=== PATIENT | female | born 1940 | race Caucasian/White ===

== ENCOUNTER 2020-08-20 17:54 | Inpatient (IN) | payer MEDICARE, MEDICAID, SELFPAY ==
--- NOTE | ~2020-08-20 | XR_ITS ---
EXAMINATION: XR foot LT min 3V DATE: 08/20/2020 20:37 INDICATION: Ischemic left forefoot TECHNIQUE: Dorsoplantar, lateral, and 2 oblique views of the left foot were obtained. COMPARISON: None. FINDINGS: The bones are osteopenic which limits the sensitivity for fracture however none is seen. Th ere is moderate osteoarthritis of the midfoot and in multiple interphalangeal joints. Soft tissue swe lling is seen over the distal foot. There is flexion at the second metatarsophalangeal joint. IMPRESSION: 1. Polyarticular osteoarthritis and distal soft tissue swelling of the foot without acute osseous fin dings identified. Reviewed, dictated and finalized at location A. RMEDIATE MANAGER IMPRESSION: 1. Polyarticular osteoarthritis and distal soft tissue swelling of the foot wit hout acute osseous findings identified.
[2020-08-20 17:53] VITALS: BP 136/88; PULSE 111; RESP 20; TEMP 37; O2SAT 96
--- NOTE | 2020-08-20 18:29 | ED.LOWEXIN ---
HPI - Extremity Injury (Lower) General Chief Complaint: Extremity Injury, Lower Stated Complaint: necrotic foot Time Seen by Provider: 08/20/20 18:01 Source: patient, EMS, old records reviewed and other Mode of arrival: EMS Limitations: clinical condition and dementia History of Present Illness HPI Narrative: 79-year-old female Poor historian, and arrives with incomplete paperwork from nursing facility which does not shed a lot of light on the history of her presentation The best I can piece together is that she is been complaining about pain in her feet for at least 2 or 3 weeks This on the heels of having tested positive for Covid in the last week of June Note that Eliquis 2.5 twice daily was part of the drug cocktail which Covid patients at that particular longterm received She was apparently evaluated with noninvasive vascular studies about 3 weeks ago This showed ischemic range ABIs of 0.43 on the right and 0.47 on the left according to the nurse and I spoke to At some point in that span she developed an ulcer on the left foot presumably ischemic that had been being treated by a wound nurse there It is unclear if referral for a vascular surgery opinion was ever entertained Apparently at some point in the last day or so the forefoot and toes on the left foot became dark purple and ischemic looking and she was sent for eval Related Data Allergies Allergy/AdvReac Type Severity Reaction Status Date / Time No Known Allergies Allergy Verified 08/20/20 19:42 Review of Systems Constitutional: Constitutional: Denies chills, Reports fatigue, Denies fever(s) and Reports weakness ENT: Denies sore throat Cardiovascular: Cardiovascular: Denies chest pain Respiratory: Respiratory: Denies cough and Denies dyspnea Gastrointestinal: Gastrointestinal: Denies diarrhea and Denies vomiting Musculoskeletal: Musculoskeletal: Reports myalgias, Reports arthralgias, Reports joint swelling and Reports muscle cramps Integumentary/Breasts: Skin/Breast: Reports rash Neurologic: Denies focal weakness and Reports numbness Endocrine: Endocrine: Denies excessive sweating and Denies polyuria Hematologic/Lymphatic: Hematologic/Lymphatic: Denies easy bleeding Exam Const: General: no acute distress and alert Nutritional Appearance: obese HENMT: Mouth: Yes moist mucous membranes Eyes: Conjunctivae: conjunctivae normal EOM: EOMs intact bilaterally Resp: Effort & Inspection: normal respiratory effort and not tachypneic Cardio: Rate: regular rate Rhythm: regular rhythm GI: GI Palp: Yes Soft to palpation and No Tenderness to palpation present (GI) Skin: Other: l foot, toes are necrotic and there is a large shallow ulcer Neuro: General: moves all extremities Speech: normal speech Extrem: Other: l foot necrotic toes, distal media foot, ischemic ulcer Course Course Emergency Course: d/w NH and Dr Tinsley, who in turn d/w pt's POA she had not been referred for vascular eval and they do not desire this, only an amputaion if clinically indicate d/w hospitalists for admit, d/w dr marquez who will see, may still suggest vascular eval Vital Signs Vital signs: Vital Signs Temperature 37.0 C 08/20/20 17:53 Pulse Rate 111 H 08/20/20 17:53 Respiratory Rate 08/20/20 17:53 Blood Pressure 136/88 08/20/20 17:53 Pulse Oximetry 96 08/20/20 17:53 Temperature 37.0 C 08/20/20 17:53 Pulse Rate 111 H 08/20/20 17:53 Respiratory Rate 08/20/20 17:53 Blood Pressure 136/88 08/20/20 17:53 Pulse Oximetry 96 08/20/20 17:53 Discharge Plan Discharge Clinical Impression: Ischemic necrosis of foot, Peripheral vascular disease Patient Disposition: Still a Patient Condition: Serious Follow-up/Referrals: Alvina Young MD [Primary Care Provider] -
--- NOTE | 2020-08-20 18:30 | PC.NURSE ---
called [facility] request med list, allergy list, and medical history. states will fax information
--- NOTE | 2020-08-20 18:35 | PC.NURSE ---
this RN to bedside. attempt x 1 to start IV access unsuccessful. spoke with Brock RUBALCAVA for possible ultrasound IV.
[2020-08-20 19:26] VITALS: PULSE 110; RESP 24; O2SAT 94
[2020-08-20 19:58] LABS: Partial Thromboplastin Time 41.7 SECONDS (22.3-36.8)
[2020-08-20] MEDS: HEPARIN SOD/D5W 100 UNITS/ML 25,000 UNITS/250 ML BAG 14 UNITS IV CONT (21:00)
[2020-08-20 21:02] VITALS: BP 168/86; PULSE 107; RESP 24; TEMP 36.6; O2SAT 95
--- NOTE | 2020-08-20 21:13 | PM.IMHP ---
H&P: HPI History of Present Illness Date/Time: 08/20/20 21:13 Chief complaint: necrotic foot, peripheral vascular disease Narrative: Marva Terry is a 79 year old female from [facility] with past medical history of COVID-19 06/2020, heart failure, GERD, dry eyes, allergies, vitamin-D deficiency, COPD who presents to the ED with complaints of left ischemic foot. Patient is a resident of [facility]. Patient is poor historian may have underlying dementia. Upon chart review appears patient had COVID-19 in June of 2020. Subsequently she started developing ischemia or left lower extremity in the foot which has been worked up at the end of July with arterial studies and x-ray which were not very significant. She does not remember when her foot started becoming ischemic. Patient has significant smoking history with COPD, but now lives in half-way. It appears patient has not had any other arterial emboli issues. She is on Xarelto and that may have been in response to these new ischemic toes or just prophylactic after having COVID-19. In the ED: Patient found to have ischemic foot. ER provider discussed case with POA who does not want vascular surgery evaluation, only amputation if needed. ER provider discussed case with general surgery who will be in consultation for amputation. Review of Systems Review of Systems: Narrative: Unable to evaluate to dementia. Patient had no complaints PMFSH Past Medical History Medical History Chronic pain COPD (chronic obstructive pulmonary disease) COVID-19 GERD (gastroesophageal reflux disease) Heart failure Seasonal allergies Vitamin D deficiency Family History Family History Other Unknown family medical history Social History Social History (Updated 08/21/20 @ 05:07 by Lobo Sheppard DO) Smoking status: Former smoker Alcohol intake: never Substance use: never Substance use type: does not use Living arrangements: half-way Additional living arrangements comments: [facility] Gender identity (if verbalized by the patient): Female Spiritual care concerns: No Meds Home Medications and Allergies Home Medications Medication Instructions Recorded Confirmed Type collagenase clostridium histo. 250 unit TOPICAL DAILY 08/20/20 08/21/20 History [Santyl] furosemide 40 mg PO DAILY 08/20/20 08/21/20 History potassium chloride 20 meq PO DAILY 08/20/20 08/21/20 History rivaroxaban [Xarelto] 2.5 mg PO DAILY 08/20/20 08/21/20 History tramadol 50 mg PO Q8H PRN 08/20/20 08/21/20 History albuterol sulfate 2.5 mg INHALATION Q4H PRN 08/21/20 08/21/20 History ascorbic acid (vitamin C) 1,000 mg PO DAILY 08/21/20 08/21/20 History budesonide-formoterol [Symbicort] 2 puff INHALATION Q12H 08/21/20 08/21/20 History cholecalciferol (vitamin D3) 50 mcg PO DAILY 08/21/20 08/21/20 History [Vitamin D3] docusate sodium 100 mg PO DAILY 08/21/20 08/21/20 History gentamicin 1 applic TOPICAL DAILY 08/21/20 08/21/20 History loratadine [Allergy Relief 10 mg PO DAILY 08/21/20 08/21/20 History (loratadine)] multivitamin with minerals [All 1 tablet PO DAILY 08/21/20 08/21/20 History Purpose Multivitamin-Min] polyethylene glycol 3350 [Miralax] 17 g PO DAILY 08/21/20 08/21/20 History Allergies Allergy/AdvReac Type Severity Reaction Status Date / Time No Known Allergies Allergy Verified 08/21/20 01:00 Vital Signs Vital Signs - 24 hr 08/20/20 17:53 08/20/20 19:26 08/20/20 21:02 Temperature 37.0 C 36.6 C Pulse Rate 111 H 110 H 107 H Respiratory Rate 20 24 H 24 H Blood Pressure 136/88 168/86 H Pulse Oximetry 96 94 95 Exam Narrative: Exam Narrative: - GENERAL: Pleasant elderly woman in no acute distress - EYES: EOMI. Anicteric. Bilateral artificial lens. - HENT: Moist mucous membranes. - LUNGS: Clear t
[2020-08-20 23:40] VITALS: BP 148/79; PULSE 105; RESP 20; TEMP 36.8; O2SAT 100
[2020-08-20] MEDS: GABAPENTIN 300 MG CAPSULE PO (23:43)
--- NOTE | 2020-08-20 23:53 | PC.NURSE ---
pt pulled out her IVs, attempting to start another at this time to continue heparin drip
--- NOTE | 2020-08-21 00:11 | ADMGEN ---
This patient, Marva Terry, was admitted to 2 Medical Room 243-01@ 0010 Patient/family oriented to hospital policies and general routines including ID bracelet, bed and alarms, visiting hours, pain management, procedures, bathroom and other care routines, personal items, smoking policy, room service/diet, and visiting hours. Information on how to activate the Rapid Response Team has been discussed. Patient/Family are encouraged to report perceived risks to care and to ask questions if they do not understand what they are told or what they should do.
[2020-08-21 00:45] VITALS: BP 133/73; PULSE 104; RESP 20; TEMP 37.3; O2SAT 100; BMI 36.3
[2020-08-21 01:52] LABS: Estimated CRCL calculation 69 ml/min; Estimated Glomerular Filt Rate > 60
[2020-08-21] MEDS: LACTATED RINGERS 1,000 ML 125 ML IV CONT (03:04)
[2020-08-21 03:34] LABS: Partial Thromboplastin Time 60.8 SECONDS (22.3-36.8)
[2020-08-21] MEDS: HEPARIN SODIUM 5,000 UNITS/ML VIAL 3000 UNITS IV PUSH (03:42)
[2020-08-21 06:00] VITALS: BP 125/65; PULSE 93; RESP 20; TEMP 37.1; O2SAT 98
[2020-08-21 06:31] LABS: Basophils Absolute Auto 0.1 K/mm3 (0.0-0.1); Basophils Percent Auto 0.6 % (0.2-1.2); Eosinophils Absolute Auto 0.1 K/mm3 (0-0.3); Eosinophils Percent Auto 0.5 % (0-4.4); Hematocrit 32.5 % (37.0-47.0); Immature Granulocyte Absolute 0.21 K/mm3 (0.00-0.031); Lymphocytes Absolute Auto 1.54 K/mm3 (0.9-3.2); Lymphocytes Percent Auto 14.9 % (18.3-44.2); Mean Corpuscular HGB Conc 33.8 g/dl (32-36); Mean Corpuscular Hemoglobin 31.3 pg (26-34); Mean Corpuscular Volume 92.6 fl (80-100); Mean Platelet Volume 10.3 fl (7.4-10.4); Monocytes Absolute Auto 0.9 K/mm3 (0.1-0.6); Monocytes Percent Auto 8.4 % (2.6-8.5); Neutrophils Absolute Auto 7.6 K/mm3 (1.3-6.7); Neutrophils Percent Auto 73.6 % (45.5-73.1); Nucleated Red Blood Cells Perc 0.2 % (0.0-0.2); Platelet Count Result 371 k/mm3 (150-375); Red Blood Count 3.51 M/mm3 (4.2-5.4); Red Cell Distribution Width 13.8 % (11.5-14.5); White Blood Count 10.3 K/mm3 (4.5-10.0)
[2020-08-21 06:52] LABS: Anion Gap 7 mmol/L (8-16); Blood Urea Nitrogen 14 mg/dL (7-17); Calcium 8.2 mg/dL (8.4-10.2); Carbon Dioxide 30 mmol/L (22-30); Chloride 91 mmol/L (98-107); Estimated CRCL calculation 69 ml/min; Estimated Glomerular Filt Rate > 60; Glucose 110 mg/dL (65-105); Potassium 4.1 mmol/L (3.4-5.0); Sodium 128 mmol/L (137-145)
--- NOTE | 2020-08-21 08:07 | PM.CNOR ---
Assessment and Plan Assessment and plan (1) Peripheral vascular disease: Code(s): I73.9 - Peripheral vascular disease, unspecified Status: Acute (2) Ischemic necrosis of foot: Code(s): I96 - Gangrene, not elsewhere classified Status: Acute Assessment and Plan: Patient admitted to floor last night with history of severe arterial disease bilateral lower extremities and dry gangrene necrotic changes to the left forefoot and toes. Patient awake but does not respond to questions or follow commands. Unsure of activity and ambulatory status prior to admission. Due to arterial flow being the underlying etiology as well as necessary for healing after any type of surgery, strongly recommend vascular surgery assessment to guide predictable level of amputation and see if any zoroastrian of blood flow is possible to aid in healing and possibly preserve limb and soft tissue. In the absence of vascular surgery evaluation, other option is to allow foot and toes to declare themselves to help guide amputation. Grim prognosis given the severity of vascular compromise as well as medical comorbidities. Anticipate future problems on the right side as well without vascular surgery evaluation. History of Present Illness HPI Consult date: 08/21/20 Requesting physician: Jameel Briones MD Chief complaint: necrotic foot, peripheral vascular disease Narrative: 79-year-old woman with known lower extremity peripheral arterial disease presented to the emergency room yesterday with ischemic changes to the left foot. Patient retirement resident. Apparently they had done blood flow studies which showed severely compromised arterial flow to both lower extremities. Ischemic changes to the toes and forefoot over the past several weeks. By report they have not been evaluated by vascular surgery. Patient with minimal complaints of pain secondary to presumed neuropathy. Unaware of ambulatory status as patient is poor historian. Review of Systems Constitutional: Constitutional: Denies chills, Reports fatigue, Denies fever(s) and Reports weakness ENT: Denies sore throat Cardiovascular: Cardiovascular: Denies chest pain Respiratory: Respiratory: Denies cough and Denies dyspnea Gastrointestinal: Gastrointestinal: Denies diarrhea and Denies vomiting Musculoskeletal: Musculoskeletal: Reports myalgias, Reports arthralgias, Reports joint swelling and Reports muscle cramps Integumentary/Breasts: Skin/Breast: Reports rash Neurologic: Denies focal weakness and Reports numbness Endocrine: Endocrine: Denies excessive sweating and Denies polyuria Hematologic/Lymphatic: Hematologic/Lymphatic: Denies easy bleeding PMFSH Past Medical History Medical History Chronic pain COPD (chronic obstructive pulmonary disease) COVID-19 GERD (gastroesophageal reflux disease) Heart failure Seasonal allergies Vitamin D deficiency Family History Family History Other Unknown family medical history Social History Social History Smoking status: Former smoker Alcohol intake: never Substance use: never Substance use type: does not use Living arrangements: retirement Additional living arrangements comments: [facility] Gender identity (if verbalized by the patient): Female Spiritual care concerns: No Meds Home Medications and Allergies Home Medications Medication Instructions Recorded Confirmed Type collagenase clostridium histo. 250 unit TOPICAL DAILY 08/20/20 08/21/20 History [Santyl] furosemide 40 mg PO DAILY 08/20/20 08/21/20 History potassium chloride 20 meq PO DAILY 08/20/20 08/21/20 History rivaroxaban [Xarelto] 2.5 mg PO DAILY 08/20/20 08/21/20 History tramadol 50 mg PO Q8H PRN 08/20/20 08/21/20 History albuterol sulfate 2.5 mg INHALATION Q
[2020-08-21] MEDS: DOCUSATE SODIUM 100 MG CAPSULE PO (09:54)
[2020-08-21] MEDS: ASCORBIC ACID 500 MG TABLET 1000 MG PO (09:54)
[2020-08-21] MEDS: THERAPEUTIC MULTIVITAMINS/MINERALS TAB (*BKC) 1 TABLET PO (09:54)
[2020-08-21] MEDS: CHOLECALCIFEROL 1,000 UNITS TABLET 1000 UNITS PO (09:54)
[2020-08-21] MEDS: COLLAGENASE OINT 30 GM TUBE 1 APPLIC TOPICAL (09:55)
[2020-08-21] MEDS: GENTAMICIN SULFATE 0.1% CR 15 GM TUBE 1 APPLIC TOPICAL (09:55)
[2020-08-21] MEDS: LORATADINE 10 MG TABLET PO (09:55)
[2020-08-21] MEDS: polyethylene glycoL 3350 17 GM POWD.PACK PO (10:30)
[2020-08-21] MEDS: traMADol HCL (*CRX) 50 MG TABLET PO (10:31)
[2020-08-21] MEDS: GABAPENTIN 300 MG CAPSULE PO ×2 (10:31→15:23)
--- NOTE | 2020-08-21 12:38 | PM.TDS ---
Transfer Discharge Sum: Prov Provider Date of admission: 08/20/20 19:32 Primary care physician: Alvina Young MD Admitting clinician: Gretchen Alberto MD Consults: 08/20/20 19:35 Consult to Physician Routine Comment: Consulting Provider: Damian Coto Reason for consultation: possible amputation Has provider been notified: Yes DS: Admitting Diagnosis Admitting Diagnosis Admitting Diagnosis: necrotic foot, peripheral vascular disease DS: Discharge Diagnosis Discharge Diagnosis (1) Ischemic necrosis of foot: Code(s): I96 - Gangrene, not elsewhere classified Status: Acute Assessment and Plan: - left lower extremity ischemic foot, no palpable pulses - consulting Dr. Lafleur possible surgery amputation, ER provider discussed with family for no vascular surgery at this time - heparin drip for ischemia -pain control with tramadol - Zofran for nausea - bowel regimen: docusate and MiraLax - IV antibiotics: Zosyn, until surgical evaluation - IV fluids Ringer's lactate 125 cc/hour - patient had COVID-19 in 06/2020, this may be a late term sequelae of COVID -08/03/2020 patient had arterial duplex lower extremities which showed no evidence of hemodynamically significant stenosis -08/03/2020 two-view left foot x-ray no acute abnormality - it appears this ischemic foot has been going on since the end of July and is subacute (2) Peripheral vascular disease: Code(s): I73.9 - Peripheral vascular disease, unspecified Status: Acute Assessment and Plan: - patient was started on heparin drip in the ED, takes Xarelto at home which may have been for COVID-19. Also patient is developing ischemia in the right hand pinky, at this time being hypercoagulable with multiple ischemic limbs and digits it will be better to continue heparin drip and re-evaluate. Transfer Discharge Sum: Med Medications Active and Home Medications: Home Medications collagenase clostridium histo. [Santyl] 250 unit TOPICAL DAILY 08/20/20 [History Confirmed 08/21/20] furosemide 40 mg PO DAILY 08/20/20 [History Confirmed 08/21/20] potassium chloride 20 meq PO DAILY 08/20/20 [History Confirmed 08/21/20] rivaroxaban [Xarelto] 2.5 mg PO DAILY 08/20/20 [History Confirmed 08/21/20] tramadol 50 mg PO Q8H PRN 08/20/20 [History Confirmed 08/21/20] albuterol sulfate 2.5 mg INHALATION Q4H PRN 08/21/20 [History Confirmed 08/21/20] ascorbic acid (vitamin C) 1,000 mg PO DAILY 08/21/20 [History Confirmed 08/21/20] budesonide-formoterol [Symbicort] 2 puff INHALATION Q12H 08/21/20 [History Confirmed 08/21/20] cholecalciferol (vitamin D3) [Vitamin D3] 50 mcg PO DAILY 08/21/20 [History Confirmed 08/21/20] docusate sodium 100 mg PO DAILY 08/21/20 [History Confirmed 08/21/20] gentamicin 1 applic TOPICAL DAILY 08/21/20 [History Confirmed 08/21/20] loratadine [Allergy Relief (loratadine)] 10 mg PO DAILY 08/21/20 [History Confirmed 08/21/20] multivitamin with minerals [All Purpose Multivitamin-Min] 1 tablet PO DAILY 08/21/20 [History Confirmed 08/21/20] polyethylene glycol 3350 [Miralax] 17 g PO DAILY 08/21/20 [History Confirmed 08/21/20] Active Medications Acetaminophen (Acetaminophen 325 Mg Tablet) 650 mg PO Q4H PRN PRN Reason: Mild Pain (1-3) or Fever Albuterol (Albuterol Sulfate Neb 2.5 Mg/3 Ml Inh) 2.5 mg INHALATION Q4H PRN PRN Reason: Shortness Of Breath Ascorbic Acid (Ascorbic Acid 500 Mg Tablet) 1,000 mg PO DAILY [facility] Last Admin: 08/21/20 09:54 Dose: 1,000 mg Documented by: Budesonide/Formoterol Fumarate (Budesonide/Form 160-4.5 Mcg (*Sp)) 2 puff INHALATION Q12HRT [facility] Last Admin: 08/21/20 11:57 Dose: 2 puff Documented by: Collagenase (Collagenase Oint 30 Gm Tube) 1 applic TOPICAL DAILY [facility] Last Admin: 08/21/20 09:55 Dose: 1 applic Documented by: Docusate Sodium (Docusate Sodium 100 Mg Capsule) 100 mg PO DAILY [facility] Last Admin: 08/21/20 09:54 Dose: 100 mg Documented by: Gabapentin (Gabapentin 300 Mg Capsule)
[2020-08-21 14:00] VITALS: BP 139/88; PULSE 96; RESP 20; TEMP 36.9; O2SAT 99
[2020-08-21] MEDS: HEPARIN SOD/D5W 100 UNITS/ML 25,000 UNITS/250 ML BAG 14 UNITS IV CONT (15:22)
[2020-08-21] MEDS: HYDROcodone/acetaminophen (*CRX) 5-325 MG TABLET 1 TAB PO (16:31)
--- NOTE | 2020-08-21 17:52 | PC.NURSE ---
Patient accepted at [place], [place]. Report given to Ansley RUBALCAVA. Bed assignment received. [facility] here to transport patient.
--- NOTE | 2020-08-21 17:55 | PC.NURSE ---
Patient transferred via [facility] ambulance ([facility]) and Heparin gtt continued for transfer. 1740 PTT drawn prior to transfer - scheduled per Heparin protocol. Called Ansley at [facility] and notified her that PTT was obtained and we will notify her of results when they are received. [facility] took patient with our IV pump and will return pump.
[2020-08-21 17:59] LABS: Partial Thromboplastin Time 107.1 SECONDS (22.3-36.8)
--- NOTE | 2020-08-21 19:47 | PC.NURSE ---
1745 PTT 107. Called to Ansley at [facility]
== END 2020-08-21 17:55 | disposition short-term general hospital (02) | DRG 301 ==
LOC: ANHED 19:48 → ANH2MED 21:53
PROVIDERS: Student in an Organized Health Care Education/Training Program; Admitting Provider Family Medicine; Emergency Provider Emergency Medicine; PCP Family Medicine; Visit Provider Family Medicine
DX: I70.262 Atherosclerosis of native arteries of extremities with gangrene, left leg (principal); J44.9 Chronic obstructive pulmonary disease, unspecified; B94.8 Sequelae of other specified infectious and parasitic diseases; K21.9 Gastro-esophageal reflux disease without esophagitis; I50.9 Heart failure, unspecified; E55.9 Vitamin D deficiency, unspecified
CPT/HCPCS: 36415; 73630; 80048; 82565; 83735; 85025; 85730; 94640; 99285; A9270; J1644; J2543; J7120

== ENCOUNTER 2021-02-24 08:29 | Inpatient (IN) | payer MEDICARE, MEDICAID, SELFPAY ==
[2021-02-24] VITALS (26 sets, daily range): BP systolic 123–144; BP diastolic 50–99; PULSE 77–101; RESP 12–20; TEMP 35.9–36.4; O2SAT 84–100
--- NOTE | ~2021-02-24 | XR_ITS ---
EXAMINATION: XR abdomen/kub 1V DATE: 03/02/2021 18:23 INDICATION: Ileitis. Abdominal pain. TECHNIQUE: A supine view of the abdomen on 2 radiographs was obtained. COMPARISON: CT abdomen and pelvis 02/24/2021, small bowel series 02/25/2021 FINDINGS: There are multiple dilated loops of small bowel. There is a capsule in the right abdomen. T here are calcified uterine fibroids. IMPRESSION: 1. Capsule in small bowel in the right abdomen. 2. Dilated small bowel, consistent with small bowel obstruction. 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 Colonoscopy is recommended. Reviewed, dictated and finalized at location A. IMPRESSION: 1. Capsule in small bowel in the right abdomen. 2. Dilated small bowel, consistent with small bowel obstruction. 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 Colonoscopy is recommended.
--- NOTE | ~2021-02-24 | XR_ITS ---
EXAMINATION: XR abdomen obstructive series DATE: 03/01/2021 08:42 INDICATION: Abdominal pain . Ileitis. TECHNIQUE: Frontal supine and upright views of the abdomen were obtained. COMPARISON: 02/25/2021 FINDINGS: Interval decrease in the amount of gas within several now nondilated loops of small bowel. There is a lso a small amount of gas along with some fluid scattered throughout the colon. No pneumatosis or marielle e intraperitoneal gas. Large partially calcified mass and smaller calcified nodule in the pelvis like ly representing degenerated uterine fibroids. Severe lumbar spondylosis. Old right seventh and eighth rib fracture deformities. Visualized bilateral mid to lower lungs are clear. Heart size is normal. IMPRESSION: 1. Nonspecific nonobstructive bowel gas pattern. 2. Calcified uterine fibroids. Reviewed, dictated and finalized at location A.
--- NOTE | ~2021-02-24 | US_ITS ---
EXAMINATION: US pelvic complete DATE: 02/28/2021 14:08 INDICATION: Follow-up right adnexal cyst seen on prior study Comparison:CT dated 02/24/2021 TECHNIQUE: Multiple transabdominal and endovaginal sonographic images of the pelvis performed. FINDINGS: The uterus measures 7.4 x 2.5 x 5.4 cm. There are coarse calcifications in the uterus, like ly related to underlying fibroid changes. There is a hypoechoic mass containing coarse calcifications posterior aspect of the uterus measuring 4.1 x 3.8 x 2.9 cm. The endometrium is not adequately visua lized. There is a right adnexal cyst measuring 11.3 x 6.5 x 5.3 cm without significant soft tissue component . Left ovary is not well visualized. No adnexal masses are seen. No free fluid in the pelvis. There is no free fluid in the pelvis. There are no abnormal masses seen on either side. IMPRESSION: 1. 11.3 cm cystic mass in the right adnexa, likely benign cystadenoma, although cystadenocarcinoma is not excluded. 2: Multiple uterine fibroids, largest exophytic posteriorly, largely calcified measuring 4.1 x 3.8 x 2.9 cm. Reviewed, dictated and finalized at location B.
--- NOTE | ~2021-02-24 | XR_ITS ---
XR sm bowel follow through WS DATE: 02/25/2021 17:00 INDICATION: Ileus versus small bowel obstruction TECHNIQUE: Serial images of the abdomen after oral administration of 450 cc Omnipaque 350 water solub le contrast material COMPARISON: None FINDINGS: There are abnormally dilated gas distended small bowel segments throughout the jejunum and ileum, sparing the distal ileum, suggesting distal small bowel partial obstruction versus adynamic il eus. Correlation is advised. At 3 hours the contrast material has progressed into the mid small bowel . Contrast material reaches the distal colon and rectum by 7 1/2 hours. IMPRESSION: Dilatation of small bowel, sparing the very distal small bowel, with delayed contrast mat erial transit. Findings suggest very distal small bowel partial obstruction versus adynamic ileus. Reviewed, dictated and finalized at Location A. Reviewed, dictated and finalized at location A. IMPRESSION: Dilatation of small bowel, sparing the very distal small bowel, wit h delayed contrast material transit. Findings suggest very distal small bowel p artial obstruction versus adynamic ileus.
--- NOTE | ~2021-02-24 | CT_ITS ---
EXAMINATION: CT abdomen pelvis w con EXAM DATE: 02/24/2021 12:06 INDICATION: Central abdominal pain, nausea and vomiting. TECHNIQUE: Spiral CT of the abdomen and pelvis was performed following intravenous injection of 100 m L Omnipaque 350. Axial, coronal and sagittal images of the abdomen and pelvis were reviewed. The do se-length product (DLP) for this examination was 1310.05 mGy-cm. The exposure was tailored according to patient size (auto mA exposure control), and iterative reconstruction (ASIR) was used as addition al dose reduction technique. There is no prior study for comparison. FINDINGS: Ileum has diffuse enhancing mildly thickened mucosa, appearance consistent with ileitis. En tire small bowel is moderately distended with air-fluid levels, probably from ileitis, ileus. Appendi x is also dilated and fluid-filled but without adjacent inflammation or obstructing stone, probably t he same process rather than acute appendicitis. The terminal ileum has thickened wall. Nodular liver contour consistent with cirrhosis. Spleen, adrenal glands, pancreas are unremarkable. T here are gallstones within an otherwise unremarkable gallbladder. No evidence of obstructive biliary disease. Portal and splenic veins are patent. Kidneys enhance symmetrically. There is no hydronep hrosis. Calcified fibroids, largest measuring 4 cm. There is mass arising from the right adnexal reg ion measuring 14 x 6 cm which is homogeneous, suspected to be cystic containing proteinaceous fluid. Could be cystic ovarian neoplasm, benign or malignant. The bladder is unremarkable. There is no retr operitoneal or pelvic lymphadenopathy. There is mild sigmoid colonic diverticulosis. There is no adjacent inflammatory change to suggest di verticulitis. There is small sliding gastroesophageal hiatal hernia. Small amount of colonic stool. No free intraperitoneal gas. Mild cardiomegaly. The lung bases are unremarkable. There are no o steoblastic or osteolytic lesions identified. IMPRESSION: 1. Moderately thickened enhancing ileal mucosa, ileitis with additional thickening at the terminal i leum. Moderately dilated small bowel, probably ileus or less likely partial obstruction. Could be inf ectious or inflammatory bowel disease etiology. 2. Dilated fluid-filled appendix probably also same process. 3. Cystic right ovarian mass, benign or malignant neoplasm most likely. 4. Mild sigmoid diverticulosis. 5. Small hiatal hernia. 6. Cirrhosis. 7. Cholelithiasis. 8. Fibroids Reviewed, dictated and finalized at location B. IMPRESSION: 1. Moderately thickened enhancing ileal mucosa, ileitis with additional thicke charles at the terminal ileum. Moderately dilated small bowel, probably ileus or l ess likely partial obstruction. Could be infectious or inflammatory bowel disea se etiology. 2. Dilated fluid-filled appendix probably also same process. 3. Cystic right ovarian mass, benign or malignant neoplasm most likely. 4. Mild sigmoid diverticulosis. 5. Small hiatal hernia. 6. Cirrhosis. 7. Cholelithiasis. 8. Fibroids
--- NOTE | ~2021-02-24 | XR_ITS ---
EXAMINATION: XR abdomen/kub 1V DATE: 03/03/2021 07:13 INDICATION: Small bowel obstruction TECHNIQUE: A supine view of the abdomen on 2 radiographs was obtained. COMPARISON: CT dated 02/24/2021 and KUB dated 03/02/2021 FINDINGS: Several mildly dilated loops of small bowel consistent with persistent small bowel obstruction. A rad iopaque capsule has likely advanced, now projecting over the right lower quadrant, unclear whether in the cecum or a more proximal small bowel loop. Large calcified mass in the pelvis with adjacent smal ler calcified nodule consistent with degenerated uterine fibroids. Moderate to severe lumbar spondylo sis. IMPRESSION: 1. Persistent small bowel obstruction. 2. Radiopaque capsule in the right lower quadrant, unclear whether proximal or distal to the level of the ileocecal valve. Reviewed, dictated and finalized at location A.
--- NOTE | ~2021-02-24 | XR_ITS ---
EXAMINATION: XR sm bowel follow through DATE: 03/03/2021 11:39 INDICATION: Small bowel obstruction TECHNIQUE: Oral contrast was administered, and sequential radiographs of the abdomen were obtained un til oral contrast was noted to be in the proximal colon. Spot fluoroscopic images of the small bowel were obtained. Fluoroscopy exposure time was 0.6 minutes. The DAP for this procedure was 164.66 Gycm2 . COMPARISON: None. FINDINGS: There are calcified uterine fibroids. The radiopaque capsule projects over the right lower quadrant and is no longer visible after contrast passes into the colon. Transit time from the stomach to proximal colon was approximately 90 minutes. There are persistently dilated loops of small bowel. The terminal ileum is difficult to visualize with fluoroscopy. No tethering or abnormal mass effect observed upon the small bowel with real-time fluoroscopy. IMPRESSION: 1. Findings consistent with ileus versus partial small bowel obstruction. Reviewed, dictated and finalized at location A.
[2021-02-24 09:00] LABS: Add Urine Microscopic? YES; Appearance Urine Clear (Clear); Bilirubin Urine Negative (Negative); Blood Urine Negative (Negative); Color Urine Yellow (Yellow); Glucose Urine UA Negative (Negative); Ketones Urine Trace mg/dL (Negative); Leukocyte Esterase Ur Negative LEU/UL (Negative); Nitrate Urine Negative (Negative); Protein Urine Negative (Negative); RBC Urine 0-2 /hpf (0-2); Specific Grav Ur 1.016 (1.001-1.035); Squamous Epithelial Cell Urine Rare /hpf (Few); Urobilinogen Urine Negative mg/dL (<2.0); WBC Urine 0-3 /hpf
[2021-02-24 09:01] LABS: Basophils Percent Auto 0.2 % (0.2-1.2); Eosinophils Percent Auto 0.2 % (0-4.4); Hematocrit 37.4 % (37.0-47.0); Immature Granulocyte Absolute 0.03 K/mm3 (0.00-0.031); Immature Granulocyte Percent A 0.3 % (0-0.5); Lymphocytes Absolute Auto 1.93 K/mm3 (0.9-3.2); Lymphocytes Percent Auto 22.3 % (18.3-44.2); Mean Corpuscular HGB Conc 32.1 g/dl (32-36); Mean Corpuscular Hemoglobin 30.2 pg (26-34); Mean Platelet Volume 9.6 fl (7.4-10.4); Neutrophils Absolute Auto 5.7 K/mm3 (1.3-6.7); Platelet Count Result 423 k/mm3 (150-375); Red Blood Count 3.98 M/mm3 (4.2-5.4); Red Cell Distribution Width 15.8 % (11.5-14.5); White Blood Count 8.7 K/mm3 (4.5-10.0)
[2021-02-24] MEDS: SODIUM CHLORIDE 0.9% IV 1,000 ML 150 ML IV CONT (09:12)
[2021-02-24 09:18] LABS: Albumin Level 3.5 g/dL (3.5-5.1); Alkaline Phosphatase 95 U/L (38-126); Aspartate Amino Transferase 20 U/L (14-36); Bilirubin,Total 0.5 mg/dL (0.2-1.3); Blood Urea Nitrogen 13 mg/dL (7-17); Carbon Dioxide 36 mmol/L (22-30); Estimated CRCL calculation 56 ml/min; Estimated Glomerular Filt Rate > 60; Glucose 115 mg/dL (65-105)
[2021-02-24 09:26] LABS: Alanine Aminotransferase 7 U/L (4-35); Anion Gap 7 mmol/L (8-16); Calcium 8.9 mg/dL (8.4-10.2); Chloride 93 mmol/L (98-107); Lipase 18 U/L (23-300); Potassium 3.8 mmol/L (3.4-5.0); Sodium 136 mmol/L (137-145)
--- NOTE | 2021-02-24 14:00 | ED.ABDPAIN ---
HPI - Abdominal Pain General Chief Complaint: Abdominal Pain Stated Complaint: ABD pain & vomiting Time Seen by Provider: 02/24/21 08:54 Source: patient Mode of arrival: EMS Limitations: no limitations History of Present Illness HPI narrative: 80-year-old skilled nursing resident with a history of COPD, CHF, chronic pain, GERD vitamin D deficiency was brought in from the skilled nursing with complaints of diffuse abdominal pain since this morning. Patient denies any nausea or vomiting. She states he is constipated had taken a laxative last night with no results. She denies any urinary symptoms. No history of chest pain or shortness of breath. MD elicited complaint: abdominal pain Pertinent past history: constipation Onset (ago): day(s) (1) Pain Consistency: constant Location: diffuse Severity: moderate Quality: cramping Radiation: none Migration to: no migration Exacerbating factors: nothing Relieving factors: nothing Associated symptoms: denies other symptoms Related Data Home Medications Medication Instructions Recorded Confirmed furosemide 40 mg PO DAILY 08/20/20 08/21/20 potassium chloride 20 meq PO DAILY 08/20/20 08/21/20 rivaroxaban [Xarelto] 2.5 mg PO BID 08/20/20 08/21/20 budesonide-formoterol [Symbicort] 2 puff INHALATION Q12H 08/21/20 08/21/20 cholecalciferol (vitamin D3) 50 mcg PO DAILY 08/21/20 08/21/20 [Vitamin D3] multivitamin with minerals [All 1 tablet PO DAILY 08/21/20 08/21/20 Purpose Multivitamin-Min] polyethylene glycol 3350 [Miralax] 17 g PO DAILY PRN 08/21/20 08/21/20 acetaminophen 650 mg PO Q6-8H PRN 02/24/21 carboxymethylcellulose sodium 1 drp EACH EYE BID 02/24/21 [TheraTears] gabapentin 100 mg PO TID 02/24/21 hydrocodone-acetaminophen 1 tablet PO Q8H PRN 02/24/21 loperamide 2 mg PO Q4H PRN 02/24/21 loratadine 10 mg PO DAILY 02/24/21 naproxen 500 mg PO BID 02/24/21 pantoprazole [Protonix] 40 mg PO BID 02/24/21 paroxetine HCl [Paxil] 10 mg PO QAM 02/24/21 sennosides-docusate sodium 1 tab-cap PO HS 02/24/21 [Senokot-S] Allergies Allergy/AdvReac Type Severity Reaction Status Date / Time No Known Allergies Allergy Verified 02/24/21 08:52 Review of Systems Review of Systems: All systems reviewed & are unremarkable except as noted in HPI and below Constitutional: Constitutional: Reports no additional constitutional complaints Eyes: Eyes: Reports no additional eye complaints ENT: Reports system reviewed and no additional complaints, except as documented Cardiovascular: Cardiovascular: Reports no additional cardiovascular complaints Respiratory: Respiratory: Reports no additional respiratory complaints Gastrointestinal: Gastrointestinal: Reports as per HPI Genitourinary: Genitourinary: Reports no additional female genitourinary complaints Musculoskeletal: Musculoskeletal: Reports no additional musculoskeletal complaints [facility] Past Medical History Medical History Chronic pain COPD (chronic obstructive pulmonary disease) COVID-19 GERD (gastroesophageal reflux disease) Heart failure Seasonal allergies Vitamin D deficiency Family History Family History Other Unknown family medical history Social History Social History Smoking status: Former smoker Alcohol intake: never Substance use: never Substance use type: does not use Additional living arrangements comments: [facility] Gender identity (if verbalized by the patient): Female Spiritual care concerns: No Exam Narrative: Exam Narrative: GENERAL: Well-appearing, well-nourished, and in no acute distress. HEAD: Normocephalic, atraumatic. EYES: PERRLA and EOMI. ENT: Nares clear, no rhinorrhea or epistaxis. Mucous membranes moist. NECK: Supple. CHEST: Clear to auscultation. No respiratory distress. HEART: Regular rate and
--- NOTE | 2021-02-24 17:09 | ADMGEN ---
This patient, Marva Terry, was admitted to Medical Room 250-01. Patient/family oriented to hospital policies and general routines including ID bracelet, bed and alarms, visiting hours, pain management, procedures, bathroom and other care routines, personal items, smoking policy, room service/diet, and visiting hours. Information on how to activate the Rapid Response Team has been discussed. Patient/Family are encouraged to report perceived risks to care and to ask questions if they do not understand what they are told or what they should do.
[2021-02-24] MEDS: ACETAMINOPHEN 325 MG TABLET 650 MG PO (17:40)
[2021-02-24] MEDS: SODIUM CHLORIDE 0.9% IV 1,000 ML 125 ML IV CONT ×2 (17:40→23:52)
[2021-02-24] MEDS: ALBUTEROL SULFATE NEB 2.5 MG/0.5 ML INH 5 MG INHALATION (21:58)
[2021-02-24] MEDS: IPRATROPIUM BR 0.02% INH SOLN 0.5 MG/2.5 ML VIAL INHALATION (21:58)
[2021-02-24] MEDS: ONDANSETRON INJ 4 MG/2 ML VIAL IV PUSH (23:51)
[2021-02-24] MEDS: MORPHINE SULFATE (*CRX) 4 MG/ML INJ IV PUSH (23:52)
[2021-02-25] VITALS (9 sets, daily range): BP systolic 114–146; BP diastolic 53–64; PULSE 69–80; RESP 15–20; TEMP 36.1–36.4; O2SAT 100
--- NOTE | 2021-02-25 00:22 | PM.IMHP ---
H&P: HPI History of Present Illness Date/Time: 02/24/21 [id number] this is a 80-year-old female patient who resides at [facility]. She has a very poor historian. Was broadened to the ER from the long-term with complaints of diffuse abdominal pain since this morning she denied any nausea vomiting she took a laxative last night for constipation and had no relief. No history of any chest pain. She had abdominal/pelvis CT which was read as the following 1. Moderately thickened enhancing ileal mucosa, ileitis with additional thickening at the terminal ileum. Moderately dilated small bowel, probably ileus or less likely partial obstruction. Could be infectious or inflammatory bowel disease etiology. 2. Dilated fluid-filled appendix probably also same process. 3. Cystic right ovarian mass, benign or malignant neoplasm most likely. 4. Mild sigmoid diverticulosis. 5. Small hiatal hernia. 6. Cirrhosis. 7. Cholelithiasis. 8. Fibroids ER physician has consulted surgery on IV fluids in the emergency room and she has gotten morphine since her admission. The patient stated that she is feeling much better. The patient is being admitted for inpatient on the date of service 02/24/2021 Chief Complaint: Abdominal pain Review of Systems Review of Systems: ROS unobtainable: Yes unobtainable due to mental status Constitutional: Constitutional: Reports as per HPI and Reports no additional constitutional complaints Eyes: Eyes: Reports as per HPI and Reports no additional eye complaints ENT: Reports system reviewed and no additional complaints, except as documented and Reports Normal hearing present Cardiovascular: Cardiovascular: Reports no additional cardiovascular complaints Respiratory: Respiratory: Reports no additional respiratory complaints and Reports no additional respiratory complaints Gastrointestinal: Gastrointestinal: Reports as per HPI and Reports no additional gastrointestinal complaints Musculoskeletal: Musculoskeletal: Reports no additional musculoskeletal complaints Integumentary/Breasts: Skin/Breast: Reports system reviewed and no additional complaints, except as docu and Reports as per HPI Neurologic: Reports system reviewed and no additional complaints, except as documented, Reports as per HPI and Reports Normal hearing present Psychiatric: Psychiatric: Reports no additional psychiatric complaints and Reports as per HPI Endocrine: Endocrine: Reports no additional endocrine complaints Hematologic/Lymphatic: Hematologic/Lymphatic: Reports no additional hematologic/lymphatic complaints Allergic/Immunologic: Allergic/Immunologic: Reports no additional allergic/immunologic complaints [facility] Past Medical History Medical History (Updated 02/25/21 @ 00:47 by Johnna Miller NP) Chronic anticoagulation Chronic GERD Chronic pain COPD (chronic obstructive pulmonary disease) COVID-19 Depression with anxiety GERD (gastroesophageal reflux disease) Heart failure 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 She tells me that she has 1 child. 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 The patient is not a reliable source. The patient is listed as a full code and her previous occupation is unknown on her face sheet. Smoking status: Former smoker Alcohol intake: never Substance use: never Substance use type: does not use Additional living arrangements comments: [facility] Gender iden
[2021-02-25] MEDS: IPRATROPIUM BR 0.02% INH SOLN 0.5 MG/2.5 ML VIAL INHALATION ×3 (02:47→13:14)
[2021-02-25] MEDS: ALBUTEROL SULFATE NEB 2.5 MG/0.5 ML INH 5 MG INHALATION ×3 (02:48→13:14)
[2021-02-25 06:13] LABS: Anion Gap 4 mmol/L (8-16); Basophils Percent Auto 0.3 % (0.2-1.2); Blood Urea Nitrogen 12 mg/dL (7-17); Calcium 7.9 mg/dL (8.4-10.2); Carbon Dioxide 31 mmol/L (22-30); Chloride 99 mmol/L (98-107); Eosinophils Absolute Auto 0.1 K/mm3 (0-0.3); Eosinophils Percent Auto 1.8 % (0-4.4); Estimated CRCL calculation 56 ml/min; Estimated Glomerular Filt Rate > 60; Glucose 93 mg/dL (65-105); Hematocrit 31.3 % (37.0-47.0); Hemoglobin 9.8 g/dL (12.0-15.0); Immature Granulocyte Absolute 0.01 K/mm3 (0.00-0.031); Immature Granulocyte Percent A 0.2 % (0-0.5); Lymphocytes Absolute Auto 2.79 K/mm3 (0.9-3.2); Lymphocytes Percent Auto 46.7 % (18.3-44.2); Mean Corpuscular HGB Conc 31.3 g/dl (32-36); Mean Corpuscular Hemoglobin 30.2 pg (26-34); Mean Corpuscular Volume 96.3 fl (80-100); Mean Platelet Volume 9.8 fl (7.4-10.4); Monocytes Absolute Auto 0.5 K/mm3 (0.1-0.6); Monocytes Percent Auto 8.2 % (2.6-8.5); Neutrophils Absolute Auto 2.6 K/mm3 (1.3-6.7); Neutrophils Percent Auto 42.8 % (45.5-73.1); Platelet Count Result 330 k/mm3 (150-375); Potassium 3.5 mmol/L (3.4-5.0); Red Blood Count 3.25 M/mm3 (4.2-5.4); Red Cell Distribution Width 15.9 % (11.5-14.5); Sodium 134 mmol/L (137-145)
--- NOTE | 2021-02-25 10:04 | PM.CNGS ---
Assessment and Plan Assessment and plan (1) Ileitis: Code(s): K52.9 - Noninfective gastroenteritis and colitis, unspecified Status: Acute Assessment and Plan: exam benign, await SBS before further recommendations, will likely need GI consult and scope History of Present Illness Consult details Consult date: 02/25/21 Reason for consult: abdominal pain Requesting physician: Minerva Oscar PA-C Narrative: Pt is a 80 y/o F that was brought in from [place] c/o progressively worsening abd pain. Pt is a poor historian and most history is taken from the chart. Pt apparently took a laxative and that did not help c pain. Pt denies any N/V, f/c. Pt c h/o constipation. 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 She tells me that she has 1 child. 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 The patient is not a reliable source. The patient is listed as a full code and her previous occupation is unknown on her face sheet. Smoking status: Former smoker Alcohol intake: never Substance use: never Substance use type: does not use Additional living arrangements comments: [facility] Gender identity (if verbalized by the patient): Female Spiritual care concerns: No Meds Home Medications and Allergies Home Medications Medication Instructions Recorded Confirmed Type furosemide 40 mg PO DAILY 08/20/20 02/24/21 History potassium chloride 20 meq PO DAILY 08/20/20 02/24/21 History rivaroxaban [Xarelto] 2.5 mg PO BID 08/20/20 02/24/21 History budesonide-formoterol [Symbicort] 2 puff INHALATION Q12H 08/21/20 02/24/21 History cholecalciferol (vitamin D3) 50 mcg PO DAILY 08/21/20 02/24/21 History [Vitamin D3] multivitamin with minerals [All 1 tablet PO DAILY 08/21/20 02/24/21 History Purpose Multivitamin-Min] polyethylene glycol 3350 [Miralax] 17 g PO DAILY PRN 08/21/20 02/24/21 History acetaminophen 650 mg PO Q6-8H PRN 02/24/21 02/24/21 History albuterol sulfate 2.5 mg INHALATION Q6-8H PRN 02/24/21 02/24/21 History carboxymethylcellulose sodium 1 drp EACH EYE BID 02/24/21 02/24/21 History [TheraTears] gabapentin 100 mg PO TID 02/24/21 02/24/21 History guaifenesin 10 mg PO Q4-5H PRN 02/24/21 02/24/21 History hydrocodone-acetaminophen 1 tablet PO TID PRN 02/24/21 02/24/21 History loperamide 2 mg PO Q4H PRN 02/24/21 02/24/21 History loratadine 10 mg PO DAILY 02/24/21 02/24/21 History naproxen 500 mg PO BID 02/24/21 02/24/21 History pantoprazole [Protonix] 40 mg PO BID 02/24/21 02/24/21 History paroxetine HCl [Paxil] 10 mg PO QAM 02/24/21 02/24/21 History sennosides-docusate sodium 1 tab-cap PO HS PRN 02/24/21 02/24/21 History [Senokot-S] zinc 50 mg PO DAILY 02/24/21 02/24/21 History Allergies Allergy/AdvReac Type Severity Reaction Status Date / Time No Known Allergies Allergy Verified 02/24/21 08:52 Vital Signs Vital Signs - 24 hr 02/24/21 10:15 02/24/21 10:30 02/24/21 10:45 Temperature Pulse Rate 90 80 91 Respiratory Rate 18 15 Blood Pressure Pulse Oximetry 97 02/24/21 10:
--- NOTE | 2021-02-25 10:14 | PC.NURSE ---
patient transported via strecher to x-ray for small bowel series.
[2021-02-25] MEDS: SODIUM CHLORIDE 0.9% IV 1,000 ML 125 ML IV CONT (12:22)
[2021-02-25] MEDS: PANTOPRAZOLE SODIUM IV 40 MG VIAL IV PUSH ×2 (12:24→21:34)
--- NOTE | 2021-02-25 15:09 | PM.IMPN ---
Progress Note: A&P Assessment and Plan (1) Ileitis: Code(s): K52.9 - Noninfective gastroenteritis and colitis, unspecified Status: Acute Assessment and Plan: Patient presents from the detention due to abdominal pain. CT abdomen/pelvis shows moderately thickened enhancing ileal mucosa, ileitis with moderately dilated small bowel, ileus vs. partial bowel obstruction. Small-bowel follow-through study is pending. Appreciate General surgery and GI recommendations. Start IV Zosyn. Check lactic acid. Continue supportive care with IV hydration (reduce rate), antiemetics, pain control. (2) Adynamic ileus: Code(s): K56.0 - Paralytic ileus Status: Acute Assessment and Plan: Small-bowel follow-through pending. Appreciate general surgery recommendations. Continue clear liquids as tolerated. (3) COPD (chronic obstructive pulmonary disease): Qualifiers: COPD type: unspecified COPD Qualified Code(s): J44.9 - Chronic obstructive pulmonary disease, unspecified Code(s): J44.9 - Chronic obstructive pulmonary disease, unspecified Status: Acute Assessment and Plan: No respiratory distress. Continue her Symbicort, nebulized bronchodilator therapy as needed. (4) Chronic GERD: Code(s): K21.9 - Gastro-esophageal reflux disease without esophagitis Status: Chronic Assessment and Plan: IV PPI. (5) Chronic anticoagulation: Code(s): Z79.01 - superintendent terminal (current) use of anticoagulants Status: Acute Assessment and Plan: Patient is unsure why she is on Xarelto. This dosing is sometimes used for coronary artery disease and peripheral arterial disease, may be the latter given her history of left ischemic limb now s/p L AKA. Will hold Xarelto for now given her drop in Hgb. (6) Heart failure: Qualifiers: Heart failure type: unspecified Heart failure chronicity: unspecified Qualified Code(s): I50.9 - Heart failure, unspecified Code(s): I50.9 - Heart failure, unspecified Status: Chronic Assessment and Plan: Unknown type. Her Lasix and potassium are currently on hold. (7) Depression with anxiety: Code(s): F41.8 - Other specified anxiety disorders Status: Chronic Assessment and Plan: Continue with Paxil. (8) Ovarian mass: Code(s): N83.8 - Other noninflammatory disorders of ovary, fallopian tube and broad ligament Status: Acute Assessment and Plan: Right cystic ovarian mass noted on imaging. Outpatient follow-up with [facility] recommended. (9) Anemia: Code(s): D64.9 - Anemia, unspecified Status: Acute Assessment and Plan: Acute on chronic; drop in Hgb may be dilutional after IV fluids she received but concerning given her GI findings although no evidence of acute bleeding today. Stool occult blood pending. Will hold Xarelto for now pending further evaluation and H&H trend. Will order iron panel, B12, folate levels in AM. Monitor CBC and consider transfusion if Hgb < 7. Subjective Date/time seen: 02/25/21 1445 Interval history: Ms. Terry is a 80yo F admitted for ileitis with ileus or partial obstruction. She is a poor historian but is able to tell me she is having abdominal pain without nausea or vomiting. Review of Systems Review of Systems: Narrative: Limited as she is a poor historian. Exam Narrative: Exam Narrative: General: Female resting supine in bed in no acute distress. HEENT: Normocephalic, EOMI, oral mucosa tacky. Cardiovascular: Rate and rhythm are
[2021-02-25 15:20] LABS: Hematocrit 33.7 % (37.0-47.0); Hemoglobin 10.5 g/dL (12.0-15.0); Mean Corpuscular HGB Conc 31.2 g/dl (32-36); Mean Corpuscular Hemoglobin 30.4 pg (26-34); Mean Corpuscular Volume 97.7 fl (80-100); Mean Platelet Volume 9.8 fl (7.4-10.4); Platelet Count Result 359 k/mm3 (150-375); Red Blood Count 3.45 M/mm3 (4.2-5.4); Red Cell Distribution Width 16.1 % (11.5-14.5); White Blood Count 5.6 K/mm3 (4.5-10.0)
[2021-02-25] MEDS: SODIUM CHLORIDE 0.9% IV 1,000 ML 75 ML IV CONT (18:17)
[2021-02-25] MEDS: GABAPENTIN 100 MG CAPSULE PO (18:19)
[2021-02-25] MEDS: ONDANSETRON INJ 4 MG/2 ML VIAL IV PUSH (23:46)
[2021-02-25] MEDS: MORPHINE SULFATE (*CRX) 4 MG/ML INJ 2 MG IV PUSH (23:46)
[2021-02-26 05:28] LABS: Basophils Percent Auto 0.3 % (0.2-1.2); Eosinophils Absolute Auto 0.1 K/mm3 (0-0.3); Eosinophils Percent Auto 1.6 % (0-4.4); Hematocrit 31.5 % (37.0-47.0); Hemoglobin 9.8 g/dL (12.0-15.0); Immature Granulocyte Absolute 0.04 K/mm3 (0.00-0.031); Immature Granulocyte Percent A 0.6 % (0-0.5); Lymphocytes Absolute Auto 1.89 K/mm3 (0.9-3.2); Mean Corpuscular HGB Conc 31.1 g/dl (32-36); Mean Corpuscular Hemoglobin 29.9 pg (26-34); Mean Platelet Volume 9.9 fl (7.4-10.4); Monocytes Absolute Auto 0.5 K/mm3 (0.1-0.6); Neutrophils Absolute Auto 4.2 K/mm3 (1.3-6.7); Neutrophils Percent Auto 61.5 % (45.5-73.1); Platelet Count Result 319 k/mm3 (150-375); Red Blood Count 3.28 M/mm3 (4.2-5.4); Red Cell Distribution Width 15.9 % (11.5-14.5); White Blood Count 6.8 K/mm3 (4.5-10.0)
[2021-02-26] MEDS: SODIUM CHLORIDE 0.9% IV 1,000 ML 75 ML IV CONT ×2 (05:40→14:42)
[2021-02-26 05:43] LABS: Lactic Acid Reflex 3.1 mmol/L (0.7-2.1)
[2021-02-26 05:53] LABS: Alanine Aminotransferase 7 U/L (4-35); Albumin Level 2.7 g/dL (3.5-5.1); Alkaline Phosphatase 67 U/L (38-126); Anion Gap 7 mmol/L (8-16); Aspartate Amino Transferase 17 U/L (14-36); Bilirubin,Total 0.2 mg/dL (0.2-1.3); Blood Urea Nitrogen 7 mg/dL (7-17); Calcium 8.1 mg/dL (8.4-10.2); Carbon Dioxide 27 mmol/L (22-30); Chloride 102 mmol/L (98-107); Estimated CRCL calculation 56 ml/min; Estimated Glomerular Filt Rate > 60; Glucose 101 mg/dL (65-105); Iron 21 ug/dL (37-170); Magnesium 2.2 mg/dL (1.6-2.3); Potassium 3.5 mmol/L (3.4-5.0); Sodium 136 mmol/L (137-145)
[2021-02-26 06:00] VITALS: BP 112/72; PULSE 64; RESP 16; TEMP 36.4; O2SAT 94
[2021-02-26 06:04] LABS: Percent Iron Saturation 10 % (20-50)
[2021-02-26 06:48] LABS: Folic Acid 8.6 ng/mL (2.76->20)
[2021-02-26] MEDS: GABAPENTIN 100 MG CAPSULE PO ×3 (08:20→17:54)
[2021-02-26] MEDS: PARoxetine 10 MG TABLET PO (08:20)
[2021-02-26] MEDS: PANTOPRAZOLE SODIUM IV 40 MG VIAL IV PUSH ×2 (08:20→21:17)
[2021-02-26 08:21] LABS: Reflex Lactic Acid Yes or No Add Lactic
--- NOTE | 2021-02-26 08:24 | PM.PNGS ---
Progress Note: A&P Assessment and Plan (1) Ileitis: Code(s): K52.9 - Noninfective gastroenteritis and colitis, unspecified Status: Acute Assessment and Plan: improving, slowly ADAT, encourage OOB, cont abx for now, GI consult for possible scope, likely as outpt Subjective Subjective Date/Time Seen: 02/26/21 08:24 still some abd discomfort although improved, multiple liquid BMs, anna marie clears Review of Systems Review of Systems: ROS unobtainable: Yes unobtainable due to medical condition and unobtainable due to mental status Exam Const: General: cooperative, comfortable, no acute distress and ill appearing Nutritional Appearance: obese Resp: Effort & Inspection: normal respiratory effort Auscultation: clear to auscultation bilaterally Cardio: Rate: regular rate Rhythm: regular rhythm GI: Inspection: normal to inspection and distended GI Palp: Yes Soft to palpation, Yes Tenderness to palpation present (GI), No Guarding due to palpation present (GI) and No Rigid due to palpation Other: soft, decreased dist, mild TTP diffusely Objective Data Vital Signs Vital Signs: Vital Signs - 24 hr 02/25/21 13:15 02/25/21 13:25 02/25/21 14:00 Temperature 36.3 C L Pulse Rate 78 75 77 Respiratory Rate 16 16 18 Blood Pressure 114/64 Pulse Oximetry 100 02/25/21 21:19 02/26/21 06:00 Temperature 36.4 C 36.4 C Pulse Rate 80 64 Respiratory Rate 16 16 Blood Pressure 146/63 H 112/72 Pulse Oximetry 100 94 Intake/Output Intake/Output: Intake & Output 02/23/21 02/24/21 02/25/21 02/26/21 23:59 23:59 23:59 23:59 Intake Total 1999 2920 1500 Balance 1999 2920 1500 Meds/Results Medications: Active Medications Generic Name Dose Route Start Last Admin Trade Name Freq PRN Reason Stop Dose Admin Acetaminophen 650 mg 02/24/21 14:24 02/24/21 17:40 Acetaminophen 325 Mg Tablet PO 650 mg Q4H PRN Administration Mild Pain (1-3) or Fever Hydrocodone Bitart/Acetaminophen 1 tab 02/25/21 15:31 Hydrocodone/Acetaminophen (*Crx) 5-325 Mg Tablet PO TID PRN Pain Rated 4-6 Albuterol 5 mg 02/25/21 15:33 Albuterol Sulfate Neb 2.5 Mg/0.5 Ml Inh INHALATION Q6HRT PRN Shortness Of Breath Or Wheezing Artificial Tears 1 drop 02/25/21 09:00 02/25/21 18:18 Artificial Tears Op Soln 15 Ml Bottle EACH EYE 03/27/21 09:01 1 drop BID PANDA Administration Budesonide/Formoterol Fumarate 2 puff 02/25/21 09:00 02/25/21 21:33 Budesonide/Form 160-4.5 Mcg (*Sp) INHALATION 2 puff Q12HR PANDA Administration Gabapentin 100 mg 02/25/21 09:00 02/25/21 18:19 Gabapentin 100 Mg Capsule PO 100 mg TID PANDA Administration Sodium Chloride 1,000 mls @ 100 mls/hr 02/24/21 14:25 02/26/21 05:40 Normal Saline Iv IV CONT 75 mls/hr .Q10H PANDA Administration Piperacillin/Tazobactam/Dextrose 3.375 gm in 50 mls @ 100 mls/hr 02/25/21 17:00 02/26/21 06:09 Zosyn 3.375 Gm/D5w 50ml Pm IVPB Infused Q6HR PANDA Infusion Ipratropium [place] 0.5 mg 02/25/21 15:33 Ipratropium Br 0.02% Inh Soln 0.5 Mg/2.5 Ml Vial INHALATION Q6HRT PRN Shortness Of Breath Or Wheezing Morphine Sulfate 2 mg 02/25/21 15:31 02/25/21 23:46 Morphine Sulfate (*Crx) 4 Mg/Ml Inj IV PUSH 2 mg Q4H PRN Administration Pain Rated 7-10 Ondansetron HCl 4 mg 02/24/21 14:24 02/25/21 23:46 Ondansetron Inj 4 Mg/2 Ml Vial IV PUSH 4 mg Q4H PRN Administration Nausea Pantoprazole Sodium 40 mg 02/25/21 09:00 02/25/21 21:34 Pantoprazole Sodium Iv 40 Mg Vial IV PUSH 40 mg Q12HR PANDA Administration Paroxetine HCl 10 mg 02/25/21 09:00 02/25/21 12:24 Paroxetine 10 Mg Tablet PO Not Given QAM PANDA Rivaroxaban 2.5 mg 02/25/21 09:00 Rivaroxaban 2.5 Mg Tablet PO Q12HR [facility] Radiology Results: ITS Impressions Abdomen/Pelvis CT 02/24/21 12:07 IMPRESSION: 1. Moderately thickened enhancing ileal mucosa, ileitis with additional thickeni
[2021-02-26 09:04] LABS: Lactic Acid 1.4 mmol/L (0.7-2.1)
[2021-02-26 14:00] VITALS: BP 126/66; PULSE 70; RESP 18; TEMP 36.2; O2SAT 100
--- NOTE | 2021-02-26 14:15 | PM.IMPN ---
Progress Note: A&P Assessment and Plan (1) Ileitis: Code(s): K52.9 - Noninfective gastroenteritis and colitis, unspecified Status: Acute Assessment and Plan: [facility] [place] [facility] due to abdominal pain. CT abdomen/pelvis shows moderately thickened enhancing ileal mucosa, ileitis with moderately dilated small bowel, ileus vs. partial bowel obstruction. Small-bowel follow-through study shows findings suggesting very distal partial SBO vs. Adynamic ileus. Appreciate General surgery and GI recommendations. Continue empiric therapy with IV Zosyn. Lactic acid improved to normal. Continue supportive care with IV hydration (reduce rate), antiemetics, pain control. (2) Adynamic ileus: Code(s): K56.0 - Paralytic ileus Status: Acute Assessment and Plan: See above. Passing flatus and had multiple BMs. Tolerating clear liquid diet, will advance to full liquids. Increase activity. (3) COPD (chronic obstructive pulmonary disease): Qualifiers: COPD type: unspecified COPD Qualified Code(s): J44.9 - Chronic obstructive pulmonary disease, unspecified Code(s): J44.9 - Chronic obstructive pulmonary disease, unspecified Status: Acute Assessment and Plan: No respiratory distress. Continue her Symbicort, nebulized bronchodilator therapy as needed. (4) Chronic GERD: Code(s): K21.9 - Gastro-esophageal reflux disease without esophagitis Status: Chronic Assessment and Plan: No acute issues, continue PPI. (5) Chronic anticoagulation: Code(s): Z79.01 - retirement (current) use of anticoagulants Status: Acute Assessment and Plan: Patient is unsure why she is on Xarelto. 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 Awaiting stool occult blood. No evidence of acute bleeding, resume Xarelto. (6) Heart failure: Qualifiers: Heart failure type: unspecified Heart failure chronicity: unspecified Qualified Code(s): I50.9 - Heart failure, unspecified Code(s): I50.9 - Heart failure, unspecified Status: Chronic Assessment and Plan: Unknown type. Her Lasix and potassium are currently on hold as she is being rehydrated. Monitor fluid status closely; daily weights, I&O. (7) Depression with anxiety: Code(s): F41.8 - Other specified anxiety disorders Status: Chronic Assessment and Plan: Continue with Paxil. (8) Ovarian mass: Code(s): N83.8 - Other noninflammatory disorders of ovary, fallopian tube and broad ligament Status: Acute Assessment and Plan: Right cystic ovarian mass noted on imaging. Outpatient follow-up with MAKEUP ARTISTRY INSTRUCTOR recommended. (9) Anemia: Code(s): D64.9 - Anemia, unspecified Status: Acute Assessment and Plan: Acute on chronic; drop in Hgb may be dilutional after IV fluids she received but concerning given her GI findings although no evidence of acute bleeding today. Stool occult blood pending. Iron studies suggest iron deficiency anemia be contributing. Plan to start iron after GI evaluation. Monitor CBC and consider transfusion if Hgb < 7. Subjective Date/time seen: 02/26/21 1345 Interval history: Ms. Terry is a 80yo F admitted for ileitis with ileus or partial obstruction. She is a poor historian but is able to tell me she is having abdominal pain without nausea or vomiting. She thinks her abdominal pain is about the same
[2021-02-26] MEDS: polyethylene glycoL 3350 17 GM POWD.PACK PO (14:40)
[2021-02-26] MEDS: RIVAROXABAN 2.5 MG TABLET PO (21:17)
[2021-02-26 22:00] VITALS: BP 143/76; PULSE 69; RESP 21; TEMP 36.3; O2SAT 100
[2021-02-27] MEDS: SODIUM CHLORIDE 0.9% IV 1,000 ML 75 ML IV CONT (04:59)
[2021-02-27 05:31] LABS: Hematocrit 33.9 % (37.0-47.0); Hemoglobin 11.1 g/dL (12.0-15.0)
[2021-02-27 05:54] LABS: Anion Gap 5 mmol/L (8-16); Carbon Dioxide 25 mmol/L (22-30); Chloride 106 mmol/L (98-107); Estimated CRCL calculation 74 ml/min; Estimated Glomerular Filt Rate > 60; Glucose 93 mg/dL (65-105); Magnesium 1.8 mg/dL (1.6-2.3); Potassium 3.3 mmol/L (3.4-5.0); Sodium 136 mmol/L (137-145)
[2021-02-27 06:00] VITALS: BP 151/52; PULSE 76; RESP 21; TEMP 36.3; O2SAT 100
[2021-02-27 06:01] LABS: Blood Urea Nitrogen < 2 mg/dL (7-17)
--- NOTE | 2021-02-27 07:34 | WPDGICN ---
Assessment and Plan Assessment and plan (1) Ileitis: Code(s): K52.9 - Noninfective gastroenteritis and colitis, unspecified Status: Acute Assessment and Plan: With the CT scan suggesting ileitis, I will obtain inflammatory bowel disease serology to check for possible Crohn's disease. We may need to consider colonoscopy, assuming that she can tolerate the prep (2) Ovarian mass: Code(s): N83.8 - Other noninflammatory disorders of ovary, fallopian tube and broad ligament Status: Acute Assessment and Plan: I believe BUILDING SERVICES ENGINEER has been consulted. She could have carcinomatosis or omental involvement, and perhaps a malignancy outside the GI tract is responsible for most of her symptoms (3) Abdominal pain: Qualifiers: Abdominal location: generalized Qualified Code(s): R10.84 - Generalized abdominal pain Code(s): R10.9 - Unspecified abdominal pain Status: Acute Assessment and Plan: etiology unknown. I cannot get a history of this being chronic. Therefore perhaps this is simply gastroenteritis GI Consult Note Consult date/time: 02/27/21 07:34 HPI: Marva Terry is a 80 year old female [facility]. It is unclear whether she had been vomiting or not. She had taking laxative, feeling constipated. She stated that she did have loose stools. She does not know that she has ever had any gastrointestinal disease such as colitis, Crohn's disease, peptic ulcer disease, liver disease. She has been seen by surgery. It is our feeling that most likely this is not a surgical situation. CT scan shows some thickening of the mucosa in the terminal ileum but no high-grade obstruction. She also carries a diagnosis of cirrhosis, with a CT scan showing a nodular liver surface. 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 She tells me that she has 1 child. 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 The patient is not a reliable source. The patient is listed as a full code and her previous occupation is unknown on her face sheet. Smoking status: Former smoker Alcohol intake: never Substance use: never Substance use type: does not use Additional living arrangements comments: [facility] Gender identity (if verbalized by the patient): Female Spiritual care concerns: No Meds Home Medications and Allergies Home Medications Medication Instructions Recorded Confirmed Type furosemide 40 mg PO DAILY 08/20/20 02/24/21 History potassium chloride 20 meq PO DAILY 08/20/20 02/24/21 History rivaroxaban [Xarelto] 2.5 mg PO BID 08/20/20 02/24/21 History budesonide-formoterol [Symbicort] 2 puff INHALATION Q12H 08/21/20 02/24/21 History cholecalciferol (vitamin D3) 50 mcg PO DAILY 08/21/20 02/24/21 History [Vitamin D3] multivitamin with minerals [All 1 tablet PO DAILY 08/21/20 02/24/21 History Purpose Multivitamin-Min] polyethylene glycol 3350 [Miralax] 17 g PO DAILY PRN 08/21/20 02/24/21 History aceta
[2021-02-27] MEDS: polyethylene glycoL 3350 17 GM POWD.PACK PO (08:33)
[2021-02-27] MEDS: PARoxetine 10 MG TABLET PO (08:34)
[2021-02-27] MEDS: RIVAROXABAN 2.5 MG TABLET PO ×2 (08:34→20:58)
[2021-02-27] MEDS: GABAPENTIN 100 MG CAPSULE PO ×3 (08:34→17:50)
[2021-02-27] MEDS: PANTOPRAZOLE SODIUM IV 40 MG VIAL IV PUSH ×2 (08:35→20:58)
[2021-02-27] MEDS: MAGNESIUM OXIDE 400 MG TABLET PO (08:35)
[2021-02-27] MEDS: POTASSIUM CHLORIDE 20 MEQ TABLET 40 MEQ PO (08:35)
--- NOTE | 2021-02-27 09:35 | PM.PNGS ---
Progress Note: A&P Assessment and Plan (1) Ileitis: Code(s): K52.9 - Noninfective gastroenteritis and colitis, unspecified <LLUVIA Myers - Last Filed: 02/27/21 09:45> Status: Acute <LLUVIA Myers - Last Filed: 02/27/21 09:45> Assessment and Plan: Improving. No evidence of high-grade obstruction. Continue to advance diet to low fiber if okay with GI. Continue antibiotics. GI consulted and recommendations noted. Agree with plan for eventual colonoscopy if able to tolerate prep. <LLUVIA Myers - Last Filed: 02/27/21 09:45> Additional Plan I discussed the plan of care with Dr. Hayden. <LLUVIA Myers - Last Filed: 02/27/21 09:45> Pt seen and examined. Agree c note per Meggan MARKET RESEARCH INTERN. Abd - S, sl dist, NT. Exam benign, cont to have bowel fxn and anna marie diet. Will sign off as there are no acute surgical issues. Cont workup per GI. <Barbara Hayden MD - Last Filed: 02/27/21 12:50> Subjective Subjective Date/Time Seen: 02/27/21 09:35 <LLUVIA Myers - Last Filed: 02/27/21 09:45> Patient reports: no new complaints, still having pain (Still complaining of some generalized abdominal pain, slightly improved), tolerating liquids well (Full liquids), flatus, bowel movement (Multiple today already), diarrhea and afebrile <LLUVIA Myers - Last Filed: 02/27/21 09:45> Interval history: Patient seen this morning. Reports her pain is about the same as yesterday. Denies nausea or vomiting. Tolerating full liquids well. No other complaints at this time. <LLUVIA Myers - Last Filed: 02/27/21 09:45> Exam Const: General: comfortable and no acute distress <LLUVIA Myers - Last Filed: 02/27/21 09:45> GI: Inspection: other (Mildly distended) <LLUVIA Myers - Last Filed: 02/27/21 09:45> GI Palp: Yes Soft to palpation, Yes Tenderness to palpation present (GI) (Diffusely tender), No Guarding due to palpation present (GI), No Rigid due to palpation, Yes Hernia present (Small umbilical hernia, soft) and No Rebound tenderness present <Lanie Rodriguez HangLLUVIA summers - Last Filed: 02/27/21 09:45> Auscultation: normal bowel sounds <CHRISTELLE MyersP - Last Filed: 02/27/21 09:45> Neuro: General: oriented to person, oriented to place, moves all extremities and no focal motor deficits <CHRISTELLE MyersP - Last Filed: 02/27/21 09:45> Extrem: General: no clubbing, cyanosis or edema <CHRISTELLE MyersP - Last Filed: 02/27/21 09:45> Psych: Insight: Fair insight present (Psych) and Limited insight present (Psych) <Lanie Rodriguez HangCHRISTELLE summersP - Last Filed: 02/27/21 09:45> Objective Data Vital Signs Vital Signs: Vital Signs - 24 hr 02/26/21 14:00 02/26/21 22:00 02/27/21 06:00 Temperature 97.2 F L 97.4 F L 97.4 F L Pulse Rate 70 69 76 Respiratory Rate 18 21 H 21 H Blood Pressure 126/66 143/76 H 151/52 H Pulse Oximetry 100 100 100 <LLUVIA Myers - Last Filed: 02/27/21 09:45> Intake/Output Intake/Output: Intake & Output 02/24/21 02/25/21 02/26/21 02/27/21 23:59 23:59 23:59 23:59 Intake Total 1999 2920 3380 1550 Balance 1999 2920 3380 1550 <LLUVIA Myers - Last Filed: 02/27/21 09:45> Meds/Results Medications: Active Medications Generic Name Dose Route Start Last Admin Trade Name Freq PRN Reason Stop Dose Admin Acetaminophen 650 mg 02/24/21 14:24 02/24/21 17:40 Acetaminophen 325 Mg Tablet PO 650 mg Q4H PRN Administration Mild Pain (1-3) or Fever Hydrocodone Bitart/Acetaminophen 1 tab 02/25/21 15:31 Hydrocodone/Acetaminophen (*Crx) 5-325 Mg Tablet PO TID PRN Pain Rated 4-6 Albuterol 5 mg 02/25/21 15:33 Albuterol Sulfate Neb 2.5 Mg/0.5 Ml Inh INHALATION Q6HRT PRN Shortness Of Breath Or Wheezing Artificial Tears 1 drop 02/25/21 09:00 02/27/21 08:34 Artificial Tears Op Soln 15 Ml Bottle EACH EYE 03/27/21 09:01 1 drop
[2021-02-27 11:05] LABS: Carcinoembryonic Antigen 3.9 ng/mL (0.0-3.0)
[2021-02-27 11:09] LABS: INR 1.8; Prothrombin Time 21.2 Seconds (11.1-14.7)
[2021-02-27 14:00] VITALS: BP 140/68; PULSE 77; RESP 18; TEMP 36.4; O2SAT 100
--- NOTE | 2021-02-27 16:15 | P.PNIM_ITS ---
Progress Note: A&P Assessment and Plan (1) Ileitis: Code(s): K52.9 - Noninfective gastroenteritis and colitis, unspecified Status: Acute Assessment and Plan: * [facility]. CT abdomen/pelvis shows moderately thickened enhancing ileal mucosa, ileitis with moderately dilated small bowel, ileus vs. partial bowel obstruction. * Small-bowel follow-through study shows findings suggesting very distal partial SBO vs. adynamic ileus. * Appreciate further recommendations from GI, colonoscopy inpatient v outpatient follow up. Dr Aguayo ordered CEA which is elevated at 3.9. * General surgery has signed off, no need for surgical intervention at this time. * Continue empiric therapy with IV Zosyn. Lactic acid normalized. (2) Ovarian mass: Code(s): N83.8 - Other noninflammatory disorders of ovary, fallopian tube and broad ligament Status: Acute Assessment and Plan: * Large right cystic ovarian mass 14 x 6cm noted on imaging. Appreciate PROFESSOR OF MEDICINE input. CA 125 pending. (3) Adynamic ileus: Code(s): K56.0 - Paralytic ileus Status: Acute Assessment and Plan: * See above. Passing flatus and had multiple BMs. Tolerating full liquids, advanced to low fiber diet. (4) COPD (chronic obstructive pulmonary disease): Qualifiers: COPD type: unspecified COPD Qualified Code(s): J44.9 - Chronic obstructive pulmonary disease, unspecified Code(s): J44.9 - Chronic obstructive pulmonary disease, unspecified Status: Acute Assessment and Plan: * No respiratory distress. Continue her Symbicort, nebulized bronchodilator therapy as needed. (5) Chronic GERD: Code(s): K21.9 - Gastro-esophageal reflux disease without esophagitis Status: Chronic Assessment and Plan: * No acute issues, continue PPI. (6) Chronic anticoagulation: Code(s): Z79.01 - halfway (current) use of anticoagulants Status: Acute Assessment and Plan: * Patient is unsure why she is on Xarelto. 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 * Awaiting stool occult blood. No evidence of acute bleeding, resume Xarelto. (7) Heart failure: Qualifiers: Heart failure chronicity: unspecified Heart failure type: unspecified Qualified Code(s): I50.9 - Heart failure, unspecified Code(s): I50.9 - Heart failure, unspecified Status: Chronic Assessment and Plan: * Unknown type. Resume her home lasix and monitor potassium. Monitor fluid status closely; daily weights, I&O. (8) Depression with anxiety: Code(s): F41.8 - Other specified anxiety disorders Status: Chronic Assessment and Plan: * Continue with Paxil. (9) Anemia: Qualifiers: Anemia type: unspecified type Qualified Code(s): D64.9 - Anemia, unspecified Code(s): D64.9 - Anemia, unspecified Status: Acute Assessment and Plan: * Acute on chronic; drop in Hgb may be dilutional after IV fluids she received but concerning given her GI findings although no evidence of acute bleeding
--- NOTE | 2021-02-27 16:15 | PM.IMPN ---
Progress Note: A&P Assessment and Plan (1) Ileitis: Code(s): K52.9 - Noninfective gastroenteritis and colitis, unspecified Status: Acute Assessment and Plan: Patient [facility] from the [facility] care due to abdominal pain. CT abdomen/pelvis shows moderately thickened enhancing ileal mucosa, ileitis with moderately dilated small bowel, ileus vs. partial bowel obstruction. Small-bowel follow-through study shows findings suggesting very distal partial SBO vs. adynamic ileus. Appreciate further recommendations from GI, colonoscopy inpatient v outpatient follow up. Dr Aguayo ordered CEA which is elevated at 3.9. General surgery has signed off, no need for surgical intervention at this time. Continue empiric therapy with IV Zosyn. Lactic acid normalized. (2) Ovarian mass: Code(s): N83.8 - Other noninflammatory disorders of ovary, fallopian tube and broad ligament Status: Acute Assessment and Plan: Large right cystic ovarian mass 14 x 6cm noted on imaging. Appreciate NET WEB APPLICATION DEVELOPER input. CA 125 pending. (3) Adynamic ileus: Code(s): K56.0 - Paralytic ileus Status: Acute Assessment and Plan: See above. Passing flatus and had multiple BMs. Tolerating full liquids, advanced to low fiber diet. (4) COPD (chronic obstructive pulmonary disease): Qualifiers: COPD type: unspecified COPD Qualified Code(s): J44.9 - Chronic obstructive pulmonary disease, unspecified Code(s): J44.9 - Chronic obstructive pulmonary disease, unspecified Status: Acute Assessment and Plan: No respiratory distress. Continue her Symbicort, nebulized bronchodilator therapy as needed. (5) Chronic GERD: Code(s): K21.9 - Gastro-esophageal reflux disease without esophagitis Status: Chronic Assessment and Plan: No acute issues, continue PPI. (6) Chronic anticoagulation: Code(s): Z79.01 - purchase price analyst (current) use of anticoagulants Status: Acute Assessment and Plan: Patient is unsure why she is on Xarelto. 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 Awaiting stool occult blood. No evidence of acute bleeding, resume Xarelto. (7) Heart failure: Qualifiers: Heart failure chronicity: unspecified Heart failure type: unspecified Qualified Code(s): I50.9 - Heart failure, unspecified Code(s): I50.9 - Heart failure, unspecified Status: Chronic Assessment and Plan: Unknown type. Resume her home lasix and monitor potassium. Monitor fluid status closely; daily weights, I&O. (8) Depression with anxiety: Code(s): F41.8 - Other specified anxiety disorders Status: Chronic Assessment and Plan: Continue with Paxil. (9) Anemia: Qualifiers: Anemia type: unspecified type Qualified Code(s): D64.9 - Anemia, unspecified Code(s): D64.9 - Anemia, unspecified Status: Acute Assessment and Plan: Acute on chronic; drop in Hgb may be dilutional after IV fluids she received but concerning given her GI findings although no evidence of acute bleeding today. Stool occult blood pending. Iron studies suggest iron deficiency anemia be contributing. Consider starting iron after GI evaluation. Monitor CBC and consider transfusion if Hgb < 7. Subjective Date/time seen: 02/27/21 16:15 Interval history: Ms. Terry is a 80yo F admitted for ileitis with ileus or partial obstruction. She is a poo
--- NOTE | 2021-02-27 17:16 | WPDCN ---
Assessment and Plan Assessment and plan (1) Ovarian mass: Code(s): N83.8 - Other noninflammatory disorders of ovary, fallopian tube and broad ligament Status: Acute Assessment and Plan: - No concern for acute abdomen or need for emergent surgical intervention - CHILDCARE ADMINISTRATOR US ordered as it is the best modality of imaging female pelvic organs - CHILDCARE ADMINISTRATOR Tumor markers; CEA mildly elevated, CA125 pending - Postmenopausal ovarian mass >10cm concerning for malignancy-- would recommend outpatient Director Pediatric Onc HPI Data of Consult Date/Time: 02/27/21 16:05 Requesting Physician: PANCHO Mendosa Primary Care Provider: Alvina Young MD Consult Narrative Narrative: Marva Terry is a 80 year old postmenopausal [id number] who was admitted from her senior living with abdominal pain, vomiting. She is a poor historian and reports chronic constipation; had been taking laxatives. She had a CT scan concerning for possible ileitis and partial small bowel obstruction-- s/p GI and gen surg consults. Director Pediatric consult was requested for right adnexal mass measuring 14x6cm. She denies h/o PMB. She has not seen CHILDCARE ADMINISTRATOR in many years. She reports 10/10 pain, diffusely, but has been sleeping all day per her nurse, no vomiting, now tolerating regular diet. She is having diarrhea. No significant family h/o breast or ovarian cancer. 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 She tells me that she has 1 child. 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 The patient is not a reliable source. The patient is listed as a full code and her previous occupation is unknown on her face sheet. Smoking status: Former smoker Alcohol intake: never Substance use: never Substance use type: does not use Additional living arrangements comments: [facility] Gender identity (if verbalized by the patient): Female Spiritual care concerns: No Meds Home Medications and Allergies Home Medications Medication Instructions Recorded Confirmed Type furosemide 40 mg PO DAILY 08/20/20 02/24/21 History potassium chloride 20 meq PO DAILY 08/20/20 02/24/21 History rivaroxaban [Xarelto] 2.5 mg PO BID 08/20/20 02/24/21 History budesonide-formoterol [Symbicort] 2 puff INHALATION Q12H 08/21/20 02/24/21 History cholecalciferol (vitamin D3) 50 mcg PO DAILY 08/21/20 02/24/21 History [Vitamin D3] multivitamin with minerals [All 1 tablet PO DAILY 08/21/20 02/24/21 History Purpose Multivitamin-Min] polyethylene glycol 3350 [Miralax] 17 g PO DAILY PRN 08/21/20 02/24/21 History acetaminophen 650 mg PO Q6-8H PRN 02/24/21 02/24/21 History albuterol sulfate 2.5 mg INHALATION Q6-8H PRN 02/24/21 02/24/21 History carboxymethylcellulose sodium 1 drp EACH EYE BID 02/24/21 02/24/21 History [TheraTears] gabapentin 100 mg PO
[2021-02-27 19:24] LABS: IFOB Positive Control Positive; Immunochemical Fecal Occult Bl Negative (N)
[2021-02-27 20:00] VITALS: PULSE 77; RESP 18; O2SAT 100
[2021-02-27] MEDS: HYDROcodone/acetaminophen (*CRX) 5-325 MG TABLET 1 TAB PO (21:03)
[2021-02-27 22:00] VITALS: BP 139/60; PULSE 81; RESP 21; TEMP 36.3; O2SAT 100
[2021-02-28 05:39] LABS: Hemoglobin 10.1 g/dL (12.0-15.0)
[2021-02-28 05:58] LABS: Anion Gap 7 mmol/L (8-16); Blood Urea Nitrogen 3 mg/dL (7-17); Calcium 8.1 mg/dL (8.4-10.2); Carbon Dioxide 23 mmol/L (22-30); Chloride 104 mmol/L (98-107); Estimated CRCL calculation 64 ml/min; Estimated Glomerular Filt Rate > 60; Glucose 94 mg/dL (65-105); Magnesium 1.8 mg/dL (1.6-2.3); Potassium 3.9 mmol/L (3.4-5.0); Sodium 134 mmol/L (137-145)
[2021-02-28 06:00] VITALS: BP 148/68; PULSE 71; RESP 20; TEMP 36.2; O2SAT 99
[2021-02-28] MEDS: MAGNESIUM OXIDE 400 MG TABLET PO (08:42)
[2021-02-28] MEDS: RIVAROXABAN 2.5 MG TABLET PO ×2 (08:42→21:49)
[2021-02-28] MEDS: GABAPENTIN 100 MG CAPSULE PO ×3 (08:42→17:30)
[2021-02-28] MEDS: PARoxetine 10 MG TABLET PO (08:43)
[2021-02-28] MEDS: FUROSEMIDE 40 MG TABLET PO (08:43)
--- NOTE | 2021-02-28 10:31 | PM.PNGS ---
Subjective Subjective Date/Time Seen: 02/28/21 09:31 Patient reports: no new complaints Objective Data Vital Signs Vital Signs: Vital Signs - 24 hr 02/27/21 14:00 02/27/21 20:00 02/27/21 22:00 Temperature 97.5 F L 97.3 F L Pulse Rate 77 77 81 Respiratory Rate 18 18 21 H Blood Pressure 140/68 139/60 Pulse Oximetry 100 100 100 02/28/21 06:00 Temperature 97.2 F L Pulse Rate 71 Respiratory Rate 20 Blood Pressure 148/68 H Pulse Oximetry 99 Intake/Output Intake/Output: Intake & Output 02/25/21 02/26/21 02/27/21 02/28/21 23:59 23:59 23:59 23:59 Intake Total 2920 3380 2860 1000 Balance 2920 3380 2860 1000 Meds/Results Medications: Active Medications Generic Name Dose Route Start Last Admin Trade Name Freq PRN Reason Stop Dose Admin Acetaminophen 650 mg 02/24/21 14:24 02/24/21 17:40 Acetaminophen 325 Mg Tablet PO 650 mg Q4H PRN Administration Mild Pain (1-3) or Fever Hydrocodone Bitart/Acetaminophen 1 tab 02/25/21 15:31 02/27/21 21:03 Hydrocodone/Acetaminophen (*Crx) 5-325 Mg Tablet PO 1 tab TID PRN Administration Pain Rated 4-6 Albuterol 5 mg 02/25/21 15:33 Albuterol Sulfate Neb 2.5 Mg/0.5 Ml Inh INHALATION Q6HRT PRN Shortness Of Breath Or Wheezing Artificial Tears 1 drop 02/25/21 09:00 02/28/21 08:43 Artificial Tears Op Soln 15 Ml Bottle EACH EYE 03/27/21 09:01 1 drop BID PANDA Administration Budesonide/Formoterol Fumarate 2 puff 02/25/21 09:00 02/28/21 08:39 Budesonide/Form 160-4.5 Mcg (*Sp) INHALATION 2 puff Q12HR PANDA Administration Furosemide 40 mg 02/28/21 09:00 02/28/21 08:43 Furosemide 40 Mg Tablet PO 40 mg DAILY PANDA Administration Gabapentin 100 mg 02/25/21 09:00 02/28/21 08:42 Gabapentin 100 Mg Capsule PO 100 mg TID PANDA Administration Piperacillin/Tazobactam/Dextrose 3.375 gm in 50 mls @ 100 mls/hr 02/25/21 17:00 02/28/21 06:40 Zosyn 3.375 Gm/D5w 50ml Pm IVPB Infused Q6HR PANDA Infusion Ipratropium [place] 0.5 mg 02/25/21 15:33 Ipratropium Br 0.02% Inh Soln 0.5 Mg/2.5 Ml Vial INHALATION Q6HRT PRN Shortness Of Breath Or Wheezing Magnesium Oxide 400 mg 02/27/21 09:00 02/28/21 08:42 Magnesium Oxide 400 Mg Tablet PO 400 mg DAILY PANDA Administration Morphine Sulfate 2 mg 02/25/21 15:31 02/25/21 23:46 Morphine Sulfate (*Crx) 4 Mg/Ml Inj IV PUSH 2 mg Q4H PRN Administration Pain Rated 7-10 Ondansetron HCl 4 mg 02/24/21 14:24 02/25/21 23:46 Ondansetron Inj 4 Mg/2 Ml Vial IV PUSH 4 mg Q4H PRN Administration Nausea Paroxetine HCl 10 mg 02/25/21 09:00 02/28/21 08:43 Paroxetine 10 Mg Tablet PO 10 mg QAM PANDA Administration Polyethylene Glycol 17 gm 02/28/21 09:01 Polyethylene Glycol 3350 17 Gm Powd.Pack PO QAM PRN Constipation Rivaroxaban 2.5 mg 02/25/21 09:00 02/28/21 08:42 Rivaroxaban 2.5 Mg Tablet PO 2.5 mg Q12HR PANDA Administration Radiology Results: ITS Impressions Abdomen/Pelvis CT 02/24/21 12:07 IMPRESSION: 1. Moderately thickened enhancing ileal mucosa, ileitis with additional thickening at the terminal ileum. Moderately dilated small bowel, probably ileus or less likely partial obstruction. Could be infectious or inflammatory bowel disease etiology. 2. Dilated fluid-filled appendix probably also same process. 3. Cystic right ovarian mass, benign or malignant neoplasm most likely. 4. Mild sigmoid diverticulosis. 5. Small hiatal hernia. 6. Cirrhosis. 7. Cholelithiasis. 8. Fibroids Small Bowel X-Ray 02/25/21 17:31 IMPRESSION: Dilatation of small bowel, sparing the very distal small bowel, with delayed contrast material transit. Findings suggest very distal small bowel partial obstruction versus adynamic ileus. Labs Labs: Laboratory Results - last 24 hr 02/27/21 02/27/21 02/27/21 10:20 10:20 17:23 Hgb Hct PT 21.2 H INR 1.8 Sodium Pota
[2021-02-28 14:00] VITALS: BP 158/75; PULSE 80; RESP 18; TEMP 36.6; O2SAT 100
[2021-02-28] MEDS: HYDROcodone/acetaminophen (*CRX) 5-325 MG TABLET 1 TAB PO (15:05)
--- NOTE | 2021-02-28 15:58 | PM.IMPN ---
Progress Note: A&P Assessment and Plan (1) Ileitis: Code(s): K52.9 - Noninfective gastroenteritis and colitis, unspecified Status: Acute Assessment and Plan: Patient is improving but continues to have diarrhea and pain -will repeat x-ray tomorrow morning -continue Zosyn -will need outpatient colonoscopy -Dr. Aguayo has been consulted and inflammatory bowel disease workup has been initiated. -CEA slightly elevated. If she cannot tolerate a prep may consider Cologuard although if positive she will need a colonoscopy. Consider capsule? -probable discharge in 1-2 days if the patient continues to improve -add stool cx (2) Ovarian mass: Code(s): N83.8 - Other noninflammatory disorders of ovary, fallopian tube and broad ligament Status: Acute Assessment and Plan: U/S showing 11.3 cystic mass in the right adnexa which is likely benign cystadenoma although adenocarcinoma cannot be excluded -f/u with SALES DATA ANALYST ONC (3) Adynamic ileus: Code(s): K56.0 - Paralytic ileus Status: Acute Assessment and Plan: Resolved (4) COPD (chronic obstructive pulmonary disease): Qualifiers: COPD type: unspecified COPD Qualified Code(s): J44.9 - Chronic obstructive pulmonary disease, unspecified Code(s): J44.9 - Chronic obstructive pulmonary disease, unspecified Status: Acute Assessment and Plan: No respiratory distress. - Continue her Symbicort, nebulized bronchodilator therapy as needed. 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 -Stool occult blood negative (7) Heart failure: Qualifiers: Heart failure type: unspecified Heart failure chronicity: unspecified Qualified Code(s): I50.9 - Heart failure, unspecified Code(s): I50.9 - Heart failure, unspecified Status: Chronic Assessment and Plan: Unknown type -continue home lasix and monitor potassium. -Monitor fluid status closely; daily weights, I&O. (8) Depression with anxiety: Code(s): F41.8 - Other specified anxiety disorders Status: Chronic Assessment and Plan: Continue with Paxil (9) Anemia: Code(s): D64.9 - Anemia, unspecified Status: Acute Assessment and Plan: Hgb 10.1 Acute on chronic -Iron studies suggest iron deficiency anemia be contributing -Consider starting iron after GI evaluation. -Monitor CBC and consider transfusion if Hgb < 7. Time Spent With Patient Time with patient: 25 - 35 minutes Subjective Date/time seen: 02/28/21 15:58 Interval history: Pt is a 80 y/o female here for ileitis. Pt was seen today and states she continues to have abdominal pain and diarrhea. She has had no nausea or vomiting and is tolerating a diet. Nursing staff states that she is having liquid but chunky diarrhea appears to be a little more thick than yesterday. She denies chest pain, shortness of breath or headache. Review of Systems Review of Systems: All systems reviewed & are unremarkable except as noted in HPI and below Exam Narrative: Exam Narrative: General: Patient resting comfortably in bed in no acute distress HEENT: normocephalic Neck: supple Neuro: Alert and oriented to herself, location and month but not the year or president. Follows commands. No obvious neurological deficits CV:RRR Resp:CTA, slight crackles at the bases Abd: Soft, non distended. Pain to palpation to the right upper and right lower
[2021-02-28 20:43] VITALS: BP 128/54; PULSE 64; RESP 18; TEMP 36.5; O2SAT 99
[2021-02-28] MEDS: MICONAZOLE NITRATE 2% CREAM 30 GM TUBE 1 APPLIC TOPICAL (21:49)
--- NOTE | 2021-02-28 21:55 | PC.NURSE ---
Respiratory to administer 2100 symbicort
[2021-02-28 22:02] VITALS: PULSE 81; RESP 18; O2SAT 95
[2021-03-01 06:00] VITALS: BP 145/62; PULSE 73; RESP 16; TEMP 36.5; O2SAT 96
[2021-03-01] MEDS: GABAPENTIN 100 MG CAPSULE PO ×3 (09:21→16:57)
[2021-03-01] MEDS: PARoxetine 10 MG TABLET PO (09:22)
[2021-03-01] MEDS: MAGNESIUM OXIDE 400 MG TABLET PO (09:22)
[2021-03-01] MEDS: PANTOPRAZOLE SOD SESQUIHYDRATE 20 MG TAB PO (09:22)
[2021-03-01] MEDS: RIVAROXABAN 2.5 MG TABLET PO ×2 (09:22→21:49)
[2021-03-01] MEDS: FUROSEMIDE 40 MG TABLET PO (09:22)
[2021-03-01] MEDS: MICONAZOLE NITRATE 2% CREAM 30 GM TUBE 1 APPLIC TOPICAL ×2 (09:23→21:50)
--- NOTE | 2021-03-01 12:22 | WPDGIPROGNO ---
Progress Note: A&P Assessment and Plan (1) Ileitis: Code(s): K52.9 - Noninfective gastroenteritis and colitis, unspecified Status: Acute Assessment and Plan: I am thinking this is probably an acute infectious ileitis. We will consider video capsule endoscopy if the patency capsule passes. Otherwise I would consider repeat small bowel series or CT scan in a couple weeks. Lastly, if findings persist, a colonoscopy could be attempted (2) Ovarian mass: Code(s): N83.8 - Other noninflammatory disorders of ovary, fallopian tube and broad ligament Status: Acute Time Spent With Patient Time with patient: less than 15 minutes Subjective Date/time seen: 03/01/21 12:22 I discussed her case with Sherry Mortensen. I agree that a video capsule evaluation of the small intestines would be helpful. We will 1st place a so-called patency capsule to ensure that the video capsule would not get hung up by a stricture in the distal ileum. A flat plate will be done 24 hours after ingestion of the patency capsule. The patient is eating and therefore low likelihood of a high-grade obstruction. Review of Systems Gastrointestinal: Gastrointestinal: Reports as per HPI and Reports no additional gastrointestinal complaints Exam Const: General: comfortable; No acute distress Nutritional Appearance: overweight GI: GI Palp: No abdominal tenderness and Yes Soft to palpation Auscultation: normal bowel sounds Objective Data Vital Signs Vital Signs: Vital Signs - 24 hr 02/28/21 14:00 02/28/21 20:43 02/28/21 22:02 Temperature 36.6 C 36.5 C Pulse Rate 80 64 81 Respiratory Rate 18 18 18 Blood Pressure 158/75 H 128/54 L Pulse Oximetry 100 99 95 03/01/21 06:00 Temperature 36.5 C Pulse Rate 73 Respiratory Rate 16 Blood Pressure 145/62 H Pulse Oximetry 96 Intake/Output Intake/Output: Intake & Output 02/26/21 02/27/21 02/28/21 03/01/21 23:59 23:59 23:59 23:59 Intake Total 3380 2860 1610 540 Balance 3380 2860 1610 540 Meds/Results Medications: Active Medications Generic Name Dose Route Start Last Admin Trade Name Freq PRN Reason Stop Dose Admin Acetaminophen 650 mg 02/24/21 14:24 02/24/21 17:40 Acetaminophen 325 Mg Tablet PO 650 mg Q4H PRN Administration Mild Pain (1-3) or Fever Hydrocodone Bitart/Acetaminophen 1 tab 02/25/21 15:31 02/28/21 15:05 Hydrocodone/Acetaminophen (*Crx) 5-325 Mg Tablet PO 1 tab TID PRN Administration Pain Rated 4-6 Albuterol 5 mg 02/25/21 15:33 Albuterol Sulfate Neb 2.5 Mg/0.5 Ml Inh INHALATION Q6HRT PRN Shortness Of Breath Or Wheezing Artificial Tears 1 drop 02/25/21 09:00 03/01/21 09:22 Artificial Tears Op Soln 15 Ml Bottle EACH EYE 03/27/21 09:01 1 drop BID PANDA Administration Budesonide/Formoterol Fumarate 2 puff 02/25/21 09:00 02/28/21 21:59 Budesonide/Form 160-4.5 Mcg (*Sp) INHALATION 2 puff Q12HR PANDA Administration Furosemide 40 mg 02/28/21 09:00 03/01/21 09:22 Furosemide 40 Mg Tablet PO 40 mg DAILY PANDA Administration Gabapentin 100 mg 02/25/21 09:00 03/01/21 09:21 Gabapentin 100 Mg Capsule PO 100 mg TID PANDA Administration Piperacillin/Tazobactam/Dextrose 3.375 gm in 50 mls @ 100 mls/hr 02/25/21 17:00 03/01/21 07:00 Zosyn 3.375 Gm/D5w 50ml Pm IVPB Infused Q6HR PANDA Infusion Ipratropium [place] 0.5 mg 02/25/21 15:33 Ipratropium Br 0.02% Inh Soln 0.5 Mg/2.5 Ml Vial INHALATION Q6HRT PRN Shortness Of Breath Or Wheezing Magnesium Oxide 400 mg 02/27/21 09:00 03/01/21 09:22 Magnesium Oxide 400 Mg Tablet PO 400 mg DAILY PANDA Administration Miconazole Nitrate 1 applic 02/28/21 21:00 03/01/21 09:23 Miconazole Nitrate 2% Cream 30 Gm Tube TOPICAL 1 applic Q12HR PANDA Administration Morphine Sulfate 2 mg 02/25/21 15:31 02/25/21 23:46 Morphine Sulfate (*Crx) 4 Mg/Ml Inj IV PUSH 2 mg Q4H PRN Administration Pain Rated 7-1
[2021-03-01 14:00] VITALS: BP 145/64; PULSE 71; RESP 18; TEMP 36.6; O2SAT 96
--- NOTE | 2021-03-01 17:11 | PM.IMPN ---
Progress Note: A&P Assessment and Plan (1) Ileitis: Code(s): K52.9 - Noninfective gastroenteritis and colitis, unspecified Status: Acute Assessment and Plan: Patient is improving but continues to have diarrhea and pain -xray with improvement today -continue Zosyn -Dr. Aguayo has been consulted and inflammatory bowel disease workup has been initiated. -Plan for patency capsule study tomorrow in hopes she can get a capsule study done in the future as I am unsure if she will be able to tolerate a bowel prep. -CEA slightly elevated. If she cannot tolerate a prep may consider Cologuard although if positive she will need a colonoscopy. -stool culture pending (2) Ovarian mass: Code(s): N83.8 - Other noninflammatory disorders of ovary, fallopian tube and broad ligament Status: Acute Assessment and Plan: U/S showing 11.3 cystic mass in the right adnexa which is likely benign cystadenoma although adenocarcinoma cannot be excluded -f/u with LAUNCH MANAGER ONC (3) Adynamic ileus: Code(s): K56.0 - Paralytic ileus Status: Acute Assessment and Plan: Resolved (4) COPD (chronic obstructive pulmonary disease): Qualifiers: COPD type: unspecified COPD Qualified Code(s): J44.9 - Chronic obstructive pulmonary disease, unspecified Code(s): J44.9 - Chronic obstructive pulmonary disease, unspecified Status: Acute Assessment and Plan: No respiratory distress. - Continue her Symbicort, nebulized bronchodilator therapy as needed. 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 -Stool occult blood negative (7) Heart failure: Qualifiers: Heart failure type: unspecified Heart failure chronicity: unspecified Qualified Code(s): I50.9 - Heart failure, unspecified Code(s): I50.9 - Heart failure, unspecified Status: Chronic Assessment and Plan: Unknown type -continue home lasix and monitor potassium. -Monitor fluid status closely; daily weights, I&O. (8) Depression with anxiety: Code(s): F41.8 - Other specified anxiety disorders Status: Chronic Assessment and Plan: Continue with Paxil (9) Anemia: Code(s): D64.9 - Anemia, unspecified Status: Acute Assessment and Plan: Hgb 10.1 02/28/21 Acute on chronic -Iron studies suggest iron deficiency anemia be contributing -Consider starting iron after GI evaluation. -Monitor CBC and consider transfusion if Hgb < 7. Subjective Date/time seen: 03/01/21 17:11 Interval history: Pt is a 80 y/o female here for ileitis. Pt was seen today and states she continues to have abdominal pain but was sleeping at the time of my exam and didn't appear to be in acute distress. She has had no nausea or vomiting and is tolerating a diet. She denies chest pain, shortness of breath or headache. Exam Narrative: Exam Narrative: General: Patient resting comfortably in bed in no acute distress HEENT: normocephalic Neck: supple Neuro: Alert and oriented to herself and location. Follows commands. No obvious neurological deficits CV:RRR Resp: slight crackles at the bases, good air movement Abd: Soft, non distended. Pain to palpation to the right upper and right lower quadrants. Extremities: Left leg below the knee amputation within normal appearing stump. No swelling, erythema, or pain to palpation. Objective Data Vital Signs Vital Signs: Vital Signs -
--- NOTE | 2021-03-01 20:48 | WPDGIPROGNO ---
Progress Note: A&P Assessment and Plan (1) Ileitis: Code(s): K52.9 - Noninfective gastroenteritis and colitis, unspecified Status: Acute Assessment and Plan: I am thinking this is probably an acute infectious ileitis. We will consider video capsule endoscopy if the patency capsule passes. Otherwise I would consider repeat small bowel series or CT scan in a couple weeks, but given the improvement in lasst abdominaal xray, now normal gas pattern, this may be resolving spontaneously. Lastly, if findings persist, a colonoscopy could be attempted (2) Ovarian mass: Code(s): N83.8 - Other noninflammatory disorders of ovary, fallopian tube and broad ligament Status: Acute Assessment and Plan: stll awiting CA-125, but pelvic US looks ok (3) Abdominal pain: Qualifiers: Abdominal location: generalized Qualified Code(s): R10.84 - Generalized abdominal pain Code(s): R10.9 - Unspecified abdominal pain Status: Acute Assessment and Plan: She did not require any Hydrocodone yesterday Subjective Date/time seen: 03/01/21 20:48Stools remain loose, but no blood, grossly or in hemoccult. Planniing video capsule if patency capsule passes within 24hr. we will do a KUB at this time tomorrow Review of Systems Review of Systems: All systems reviewed & are unremarkable except as noted in HPI and below Exam Const: General: no acute distress Nutritional Appearance: obese Cardio: Rate: regular rate GI: Inspection: normal to inspection GI Palp: Yes Soft to palpation and No Hepatosplenomegaly present Percussion: Yes normal to percussion Auscultation: normal bowel sounds Objective Data Vital Signs Vital Signs: Vital Signs - 24 hr 02/28/21 22:02 03/01/21 06:00 03/01/21 14:00 Temperature 36.5 C 36.6 C Pulse Rate 81 73 71 Respiratory Rate 18 16 18 Blood Pressure 145/62 H 145/64 H Pulse Oximetry 95 96 96 Intake/Output Intake/Output: Intake & Output 02/26/21 02/27/21 02/28/21 03/01/21 23:59 23:59 23:59 23:59 Intake Total 3380 2860 1610 1250 Balance 3380 2860 1610 1250 Meds/Results Medications: Active Medications Generic Name Dose Route Start Last Admin Trade Name Freq PRN Reason Stop Dose Admin Acetaminophen 650 mg 02/24/21 14:24 02/24/21 17:40 Acetaminophen 325 Mg Tablet PO 650 mg Q4H PRN Administration Mild Pain (1-3) or Fever Hydrocodone Bitart/Acetaminophen 1 tab 02/25/21 15:31 02/28/21 15:05 Hydrocodone/Acetaminophen (*Crx) 5-325 Mg Tablet PO 1 tab TID PRN Administration Pain Rated 4-6 Albuterol 5 mg 02/25/21 15:33 Albuterol Sulfate Neb 2.5 Mg/0.5 Ml Inh INHALATION Q6HRT PRN Shortness Of Breath Or Wheezing Artificial Tears 1 drop 02/25/21 09:00 03/01/21 16:57 Artificial Tears Op Soln 15 Ml Bottle EACH EYE 03/27/21 09:01 1 drop BID PANDA Administration Budesonide/Formoterol Fumarate 2 puff 02/25/21 09:00 03/01/21 12:35 Budesonide/Form 160-4.5 Mcg (*Sp) INHALATION 2 puff Q12HR PANDA Administration Furosemide 40 mg 02/28/21 09:00 03/01/21 09:22 Furosemide 40 Mg Tablet PO 40 mg DAILY PANDA Administration Gabapentin 100 mg 02/25/21 09:00 03/01/21 16:57 Gabapentin 100 Mg Capsule PO 100 mg TID PANDA Administration Piperacillin/Tazobactam/Dextrose 3.375 gm in 50 mls @ 100 mls/hr 02/25/21 17:00 03/01/21 17:40 Zosyn 3.375 Gm/D5w 50ml Pm IVPB Infused Q6HR PANDA Infusion Ipratropium [place] 0.5 mg 02/25/21 15:33 Ipratropium Br 0.02% Inh Soln 0.5 Mg/2.5 Ml Vial INHALATION Q6HRT PRN Shortness Of Breath Or Wheezing Magnesium Oxide 400 mg 02/27/21 09:00 03/01/21 09:22 Magnesium Oxide 400 Mg Tablet PO 400 mg DAILY PANDA Administration Miconazole Nitrate 1 applic 02/28/21 21:00 03/01/21 09:23 Miconazole Nitrate 2% Cream 30 Gm Tube TOPICAL 1 applic Q12HR PANDA Administration Morphine Sulfate 2 mg 02/25/21 15:31 02/25/21 23:46
[2021-03-01 20:52] LABS: CA-125 32 U/mL (<35)
[2021-03-01 22:00] VITALS: BP 129/61; PULSE 72; RESP 18; TEMP 36.6; O2SAT 96
[2021-03-02 05:42] LABS: Basophils Percent Auto 0.5 % (0.2-1.2); Eosinophils Absolute Auto 0.2 K/mm3 (0-0.3); Eosinophils Percent Auto 3.9 % (0-4.4); Hematocrit 32.1 % (37.0-47.0); Hemoglobin 10.8 g/dL (12.0-15.0); Immature Granulocyte Absolute 0.02 K/mm3 (0.00-0.031); Immature Granulocyte Percent A 0.3 % (0-0.5); Lymphocytes Absolute Auto 2.51 K/mm3 (0.9-3.2); Mean Corpuscular HGB Conc 33.6 g/dl (32-36); Mean Corpuscular Hemoglobin 30.9 pg (26-34); Monocytes Absolute Auto 0.6 K/mm3 (0.1-0.6); Monocytes Percent Auto 9.2 % (2.6-8.5); Neutrophils Absolute Auto 2.8 K/mm3 (1.3-6.7); Neutrophils Percent Auto 45.1 % (45.5-73.1); Platelet Count Result 287 k/mm3 (150-375); Red Blood Count 3.49 M/mm3 (4.2-5.4); Red Cell Distribution Width 15.5 % (11.5-14.5); White Blood Count 6.1 K/mm3 (4.5-10.0)
[2021-03-02 05:50] LABS: Alanine Aminotransferase 6 U/L (4-35); Albumin Level 2.6 g/dL (3.5-5.1); Alkaline Phosphatase 66 U/L (38-126); Anion Gap 5 mmol/L (8-16); Aspartate Amino Transferase 15 U/L (14-36); Bilirubin,Total 0.3 mg/dL (0.2-1.3); Blood Urea Nitrogen 5 mg/dL (7-17); CRP 0.7 mg/dL (<1.0); Calcium 8.1 mg/dL (8.4-10.2); Carbon Dioxide 29 mmol/L (22-30); Chloride 101 mmol/L (98-107); Estimated CRCL calculation 65 ml/min; Estimated Glomerular Filt Rate > 60; Glucose 90 mg/dL (65-105); Magnesium 1.7 mg/dL (1.6-2.3); Potassium 3.5 mmol/L (3.4-5.0); Sodium 135 mmol/L (137-145)
[2021-03-02 06:00] VITALS: BP 145/61; PULSE 70; RESP 20; TEMP 36.7; O2SAT 99
--- NOTE | 2021-03-02 07:46 | PC.NURSE ---
Explained patency capsule procedure to patient with good comprehension from patient. Had patient sign informed consent document. Patient swallowed capsule with water without difficulty at 07:30. CAPSULE LOT# [id number] EXP: 04-17-2021. Also explained procedure and when the patient can eat and drink to bedside RN. Patient had no further questions. Left patient with call light in reach, bed alarm on.
[2021-03-02] MEDS: MAGNESIUM OXIDE 400 MG TABLET PO (11:20)
[2021-03-02] MEDS: PARoxetine 10 MG TABLET PO (11:21)
[2021-03-02] MEDS: RIVAROXABAN 2.5 MG TABLET PO ×2 (11:21→23:14)
[2021-03-02] MEDS: FUROSEMIDE 40 MG TABLET PO (11:21)
[2021-03-02] MEDS: MICONAZOLE NITRATE 2% CREAM 30 GM TUBE 1 APPLIC TOPICAL ×2 (11:21→23:16)
[2021-03-02] MEDS: PANTOPRAZOLE SOD SESQUIHYDRATE 20 MG TAB PO (11:21)
[2021-03-02] MEDS: GABAPENTIN 100 MG CAPSULE PO ×2 (11:22→18:07)
--- NOTE | 2021-03-02 13:51 | PM.IMPN ---
Progress Note: A&P Assessment and Plan (1) Ileitis: Code(s): K52.9 - Noninfective gastroenteritis and colitis, unspecified Status: Acute Assessment and Plan: Patient is improving but continues to have pain -diarrhea has improved -xray with improvement -continue Zosyn (day 5) -Dr. Aguayo has been consulted and inflammatory bowel disease workup has been initiated. -patency capsule study underway in hopes she can get a capsule study done in the future as I am unsure if she will be able to tolerate a bowel prep. -CEA slightly elevated. If she cannot tolerate a prep may consider Cologuard although if positive she will need a colonoscopy. -stool culture pending (2) Ovarian mass: Code(s): N83.8 - Other noninflammatory disorders of ovary, fallopian tube and broad ligament Status: Acute Assessment and Plan: U/S showing 11.3 cystic mass in the right adnexa which is likely benign cystadenoma although adenocarcinoma cannot be excluded -f/u with PROC TECH ONC (3) Adynamic ileus: Code(s): K56.0 - Paralytic ileus Status: Acute Assessment and Plan: Resolved (4) COPD (chronic obstructive pulmonary disease): Qualifiers: COPD type: unspecified COPD Qualified Code(s): J44.9 - Chronic obstructive pulmonary disease, unspecified Code(s): J44.9 - Chronic obstructive pulmonary disease, unspecified Status: Acute Assessment and Plan: No respiratory distress. - Continue her Symbicort, nebulized bronchodilator therapy as needed. 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 -Stool occult blood negative (7) Heart failure: Qualifiers: Heart failure type: unspecified Heart failure chronicity: unspecified Qualified Code(s): I50.9 - Heart failure, unspecified Code(s): I50.9 - Heart failure, unspecified Status: Chronic Assessment and Plan: Unknown type -continue home lasix and monitor potassium. -Monitor fluid status closely; daily weights, I&O. (8) Depression with anxiety: Code(s): F41.8 - Other specified anxiety disorders Status: Chronic Assessment and Plan: Continue with Paxil (9) Anemia: Code(s): D64.9 - Anemia, unspecified Status: Acute Assessment and Plan: Hgb 10.8 Acute on chronic -Iron studies suggest iron deficiency anemia be contributing -Consider starting iron after GI evaluation. -Monitor CBC and consider transfusion if Hgb < 7. Subjective Date/time seen: 03/02/21 13:51 Interval history: Pt is a 80 y/o female here for ileitis. Pt was seen today and states she continues to have abdominal pain but was sleeping at the time of my exam and didn't appear to be in acute distress. She has had no nausea or vomiting. RN states she has only had one diarrhea episode. She denies chest pain, shortness of breath or headache. Nurse states she is a Laura lift and I have asked her to get her to the chair. Exam Narrative: Exam Narrative: General: Patient resting comfortably in bed in no acute distress HEENT: normocephalic Neck: supple Neuro: Alert and oriented to herself and location. Follows commands. No obvious neurological deficits CV:RRR Resp: CTA today Abd: Soft, non distended. Pain to palpation to the right upper and right lower quadrants. Extremities: Left leg below the knee amputation within normal appearing stump. No swelling, erythema, or pain to palpation.
[2021-03-02 14:00] VITALS: BP 136/67; PULSE 71; RESP 18; TEMP 36.7; O2SAT 94
[2021-03-02] MEDS: HYDROcodone/acetaminophen (*CRX) 5-325 MG TABLET 1 TAB PO (18:08)
[2021-03-02 22:00] VITALS: BP 128/52; PULSE 73; RESP 22; TEMP 36.4; O2SAT 96
[2021-03-03] VITALS (11 sets, daily range): BP systolic 130–182; BP diastolic 52–103; PULSE 67–103; RESP 16–20; TEMP 36.1–36.5; O2SAT 96–100; BMI 34.6
[2021-03-03 00:20] LABS: ANCA Screen Negative (Negative); Myeloperoxidase Ab <1.0 AI (<1.0); Proteinase-3 Ab <1.0 AI (<1.0); S cerevisiae Ab (IgG) 5.6 U (<=20.0)
[2021-03-03 06:30] LABS: Hemoglobin 9.9 g/dL (12.0-15.0)
[2021-03-03 06:49] LABS: Anion Gap 6 mmol/L (8-16); Blood Urea Nitrogen 4 mg/dL (7-17); Calcium 7.9 mg/dL (8.4-10.2); Carbon Dioxide 27 mmol/L (22-30); Chloride 100 mmol/L (98-107); Estimated CRCL calculation 57 ml/min; Estimated Glomerular Filt Rate > 60; Glucose 97 mg/dL (65-105); Potassium 3.1 mmol/L (3.4-5.0); Sodium 133 mmol/L (137-145)
--- NOTE | 2021-03-03 07:42 | WPDGIPROGNO ---
Progress Note: A&P Assessment and Plan (1) Ileitis: Code(s): K52.9 - Noninfective gastroenteritis and colitis, unspecified Status: Acute Assessment and Plan: I am thinking this is probably an acute infectious ileitis. We will consider video capsule endoscopy if the patency capsule passes. Otherwise I would consider repeat small bowel series or CT scan in a couple weeks, but given the improvement in lasst abdominaal xray, now normal gas pattern, this may be resolving spontaneously. Lastly, if findings persist, a colonoscopy could be attempted I am going to advance her diet. I am thinking that from my perspective she could be discharged and I could continue workup as an outpatient, unless the repeat x-ray truly looks like small bowel obstruction (2) Ovarian mass: Code(s): N83.8 - Other noninflammatory disorders of ovary, fallopian tube and broad ligament Status: Acute Assessment and Plan: stll awiting CA-125, but pelvic US looks ok (3) Abdominal pain: Qualifiers: Abdominal location: generalized Qualified Code(s): R10.84 - Generalized abdominal pain Code(s): R10.9 - Unspecified abdominal pain Status: Acute Assessment and Plan: She did not require any Hydrocodone yesterday Subjective Date/time seen: 03/03/21 07:42 she has no complaints today. No vomiting or other signs of small-bowel obstruction, however the KUB yesterday to look for passage of her patency capsule was interpreted by the radiologist as small-bowel obstruction. . She will have a repeat KUB this morning Review of Systems Review of Systems: All systems reviewed & are unremarkable except as noted in HPI and below Exam Const: General: comfortable and no acute distress; No acute distress Nutritional Appearance: obese and overweight Cardio: Rate: regular rate GI: Inspection: normal to inspection Auscultation: normal bowel sounds Objective Data Vital Signs Vital Signs: Vital Signs - 24 hr 03/02/21 14:00 03/02/21 22:00 03/03/21 06:00 Temperature 36.7 C 36.4 C 36.4 C Pulse Rate 71 73 67 Respiratory Rate 18 22 H 20 Blood Pressure 136/67 128/52 L 130/52 L Pulse Oximetry 94 96 96 Intake/Output Intake/Output: Intake & Output 02/28/21 03/01/21 03/02/21 03/03/21 23:59 23:59 23:59 23:59 Intake Total 1610 1250 250 630 Balance 1610 1250 250 630 Meds/Results Medications: Active Medications Generic Name Dose Route Start Last Admin Trade Name Freq PRN Reason Stop Dose Admin Acetaminophen 650 mg 02/24/21 14:24 02/24/21 17:40 Acetaminophen 325 Mg Tablet PO 650 mg Q4H PRN Administration Mild Pain (1-3) or Fever Hydrocodone Bitart/Acetaminophen 1 tab 02/25/21 15:31 03/02/21 18:08 Hydrocodone/Acetaminophen (*Crx) 5-325 Mg Tablet PO 1 tab TID PRN Administration Pain Rated 4-6 Albuterol 5 mg 02/25/21 15:33 Albuterol Sulfate Neb 2.5 Mg/0.5 Ml Inh INHALATION Q6HRT PRN Shortness Of Breath Or Wheezing Artificial Tears 1 drop 02/25/21 09:00 03/02/21 18:07 Artificial Tears Op Soln 15 Ml Bottle EACH EYE 03/27/21 09:01 1 drop BID PANDA Administration Budesonide/Formoterol Fumarate 2 puff 02/25/21 09:00 03/02/21 23:15 Budesonide/Form 160-4.5 Mcg (*Sp) INHALATION 2 puff Q12HR PANDA Administration Furosemide 40 mg 02/28/21 09:00 03/02/21 11:21 Furosemide 40 Mg Tablet PO 40 mg DAILY PANDA Administration Gabapentin 100 mg 02/25/21 09:00 03/02/21 18:07 Gabapentin 100 Mg Capsule PO 100 mg TID PANDA Administration Piperacillin/Tazobactam/Dextrose 3.375 gm in 50 mls @ 100 mls/hr 02/25/21 17:00 03/03/21 07:22 Zosyn 3.375 Gm/D5w 50ml Pm IVPB Infused Q6HR PANDA Infusion Ipratropium [place] 0.5 mg 02/25/21 15:33 Ipratropium Br 0.02% Inh Soln 0.5 Mg/2.5 Ml Vial INHALATION Q6HRT PRN Shortness Of Breath Or Wheezing Magnesium Oxide 400 mg 02/27/21 09:00 03/02/21 11:20 Magnesium Oxide
[2021-03-03] MEDS: PARoxetine 10 MG TABLET PO (08:02)
[2021-03-03] MEDS: FUROSEMIDE 40 MG TABLET PO (08:02)
[2021-03-03] MEDS: PANTOPRAZOLE SOD SESQUIHYDRATE 20 MG TAB PO (08:02)
[2021-03-03] MEDS: RIVAROXABAN 2.5 MG TABLET PO (08:02)
[2021-03-03] MEDS: MAGNESIUM OXIDE 400 MG TABLET PO (08:03)
[2021-03-03] MEDS: GABAPENTIN 100 MG CAPSULE PO ×2 (08:03→12:24)
[2021-03-03] MEDS: MICONAZOLE NITRATE 2% CREAM 30 GM TUBE 1 APPLIC TOPICAL ×2 (08:04→20:51)
--- NOTE | 2021-03-03 09:25 | PC.NURSE ---
pt to radiology for small bowel series
--- NOTE | 2021-03-03 12:01 | PCNSR ---
On 03/03/21, the student,Lauryn Mtz, provided care and completed [facility] documentation on this patient. I have reviewed the student's documentation and agree with the findings.
--- NOTE | 2021-03-03 14:03 | PM.IMPN ---
Progress Note: A&P Assessment and Plan (1) Ileitis: Code(s): K52.9 - Noninfective gastroenteritis and colitis, unspecified Status: Acute Assessment and Plan: Pt found to have SBO on xray yesterday and then had a small bowel followthrough which showed partial obstruction or ileus with normal transit time -I spoke with Dr. Smith who plans to do surgery since pt has failed to get better -continue Zosyn (day 6) -Dr. Aguayo has been consulted and inflammatory bowel disease workup has been initiated. -patency capsule study done. 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 - Continue her Symbicort, nebulized bronchodilator therapy as needed. 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 -Stool occult blood negative (7) Heart failure: Qualifiers: Heart failure chronicity: unspecified Heart failure type: unspecified Qualified Code(s): I50.9 - Heart failure, unspecified Code(s): I50.9 - Heart failure, unspecified Status: Chronic Assessment and Plan: Unknown type, pt euvolemic -continue home lasix and monitor potassium. -Monitor fluid status closely; daily weights, I&O. (8) Depression with anxiety: Code(s): F41.8 - Other specified anxiety disorders Status: Chronic Assessment and Plan: Continue with Paxil (9) Anemia: Code(s): D64.9 - Anemia, unspecified Status: Acute Assessment and Plan: Hgb 9.9 Acute on chronic -Iron studies suggest iron deficiency anemia be contributing -Consider starting iron after GI evaluation. -Monitor CBC and consider transfusion if Hgb < 7. Subjective Date/time seen: 03/03/21 14:03 Interval history: Pt is a 80 y/o female here for ileitis. Pt was seen today and she is having significant abdominal pain in the LLQ today after her scan. She also has been having diarrhea after her small bowel follow through. She has had liquids but thats it today. No nausea, vomiting, feves, CP or SOB. Exam Narrative: Exam Narrative: General: Patient resting comfortably in bed in no acute distress but in pain HEENT: normocephalic Neck: supple Neuro: Alert and oriented to herself and location. Follows commands. No obvious neurological deficits CV:RRR Resp: CTA today Abd: Soft, non distended. Pain to palpation to the right upper and right lower quadrants. Extremities: Left leg below the knee amputation within normal appearing stump. No swelling, erythema, or pain to palpation. Objective Data Vital Signs Vital Signs: Vital Signs - 24 hr 03/02/21 22:00 03/03/21 06:00 Temperature 97.6 F 97.6 F Pulse Rate 73 67 Respiratory Rate 22 H 20 Blood Pressure
--- NOTE | 2021-03-03 14:25 | PC.NURSE ---
pt to surgery via bed, did speak with Dr Smith and review case, reviewed that pt has not been NPO and med list
--- NOTE | 2021-03-03 14:45 | PM.CNGS ---
Assessment and Plan Assessment and plan (1) Partial small bowel obstruction: Code(s): K56.600 - Partial intestinal obstruction, unspecified as to cause Status: Chronic Assessment and Plan: chronicity an imaging worrisome for ileal or cecal malignancy as the cause of her stricture and intermittent obstruction. Will proceed with exploratory laparotomy for small-bowel obstruction. If this is a congenital adhesion, this will be managed. If resection is necessary we will proceed with this as well. (2) Chronic anticoagulation: Code(s): Z79.01 - [facility] (current) use of anticoagulants Status: Acute Assessment and Plan: Increases risk of postoperative bleeding complications but necessary for cardiac and peripheral vascular disease prophylaxis. (3) Heart failure: Qualifiers: Heart failure type: unspecified Heart failure chronicity: unspecified Qualified Code(s): I50.9 - Heart failure, unspecified Code(s): I50.9 - Heart failure, unspecified Status: Chronic (4) COPD (chronic obstructive pulmonary disease): Qualifiers: COPD type: unspecified COPD Qualified Code(s): J44.9 - Chronic obstructive pulmonary disease, unspecified Code(s): J44.9 - Chronic obstructive pulmonary disease, unspecified Status: Chronic (5) Anemia: Code(s): D64.9 - Anemia, unspecified Status: Chronic Assessment and Plan: Stable anemia. History of Present Illness Consult details Consult date: 03/03/21 Reason for consult: abdominal pain Narrative: Patient is a 80-year-old woman who was admitted on February 24 with abdominal pain and potential for bowel obstruction. She was seen by my partner Dr. Hayden and her evaluation at that time showed no complete obstruction and most likely this was due to some type of ileitis. Medical therapy and GI workup or underway and were anticipated to alleviate the problem. The patient has improved but would then worsened again. I spoke with the payroll services analyst, Dr. Aguayo, as well as the hospitalist, Sherry Mortensen about the patient. Although she continues to have bowel movements, there is evidence on a capsule patency study as well as CT imaging and small bowel series that a severe stricture in the very distal ileum or possibly at the cecum exists. This is causing intermittent bowel obstruction. Dr. Whitman, Radiologist, feels that there is suggestion on imaging of a malignancy at the ileocecal valve that could be the source of this problem. The patient is seen again in consultation today and plans are to proceed with surgical exploration for intermittent small-bowel obstruction. The patient is had no previous abdominal surgery. She does reside in a [place] and seems to have some degree of cognitive impairment. She has continued to have right lower quadrant abdominal pain neck can be severe and crampy very suggestive of obstructive process. Review of Systems Review of Systems: All systems reviewed & are unremarkable except as noted in HPI and below Constitutional: Constitutional: Denies chills and Denies fever(s) Cardiovascular: Cardiovascular: Denies chest pain, Denies diaphoresis, Denies dyspnea and Denies paroxysmal nocturnal dyspnea Respiratory: Respiratory: Denies chest congestion, Denies cough and Denies dyspnea Integumentary/Breasts: Skin/Breast: Denies lesions and Denies rash PMFSH Past Medical History Medical History Chronic anticoagulation Chronic GERD Chronic pain COPD (chronic obstructive pulmonary disease) COVID-19 Depression with anxiety GERD (gastroesophageal reflux disease) Heart failure 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
--- NOTE | 2021-03-03 14:51 | ECG_ITS ---
Measurements Intervals [place] Rate: 80 P: 82 WA: 159 QRS: 46 QRSD: 90 T: 64 QT: 418 QTc: 483 Interpretive Statements SINUS RHYTHM ATRIAL AND VENTRICULAR PREMATURE COMPLEXES EARLY PRECORDIAL R/S TRANSITION BORDERLINE ECG Electronically Signed On 03-03-2021 15:18:19 CDT by Augustine Garcia D.O.
--- NOTE | 2021-03-03 14:51 | WPDANESEPPF ---
Anes - Initial Pre Proc Eval Procedure: Operation Date: 03/03/21 14:45 Proposed Procedures p Exploratory Laparotomy For Bowel Obstruction - Avelino Smith MD Date/Time: 03/03/21 14:51 Surgeon: Sherry Mortensen PA-C Pre Op Diagnosis: Abdominal Pain, Ileus Patient Data Age: 80 Gender: F Height: 1.65 m Weight: 94.3 kg Last Vital Signs Temp 36.5 C 03/03/21 14:44 Pulse 84 03/03/21 14:44 Resp 20 03/03/21 14:44 BP 145/70 H 03/03/21 14:44 Pulse Ox 100 03/03/21 14:44 Allergies Allergy/AdvReac Type Severity Reaction Status Date / Time No Known Allergies Allergy Verified 02/24/21 08:52 Home Medications Medication Instructions Recorded Confirmed Type furosemide 40 mg PO DAILY 08/20/20 02/24/21 History potassium chloride 20 meq PO DAILY 08/20/20 02/24/21 History rivaroxaban [Xarelto] 2.5 mg PO BID 08/20/20 02/24/21 History budesonide-formoterol [Symbicort] 2 puff INHALATION Q12H 08/21/20 02/24/21 History cholecalciferol (vitamin D3) 50 mcg PO DAILY 08/21/20 02/24/21 History [Vitamin D3] multivitamin with minerals [All 1 tablet PO DAILY 08/21/20 02/24/21 History Purpose Multivitamin-Min] polyethylene glycol 3350 [Miralax] 17 g PO DAILY PRN 08/21/20 02/24/21 History acetaminophen 650 mg PO Q6-8H PRN 02/24/21 02/24/21 History albuterol sulfate 2.5 mg INHALATION Q6-8H PRN 02/24/21 02/24/21 History carboxymethylcellulose sodium 1 drp EACH EYE BID 02/24/21 02/24/21 History [TheraTears] gabapentin 100 mg PO TID 02/24/21 02/24/21 History guaifenesin 10 mg PO Q4-5H PRN 02/24/21 02/24/21 History hydrocodone-acetaminophen 1 tablet PO TID PRN 02/24/21 02/24/21 History loperamide 2 mg PO Q4H PRN 02/24/21 02/24/21 History loratadine 10 mg PO DAILY 02/24/21 02/24/21 History naproxen 500 mg PO BID 02/24/21 02/24/21 History pantoprazole [Protonix] 40 mg PO BID 02/24/21 02/24/21 History paroxetine HCl [Paxil] 10 mg PO QAM 02/24/21 02/24/21 History sennosides-docusate sodium 1 tab-cap PO HS PRN 02/24/21 02/24/21 History [Senokot-S] zinc 50 mg PO DAILY 02/24/21 02/24/21 History Laboratory Tests 02/26/21 03/03/21 03/03/21 17:36 05:26 05:26 Hgb 9.9 g/dL L g/dL (12.0-15.0) Hct 31.0 % L % (37.0-47.0) Sodium 133 mmol/L L mmol/L (137-145) Potassium 3.1 mmol/L L mmol/L (3.4-5.0) Chloride 100 mmol/L mmol/L (98-107) Carbon Dioxide 27 mmol/L mmol/L (22-30) Anion Gap 6 mmol/L L mmol/L (8-16) BUN 4 mg/dL L mg/dL (7-17) Creatinine 0.80 mg/dL mg/dL (0.7-1.0) Estim Creat Clear Calc 57 ml/min ml/min Estimated GFR > 60 (59 - ) Glucose 97 mg/dL mg/dL (65-105) Calcium 7.9 mg/dL L mg/dL (8.4-10.2) ANCA Screen Negative (Negative) Proteinase 3 (PR3) Ab <1.0 AI AI (<1.0) Myeloperoxidase Ab <1.0 AI AI (<1.0) S.cerevisiae IgG Ab 5.6 U U (<=20.0) S.cerevisiae IgA Ab 5.0 U U (<=20.0) Patient hx anesthesia problems: none Family hx anesthesia problems: none PMFSH Past Medical History Medical History Chronic anticoagulation Chronic GERD Chronic pain COPD (chronic obstructive pulmonary disease) COVID-19 Depression with anxiety GERD (gastroesophageal reflux disease) Heart failure 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 She tells me that she has 1 child. S
--- NOTE | 2021-03-03 15:01 | SUR.PREOP ---
PT ALERT AND ORIENTED. CONTINUES TO BE INCONTINENT OF URINE AND LIQUID STOOL.
--- NOTE | 2021-03-03 15:04 | WPDHPUPDATE1 ---
History and Physical Update Update Date/Time: 03/03/21 15:04 History and Physical has been reviewed, including an updated exam of the patient. There are NO changes in the patient's condition. Risks, benefits, and alternatives have been discussed and questions answered. Patient agrees to proceed with procedure.
--- NOTE | 2021-03-03 15:11 | SUR.PREOP ---
1451; STAT EKG ORDERED PER DR CASTELLANOS INSTRUCTIONS. CALLED CARDIOLOGY
[2021-03-03] MEDS: ceFAZolin 2 GM/D5W 50 ML 2 GM/50 ML BAG IVPB (15:49)
[2021-03-03] MEDS: LACTATED RINGERS 1,000 ML 30 ML IV CONT ×2 (17:28)
[2021-03-03] MEDS: fentaNYL CITRATE INJ (*CRX) 100 MCG/2 ML VIAL 25 MCG IV PUSH ×3 (17:46→18:07)
--- NOTE | 2021-03-03 17:50 | W.PM.PROC2 ---
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 Anesthesia general Indications Patient is a 80-year-old woman with persistent right lower quadrant abdominal pain of a crampy nature. She did not have a complete obstruction but would consistently have evidence of recurring distal small-bowel obstruction. Some of her imaging was suggestive of a stricture possibly a tumor in the distal ileum. She is taken to surgery now for exploratory laparotomy for distal small-bowel obstruction possibly due to malignancy. Findings There appeared to be a tumor that had obstructed the distal small bowel and appendix in the cecum. This could of been a cecal cancer, appendiceal cancer or ileal carcinoma. The point of obstruction was at the distal ileum cecal junction. No obvious metastatic disease was evident. Patient did have more oozing than expected due to her anticoagulation but it was able to be controlled an not an obstacle during the surgery. Description of Procedure Patient was taken to surgery and induced into general anesthesia. The abdomen is prepped and draped. A midline incision was made above and below the umbilicus. Dissection was carried through the midline fascia. The peritoneal cavity was entered. No ascites was noted. The small bowel was obviously dilated. I eviscerated the dilated small bowel and followed it to cecum. At the area of the cecum, there was an obvious mass that appeared to be malignancy of either the cecum appendix or distal ileum. This was obviously the point of obstruction as well. The remainder the abdomen was explored and no other evidence of tumor was noted. She has a very large right ovarian cyst but this was not adherent or part of the intestinal problem. With the patient anticoagulated and of frail health anyway, no plans to consult KITCHEN AIDE or removed this were felt to be prudent. A large Sergey wound guard was then placed. We proceeded expeditiously with the right colectomy. The lateral peritoneal attachments to the right colon were taken down with the cautery. Meticulous hemostasis was maintained throughout the surgery since the patient was fully anticoagulated. The ascending colon was mobilized completely including dividing hepatocolic attachments. The mesentery to the base of the distal ileum was scored as well. The LigaSure was then used to divide the mesentery to the distal ileum taking at least 10 cm with the specimen. With the mesentery divided up to the ileum I went back to the base of the ileal mesentery and then started dividing towards the ileocolic artery. This was also done with the LigaSure. I dissected around the ileocolic artery and eventually divided it near its origin. We then continued with the LigaSure dividing the right colon mesentery near its origin. Once we were beyond the hepatic flexure, the right branch of the middle colic artery was likewise divided using LigaSure. This provided sufficient mobilization of the proximal right colon as well as the entire ascending colon and distal ileum to proceed with resection and anastomosis. I did divide the omentum down to the point of distal resection so that omentum would be taken with the specimen. Noncrushing bowel clamps were placed distally on the transverse colon and proximally on the ileum to avoid contamination. Double staple technique was used with the TLC 75 stapler to perform [id number] but functional end-to-end anastomosis. I then used the TLC 75 stapler to divide the small bowel and the transverse colon to complete the resection. This took 2 firings of the TLC 75 stapler to get across the small and large bowel as they were dilated. The specimen was passed off to pathology in formalin. I then over sewed
--- NOTE | 2021-03-03 18:38 | PC.NURSE ---
pt returned from surgery, resting comfortably VSS
[2021-03-03] MEDS: IBUPROFEN IV 800 MG/200 ML 800 MG/200 ML BAG 400 MG IVPB (18:58)
[2021-03-03] MEDS: LACTATED RINGERS 1,000 ML 100 ML IV CONT (20:50)
[2021-03-03] MEDS: FAMOTIDINE 20 MG/2 ML VIAL IV PUSH (20:51)
[2021-03-04] MEDS: IBUPROFEN IV 800 MG/200 ML 800 MG/200 ML BAG 400 MG IVPB (01:52)
[2021-03-04 02:00] VITALS: BP 141/71; PULSE 92; RESP 16; TEMP 36; O2SAT 95
[2021-03-04 05:43] VITALS: BP 119/50; PULSE 89; RESP 16; TEMP 36.2; O2SAT 97
[2021-03-04 05:45] LABS: Hematocrit 35.1 % (37.0-47.0); Hemoglobin 11.1 g/dL (12.0-15.0); Mean Corpuscular HGB Conc 31.6 g/dl (32-36); Mean Corpuscular Hemoglobin 30.7 pg (26-34); Mean Platelet Volume 9.8 fl (7.4-10.4); Platelet Count Result 282 k/mm3 (150-375); Red Blood Count 3.62 M/mm3 (4.2-5.4); Red Cell Distribution Width 15.9 % (11.5-14.5); White Blood Count 18.1 K/mm3 (4.5-10.0)
[2021-03-04 05:54] LABS: Anion Gap 9 mmol/L (8-16); Blood Urea Nitrogen 4 mg/dL (7-17); Calcium 8.4 mg/dL (8.4-10.2); Carbon Dioxide 22 mmol/L (22-30); Chloride 104 mmol/L (98-107); Estimated CRCL calculation 73 ml/min; Estimated Glomerular Filt Rate > 60; Glucose 138 mg/dL (65-105); Potassium 3.5 mmol/L (3.4-5.0); Sodium 135 mmol/L (137-145)
[2021-03-04] MEDS: LACTATED RINGERS 1,000 ML 100 ML IV CONT (07:15)
[2021-03-04] MEDS: PARoxetine 10 MG TABLET PO (08:50)
[2021-03-04] MEDS: FAMOTIDINE 20 MG/2 ML VIAL IV PUSH ×2 (08:53→22:09)
[2021-03-04] MEDS: MICONAZOLE NITRATE 2% CREAM 30 GM TUBE 1 APPLIC TOPICAL ×2 (08:54→22:11)
[2021-03-04] MEDS: IBUPROFEN IV 800 MG/200 ML 800 MG/200 ML BAG 200 MG IVPB (08:57)
[2021-03-04 09:12] VITALS: O2SAT 94
--- NOTE | 2021-03-04 09:30 | PM.PNGS ---
Progress Note: A&P Assessment and Plan (1) Partial small bowel obstruction: Code(s): K56.600 - Partial intestinal obstruction, unspecified as to cause Status: Chronic Assessment and Plan: partial obstruction due to cecal, appendiceal, or distal ileal malignancy. Patient status post right colectomy with anastomosis 03/03/2021. Doing well today. No bowel sounds so will continue NPO except sips of water and some medications. Continue to hold her Xarelto for now. Will start Lovenox Prophylactic dose. Leave Vargas today but probably removed tomorrow. Up in chair. Looks good postop day 1. (2) Chronic anticoagulation: Code(s): Z79.01 - [facility] (current) use of anticoagulants Status: Acute Assessment and Plan: Continue to hold Xarelto for now. No evidence of postoperative bleeding despite being anticoagulated. (3) Anemia: Code(s): D64.9 - Anemia, unspecified Status: Chronic Assessment and Plan: Hematocrit actually higher today at 35.1. No evidence of postoperative bleeding. Stable anemia. Subjective Subjective Date/Time Seen: 03/04/21 09:30 Post Op day: 1 Patient reports: no new complaints, feels better, bowel movement and afebrile Interval history: Patient pulled out her NG tube and was refusing to have it replaced. She is having minimal abdominal pain and no nausea at all. Review of Systems Review of Systems: All systems reviewed & are unremarkable except as noted in HPI and below Constitutional: Constitutional: Denies body ache(s), Denies chills, Denies fever(s) and Denies headache(s) Cardiovascular: Cardiovascular: Denies chest pain and Denies dyspnea Respiratory: Respiratory: Denies cough and Denies dyspnea Gastrointestinal: Gastrointestinal: Reports as per HPI, Reports abdominal pain, Denies heartburn, Reports diarrhea, Denies nausea and Denies vomiting Exam Const: General: comfortable, no acute distress, alert and awake Nutritional Appearance: overweight GI: Inspection: non-distended and incision ( Dressing dry and intact) GI Palp: Yes Soft to palpation, Yes Tenderness to palpation present (GI) ( mild appropriate tenderness), No Guarding due to palpation present (GI) and No Rebound tenderness present Auscultation: absent bowel sounds Urinary Catheter: Urinary Catheter: patent and draining and urine clear Extrem: General: no calf tenderness and no edema Objective Data Vital Signs Vital Signs: Vital Signs - 24 hr 03/03/21 14:44 03/03/21 17:28 03/03/21 17:40 Temperature 36.5 C 36.4 C Pulse Rate 84 103 H 99 Respiratory Rate 20 18 18 Blood Pressure 145/70 H 152/103 H 181/80 H Pulse Oximetry 100 99 100 03/03/21 17:55 03/03/21 18:10 03/03/21 18:20 Temperature 36.5 C Pulse Rate 82 82 84 Respiratory Rate 18 16 16 Blood Pressure 179/88 H 182/71 H 180/79 H Pulse Oximetry 100 98 96 03/03/21 18:35 03/03/21 18:50 03/03/21 20:20 Temperature 36.1 C L 36.1 C L 36.1 C L Pulse Rate 82 92 88 Respiratory Rate 16 16 16 Blood Pressure 148/63 H 148/67 H 151/76 H Pulse Oximetry 99 98 96 03/03/21 21:27 03/04/21 02:00 03/04/21 05:43 Temperature 36.0 C L 36.2 C L Pulse Rate 92 89 Respiratory Rate 16 16 Blood Pressure 141/71 H 119/50 L Pulse Oximetry 96 95 97 03/04/21 09:12 Temperature Pulse Rate Respiratory Rate Blood Pressure Pulse Oximetry 94 Intake/Output Intake/Output: Intake & Output 03/01/21 03/02/21 03/03/21 03/04/21 23:59 23:59 23:59 23:59 Intake Total 6651 131 5884 1200 Output Total 375 200 Balance 6529 394 0830 1000 Meds/Results Medications: Active Medications Generic Name Dose Route Start Last Admin Trade Name Freq PRN Reason Stop Dose Admin Albuterol 5 mg 02/25/21 15:33 Albuterol Sulfate Neb 2.5 Mg/0.5 Ml Inh INHALATION Q6HRT PRN Shortness Of Breath Or Wheezing Artificial Tears 1 drop 02/25/21 09:00 03/04/21 08:50 Artificial Tears Op Soln 15 Ml Bottle EACH EYE
[2021-03-04 10:00] VITALS: BP 117/81; PULSE 81; RESP 18; TEMP 36.2; O2SAT 98
--- NOTE | 2021-03-04 10:07 | WPDANESPN ---
Anes - Prog Note Post-Op Date/Time: 03/04/21 10:07 Cardiovascular status: normal Respiratory status: normal Airway patency: baseline Mental status: baseline Vital Signs: Last Vital Signs Temp 36.2 C L 03/04/21 05:43 Pulse 89 03/04/21 05:43 Resp 16 03/04/21 05:43 BP 119/50 L 03/04/21 05:43 Pulse Ox 94 03/04/21 09:12 Pain Score (VAS): 0/10 I/O: Intake & Output 03/03/21 03/04/21 03/04/21 23:59 07:59 15:59 Intake Total 700 1200 Output Total 375 200 Balance 325 1000 Laboratory Tests 03/04/21 05:30 03/04/21 05:30 03/04/21 03/04/21 05:30 05:30 WBC 18.1 H RBC 3.62 L Hgb 11.1 L Hct 35.1 L MCV 97.0 D MCH 30.7 MCHC 31.6 L RDW 15.9 H Plt Count 282 MPV 9.8 Sodium 135 L Potassium 3.5 Chloride 104 Carbon Dioxide 22 Anion Gap 9 BUN 4 L Creatinine 0.60 L Estim Creat Clear Calc 73 Estimated GFR > 60 Glucose 138 H Calcium 8.4 Patient Feedback: Patient satisfied with anesthetic care.
[2021-03-04] MEDS: ENOXAPARIN 40 MG/0.4 ML SYRINGE SUB-Q (11:25)
--- NOTE | 2021-03-04 12:05 | PM.IMPN ---
Progress Note: A&P Assessment and Plan (1) Partial small bowel obstruction: Code(s): K56.600 - Partial intestinal obstruction, unspecified as to cause Status: Chronic Assessment and Plan: S/P Right colectomy with anastomosis postop day 1 - hemoglobin has remained stable. leukocytosis likely reactionary surgery and suspect will improve - suspect cancer as there was a tumor noted and excised during surgery. await pathology - continue NPO with ice chips. No nausea or vomiting today but minimal bowel sounds - patient is the most active I have seen her in the last few days today. (2) Ileitis: Code(s): K52.9 - Noninfective gastroenteritis and colitis, unspecified Status: Deleted Assessment and Plan: As above (3) Ovarian mass: Code(s): N83.8 - Other noninflammatory disorders of ovary, fallopian tube and broad ligament Status: Acute Assessment and Plan: U/S showing 11.3 cystic mass in the right adnexa which is likely benign cystadenoma although adenocarcinoma cannot be excluded -f/u with [facility] (4) Adynamic ileus: Code(s): K56.0 - Paralytic ileus Status: Deleted Assessment and Plan: as above (5) COPD (chronic obstructive pulmonary disease): Qualifiers: COPD type: unspecified COPD Qualified Code(s): J44.9 - Chronic obstructive pulmonary disease, unspecified Code(s): J44.9 - Chronic obstructive pulmonary disease, unspecified Status: Chronic Assessment and Plan: No respiratory distress. - Continue her Symbicort, nebulized bronchodilator therapy as needed. 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 -Stool occult blood negative - Xarelto has been on hold and the plan is to start prophylaxis doseLovenox tomorrow morning - monitor H&H (8) Heart failure: Qualifiers: Heart failure type: unspecified Heart failure chronicity: unspecified Qualified Code(s): I50.9 - Heart failure, unspecified Code(s): I50.9 - Heart failure, unspecified Status: Chronic Assessment and Plan: Unknown type, pt euvolemic -Monitor fluid status closely; daily weights, I&O. (9) Depression with anxiety: Code(s): F41.8 - Other specified anxiety disorders Status: Chronic Assessment and Plan: Continue with Paxil (10) Anemia: Code(s): D64.9 - Anemia, unspecified Status: Chronic Assessment and Plan: Hgb 11.1 Acute on chronic -Iron studies suggest iron deficiency anemia be contributing -Consider starting iron at d/c -Monitor CBC and consider transfusion if Hgb < 7. Subjective Date/time seen: 03/04/21 12:05 Interval history: Pt is a 80 y/o female here for ileitis Found to have a tumor during surgery yesterday. Patient was seen today and is better than she has been since I have known her. She says that she has did okay. She has some soreness to her abdomen but overall she feels all right. She is eating ice chips and does not have any nausea or vomiting. She denies chest pain, shortness of breath, fevers or chills. Exam Narrative: Exam Narrative: General: Patient resting comfortably in the chair in no acute distress HEENT: normocephalic Neck: supple Neuro: Alert and oriented to herself and location. Follows commands. No obvious neurological deficits CV:RRR Resp: CTA today Abd: incision site with dressing over top. Clean and dry without excessive
[2021-03-04 14:00] VITALS: BP 152/74; PULSE 79; RESP 18; TEMP 36.8; O2SAT 98
[2021-03-04] MEDS: KCL 20 MEQ/LR 1,000 ML 80 ML IV CONT (14:02)
[2021-03-04] MEDS: diphenhydrAMINE HCl INJ 50 MG/ML VIAL 25 MG IV PUSH (17:54)
[2021-03-04 22:00] VITALS: BP 147/64; PULSE 73; RESP 20; TEMP 36.5; O2SAT 96
[2021-03-05 05:48] VITALS: BP 150/71; PULSE 84; RESP 18; TEMP 36.9; O2SAT 98
[2021-03-05 05:51] LABS: Basophils Percent Auto 0.5 % (0.2-1.2); Eosinophils Absolute Auto 0.2 K/mm3 (0-0.3); Eosinophils Percent Auto 1.8 % (0-4.4); Hematocrit 31.8 % (37.0-47.0); Hemoglobin 10.5 g/dL (12.0-15.0); Immature Granulocyte Absolute 0.04 K/mm3 (0.00-0.031); Immature Granulocyte Percent A 0.5 % (0-0.5); Lymphocytes Absolute Auto 1.88 K/mm3 (0.9-3.2); Lymphocytes Percent Auto 22.1 % (18.3-44.2); Mean Corpuscular Hemoglobin 30.4 pg (26-34); Mean Corpuscular Volume 92.2 fl (80-100); Mean Platelet Volume 9.8 fl (7.4-10.4); Monocytes Absolute Auto 0.7 K/mm3 (0.1-0.6); Monocytes Percent Auto 8.7 % (2.6-8.5); Neutrophils Absolute Auto 5.7 K/mm3 (1.3-6.7); Neutrophils Percent Auto 66.4 % (45.5-73.1); Platelet Count Result 287 k/mm3 (150-375); Red Blood Count 3.45 M/mm3 (4.2-5.4); Red Cell Distribution Width 15.7 % (11.5-14.5); White Blood Count 8.5 K/mm3 (4.5-10.0)
[2021-03-05 06:04] LABS: Anion Gap 4 mmol/L (8-16); Blood Urea Nitrogen 6 mg/dL (7-17); Carbon Dioxide 28 mmol/L (22-30); Chloride 102 mmol/L (98-107); Estimated CRCL calculation 64 ml/min; Estimated Glomerular Filt Rate > 60; Glucose 86 mg/dL (65-105); Magnesium 1.8 mg/dL (1.6-2.3); Potassium 3.6 mmol/L (3.4-5.0); Sodium 134 mmol/L (137-145)
[2021-03-05] MEDS: ENOXAPARIN 40 MG/0.4 ML SYRINGE SUB-Q (09:56)
[2021-03-05] MEDS: PARoxetine 10 MG TABLET PO (09:56)
[2021-03-05] MEDS: MICONAZOLE NITRATE 2% CREAM 30 GM TUBE 1 APPLIC TOPICAL ×2 (09:57→21:37)
[2021-03-05] MEDS: FAMOTIDINE 20 MG/2 ML VIAL IV PUSH ×2 (10:14→21:33)
[2021-03-05] MEDS: IBUPROFEN IV 800 MG/200 ML 800 MG/200 ML BAG 200 MG IVPB (10:26)
--- NOTE | 2021-03-05 11:51 | PM.IMPN ---
Progress Note: A&P Assessment and Plan (1) Partial small bowel obstruction: Code(s): K56.600 - Partial intestinal obstruction, unspecified as to cause Status: Chronic Assessment and Plan: S/P Right colectomy with anastomosis postop day 2 - hemoglobin has remained stable. leukocytosis resolved. - suspect cancer as there was a tumor noted and excised during surgery. await pathology -Transition to clear liquids today. No nausea or vomiting and has been passing gas -pt continues to do well. (2) Ileitis: Code(s): K52.9 - Noninfective gastroenteritis and colitis, unspecified Status: Deleted Assessment and Plan: As above (3) Ovarian mass: Code(s): N83.8 - Other noninflammatory disorders of ovary, fallopian tube and broad ligament Status: Acute Assessment and Plan: U/S showing 11.3 cystic mass in the right adnexa which is likely benign cystadenoma although adenocarcinoma cannot be excluded -f/u with SEARCH COORDINATOR ONC (4) Adynamic ileus: Code(s): K56.0 - Paralytic ileus Status: Deleted Assessment and Plan: as above (5) COPD (chronic obstructive pulmonary disease): Qualifiers: COPD type: unspecified COPD Qualified Code(s): J44.9 - Chronic obstructive pulmonary disease, unspecified Code(s): J44.9 - Chronic obstructive pulmonary disease, unspecified Status: Chronic Assessment and Plan: No respiratory distress. - Continue her Symbicort, nebulized bronchodilator therapy as needed. 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 -Stool occult blood negative - Xarelto has been on hold and the plan is to continue prophylaxis dose Lovenox - monitor H&H (8) Heart failure: Qualifiers: Heart failure type: unspecified Heart failure chronicity: unspecified Qualified Code(s): I50.9 - Heart failure, unspecified Code(s): I50.9 - Heart failure, unspecified Status: Chronic Assessment and Plan: Unknown type, pt euvolemic -Monitor fluid status closely; daily weights, I&O. (9) Depression with anxiety: Code(s): F41.8 - Other specified anxiety disorders Status: Chronic Assessment and Plan: Continue with Paxil (10) Anemia: Code(s): D64.9 - Anemia, unspecified Status: Chronic Assessment and Plan: Hgb 10.5 Acute on chronic -Iron studies suggest iron deficiency anemia be contributing -Consider starting iron at d/c -Monitor CBC and consider transfusion if Hgb < 7. (11) Elevated blood pressure reading without diagnosis of hypertension: Code(s): R03.0 - Elevated blood-pressure reading, without diagnosis of hypertension Status: Acute Assessment and Plan: Last bp 150/71 likely due to pain -Will monitor and if she trends high medication may need to be started -She is on lasix at home which likely helps her BP. If she tolerates a diet today we can d/c fluids and start lasix when appropriate. Subjective Date/time seen: 03/05/21 11:51 Interval history: Pt is a 80 y/o female here for ileitis found to have a tumor during surgery. Patient was seen today with no complaints other than being hungry and her stomach muscles being sore. She has passed gas but does not think she has had a BM. She has some soreness to her abdomen but overall she feels all right. She is eating ice chips and does not have any nausea or vomiting. She denies chest pain, sh
[2021-03-05 14:00] VITALS: BP 143/62; PULSE 76; RESP 12; TEMP 36.1; O2SAT 98
--- NOTE | 2021-03-05 14:09 | PM.PNGS ---
Progress Note: A&P Assessment and Plan (1) Partial small bowel obstruction: Code(s): K56.600 - Partial intestinal obstruction, unspecified as to cause Status: Chronic Assessment and Plan: probably obstructed due to distal ileal tumor. Pathology pending. Doing well status post right colectomy. Will start clear liquids. Up in chair today. Ambulate if possible. Daily dry dressing changes. Continue to monitor closely. 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 Receiving prophylactic dose of Lovenox. Subjective Subjective Date/Time Seen: 03/05/21 14:09 Post Op day: 2 Patient reports: no new complaints, pain is less, flatus, no bowel movement and afebrile Exam Const: General: cooperative, comfortable, no acute distress, alert and awake Nutritional Appearance: overweight GI: Inspection: non-distended, incision ( dry, intact and healing well) and obesity GI Palp: Yes Soft to palpation, Yes Tenderness to palpation present (GI) ( mild incisional tenderness), No Guarding due to palpation present (GI), No Hernia present and No Palpable mass present Auscultation: Hypoactive bowel sounds present Objective Data Vital Signs Vital Signs: Vital Signs - 24 hr 03/04/21 22:00 03/05/21 05:48 Temperature 36.5 C 36.9 C Pulse Rate 73 84 Respiratory Rate 20 18 Blood Pressure 147/64 H 150/71 H Pulse Oximetry 96 98 Intake/Output Intake/Output: Intake & Output 03/02/21 03/03/21 03/04/21 03/05/21 23:59 23:59 23:59 23:59 Intake Total 250 2400 2000 525 Output Total 375 375 450 Balance 250 2025 1625 75 Meds/Results Medications: Active Medications Generic Name Dose Route Start Last Admin Trade Name Freq PRN Reason Stop Dose Admin Albuterol 5 mg 02/25/21 15:33 Albuterol Sulfate Neb 2.5 Mg/0.5 Ml Inh INHALATION Q6HRT PRN Shortness Of Breath Or Wheezing Artificial Tears 1 drop 02/25/21 09:00 03/05/21 09:56 Artificial Tears Op Soln 15 Ml Bottle EACH EYE 03/27/21 09:01 1 drop BID PANDA Administration Budesonide/Formoterol Fumarate 2 puff 02/25/21 09:00 03/05/21 09:56 Budesonide/Form 160-4.5 Mcg (*Sp) INHALATION 2 puff Q12HR PANDA Administration Diphenhydramine HCl 25 mg 03/04/21 17:02 03/04/21 17:54 Diphenhydramine Hcl Inj 50 Mg/Ml Vial IV PUSH 25 mg Q6H PRN Administration Itching Enoxaparin Sodium 40 mg 03/05/21 09:00 03/05/21 09:56 Enoxaparin 40 Mg/0.4 Ml Syringe SUB-Q 40 mg DAILY PANDA Administration Famotidine 20 mg 03/03/21 21:00 03/05/21 10:14 Famotidine 20 Mg/2 Ml Vial IV PUSH 20 mg Q12HR PANDA Administration Ibuprofen 800 mg in 200 mls @ 400 mls/hr 03/03/21 18:23 03/05/21 11:26 Caldolor 800 Mg/200 Ml IVPB Infused Q6H PRN Infusion Pain Rated 1-3 Potassium Cl/Dextrose/Lact Ringer's 1,000 mls @ 80 mls/hr 03/04/21 12:15 03/05/21 11:30 Kcl 20 Meq/Lr IV CONT 80 mls/hr .[id number] PANDA Infusion Ipratropium [place] 0.5 mg 02/25/21 15:33 Ipratropium Br 0.02% Inh Soln 0.5 Mg/2.5 Ml Vial INHALATION Q6HRT PRN Shortness Of Breath Or Wheezing Miconazole Nitrate 1 applic 02/28/21 21:00 03/05/21 09:57 Miconazole Nitrate 2% Cream 30 Gm Tube TOPICAL 1 applic Q12HR PANDA Administration Ondansetron HCl 4 mg 02/24/21 14:24 02/25/21 23:46 Ondansetron Inj 4 Mg/2 Ml Vial IV PUSH 4 mg Q4H PRN Administration Nausea Paroxetine HCl 10 mg 02/25/21 09:00 03/05/21 09:56 Paroxetine 10 Mg Tablet PO 10 mg QAM PANDA Administration Radiology Results: ITS Impressions Abdomen/Pelvis CT 02/24/21 12:07 IMPRESSION: 1. Moderately thickened enhancing ileal mucosa, ileitis with additional thickening at the terminal ileum. Moderately dilated small bowel, probably ileus or less likely partial obstruction. Could be infectious or inflammatory bowel disease etiology. 2. Dil
[2021-03-05] MEDS: KCL 20 MEQ/LR 1,000 ML 80 ML IV CONT (17:12)
[2021-03-05 21:11] VITALS: BP 119/63; PULSE 71; RESP 16; TEMP 36.2; O2SAT 99
[2021-03-05] MEDS: IBUPROFEN IV 800 MG/200 ML 800 MG/200 ML BAG 400 MG IVPB (21:35)
[2021-03-06 05:27] VITALS: BP 139/67; PULSE 73; RESP 16; TEMP 36.3; O2SAT 98
[2021-03-06 05:31] LABS: Hematocrit 31.2 % (37.0-47.0); Hemoglobin 9.2 g/dL (12.0-15.0); Mean Corpuscular HGB Conc 29.5 g/dl (32-36); Mean Corpuscular Hemoglobin 30.8 pg (26-34); Mean Corpuscular Volume 104.3 fl (80-100); Mean Platelet Volume 9.7 fl (7.4-10.4); Platelet Count Result 227 k/mm3 (150-375); Red Blood Count 2.99 M/mm3 (4.2-5.4); Red Cell Distribution Width 15.9 % (11.5-14.5); White Blood Count 5.4 K/mm3 (4.5-10.0)
[2021-03-06 05:42] LABS: Anion Gap 4 mmol/L (8-16); Blood Urea Nitrogen 6 mg/dL (7-17); Carbon Dioxide 24 mmol/L (22-30); Chloride 104 mmol/L (98-107); Estimated CRCL calculation 73 ml/min; Estimated Glomerular Filt Rate > 60; Glucose 81 mg/dL (65-105); Magnesium 1.9 mg/dL (1.6-2.3); Potassium 3.8 mmol/L (3.4-5.0); Sodium 132 mmol/L (137-145)
[2021-03-06] MEDS: KCL 20 MEQ/LR 1,000 ML 80 ML IV CONT (06:01)
--- NOTE | 2021-03-06 08:00 | PM.PNGS ---
Progress Note: A&P Assessment and Plan (1) Partial small bowel obstruction: Code(s): K56.600 - Partial intestinal obstruction, unspecified as to cause Status: Chronic Assessment and Plan: pathology pending. Still not a lot of bowel sounds but tolerated small amounts of clear liquids. Will advance to full liquids. Monitor closely for signs of a dynamic ileus. Labs noted. (2) Chronic anticoagulation: Code(s): Z79.01 - [facility] (current) use of anticoagulants Status: Acute Assessment and Plan: Okay to resume Xarelto and stop Lovenox from my perspective. (3) Anemia: Code(s): D64.9 - Anemia, unspecified Status: Chronic Assessment and Plan: Chronic with some dilutional effects. Continue to monitor. Subjective Subjective Date/Time Seen: 03/06/21 08:00 Post Op day: 3 Patient reports: no new complaints, pain is less, tolerating liquids well and afebrile Exam GI: Inspection: non-distended, incision ( dry and intact, healing well) and obesity GI Palp: Yes Soft to palpation and Yes Tenderness to palpation present (GI) Auscultation: Hypoactive bowel sounds present Objective Data Vital Signs Vital Signs: Vital Signs - 24 hr 03/05/21 14:00 03/05/21 21:11 03/06/21 05:27 Temperature 36.1 C L 36.2 C L 36.3 C L Pulse Rate 76 71 73 Respiratory Rate 12 16 16 Blood Pressure 143/62 H 119/63 139/67 Pulse Oximetry 98 99 98 Intake/Output Intake/Output: Intake & Output 03/03/21 03/04/21 03/05/21 03/06/21 23:59 23:59 23:59 23:59 Intake Total 2400 2000 1825 1000 Output Total 375 375 550 Balance 2024 1625 1275 1000 Meds/Results Medications: Active Medications Generic Name Dose Route Start Last Admin Trade Name Freq PRN Reason Stop Dose Admin Albuterol 5 mg 02/25/21 15:33 Albuterol Sulfate Neb 2.5 Mg/0.5 Ml Inh INHALATION Q6HRT PRN Shortness Of Breath Or Wheezing Artificial Tears 1 drop 02/25/21 09:00 03/05/21 17:12 Artificial Tears Op Soln 15 Ml Bottle EACH EYE 03/27/21 09:01 1 drop BID PANDA Administration Budesonide/Formoterol Fumarate 2 puff 02/25/21 09:00 03/05/21 21:33 Budesonide/Form 160-4.5 Mcg (*Sp) INHALATION 2 puff Q12HR PANDA Administration Diphenhydramine HCl 25 mg 03/04/21 17:02 03/04/21 17:54 Diphenhydramine Hcl Inj 50 Mg/Ml Vial IV PUSH 25 mg Q6H PRN Administration Itching Enoxaparin Sodium 40 mg 03/05/21 09:00 03/05/21 09:56 Enoxaparin 40 Mg/0.4 Ml Syringe SUB-Q 40 mg DAILY PANDA Administration Famotidine 20 mg 03/03/21 21:00 03/05/21 21:33 Famotidine 20 Mg/2 Ml Vial IV PUSH 20 mg Q12HR PANDA Administration Ibuprofen 800 mg in 200 mls @ 400 mls/hr 03/03/21 18:23 03/05/21 22:05 Caldolor 800 Mg/200 Ml IVPB Infused Q6H PRN Infusion Pain Rated 1-3 Potassium Cl/Dextrose/Lact Ringer's 1,000 mls @ 80 mls/hr 03/04/21 12:15 03/06/21 06:01 Kcl 20 Meq/Lr IV CONT 80 mls/hr .[id number] PANDA Administration Ipratropium [place] 0.5 mg 02/25/21 15:33 Ipratropium Br 0.02% Inh Soln 0.5 Mg/2.5 Ml Vial INHALATION Q6HRT PRN Shortness Of Breath Or Wheezing Miconazole Nitrate 1 applic 02/28/21 21:00 03/05/21 21:37 Miconazole Nitrate 2% Cream 30 Gm Tube TOPICAL 1 applic Q12HR PANDA Administration Ondansetron HCl 4 mg 02/24/21 14:24 02/25/21 23:46 Ondansetron Inj 4 Mg/2 Ml Vial IV PUSH 4 mg Q4H PRN Administration Nausea Paroxetine HCl 10 mg 02/25/21 09:00 03/05/21 09:56 Paroxetine 10 Mg Tablet PO 10 mg QAM PANDA Administration Radiology Results: ITS Impressions Abdomen/Pelvis CT 02/24/21 12:07 IMPRESSION: 1. Moderately thickened enhancing ileal mucosa, ileitis with additional thickening at the terminal ileum. Moderately dilated small bowel, probably ileus or less likely partial obstruction. Could be infectious or inflammatory bowel disease etiology. 2. Dilated fluid-filled appendix probably also same process.
[2021-03-06] MEDS: PARoxetine 10 MG TABLET PO (09:49)
[2021-03-06] MEDS: FAMOTIDINE 20 MG TABLET PO ×2 (09:49→20:25)
[2021-03-06] MEDS: ENOXAPARIN 40 MG/0.4 ML SYRINGE SUB-Q (09:50)
[2021-03-06] MEDS: MICONAZOLE NITRATE 2% CREAM 30 GM TUBE 1 APPLIC TOPICAL ×2 (09:52→20:28)
--- NOTE | 2021-03-06 10:11 | PM.IMPN ---
Progress Note: A&P Assessment and Plan (1) Partial small bowel obstruction: Code(s): K56.600 - Partial intestinal obstruction, unspecified as to cause Status: Chronic Assessment and Plan: S/P Right colectomy with anastomosis postop day 3 - hemoglobin dropped a bit overnight, likely due to fluids but will check H and H at 12. leukocytosis resolved. - suspect cancer as there was a tumor noted and excised during surgery. await pathology -Advance to full iquids today. No nausea or vomiting and has been passing gas. Questionable BM overnight but no one can confirm. I have asked them to record all BMs. (2) Ileitis: Code(s): K52.9 - Noninfective gastroenteritis and colitis, unspecified Status: Deleted Assessment and Plan: As above (3) Ovarian mass: Code(s): N83.8 - Other noninflammatory disorders of ovary, fallopian tube and broad ligament Status: Acute Assessment and Plan: U/S showing 11.3 cystic mass in the right adnexa which is likely benign cystadenoma although adenocarcinoma cannot be excluded -f/u with DECORATIVE ENGRAVER APPRENTICE ONC (4) Adynamic ileus: Code(s): K56.0 - Paralytic ileus Status: Deleted Assessment and Plan: as above (5) COPD (chronic obstructive pulmonary disease): Qualifiers: COPD type: unspecified COPD Qualified Code(s): J44.9 - Chronic obstructive pulmonary disease, unspecified Code(s): J44.9 - Chronic obstructive pulmonary disease, unspecified Status: Chronic Assessment and Plan: No respiratory distress. - Continue her Symbicort, nebulized bronchodilator therapy as needed. 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 -Stool occult blood negative - Xarelto has been on hold and the plan is to continue prophylaxis dose Lovenox - monitor H&H (8) Heart failure: Qualifiers: Heart failure type: unspecified Heart failure chronicity: unspecified Qualified Code(s): I50.9 - Heart failure, unspecified Code(s): I50.9 - Heart failure, unspecified Status: Chronic Assessment and Plan: Unknown type, pt euvolemic -Monitor fluid status closely (9) Depression with anxiety: Code(s): F41.8 - Other specified anxiety disorders Status: Chronic Assessment and Plan: Continue with Paxil (10) Anemia: Code(s): D64.9 - Anemia, unspecified Status: Chronic Assessment and Plan: Hgb 9.2 today Acute on chronic -Iron studies suggest iron deficiency anemia be contributing -Consider starting iron at d/c -Monitor CBC and consider transfusion if Hgb < 7. (11) Elevated blood pressure reading without diagnosis of hypertension: Code(s): R03.0 - Elevated blood-pressure reading, without diagnosis of hypertension Status: Acute Assessment and Plan: Last bp 139/67 likely due to pain -Will monitor and if she trends high medication may need to be started -She is on lasix at home which likely helps her BP. If she tolerates a diet today we can d/c fluids and start lasix when appropriate. Subjective Date/time seen: 03/06/21 10:11 Interval history: Pt is a 80 y/o female here for ileitis found to have a tumor during surgery. Patient was seen today with no complaints. She has passed gas but does not think she has had a BM.I asked the RN if she has had a BM and she thinks evening or night nurse supervisor said she did but nothing has been documented. She has some sorene
--- NOTE | 2021-03-06 10:45 | PCNFU ---
Nutrition Follow-Up Complete: Nutrition Diagnosis: Altered GI function related to abdominal pain and constipation as evidenced by a diagnosis of an Ileus. Nutrition Goal: Have patient meet estimated nutritional needs. Goal is in progress, patient is consuming 50-75% of her meals. Nutrition recommendation: Continue with Full Liquid diet. Last recorded weight is 94.3 kg. Recommend obtaining new weight. Bowel Motility: Last documented on 03/04 Labs Reviewed: Hgb(9.2), Hct(31.2), Na(132), BUN(6), Cr(0.6) Meds Noted: Lovenox, Pepcid, Potassium Chloride, Albuterol, Atrovent, Zofran, Paxil Additional Notes: Medial abdominal wound from surgery and rash on buttocks. Agree with diet orders. Patient reports appetite is good. No questions/ concerns at this time. Will follow up in 5 days.
[2021-03-06 11:58] LABS: Hematocrit 28.9 % (37.0-47.0); Hemoglobin 9.3 g/dL (12.0-15.0)
--- NOTE | 2021-03-06 13:01 | PCNSR ---
On 03/06/21, the student,Lauryn Mtz, provided care and completed [facility] documentation on this patient. I have reviewed the student's documentation and agree with the findings.
[2021-03-06 14:00] VITALS: BP 140/60; PULSE 76; RESP 16; TEMP 36.4; O2SAT 99
[2021-03-06] MEDS: FUROSEMIDE 20 MG TABLET PO (18:23)
[2021-03-06] MEDS: IBUPROFEN IV 800 MG/200 ML 800 MG/200 ML BAG 400 MG IVPB (19:42)
[2021-03-06 20:00] VITALS: PULSE 76; RESP 16; O2SAT 99
[2021-03-06 22:00] VITALS: BP 130/55; PULSE 67; RESP 16; TEMP 36.4; O2SAT 99
[2021-03-07 05:51] LABS: Hematocrit 29.9 % (37.0-47.0); Hemoglobin 9.8 g/dL (12.0-15.0); Mean Corpuscular HGB Conc 32.8 g/dl (32-36); Mean Corpuscular Hemoglobin 30.2 pg (26-34); Mean Corpuscular Volume 92.3 fl (80-100); Mean Platelet Volume 9.9 fl (7.4-10.4); Platelet Count Result 257 k/mm3 (150-375); Red Blood Count 3.24 M/mm3 (4.2-5.4); Red Cell Distribution Width 15.2 % (11.5-14.5); White Blood Count 4.5 K/mm3 (4.5-10.0)
[2021-03-07 05:53] LABS: Anion Gap 2 mmol/L (8-16); Blood Urea Nitrogen 3 mg/dL (7-17); Carbon Dioxide 28 mmol/L (22-30); Chloride 106 mmol/L (98-107); Estimated CRCL calculation 73 ml/min; Estimated Glomerular Filt Rate > 60; Glucose 91 mg/dL (65-105); Potassium 3.6 mmol/L (3.4-5.0); Sodium 136 mmol/L (137-145)
[2021-03-07 06:00] VITALS: BP 151/64; PULSE 65; RESP 16; TEMP 36.4; O2SAT 100
[2021-03-07] MEDS: FUROSEMIDE 20 MG TABLET PO (08:50)
[2021-03-07] MEDS: ENOXAPARIN 40 MG/0.4 ML SYRINGE SUB-Q (08:50)
[2021-03-07] MEDS: FAMOTIDINE 20 MG TABLET PO ×2 (08:50→20:29)
[2021-03-07] MEDS: MICONAZOLE NITRATE 2% CREAM 30 GM TUBE 1 APPLIC TOPICAL ×2 (08:50→20:30)
[2021-03-07] MEDS: PARoxetine 10 MG TABLET PO (08:50)
--- NOTE | 2021-03-07 12:53 | P.PNIM_ITS ---
Progress Note: A&P Assessment and Plan (1) Partial small bowel obstruction: Code(s): K56.600 - Partial intestinal obstruction, unspecified as to cause Status: Chronic Assessment and Plan: * Presented with nausea/vomiting, abdominal pain. Imaging demonstrated moderately thickened ileal mucosa, ileitis and moderately dilated small bowel. * POD #4 s/p right colectomy with anastomosis by Dr Smith 03/04/21 * Suspect malignancy as there was a tumor identified and excised during surgery. Pathology pending. * Seems to be tolerating full liquids today. Appreciate general surgery recommendations. (2) Ileitis: Code(s): K52.9 - Noninfective gastroenteritis and colitis, unspecified Status: Acute Assessment and Plan: As above. Completed 7 days of empiric IV antibiotics with Zosyn. (3) Ovarian mass: Code(s): N83.8 - Other noninflammatory disorders of ovary, fallopian tube and broad ligament Status: Acute Assessment and Plan: * U/S showing 11.3 cystic mass in the right adnexa which is likely benign cy stadenoma although adenocarcinoma cannot be excluded. 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 Continue her Symbicort, nebulized bronchodilator therapy as needed. (5) Chronic GERD: Code(s): K21.9 - Gastro-esophageal reflux disease without esophagitis Status: Chronic Assessment and Plan: * Continue Pepcid (6) Chronic anticoagulation: Code(s): Z79.01 - [facility] (current) use of anticoagulants Status: Acute Assessment and Plan: * Patient is unsure why she is on Xarelto. 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 Stool occult blood negative. * Xarelto has been on hold and the plan is to continue prophylaxis dose Lovenox. Monitor H&H and for any s/s of bleeding. (7) Heart failure: Qualifiers: Heart failure type: unspecified Heart failure chronicity: unspecified Qualified Code(s): I50.9 - Heart failure, unspecified Code(s): I50.9 - Heart failure, unspecified Status: Chronic Assessment and Plan: * Unknown type. Patient appears euvolemic. Monitor fluid status closely. (8) Depression with anxiety: Code(s): F41.8 - Other specified anxiety disorders Status: Chronic Assessment and Plan: * Continue with Paxil (9) Anemia: Code(s): D64.9 - Anemia, unspecified Status: Chronic Assessment and Plan: * Hgb low but stable in 9s today. Acute on chronic, blood loss due to surgery could contribute to decline. Iron studies suggest iron deficiency anemia be contributing. Consider starting iron at discharge. * Monitor CBC and consider transfusion if Hgb < 7. (10) Elevated blood pressure reading without diagnosis of hypertension:
--- NOTE | 2021-03-07 12:53 | PM.IMPN ---
Progress Note: A&P Assessment and Plan (1) Partial small bowel obstruction: Code(s): K56.600 - Partial intestinal obstruction, unspecified as to cause Status: Chronic Assessment and Plan: Presented with nausea/vomiting, abdominal pain. Imaging demonstrated moderately thickened ileal mucosa, ileitis and moderately dilated small bowel. POD #4 s/p right colectomy with anastomosis by Dr Smith 03/04/21 Suspect malignancy as there was a tumor identified and excised during surgery. Pathology pending. Seems to be tolerating full liquids today. Appreciate general surgery recommendations. (2) Ileitis: Code(s): K52.9 - Noninfective gastroenteritis and colitis, unspecified Status: Acute Assessment and Plan: As above. Completed 7 days of empiric IV antibiotics with Zosyn. (3) Ovarian mass: Code(s): N83.8 - Other noninflammatory disorders of ovary, fallopian tube and broad ligament Status: Acute Assessment and Plan: U/S showing 11.3 cystic mass in the right adnexa which is likely benign cystadenoma although adenocarcinoma cannot be excluded. 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 Continue her Symbicort, nebulized bronchodilator therapy as needed. 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 Stool occult blood negative. Xarelto has been on hold and the plan is to continue prophylaxis dose Lovenox. Monitor H&H and for any s/s of bleeding. (7) Heart failure: Qualifiers: Heart failure type: unspecified Heart failure chronicity: unspecified Qualified Code(s): I50.9 - Heart failure, unspecified Code(s): I50.9 - Heart failure, unspecified Status: Chronic Assessment and Plan: Unknown type. Patient appears euvolemic. Monitor fluid status closely. (8) Depression with anxiety: Code(s): F41.8 - Other specified anxiety disorders Status: Chronic Assessment and Plan: Continue with Paxil (9) Anemia: Code(s): D64.9 - Anemia, unspecified Status: Chronic Assessment and Plan: Hgb low but stable in 9s today. Acute on chronic, blood loss due to surgery could contribute to decline. Iron studies suggest iron deficiency anemia be contributing. Consider starting iron at discharge. Monitor CBC and consider transfusion if Hgb < 7. (10) Elevated blood pressure reading without diagnosis of hypertension: Code(s): R03.0 - Elevated blood-pressure reading, without diagnosis of hypertension Status: Acute Assessment and Plan: BPs reviewed, variable but overall stable with some intermittent elevated readings. Resume her home lasix which may help. Monitor BP and adjust treatment as needed. Subjective Date/time seen: 03/07/21 12
[2021-03-07 14:00] VITALS: BP 153/66; PULSE 74; RESP 18; TEMP 36.3; O2SAT 100
--- NOTE | 2021-03-07 14:56 | PM.PNGS ---
Progress Note: A&P Assessment and Plan (1) Partial small bowel obstruction: Code(s): K56.600 - Partial intestinal obstruction, unspecified as to cause Status: Chronic Assessment and Plan: POD4 right colectomy and slowly improving. Pathology pending. She has good bowel sounds and is moving her bowels. Tolerating full liquids. Will advance to a soft diet. Encouraged increasing activity. 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 (3) Anemia: Code(s): D64.9 - Anemia, unspecified Status: Chronic Assessment and Plan: Chronic with some dilutional effects. Remains stable. Continue to monitor. Additional Plan I have discussed the plan of care with Dr. Hayden. Subjective Subjective Date/Time Seen: 03/07/21 13:56 Post Op day: 4 (right colectomy with ileotransverse anastomosis) Patient reports: no new complaints, tolerating liquids well (fulls), flatus, bowel movement (x2 overnight) and afebrile Interval history: Patient doing well today. Sleeping when coming into the room but easily arousable by name. She denies any specific complains. Denies abdominal pain, nausea, vomiting, or bloating. She has her lunch tray in front of her and ate about 80%, and reports she tolerated this well. Review of Systems Gastrointestinal: Gastrointestinal: Reports as per HPI and Reports no additional gastrointestinal complaints Exam Const: General: comfortable, no acute distress and alert Nutritional Appearance: overweight Orientation/consciousness: oriented to person and confusion Resp: Effort & Inspection: normal respiratory effort Auscultation: clear to auscultation bilaterally Cardio: Rate: regular rate Rhythm: regular rhythm GI: Inspection: non-distended and incision (Midline incision clean and dry) GI Palp: Yes Soft to palpation, No Tenderness to palpation present (GI), No Guarding due to palpation present (GI) and No Rebound tenderness present Auscultation: normal bowel sounds Rectal Exam: deferred Skin: General skin exam: normal color Neuro: General: no focal motor deficits Extrem: General: no clubbing, cyanosis or edema, no calf tenderness and amputation noted (left BKA) Psych: Judgement: Limited judgement present (Psych) Objective Data Vital Signs Vital Signs: Vital Signs - 24 hr 03/06/21 20:00 03/06/21 22:00 03/07/21 06:00 Temperature 97.5 F L 97.6 F Pulse Rate 76 67 65 Respiratory Rate 16 16 16 Blood Pressure 130/55 L 151/64 H Pulse Oximetry 99 99 100 Intake/Output Intake/Output: Intake & Output 03/04/21 03/05/21 03/06/21 03/07/21 23:59 23:59 23:59 23:59 Intake Total 1999 1824 2004 590 Output Total 375 550 Balance 1625 1275 2004 590 Meds/Results Medications: Active Medications Generic Name Dose Route Start Last Admin Trade Name Freq PRN Reason Stop Dose Admin Acetaminophen 650 mg 03/06/21 20:21 Acetaminophen 325 Mg Tablet PO Q6H PRN Mild Pain (1-3) or Fever Albuterol 5 mg 02/25/21 15:33 Albuterol Sulfate Neb 2.5 Mg/0.5 Ml Inh INHALATION Q6HRT PRN Shortness Of Breath Or Wheezing Artificial Tears 1 drop 02/25/21 09:00 03/07/21 08:50 Artificial Tears Op Soln 15 Ml Bottle EACH EYE 03/27/21 09:01 1 drop BID PANDA Administration Budesonide/Formoterol Fumarate 2 puff 02/25/21 09:00 03/07/21 08:50 Budesonide/Form 160-4.5 Mcg (*Sp) INHALATION 2 puff Q12HR PANDA Administration Diphenhydramine HCl 25 mg 03/04/21 17:02 03/04/21 17:54 Diphenhydramine Hcl Inj 50 Mg/Ml Vial IV PUSH 25 mg Q6H PRN Administration Itching Enoxaparin Sodium 40 mg 03/05/21 09:00 03/07/21 08:50 Enoxaparin 40 Mg/0.4 Ml Syringe SUB-Q 40 mg DAILY PANDA Administration Famotidine 20 mg 03/06/21 09:00 03/07/21 08:50 Famotidine 20 Mg Tablet PO 20 m
[2021-03-07] MEDS: ACETAMINOPHEN 325 MG TABLET 650 MG PO (17:05)
[2021-03-07] MEDS: diphenhydrAMINE HCl INJ 50 MG/ML VIAL 25 MG IV PUSH (17:05)
[2021-03-07 20:00] VITALS: PULSE 72; RESP 20; O2SAT 97
[2021-03-07 21:27] VITALS: BP 166/71; PULSE 72; RESP 20; TEMP 36.1; O2SAT 97
[2021-03-08 05:26] VITALS: BP 180/66; PULSE 77; RESP 20; TEMP 35.9; O2SAT 98
[2021-03-08 05:47] LABS: Hematocrit 30.7 % (37.0-47.0); Mean Corpuscular HGB Conc 32.6 g/dl (32-36); Mean Corpuscular Hemoglobin 29.9 pg (26-34); Mean Corpuscular Volume 91.9 fl (80-100); Platelet Count Result 279 k/mm3 (150-375); Red Blood Count 3.34 M/mm3 (4.2-5.4); Red Cell Distribution Width 14.8 % (11.5-14.5); White Blood Count 5.7 K/mm3 (4.5-10.0)
[2021-03-08 06:02] LABS: Anion Gap 4 mmol/L (8-16); Blood Urea Nitrogen 2 mg/dL (7-17); Carbon Dioxide 30 mmol/L (22-30); Chloride 102 mmol/L (98-107); Estimated CRCL calculation 64 ml/min; Estimated Glomerular Filt Rate > 60; Glucose 80 mg/dL (65-105); Potassium 3.5 mmol/L (3.4-5.0); Sodium 136 mmol/L (137-145)
[2021-03-08] MEDS: ENOXAPARIN 40 MG/0.4 ML SYRINGE SUB-Q (09:49)
[2021-03-08] MEDS: FUROSEMIDE 20 MG TABLET PO (09:50)
[2021-03-08] MEDS: FAMOTIDINE 20 MG TABLET PO (09:50)
[2021-03-08] MEDS: PARoxetine 10 MG TABLET PO (09:50)
[2021-03-08] MEDS: MICONAZOLE NITRATE 2% CREAM 30 GM TUBE 1 APPLIC TOPICAL (09:51)
--- NOTE | 2021-03-08 12:55 | PM.PNGS ---
Progress Note: A&P Assessment and Plan (1) Partial small bowel obstruction: Code(s): K56.600 - Partial intestinal obstruction, unspecified as to cause Status: Chronic Assessment and Plan: POD5 right colectomy and continues to improve. Pathology showed colonic adenocarcinoma. Tolerating a regular diet and bowels are moving. Incision looks good. Okay to discharge the patient from a surgical standpoint back to [place] when okay with other services. 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 (3) Anemia: Code(s): D64.9 - Anemia, unspecified Status: Chronic (4) Adenocarcinoma of colon: Code(s): C18.9 - Malignant neoplasm of colon, unspecified Status: Acute Assessment and Plan: Pathology reviewed and discussed with the patient in detail. 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 Hayden. Subjective Subjective Date/Time Seen: 03/08/21 12:55 Post Op day: 5 (right colectomy) Patient reports: no new complaints, tolerating a regular diet, flatus, bowel movement and afebrile Interval history: Patient seen today. Denies any abdominal pain, nausea, vomiting, or bloating. Reports feeling well. She is tolerating a regular diet and bowels are moving. Review of Systems Constitutional: Constitutional: Reports no additional constitutional complaints, Denies chills and Denies fever(s) Cardiovascular: Cardiovascular: Reports no additional cardiovascular complaints, Denies chest pain and Denies leg edema Respiratory: Respiratory: Reports no additional respiratory complaints, Denies cough and Denies dyspnea Gastrointestinal: Gastrointestinal: Reports as per HPI and Reports no additional gastrointestinal complaints Exam Const: General: comfortable, no acute distress, alert and awake Orientation/consciousness: patient oriented x3 Resp: Effort & Inspection: normal respiratory effort Auscultation: clear to auscultation bilaterally Cardio: Rate: regular rate Rhythm: regular rhythm GI: Inspection: non-distended and incision (Midline incision clean and dry, britton intact) GI Palp: Yes Soft to palpation, Yes Tenderness to palpation present (GI) (incisional) and No Guarding due to palpation present (GI) Auscultation: normal bowel sounds Skin: General skin exam: normal color Neuro: General: moves all extremities and no focal motor deficits Extrem: General: no clubbing, cyanosis or edema and no calf tenderness Psych: Mental Status: mental status grossly normal Insight: Good insight present (Psych) Judgement: Good judgement present (Psych) Objective Data Vital Signs Vital Signs: Vital Signs - 24 hr 03/07/21 14:00 03/07/21 20:00 03/07/21 21:27 Temperature 97.3 F L 96.9 F L Pulse Rate 74 72 72 Respiratory Rate 18 20 20 Blood Pressure 153/66 H 166/71 H Pulse Oximetry 100 97 97 03/08/21 05:26 Temperature 96.7 F L Pulse Rate 77 Respiratory Rate 20 Blood Pressure 180/66 H Pulse Oximetry 98 Intake/Output Intake/Output: Intake & Output 03/05/21 03/06/21 03/07/21 03/08/21 23:59 23:59 23:59 23:59 Intake Total 1825 2004 1760 290 Output Total 550 Balance 1275 2004 1760 290 Meds/Results Medications: Active Medications Generic Name Dose Route Start Last Admin Trade Name Freq PRN Reason Stop Dose Admin Acetaminophen 650 mg 03/06/21 20:21 03/07/21 17:05 Acetaminophen 325 Mg Tablet PO 650 mg Q6H PRN Administration Mild Pain (1-3) or Fever Albuterol 5 mg 02/25/21 15:33 Albuterol Sulfate Neb 2.5 Mg/0.5 Ml Inh INHALATION Q6HRT PRN Shortness Of Breath Or Wheezing Artificial Tears 1 drop 02/25/21 09:00 03/08/21 09:51 Artificial Tears Op Soln 1
--- NOTE | 2021-03-08 14:39 | PM.DS ---
DS: Admitting Diagnosis Admitting Diagnosis Admitting Diagnosis: Abdominal pain DS: Discharge Diagnosis Discharge Diagnosis (1) Partial small bowel obstruction: Code(s): K56.600 - Partial intestinal obstruction, unspecified as to cause Status: Chronic Assessment and Plan: Date of Admission 02/24/21 Date of Discharge 03/08/21 Ms. Terry is a 80yo F with dementia, COPD, CHF who presented to the ED from [facility] where she resides as a alf resident, for evaluation of abdominal pain, nausea and vomiting. She is a poor historian but is able to provide answers to some questions. Imaging demonstrated. Imaging demonstrated moderately thickened ileal mucosa, ileitis and moderately dilated small bowel. She was evaluated by general surgery and GI. Initially she had passed some bowel movements and seemed to be improving as her diet was gradually advanced. She then redeveloped her same symptoms and ultimately was taken to surgery. She underwent right colectomy with anastomosis by Dr Smith 03/04/21. A cecal tumor was identified intraoperatively and excised. Pathology returned showing evidence of adenocarcinoma, cecal primary with 1 of 27 lymph nodes showing malignancy. She is also noted to have an 11cm right ovarian mass for which she was evaluated by [facility] - recommends [facility] oncology referral. Given the colon cancer diagnosis, I have faxed referrals for an appointment with Dr Wadsworth's office and his staff tells me they will contact her and the assisted to arrange an upcoming appointment. Her diagnosis was explained to the patient although I feel she has limited capacity of understanding. 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 Her diet was again gradually advanced postoperatively which she has tolerated well (low-fiber). She is passing bowel movements and flatus. Her functional status is poor but appears may be at her baseline. She is hemodynamically stable for discharge on 03/08/21 with instructions to follow up with general surgery and oncology. Discharged POD #5 s/p right colectomy with anastomosis by Dr Smith 03/04/21. Cecal adenocarcinoma was identified. Dr Wadsworth's office will contact her for appointment. Follow up with Dr Smith's office as instructed below. Continue low fiber diet. (2) Ileitis: Code(s): K52.9 - Noninfective gastroenteritis and colitis, unspecified Status: Acute Assessment and Plan: As above. Completed 7 days of empiric IV antibiotics with Zosyn. (3) Ovarian mass: Code(s): N83.8 - Other noninflammatory disorders of ovary, fallopian tube and broad ligament Status: Acute Assessment and Plan: U/S showing 11.3 cystic mass in the right adnexa which is likely benign cystadenoma although adenocarcinoma cannot be excluded. MAT[employer] [facility]ER consultation recommended referral to [facility] oncology. We will start with referral to Dr Wadsworth for the colon cancer and await his recommendations, he may have a [facility] oncologist he can refer to if needed. (4) COPD (chronic obstructive pulmonary disease): Qualifiers: COPD type: unspecified COPD Qualified Code(s): J44.9 - Chronic obstructive pulmonary disease, unspecified Code(s): J44.9 - Chronic obstructive pulmonary disease, unspecified Status: Chronic Assessment and Plan: No respiratory distress. Continue her Symbicort, nebulized bronchodilator therapy as needed. 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
== END 2021-03-08 15:50 | DRG 330 ==
LOC: ANHED 14:01 → ANH2MED 18:19
PROVIDERS: Internal Medicine Gastroenterology; Physician Assistant; Surgery; Admitting Provider Internal Medicine; Emergency Provider Family Medicine; PCP Family Medicine; Visit Provider Nurse Practitioner
PROC: 0DBF0ZZ Excision of Right Large Intestine, Open Approach (ICD-10-PCS; CPT 49000; principal; 2021-03-03 14:45)
DX: C18.0 Malignant neoplasm of cecum (principal); K56.0 Paralytic ileus; K56.690 Other partial intestinal obstruction; D62 Acute posthemorrhagic anemia; D50.9 Iron deficiency anemia, unspecified; N83.8 Other noninflammatory disorders of ovary, fallopian tube and broad ligament; J44.9 Chronic obstructive pulmonary disease, unspecified; D25.9 Leiomyoma of uterus, unspecified; F03.90 Unspecified dementia, unspecified severity, without behavioral disturbance, psychotic disturbance, mood disturbance, and anxiety; K21.9 Gastro-esophageal reflux disease without esophagitis; I50.9 Heart failure, unspecified; F41.8 Other specified anxiety disorders; R03.0 Elevated blood-pressure reading, without diagnosis of hypertension; E55.9 Vitamin D deficiency, unspecified; K74.60 Unspecified cirrhosis of liver; K57.30 Diverticulosis of large intestine without perforation or abscess without bleeding; K80.20 Calculus of gallbladder without cholecystitis without obstruction; Z79.01 Long term (current) use of anticoagulants; Z87.891 Personal history of nicotine dependence; Z89.512 Acquired absence of left leg below knee; E66.9 Obesity, unspecified; Z68.34 Body mass index [BMI] 34.0-34.9, adult
CPT/HCPCS: 36415; 51701; 74018; 74019; 74177; 74250; 76856; 80048; 80053; 81001; 82274; 82378; 82607; 82728; 82746; 83540; 83550; 83605; 83690; 83735; 85014; 85018; 85025; 85027; 85610; 86021; 86140; 86304; 86671; 87040; 88307; 88309; 93005; 94640; 96360; 96361; 97161; 97165; 99285; A9270; C9113; J0171; J0330; J0690; J1100; J1200; J1650; J1741; J2250; J2270; J2405; J2543; J2704; J2710; J3010; J3480; J7030; J7120; Q9967

== ENCOUNTER 2021-03-26 09:41 | Emergency (ER) | payer MEDICARE, MEDICAID, SELFPAY ==
--- NOTE | ~2021-03-26 | CT_ITS ---
EXAMINATION: CT cervical spine wo con DATE: 03/26/2021 10:50 INDICATION: Head injury TECHNIQUE: Computed tomography (CT) of the cervical spine was performed without intravenous contrast. The dose-length product (DLP) was 431.85 mGy-cm. Automated exposure control and iterative reconstruc tion technique were employed. COMPARISON: None FINDINGS: There are 2 mm of anterolisthesis of C4 on C5. No fracture is identified. The odontoid is i ntact. There is severe loss of intervertebral disc space height from C4-5 through C6-7. The vertebral body heights are maintained. The prevertebral soft tissues are normal. There is severe facet and unc overtebral joint osteoarthritis. IMPRESSION: 1. Severe cervical spondylosis without acute findings. Reviewed, dictated and finalized at location A.
--- NOTE | ~2021-03-26 | CT_ITS ---
EXAMINATION: CT brain wo con INDICATION: Head injury COMPARISON: None TECHNIQUE: Standard unenhanced head CT. The dose-length product (DLP) was 681.00 mGy-cm. The mA was a djusted according to patient size. Iterative reconstruction technique was employed. FINDINGS: There is no acute intraparenchymal hemorrhage. No evidence of mass lesion. No evidence of a cute infarction. There is encephalomalacia in the right temporal and occipital lobes, consistent with prior infarct. There is moderate periventricular and subcortical hypodensity probably related to sma ll vessel ischemic disease. There is moderate prominence of the sulci and ventricles related to cereb ral atrophy. Intracranial calcified cerebral atherosclerosis is noted. There are no extra-axial colle ctions. There is no mass effect or midline shift. There is left periorbital soft tissue swelling. Kathleen nges in the globes are likely from ocular lens surgery. The visualized sinuses and mastoid air cells are well aerated. IMPRESSION: 1. 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 2. Age related findings. Reviewed, dictated and finalized at location A. IMPRESSION: 1. Prior right temporal and occipital lobe infarct without acute intracranial a bnormality. 2. Age related findings.
[2021-03-26 09:40] VITALS: BP 140/75; PULSE 79; RESP 20; TEMP 36.4; O2SAT 100
[2021-03-26] MEDS: LIDOCAINE, EPINEPHRINE, TETRACAINE VISCOUS SOLN 3 ML TOPICAL (11:21)
--- NOTE | 2021-03-26 11:50 | ED.FALL ---
HPI - Fall General Chief Complaint: Fall Stated Complaint: fell getting out of bed; forgot was an amputee Time Seen by Provider: 03/26/21 10:06 Source: patient, EMS and RN notes reviewed Mode of arrival: EMS Limitations: no limitations History of Present Illness HPI Narrative: Patient is a 80-year-old female who presents with head injury noting that she forgot that she had a leg amputation went to stand fell forward striking the head patient on arrival to emergency department per EMS from group home was not distressed notes mild headache denies loss of consciousness syncope. Presents with laceration to the left brow. Denies other complaints Related Data Home Medications Medication Instructions Recorded Confirmed Xarelto 2.5 mg PO BID 08/20/20 02/24/21 furosemide 40 mg PO DAILY 08/20/20 02/24/21 potassium chloride 20 meq PO DAILY 08/20/20 02/24/21 budesonide-formoterol [Symbicort] 2 puff INHALATION Q12H 08/21/20 02/24/21 cholecalciferol (vitamin D3) 50 mcg PO DAILY 08/21/20 02/24/21 [Vitamin D3] multivitamin with minerals 1 tablet PO DAILY 08/21/20 02/24/21 polyethylene glycol 3350 [Miralax] 17 g PO DAILY PRN 08/21/20 02/24/21 TheraTears 1 drp EACH EYE BID 02/24/21 02/24/21 acetaminophen 650 mg PO Q6-8H PRN 02/24/21 02/24/21 albuterol sulfate 2.5 mg INHALATION Q6-8H PRN 02/24/21 02/24/21 gabapentin 100 mg PO TID 02/24/21 02/24/21 guaifenesin 10 mg PO Q4-5H PRN 02/24/21 02/24/21 loperamide 2 mg PO Q4H PRN 02/24/21 02/24/21 loratadine 10 mg PO DAILY 02/24/21 02/24/21 paroxetine HCl [Paxil] 10 mg PO QAM 02/24/21 02/24/21 sennosides-docusate sodium 1 tab-cap PO HS PRN 02/24/21 02/24/21 [Senokot-S] zinc 50 mg PO DAILY 06/18/21 06/18/21 hydrocodone-acetaminophen 1 tablet PO Q8H PRN 03/26/21 Allergies Allergy/AdvReac Type Severity Reaction Status Date / Time No Known Allergies Allergy Verified 03/21/21 14:18 Review of Systems Review of Systems: All systems reviewed & are unremarkable except as noted in HPI and below PMFSH Past Medical History Medical History Chronic anticoagulation Chronic GERD Chronic pain COPD (chronic obstructive pulmonary disease) COVID-19 Depression with anxiety GERD (gastroesophageal reflux disease) Heart failure 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 She tells me that she has 1 child. 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 The patient is not a reliable source. The patient is listed as a full code and her previous occupation is unknown on her face sheet. Smoking status: Former smoker Alcohol intake: never Substance use: never Substance use type: does not use Additional living arrangements comments: [facility] Gender identity (if verbalized by the patient): Female Spiritual care concerns: No Exam Narrative: Exam Narrative: GENERAL: Well-appearing, well-nourished, and in no acute distress. HEAD: Normocephalic, 2 cm laceration left brow EYES: PERRLA and EOMI. ENT: Nares clear, no rhinorrhea or epistaxis. Mucous membranes moist. NECK: Supple. No adenopathy or masses. CHEST: Clear to auscultation. No respiratory distress. No wheezes rales or rhonchi HEART: Regular rate and rhythm. No murmur heard. EXTREMITIES: Normal range of motion. No edema. No midline cervical thoracic or lumbar tenderness SKIN: Warm, dry, no rash. NEURO: No focal deficits. Alert and oriented x3.
[2021-03-26 12:14] VITALS: BP 130/66; PULSE 75; RESP 16; O2SAT 100
[2021-03-26 15:17] VITALS: BP 141/62; PULSE 80; RESP 16; O2SAT 100
== END 2021-03-26 15:38 ==
PROVIDERS: Emergency Provider Emergency Medicine
DX: S01.112A Laceration without foreign body of left eyelid and periocular area, initial encounter (principal); K21.9 Gastro-esophageal reflux disease without esophagitis; J44.9 Chronic obstructive pulmonary disease, unspecified; Z86.16 Personal history of COVID-19; F41.8 Other specified anxiety disorders; Z89.512 Acquired absence of left leg below knee; E55.9 Vitamin D deficiency, unspecified; Z79.01 Long term (current) use of anticoagulants; Z87.891 Personal history of nicotine dependence; M47.812 Spondylosis without myelopathy or radiculopathy, cervical region; W06.XXXA Fall from bed, initial encounter
CPT/HCPCS: 12011; 70450; 72125; 99284

== ENCOUNTER 2021-03-28 07:59 | Outpatient (CLI) | payer MEDICARE, MEDICAID, SELFPAY ==
--- NOTE | ~2021-03-28 | PE_ITS ---
EXAMINATION: PET skull to mid thigh DATE: 03/28/2021 11:04 INDICATION: Malignant neoplasm of the colon TECHNIQUE: Blood glucose level was 82 mg/dL. 8.122 mCi of 18-fluorodeoxyglucose (18-FDG) was administ ered i.v. Low dose computed tomography (CT) images were acquired from the base of the brain to the pr oximal thighs for attenuation correction and anatomic localization. Positron emission tomography (PET ) images were acquired in the same distribution beginning 63 minutes after injection. The dose-length product (DLP) was 936.87 mGy-cm. COMPARISON: CT, 02/24/2021 FINDINGS: Head/neck: There is absent FDG uptake in the right temporal and occipital regions related to prior in farct. No abnormal FDG uptake is identified. Chest: No abnormal FDG uptake is identified. The lungs are free of acute opacities. There is no pleur al effusion or pneumothorax. No pathologically enlarged thoracic lymph nodes are identified. The hear t size is normal. Calcified coronary artery atherosclerosis is noted. Abdomen/pelvis/proximal thighs: Physiologic FDG activity is present in the bowel and urinary tract. T here are changes of interval right hemicolectomy and terminal ileal resection. There is mild wall thi ckening of colon just lateral to the surgical anastomosis with associated FDG uptake. No discrete mas s is identified. There is a 9.2 x 7.1 cm right adnexal mass without abnormal FDG uptake. The liver, s pleen, pancreas, gallbladder, and adrenal glands are normal. There is a 1.4 cm cyst of the right kidn ey. The left kidney is unremarkable. There is calcified atherosclerosis of the aorta and many of the other arteries. No pathologically enlarged abdominal or pelvic lymph nodes are identified. There is n o free intraperitoneal gas or evidence of bowel obstruction. Calcified uterine fibroids are noted. Th ere is mild FDG uptake associated with the midline surgical incision, likely reactive. Musculoskeletal: There is moderate FDG uptake in the right shoulder likely due to advanced osteoarthr itis of the glenohumeral joint with fragmentation of the right humeral head. IMPRESSION: 1. Changes of interval right hemicolectomy and terminal ileal resection. Wall thickening and small am ount of FDG uptake near the surgical anastomosis are likely postsurgical in nature. 2. 9.2 cm right adnexal mass. Although no significant FDG uptake is identified, surgical evaluation i s recommended. Reviewed, dictated and finalized at location B. IMPRESSION: 1. Changes of interval right hemicolectomy and terminal ileal resection. Wall t hickening and small amount of FDG uptake near the surgical anastomosis are like ly postsurgical in nature. 2. 9.2 cm right adnexal mass. Although no significant FDG uptake is identified, surgical evaluation is recommended.
[2021-03-28 08:28] LABS: Glucose Point of Care 82 mg/dl (65-105)
== END 2021-03-28 08:00 | disposition home or self-care (01) ==
PROVIDERS: Visit Provider Internal Medicine Hematology & Oncology
DX: C18.0 Malignant neoplasm of cecum (principal)
CPT/HCPCS: 78815; A9552

== ENCOUNTER 2021-04-06 01:43 | Day surgery (SDC) | payer MEDICARE, MEDICAID, SELFPAY ==
[2021-03-28 15:15] VITALS: BMI 32.8
--- NOTE | ~2021-04-06 | XR_ITS ---
EXAMINATION: XR fl guide central line place EXAM DATE: 04/06/2021 16:28 INDICATION: Portacatheter insertion. TECHNIQUE: Fluoroscopy used during XR fl guide central line place performed by Dr. Barbara Hayden MD. Radiologist was not present for the imaging or procedure. Total fluoroscopic time of 44 seconds . The DAP for this procedure was 0.17 mGym2. A total of 4 images sent to PACS from the exam. FINDINGS: Images demonstrate left IJ approach, tip projecting over cavoatrial junction or right atri um, correlate with subsequent chest x-ray. IMPRESSION: Fluoroscopy used during left-sided portacatheter placement. Reviewed, dictated and finalized at location B.
--- NOTE | ~2021-04-06 | XR_ITS ---
EXAMINATION: XR chest port-a-cath/central INDICATION: Port-A-Cath insertion TECHNIQUE: Portable AP chest at 1638 hours COMPARISON: None available FINDINGS: A left internal jugular Port-A-Cath ends with its tip in the proximal right atrium. The misa gs are free of acute opacities. There is no pneumothorax. The cardiomediastinal silhouette is normal. Healed right-sided rib fractures are noted. 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 IMPRESSION: 1. Left internal jugular Port-A-Cath ending in the proximal right atrium. Reviewed, dictated and finalized at location A.
[2021-04-06 12:53] VITALS: BP 136/67; PULSE 74; RESP 20; TEMP 36.7; O2SAT 100
[2021-04-06] MEDS: LACTATED RINGERS 1,000 ML 30 ML IV CONT (13:35)
--- NOTE | 2021-04-06 13:37 | WPDANESEPPF ---
Anes - Initial Pre Proc Eval Procedure: Operation Date: 04/06/21 14:30 Proposed Procedures p Insertion Tracy Cath Placement - Barbara Hayden MD Date/Time: 04/06/21 13:37 Surgeon: Barbara Hayden MD Pre Op Diagnosis: colon CA Patient Data Age: 80 Gender: F Height: 1.65 m Weight: 89.4 kg Allergies Allergy/AdvReac Type Severity Reaction Status Date / Time No Known Allergies Allergy Verified 03/28/21 14:58 Home Medications Medication Instructions Recorded Confirmed Type furosemide 40 mg PO DAILY 08/20/20 03/28/21 History potassium chloride 20 meq PO DAILY 08/20/20 03/28/21 History budesonide-formoterol [Symbicort] 2 puff INHALATION Q12H 08/21/20 03/28/21 History cholecalciferol (vitamin D3) 50 mcg PO DAILY 08/21/20 03/28/21 History [Vitamin D3] multivitamin with minerals 1 tablet PO DAILY 08/21/20 03/28/21 History polyethylene glycol 3350 [Miralax] 17 g PO DAILY PRN 08/21/20 03/28/21 History TheraTears 1 drp EACH EYE BID 02/24/21 03/28/21 History acetaminophen 650 mg PO Q6-8H PRN 02/24/21 03/28/21 History albuterol sulfate 2.5 mg INHALATION Q6-8H PRN 02/24/21 03/28/21 History gabapentin 100 mg PO TID 02/24/21 03/28/21 History guaifenesin 10 mg PO Q4-5H PRN 02/24/21 03/28/21 History loperamide 2 mg PO Q4H PRN 02/24/21 03/28/21 History loratadine 10 mg PO DAILY 02/24/21 03/28/21 History paroxetine HCl [Paxil] 10 mg PO QAM 02/24/21 03/28/21 History sennosides-docusate sodium 1 tab-cap PO HS PRN 02/24/21 03/28/21 History [Senokot-S] zinc 50 mg PO DAILY 02/24/21 03/28/21 History famotidine 20 mg PO Q12HR 30 Days #60 tablet 03/08/21 03/28/21 Rx ferrous sulfate 325 mg PO DAILY 30 Days #30 tablet 03/08/21 03/28/21 Rx hydrocodone-acetaminophen 1 tablet PO Q8H PRN 03/26/21 03/28/21 History Patient hx anesthesia problems: none Family hx anesthesia problems: none PMFSH Past Medical History Medical History Chronic anticoagulation Chronic GERD Chronic pain COPD (chronic obstructive pulmonary disease) COVID-19 Depression with anxiety GERD (gastroesophageal reflux disease) Heart failure 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 She tells me that she has 1 child. 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 The patient is not a reliable source. The patient is listed as a full code and her previous occupation is unknown on her face sheet. Smoking status: Former smoker Alcohol intake: never Substance use: never Substance use type: does not use Living arrangements: prison Additional living arrangements comments: [facility] Gender identity (if verbalized by the patient): Female Spiritual care concerns: No Anes - Eval Final PreProcedure Day of Procedure 04/06/21 13:37 Patient weight: obese Heart: regular rate and rhythm Lungs: clear to auscultation and normal air movement Airway: Mallampati scale class II Neurological: alert and oriented Last oral intake: >/= 8 hours ASA classification: IV Emergent: no Anesthetic plan: proceed Anesthesia type and monitoring: general GIVS and standard monitoring Informed Consent: The patient's anesthetic plan and its attendant risks and benefits were discussed with the patient/family/POA. Questions were solicited and answers provided to the satisfaction of the patient/family/POA.
[2021-04-06] MEDS: KETOROLAC 15 MG/ML VIAL (*BKC) IV PUSH (14:21)
[2021-04-06 14:49] LABS: Basophils Percent Auto 0.6 % (0.2-1.2); Eosinophils Absolute Auto 0.1 K/mm3 (0-0.3); Eosinophils Percent Auto 2.2 % (0-4.4); Hematocrit 37.2 % (37.0-47.0); Hemoglobin 11.7 g/dL (12.0-15.0); Immature Granulocyte Absolute 0.01 K/mm3 (0.00-0.031); Immature Granulocyte Percent A 0.2 % (0-0.5); Lymphocytes Absolute Auto 2.05 K/mm3 (0.9-3.2); Lymphocytes Percent Auto 40.7 % (18.3-44.2); Mean Corpuscular HGB Conc 31.5 g/dl (32-36); Mean Corpuscular Volume 95.4 fl (80-100); Mean Platelet Volume 9.7 fl (7.4-10.4); Monocytes Absolute Auto 0.4 K/mm3 (0.1-0.6); Monocytes Percent Auto 8.7 % (2.6-8.5); Neutrophils Absolute Auto 2.4 K/mm3 (1.3-6.7); Neutrophils Percent Auto 47.6 % (45.5-73.1); Platelet Count Result 257 k/mm3 (150-375)
--- NOTE | 2021-04-06 15:02 | WPDHPUPDATE1 ---
History and Physical Update Update Date/Time: 04/06/21 15:02 History and Physical has been reviewed, including an updated exam of the patient. There are NO changes in the patient's condition. Risks, benefits, and alternatives have been discussed and questions answered. Patient agrees to proceed with procedure.
[2021-04-06] MEDS: ceFAZolin 2 GM/D5W 50 ML 2 GM/50 ML BAG IVPB (15:30)
[2021-04-06 15:54] LABS: INR 0.9; Partial Thromboplastin Time 28.3 SECONDS (22.3-36.8); Prothrombin Time 12.5 Seconds (11.1-14.7)
[2021-04-06] MEDS: BUPIVACAINE/EPINEPHRINE 0.5% 30 ML VIAL 10 ML INFILTRATE (16:01)
[2021-04-06] MEDS: HEPARIN SODIUM 5,000 UNITS/ML VIAL 5000 UNITS IRRIGATION (16:03)
[2021-04-06] MEDS: HEPARIN SODIUM, PORCINE 10,000 UNITS/10 ML VIAL 4000 UNITS IV PUSH (16:10)
[2021-04-06 16:25] VITALS: BP 86/73; PULSE 55; RESP 18; O2SAT 96
--- NOTE | 2021-04-06 16:33 | P.OP_ITS ---
Procedure Note - Detailed Date of Procedure 04/06/21 Pre-op Diagnosis colon CA Post-op Diagnosis same Procedure Performed placement of left internal jugular venous access device under both ultrasound and fluroscopic guidance Surgeon Barbara Hayden MD Anesthesia MAC and local Indications 80 y/o F c metastatic colon cancer requiring adjuvant chemotherapy. Pt presents for access placement. Findings unable to pass guidewire through left subclavian vein, subsequent access to left internal jugular vein Description of Procedure Patient was brought into the operating room and placed in the supine position. After adequate induction of mac anesthesia, the patient was prepped and draped in normal sterile fashion. Time-out was then done to verify the patient's identity, as well as the procedure being performed. I began by making a small incision in the left chest, I then gained access into the left subclavian vein with an 18 gauge needle. I then attempted to place the guidewire into the vein, however, I could not get the wire to pass over 15 cm. I did attempt to cannulize the subclavian vein a few other times without success. I then used the ultrasound to gain access into the left internal jugular vein. Once access was gained, I placed the guidewire in the vein and confirmed proper positioning. I then locally anesthetized the area in the left chest. I then enlarged the incision including making a subcutaneous pocket inferiorly to allow placement of the port itself. I proceeded to tunnel the catheter from the chest to the left neck insertion site. I then placed a dilating sheath over the guidewire into the left internal jugular vein via sterile Seldinger technique. This was once again done and confirmed via fluoroscopic guidance. I then removed the dilator and the guidewire, now just leaving the sheath in the vein. I then fed the previously flushed catheter into the left internal jugular vein under fluoroscopic guidance. At approximately 28 cm, the catheter was noted to be ne ar the atrial caval junction. I then peeled away the sheath, now just leaving the catheter in the vein. I then was able to easily draw and flush from the catheter. The catheter was cut to fit and attached to the port itself. The port was placed into the previously made subcutaneous pocket and sutured in with 0 Ethibond suture. Final fluoroscopic view showed the termination of the catheter at the atrial caval junction with a nice smooth curvature back to the port itself. I was able to gain access to the port with a Kim needle and was able to easily draw and flush from the port. I then flushed 4 cc of a final heparin flush into the port. The incision was closed with 3 0 Vicryl suture in the subcutaneous tissue and the skin was closed with 4 O Monocryl subcuticular suture. Dermabond was then placed on wound. The patient tolerated the procedure well and will be sent to the recovery room in stable condition. Implants LIJ VAD Estimated Blood Loss 10 Pathology none sent Complications No immediate complications Condition stable Disposition PACU
[2021-04-06 16:45] VITALS: BP 97/46; PULSE 52; RESP 18; O2SAT 100
[2021-04-06 17:15] VITALS: BP 127/89; PULSE 56; RESP 18; O2SAT 100
== END 2021-04-06 17:26 | disposition home or self-care (01) ==
PROVIDERS: PCP Internal Medicine; Referring Provider Internal Medicine Hematology & Oncology; Visit Provider Surgery
PROC: (CPT 36561; principal; 2021-04-06 14:30)
DX: C18.9 Malignant neoplasm of colon, unspecified (principal); C77.2 Secondary and unspecified malignant neoplasm of intra-abdominal lymph nodes; Z98.0 Intestinal bypass and anastomosis status; K21.9 Gastro-esophageal reflux disease without esophagitis; J44.9 Chronic obstructive pulmonary disease, unspecified; F41.8 Other specified anxiety disorders; Z86.16 Personal history of COVID-19; I50.9 Heart failure, unspecified; E55.9 Vitamin D deficiency, unspecified; Z87.891 Personal history of nicotine dependence; Z90.49 Acquired absence of other specified parts of digestive tract; Z79.01 Long term (current) use of anticoagulants
CPT/HCPCS: 36561; 36415; 77001; 85025; 85610; 85730; C1788; J0690; J1644; J1885; J2250; J2704; J3010; J7030; J7040; J7120

== ENCOUNTER 2021-05-03 14:45 | Observation (INO) | payer MEDICARE, MEDICAID, SELFPAY ==
--- NOTE | ~2021-05-03 | CT_ITS ---
EXAMINATION: CT brain wo con DATE: 05/03/2021 16:03 INDICATION: Syncope TECHNIQUE: Computed tomography (CT) of the head was performed without intravenous contrast. The mA wa s adjusted according to patient size. Iterative reconstruction technique was employed. Exam dose: 60 5.33 mGy-cm total exam DLP. COMPARISON: 03/26/2021 CT brain FINDINGS: Stable chronic right temporal occipital infarct since 03/26/2021. Small chronic lacunar infarct in the right periventricular area. There is nonspecific diminished attenuation of the cerebral white matter, likely due to chronic small vessel ischemic changes. There is bilateral carotid siphon internal carotid artery calcification. There is moderate cerebral and cerebellar volume loss. No intracranial mass lesion or hemorrhage, midline shift or mass effect effect or subdural or epidura l hematoma is detected. The mastoid air cells are normally developed and aerated. Normal development and aeration of the para nasal sinuses. No fracture or bone destruction of the cranial vault. 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 Reviewed, dictated and finalized at location A.
--- NOTE | ~2021-05-03 | US_ITS ---
EXAMINATION: US carotid duplex BI DATE: 05/04/2021 10:49 INDICATION: Syncope TECHNIQUE: Grayscale, color Doppler, and pulsed Doppler images of the cervical carotid arteries were obtained. The degree of vessel stenosis is placed in one of the following categories: normal, <50%, 5 0-69%, >=70% but less than near-occlusion, near-occlusion, or total occlusion. Note that percent sten osis relative to normal distal artery lumen diameter is indirectly measured from velocity measurement s as described by Mathieu, et al. Radiology 2003; 229:340-346. COMPARISON: None. FINDINGS: Cardiac arrhythmias present. RIGHT: The right common carotid artery (CCA) peak systolic velocity (PSV) is 91 cm/s. The right internal car otid artery (ICA) PSV is 79 cm/s. The right ICA end-diastolic velocity (EDV) is 23 cm/s. The right IC A/CCA PSV ratio is 0.9. Grayscale and color Doppler images yield an estimate of <50% diameter reducti on from plaque in the ICA. The external carotid artery (ECA) PSV is 84 cm/s. There is antegrade flow in the right vertebral artery. LEFT: The left CCA PSV is 84 cm/s. The left ICA PSV is 110 cm/s. The left ICA EDV is 21 cm/s. The left ICA/ CCA PSV ratio is 1.3. Grayscale and color Doppler images yield an estimate of <50% diameter reduction from plaque in the ICA. The ECA PSV is 123 cm/s. There is antegrade flow in the left vertebral arter y. IMPRESSION: 1. <50% stenosis in the right internal carotid artery. 2. <50% stenosis in the left internal carotid artery. 3. Cardiac arrhythmias present. Correlate with EKG. Reviewed, dictated and finalized at location B.
--- NOTE | ~2021-05-03 | XR_ITS ---
EXAMINATION: XR chest 2V DATE: 05/03/2021 15:57 INDICATION: Syncope. TECHNIQUE: Frontal and lateral views of the chest were obtained. COMPARISON: Chest single view 04/06/2021, PET CT 03/28/2021 FINDINGS: The chest demonstrates clear lungs without pneumonia, pleural effusion, or pneumothorax. Th e heart size is normal. There is an old healed right rib fracture. There is a left internal jugular p ort with tip in proximal right atrium. IMPRESSION: 1. No acute cardiopulmonary disease. Reviewed, dictated and finalized at location A.
--- NOTE | ~2021-05-03 | CT_ITS ---
EXAMINATION: CT cervical spine wo con DATE: 05/03/2021 16:04 INDICATION: Neck pain. Syncope. TECHNIQUE: Computed tomography (CT) of the cervical spine was performed without intravenous contrast. Automated exposure control and iterative reconstruction technique were employed. The dose-length pro duct was 411.21 mGy-cm. COMPARISON: CT cervical spine 03/26/2021 FINDINGS: Partially visualized is a left internal jugular central venous catheter. There is 3 degrees dextrocurvature of cervicothoracic spine. There is 2 mm anterolisthesis of C4 on C5 and C7 on T1. Ve rtebral body heights are normal. There is mildly decreased disc height at C3-C4, moderately decreased disc height at C4-C5, severely decreased disc height at C5-C6 and C6-C7, and mildly decreased disc h eight at C7-T1. The following disc levels are specifically discussed: C2-C3: There is mild bilateral uncovertebral joint osteoarthritis. There is severe bilateral facet kiran int osteoarthritis. There is no neural foraminal stenosis. There is no central canal stenosis. C3-C4: There is severe right and moderate left uncovertebral joint osteoarthritis. There is severe bi lateral facet joint osteoarthritis. There is mild bilateral neural foraminal stenosis. There is mild central canal stenosis. C4-C5: There is ankylosis of the uncovertebral joints with moderate hypertrophy. There is severe left facet joint osteoarthritis. There is ankylosis of right facet joint with moderate hypertrophy. There is moderate right and mild left neural foraminal stenosis. There is mild central canal stenosis. C5-C6: There is severe bilateral uncovertebral joint osteoarthritis. There is severe bilateral facet joint osteoarthritis. There is mild bilateral neural foraminal stenosis. There is mild central canal stenosis. C6-C7: There is severe bilateral uncovertebral joint osteoarthritis. There is severe bilateral facet joint osteoarthritis. There is moderate right and mild left neural foraminal stenosis. There is mild central canal stenosis. C7-T1: There is no uncovertebral joint osteoarthritis. There is moderate right facet joint osteoarthr itis. There is ankylosis of left facet joint with moderate hypertrophy. There is mild bilateral neura l foraminal stenosis. There is no central canal stenosis. IMPRESSION: 1. No fracture. 2. Severe cervical spondylosis. Reviewed, dictated and finalized at location A.
--- NOTE | ~2021-05-03 | CT_ITS ---
EXAMINATION: CTA chest PE protocol DATE: 05/03/2021 16:11 INDICATION: Syncopal episode. Elevated d-dimer. Neck pain. History of colon cancer. TECHNIQUE: Computed tomography angiography (CTA) of the chest was performed with 100 mL Omnipaque-350 intravenous contrast timed to evaluate the pulmonary arteries. Coronal maximum intensity projection 3D-reconstructions were created by the technologist. Automated exposure control and iterative reconst ruction technique were employed. Exam dose: 697.36 mGy-cm total exam DLP. COMPARISON: 05/04/2021 AP and lateral chest FINDINGS: Examination is limited by streak artifact from the contrast bolus in the superior vena cava and motion artifact. No central pulmonary embolus is identified. There is a small left medial apical upper lobe calcified granuloma. No pulmonary infiltrate or consol idation or pulmonary mass lesion is detected. No thoracic aortic aneurysm. Heart size is normal. No pericardial or pleural effusion. No hilar or me diastinal mass lesion or lymphadenopathy. Small sliding hiatal hernia. The adrenal glands are normal. There is surface nodularity of the liver consistent with cirrhosis. There is moderate anterior wedge compression fracture deformity of T7. Degenerative spurring of the c ervical, thoracic and lumbar spine. Diffuse osteopenia. IMPRESSION: Examination limited by streak artifact from contrast was and motion; no central pulmonar y embolus is identified Cirrhosis Reviewed, dictated and finalized at [facility]. Reviewed, dictated and finalized at [facility]. IMPRESSION: Examination limited by streak artifact from contrast was and motio n; no central pulmonary embolus is identified Cirrhosis
[2021-05-03 14:45] VITALS: BP 113/74; PULSE 74; RESP 16; TEMP 36.6; O2SAT 100
--- NOTE | 2021-05-03 14:53 | ECG_ITS ---
Measurements Intervals [place] Rate: 71 P: 74 HI: 82 QRS: 47 QRSD: 88 T: 61 QT: 426 QTc: 463 Interpretive Statements SINUS RHYTHM WITH SHORT HI INTERVAL SUPRAVENTRICULAR BIGEMINY BASELINE WANDER- II, III, AVF, V3 ABNORMAL ECG Electronically Signed On 05-03-2021 15:04:17 CDT by Augustine Garcia D.O.
[2021-05-03 15:24] LABS: Basophils Percent Auto 0.9 % (0.2-1.2); Eosinophils Percent Auto 0.9 % (0-4.4); Hematocrit 39.7 % (37.0-47.0); Hemoglobin 12.7 g/dL (12.0-15.0); Immature Granulocyte Absolute 0.03 K/mm3 (0.00-0.031); Immature Granulocyte Percent A 0.7 % (0-0.5); Lymphocytes Absolute Auto 2.13 K/mm3 (0.9-3.2); Lymphocytes Percent Auto 49.1 % (18.3-44.2); Mean Corpuscular Volume 93.9 fl (80-100); Mean Platelet Volume 10.2 fl (7.4-10.4); Monocytes Absolute Auto 0.4 K/mm3 (0.1-0.6); Monocytes Percent Auto 9.9 % (2.6-8.5); Neutrophils Absolute Auto 1.7 K/mm3 (1.3-6.7); Neutrophils Percent Auto 38.5 % (45.5-73.1); Platelet Count Result 290 k/mm3 (150-375); Red Blood Count 4.23 M/mm3 (4.2-5.4); Red Cell Distribution Width 15.4 % (11.5-14.5); White Blood Count 4.3 K/mm3 (4.5-10.0)
--- NOTE | 2021-05-03 15:26 | PC.NURSE ---
lab called regarding added on labs
--- NOTE | 2021-05-03 15:39 | ED.SYNCOPE ---
HPI - Syncope General Chief Complaint: Syncope <Grazyna Graff PA-C - Last Filed: 05/03/21 18:14> Stated Complaint: SYNCOPE <Grazyna Graff PA-C - Last Filed: 05/03/21 18:14> Time Seen by Provider: 05/03/21 14:55 <Grazyna Graff PA-C - Last Filed: 05/03/21 18:14> Source: patient and EMS <Grazyna Graff PA-C - Last Filed: 05/03/21 18:14> Mode of arrival: EMS <SCOTT David Last Filed: 05/03/21 18:14> Limitations: other (Poor historian) <Grazyna Graff PA-C - Last Filed: 05/03/21 18:14> History of Present Illness HPI narrative: This is a 80 year old female that presents to the ER for a syncopal episode today. Patient denies any complaints currently. She does not remember the episode. Per EMS patient had a witnessed syncopal event at the cancer center. Apparently was seated when it happened. No injuries occurred. Denies fever, chest pain, shortness of breath, abdominal pain, vomiting, or dysuria. <SCOTT David Last Filed: 05/03/21 18:14> Related Data Home Medications: Home Medications Medication Instructions Recorded Confirmed furosemide 40 mg PO DAILY 08/20/20 05/03/21 potassium chloride 20 meq PO DAILY 08/20/20 05/03/21 budesonide-formoterol [Symbicort] 2 puff INHALATION Q12H 08/21/20 05/03/21 cholecalciferol (vitamin D3) 50 mcg PO DAILY 08/21/20 05/03/21 [Vitamin D3] multivitamin with minerals 1 tablet PO DAILY 08/21/20 05/03/21 polyethylene glycol 3350 [Miralax] 17 g PO DAILY PRN 08/21/20 05/03/21 TheraTears 1 drp EACH EYE BID 02/24/21 05/03/21 acetaminophen 650 mg PO Q6-8H PRN 02/24/21 05/03/21 gabapentin 100 mg PO TID 02/24/21 05/03/21 loperamide 2 mg PO Q4H PRN 02/24/21 05/03/21 loratadine 10 mg PO DAILY 02/24/21 05/03/21 paroxetine HCl [Paxil] 10 mg PO QPM 02/24/21 05/03/21 sennosides-docusate sodium 1 tab-cap PO HS PRN 02/24/21 05/03/21 [Senokot-S] zinc 50 mg PO DAILY 02/24/21 05/03/21 hydrocodone-acetaminophen 1 tablet PO Q8H PRN 03/26/21 05/03/21 rivaroxaban [Xarelto] 2.5 mg PO DAILY 04/11/21 05/03/21 <Grazyna Graff PA-C - Last Filed: 05/03/21 18:14> Allergies/Adverse Reactions: Allergies Allergy/AdvReac Type Severity Reaction Status Date / Time No Known Allergies Allergy Verified 05/03/21 13:51 <Grazyna Graff PA-C - Last Filed: 05/03/21 18:14> Review of Systems Review of Systems: CONSTITUTIONAL: Denies fever CARDIOVASCULAR: Denies chest pain, or edema. RESPIRATORY: Denies cough or dyspnea. GASTROINTESTINAL: Denies abdominal pain, nausea, vomiting GENITOURINARY: Denies dysuria <Grazyna Graff PA-C - Last Filed: 05/03/21 18:14> All systems reviewed & are unremarkable except as noted in HPI and below <Grazyna Graff PA-C - Last Filed: 05/03/21 18:14> [facility] Past Medical History Medical History: Medical History (Updated 05/03/21 @ 18:39 by Su Baires PA-C) Adnexal mass 9.2 cm right adnexal mass noted on PET-CT dated 03/29/2021. No significant FDG uptake identified. 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 One of 27 pericolonic lymph nodes were positive for metastatic disease. Patient of Dr. Wadsworth. Congestive heart failure COVID-19 (06/2020) Depression with anxiety Gastroesophageal reflux disease Peripheral vascular disease History of gangrenous left foot status post left [id number] amputation. Seasonal allergies Vitamin D deficie
[2021-05-03 15:43] LABS: Anion Gap 9 mmol/L (8-16); Blood Urea Nitrogen 10 mg/dL (7-17); Calcium 8.7 mg/dL (8.4-10.2); Carbon Dioxide 27 mmol/L (22-30); Chloride 96 mmol/L (98-107); Estimated CRCL calculation 65 ml/min; Estimated Glomerular Filt Rate > 60; Glucose 122 mg/dL (65-110); Potassium 3.9 mmol/L (3.4-5.0); Sodium 132 mmol/L (137-145)
[2021-05-03 15:53] LABS: INR 1.2; Prothrombin Time 14.7 Seconds (11.1-14.7)
[2021-05-03 15:54] LABS: Partial Thromboplastin Time 27.6 SECONDS (22.3-36.8)
[2021-05-03 15:56] LABS: D Dimer 1.62 ug/mL (<0.48)
--- NOTE | 2021-05-03 16:01 | PC.NURSE ---
[facility] called for patient information to be faxed over.
[2021-05-03 16:29] VITALS: BP 140/53; PULSE 67; RESP 16; O2SAT 95
[2021-05-03 16:34] LABS: Troponin I < 0.012 ng/mL (0.000-0.034)
--- NOTE | 2021-05-03 18:30 | PM.IMHP ---
H&P: HPI History of Present Illness Date/Time: 05/03/21 18:30 Chief Complaint: Syncope. Narrative: This is a 80-year-old with peripheral vascular disease, congestive heart failure, COPD, GERD, and colon cancer who presented to the emergency department earlier today via EMS from her oncologist's office for evaluation after a syncopal episode. The patient is a fair historian but she does not recall what happened earlier today and thus some of the following is obtained via a review of her records. According to triage note, she was at the Cancer Center having her Port-A-Cath flushed when she had a syncopal episode while in a seated position. It is my understanding that she briefly lost consciousness for 30 seconds or less and she was alert and oriented when she came to. She denies antecedent symptoms prior to the episode and she has felt just fine since coming to the hospital. She has no concerns at the time my evaluation and specifically denies headache, neck ache, fever, chills, sweats, cold and flu symptoms, chest pain, pleuritic pain, palpitations, shortness of breath, nausea, vomiting, diarrhea, and dysuria. Review of Systems Review of Systems: Twelve systems were reviewed with pertinent positives and negatives as per HPI. Except as documented, all other systems were reviewed and are negative. [facility] Past Medical History Medical History (Updated 05/03/21 @ 23:16 by Su Baires PA-C) Adnexal mass 9.2 cm right adnexal mass noted on PET-CT dated 03/29/2021. No significant FDG uptake identified. Patient says she was referred to a gynecologic oncologist but she does not remember exactly what was discussed though she knows that they were not going to pursue open biopsy at this time. 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 One of 27 pericolonic lymph nodes were positive for metastatic disease. Patient of Dr. Wadsworth. Congestive heart failure COVID-19 (06/2020) Depression with anxiety Gastroesophageal reflux disease Peripheral vascular disease History of gangrenous left foot status post left iizjo-org-[id number] amputation. Seasonal allergies Vitamin D deficiency Surgical History Surgical History (Updated 05/03/21 @ 18:34 by Su Baires PA-C) Amputated left leg (08/2020) [id number] amputation History of colectomy (03/03/21) Right colectomy with ileotransverse anastomosis. Family History Family History Unknown Family history unknown Other Unknown family medical history Social History Social History (Updated 05/03/21 @ 23:17 by Su Baires PA-C) Social History: The patient is . She is a jail resident at [facility]. Former smoker. No alcohol or illicit substance use. Surrogate decision maker: Radha Angulo. Code status: Full code. Meds Home Medications and Allergies Home Medications Medication Instructions Recorded Confirmed Type furosemide 40 mg PO DAILY 08/20/20 05/03/21 History potassium chloride 20 meq PO DAILY 08/20/20 05/03/21 History budesonide-formoterol [Symbicort] 2 puff INHALATION Q12H 08/21/20 05/03/21 History cholecalciferol (vitamin D3) 50 mcg PO DAILY 08/21/20 05/03/21 History [Vitamin D3] multivitamin with minerals 1 tablet PO DAILY 08/21/20 05/03/21 History polyethylene glycol 3350 [Miralax] 17 g PO DAILY PRN 08/21/20 05/03/21 History TheraTear
[2021-05-03 18:50] VITALS: BP 140/84; PULSE 61; RESP 16; O2SAT 98
--- NOTE | 2021-05-03 19:17 | PC.NURSE ---
report to [facility]
--- NOTE | 2021-05-03 19:50 | ADMGEN ---
This patient, Marva Terry, was admitted to Medical Room 341-01. Patient/family oriented to hospital policies and general routines including ID bracelet, bed and alarms, visiting hours, pain management, procedures, bathroom and other care routines, personal items, smoking policy, room service/diet, and visiting hours. Information on how to activate the Rapid Response Team has been discussed. Patient/Family are encouraged to report perceived risks to care and to ask questions if they do not understand what they are told or what they should do.
[2021-05-03 20:12] VITALS: BP 145/67; PULSE 55; RESP 16; TEMP 36.8; O2SAT 100
[2021-05-03 20:19] VITALS: BMI 32.2
[2021-05-03] MEDS: SODIUM CHLORIDE 0.9% IV 1,000 ML 100 ML IV CONT (23:53)
[2021-05-03] MEDS: RIVAROXABAN 2.5 MG TABLET PO (23:58)
[2021-05-04] VITALS (9 sets, daily range): BP systolic 155–178; BP diastolic 55–72; PULSE 57–72; RESP 16–20; TEMP 36.2–36.7; O2SAT 94–100
--- NOTE | 2021-05-04 07:53 | PM.IMPN ---
Progress Note: A&P Assessment and Plan (1) Syncope: Code(s): R55 - Syncope and collapse Status: Acute Assessment and Plan: Etiology not clear, concerning as she was seated denies antecedent symptoms. telemetry: shows frequent PAC and irregular rhythm Possible event monitor on discharge. Echocardiogram ordered Check orthostatic vital signs. fall precautions. Chest xray no acute cardiopulmonary disease, CTA no PE (2) Chronic hyponatremia: Code(s): E87.1 - Hypo-osmolality and hyponatremia Status: Acute Assessment and Plan: sodium 132 at addmission 1L NS given overnight repeat labs ordered trend labs (3) Colon cancer: Onset Date: 03/03/21 Code(s): C18.9 - Malignant neoplasm of colon, unspecified Status: Acute Assessment and Plan: Status post right colectomy. Currently receiving chemotherapy per Dr. Wadsworth. (4) Congestive heart failure: Code(s): I50.9 - Heart failure, unspecified Status: Acute Assessment and Plan: No known history Echo pending Furosemide 40mg PO daily Strict I&O (5) Chronic obstructive pulmonary disease: Code(s): J44.9 - Chronic obstructive pulmonary disease, unspecified Status: Acute Assessment and Plan: No acute issues. 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 Time Spent With Patient Time with patient: Greater than 35 minutes Subjective Date/time seen: 05/04/21 07:30 Interval history: Patient is a 80 year old female here for evaluation of syncopal episode after chemo in a seated position. Patient stated that she feels fine just tired. She denies chest pain, shortness of breath, fevers, sweats, chills, nausea, vomiting, headache, visual changes, or weakness. She does not know what happened to her at the doctors office. She stated that this has not happened to her in the past. Review of Systems Review of Systems: All systems reviewed & are unremarkable except as noted in HPI and below Exam Const: General: cooperative, healthy appearing, comfortable, no acute distress, well developed, alert, lethargic and tired appearing Nutritional Appearance: well nourished, obese and overweight Orientation/consciousness: oriented to person, oriented to place, oriented to time and patient oriented x3 Limitations: no limitations HENMT: Head: normal to inspection Ears: hearing grossly normal bilaterally General nose exam: Normal external nose present Mouth: Yes Normal oral and palatal mucosa present, Yes lip normal and Yes tongue normal Teeth and gingiva: abnormal tooth and associated gingiva and poor dentition Eyes: General: appearance normal, both eyes and all related structures Neck: Neck: normal visual inspection, full ROM, trachea midline and supple Chest: Chest palpation & inspection: normal inspection of the chest Resp: Effort & Inspection: normal respiratory effort and able to speak in complete sentences Auscultation: clear to auscultation bilaterally Cardio: Jugular venous distension: no JVD Rate: regular rate Rhythm: regular rhythm Heart sounds: S1 normal heart sound present and S2 normal heart sound present Peripheral pulses: Peripheral pulses 2+ throughout GI: Inspection: normal to inspection GI Palp: Yes Soft to palpation and No Tenderness to palpation present (GI) Auscultation: normal bowel sounds Skin: General skin exam: normal color and no rashes or lesions noted Lesions: no lesions Rashes: no rashes Trauma: no lacerations or abrasions Wounds: no wounds Hair: normal Nails: normal Neuro: General: oriented to person, oriented to place, oriented to time, patient oriented x3, moves all extremities and Normal light touch and pain sensation Cranial nerves: Yes CN's
[2021-05-04 08:07] LABS: Basophils Percent Auto 0.7 % (0.2-1.2); Eosinophils Percent Auto 1.3 % (0-4.4); Hematocrit 33.3 % (37.0-47.0); Hemoglobin 10.7 g/dL (12.0-15.0); Immature Granulocyte Absolute 0.01 K/mm3 (0.00-0.031); Immature Granulocyte Percent A 0.3 % (0-0.5); Lymphocytes Absolute Auto 1.57 K/mm3 (0.9-3.2); Lymphocytes Percent Auto 51.5 % (18.3-44.2); Mean Corpuscular HGB Conc 32.1 g/dl (32-36); Mean Corpuscular Hemoglobin 30.6 pg (26-34); Mean Corpuscular Volume 95.1 fl (80-100); Mean Platelet Volume 9.7 fl (7.4-10.4); Monocytes Absolute Auto 0.3 K/mm3 (0.1-0.6); Monocytes Percent Auto 9.5 % (2.6-8.5); Neutrophils Absolute Auto 1.1 K/mm3 (1.3-6.7); Neutrophils Percent Auto 36.7 % (45.5-73.1); Platelet Count Result 199 k/mm3 (150-375); Red Cell Distribution Width 15.5 % (11.5-14.5); White Blood Count 3.1 K/mm3 (4.5-10.0)
[2021-05-04] MEDS: FERROUS SULFATE 324 MG TABLET PO (08:13)
[2021-05-04] MEDS: ARTIFICIAL TEARS OPHTH SOLN 15 ML BOTTLE 1 DROP EACH EYE ×2 (08:13→17:14)
[2021-05-04] MEDS: FAMOTIDINE 20 MG TABLET PO ×2 (08:13→20:00)
[2021-05-04] MEDS: POTASSIUM CHLORIDE 20 MEQ TABLET.ER PO (08:13)
[2021-05-04] MEDS: FUROSEMIDE 40 MG TABLET PO (08:13)
[2021-05-04] MEDS: GABAPENTIN 100 MG CAPSULE PO ×3 (08:13→17:14)
[2021-05-04] MEDS: CHOLECALCIFEROL 1,000 UNITS TABLET 2000 UNITS PO (08:13)
[2021-05-04] MEDS: THERAPEUTIC MULTIVITAMINS/MINERALS TAB (*BKC) 1 TABLET PO (08:14)
[2021-05-04] MEDS: RIVAROXABAN 2.5 MG TABLET PO ×2 (08:14→20:00)
[2021-05-04] MEDS: LORATADINE 10 MG TABLET PO (08:14)
[2021-05-04] MEDS: ZINC SULFATE 220 MG CAPSULE PO (08:14)
[2021-05-04 08:27] LABS: Alanine Aminotransferase 16 U/L (4-35); Albumin Level 2.8 g/dL (3.5-5.1); Alkaline Phosphatase 76 U/L (38-126); Anion Gap 4 mmol/L (8-16); Aspartate Amino Transferase 28 U/L (14-36); Bilirubin,Total < 0.1 mg/dL (0.2-1.3); Blood Urea Nitrogen 9 mg/dL (7-17); Calcium 8.4 mg/dL (8.4-10.2); Carbon Dioxide 29 mmol/L (22-30); Chloride 100 mmol/L (98-107); Estimated CRCL calculation 63 ml/min; Estimated Glomerular Filt Rate > 60; Glucose 98 mg/dL (65-110); Potassium 3.9 mmol/L (3.4-5.0); Sodium 133 mmol/L (137-145)
[2021-05-04] MEDS: PARoxetine 10 MG TABLET PO (17:14)
[2021-05-04] MEDS: TOLNAFTATE 1% POWDER 45 GM BTL 1 APPLIC TOPICAL (20:00)
--- NOTE | 2021-05-04 23:22 | ECHO_ITS ---
Patient Info Name: Marva Terry Age: 80 years : 1940 Gender: Female Ht: 66 in Wt: 199 lbs BSA: 2.08 m2 HR: 74 bpm BP: 155 / 55 mmHg Heart Rhythm: Sinus Rhythm Technical Quality: Fair Exam Date: 05/04/2021 11:51 AM Exam Location: [facility] Patient Status: Outpatient Admit Date: 05/03/2021 Staff Ordering Physician: Su Baires PA-C Emergency Care Attendant: Michela Ambrocio RDCS Attending Provider: Marko Ovalles MD Referring Physician: Viry PEARSON; Exam Type: CA echo doppler color flow Study Info Indications R55 - Syncope and collapse Complete two-dimensional, color flow and Doppler transthoracic echocardiogram is performed. Summary 1. Complete two-dimensional, color flow and Doppler transthoracic echocardiogram is performed. 2. Left ventricular chamber dimension is normal. 3. Left ventricular systolic function is normal, estimated at 65-70%. 4. There is no increased left ventricular wall thickness. 5. The left ventricular diastolic function is grade I diastolic dysfunction. 6. Left atrial chamber dimension is mildly enlarged. 7. There is mild mitral valve regurgitation. 8. There is mild tricuspid valve regurgitation. 9. Mild pulmonary hypertension, estimated pulmonary arterial systolic pressure is 38 mmHg. 10. The pericardium appears increased echogenicity of the pericardium-- uncertain if this is simply fat pad or organized fluid.. Left Ventricle Left ventricular chamber dimension is normal. Left ventricular systolic function is normal, estimated at 65-70%. There is no increased left ventricular wall thickness. The left ventricular diastolic function is grade I diastolic dysfunction. Right Ventricle Right ventricular chamber dimension is normal. Right ventricular systolic function is normal. Left Atria Left atrial chamber dimension is mildly enlarged. Right Atria Right atrial chamber dimension is normal. Atrial Septum Intact interatrial septum visualized by color flow imaging. Aortic Valve The aortic valve is probable trileaflet. There is mild aortic valve sclerosis. There is no aortic valve stenosis. There is trace aortic valve regurgitation. Pulmonic Valve The pulmonic valve is not well visualized. There is no pulmonic valve stenosis. There is trace pulmonic regurgitation. Mitral Valve The mitral valve has normal leaflets. There is no mitral valve stenosis. There is mild mitral valve regurgitation. Tricuspid Valve The tricuspid valve leaflets are normal. There is no significant tricuspid valve stenosis. There is mild tricuspid valve regurgitation. Mild pulmonary hypertension, estimated pulmonary arterial systolic pressure is 38 mmHg. Pericardium/Pleural The pericardium appears increased echogenicity of the pericardium-- uncertain if this is simply fat pad or organized fluid.. There is no pericardial effusion. Inferior Vena Cava Normal inferior vena cava with >50% collapse upon inspiration consistent with elevated right atrial pressure, 10 mmHg. Aorta The aortic root size at the sinus of Valsalva is normal. Left Ventricular Outflow Tract Name Value Normal LVOT 2D LVOT Diameter 2.0 cm LVOT Doppler --
[2021-05-05] VITALS (7 sets, daily range): BP systolic 155–172; BP diastolic 68–74; PULSE 58–76; RESP 18–20; TEMP 36.4–36.9; O2SAT 94–98
[2021-05-05] MEDS: POTASSIUM CHLORIDE 20 MEQ TABLET.ER PO (08:06)
[2021-05-05] MEDS: ARTIFICIAL TEARS OPHTH SOLN 15 ML BOTTLE 1 DROP EACH EYE ×2 (08:06→17:02)
[2021-05-05] MEDS: FERROUS SULFATE 324 MG TABLET PO (08:06)
[2021-05-05] MEDS: CHOLECALCIFEROL 1,000 UNITS TABLET 2000 UNITS PO (08:07)
[2021-05-05] MEDS: FAMOTIDINE 20 MG TABLET PO (08:07)
[2021-05-05] MEDS: FUROSEMIDE 40 MG TABLET PO (08:07)
[2021-05-05] MEDS: GABAPENTIN 100 MG CAPSULE PO ×3 (08:07→17:02)
[2021-05-05] MEDS: ZINC SULFATE 220 MG CAPSULE PO (08:08)
[2021-05-05] MEDS: RIVAROXABAN 2.5 MG TABLET PO (08:08)
[2021-05-05] MEDS: THERAPEUTIC MULTIVITAMINS/MINERALS TAB (*BKC) 1 TABLET PO (08:08)
[2021-05-05] MEDS: TOLNAFTATE 1% POWDER 45 GM BTL 1 APPLIC TOPICAL (08:08)
[2021-05-05] MEDS: LORATADINE 10 MG TABLET PO (08:08)
[2021-05-05 08:40] LABS: Hematocrit 36.7 % (37.0-47.0); Hemoglobin 11.7 g/dL (12.0-15.0); Mean Corpuscular HGB Conc 31.9 g/dl (32-36); Mean Corpuscular Hemoglobin 30.6 pg (26-34); Mean Corpuscular Volume 96.1 fl (80-100); Mean Platelet Volume 9.9 fl (7.4-10.4); Platelet Count Result 197 k/mm3 (150-375); Red Blood Count 3.82 M/mm3 (4.2-5.4); White Blood Count 2.9 K/mm3 (4.5-10.0)
[2021-05-05 08:53] LABS: Alanine Aminotransferase 18 U/L (4-35); Albumin Level 3.3 g/dL (3.5-5.1); Alkaline Phosphatase 88 U/L (38-126); Anion Gap 6 mmol/L (8-16); Aspartate Amino Transferase 57 U/L (14-36); Bilirubin,Total 0.3 mg/dL (0.2-1.3); Blood Urea Nitrogen 5 mg/dL (7-17); Calcium 8.4 mg/dL (8.4-10.2); Carbon Dioxide 27 mmol/L (22-30); Chloride 97 mmol/L (98-107); Estimated CRCL calculation 72 ml/min; Estimated Glomerular Filt Rate > 60; Glucose 99 mg/dL (65-110); Potassium 3.6 mmol/L (3.4-5.0); Sodium 130 mmol/L (137-145)
--- NOTE | 2021-05-05 12:10 | P.DS_ITS ---
DS: Admitting Diagnosis Admitting Diagnosis Syncope DS: Discharge Diagnosis Discharge Diagnosis (1) Syncope: Code(s): R55 - Syncope and collapse Status: Acute Assessment and Plan: * Etiology not clear, concerning as she was seated * denies antecedent symptoms. * telemetry: shows frequent PAC and irregular rhythm * Possible event monitor on discharge. * Echocardiogram EF 65-70% with grade 1 diastolic dysfunction * Check orthostatic vital signs. * fall precautions. * Chest xray no acute cardiopulmonary disease, CTA no PE * Neurology consulted thank you for recommendations * Carotid studies negative for stenosis * Cervical spine no fracture severe cervical spondylosis (2) Chronic hyponatremia: Code(s): E87.1 - Hypo-osmolality and hyponatremia Status: Acute Assessment and Plan: * sodium 130 at admission * 1L NS given overnight * repeat labs ordered * trend labs (3) Colon cancer: Onset Date: 03/03/21 Code(s): C18.9 - Malignant neoplasm of colon, unspecified Status: Acute Assessment and Plan: * Status post right colectomy. Currently receiving chemotherapy per Dr. Wadsworth. (4) Congestive heart failure: Code(s): I50.9 - Heart failure, unspecified Status: Acute Assessment and Plan: * No known history * Echo results noted above * Furosemide 40mg PO daily * Strict I&O (5) Chronic obstructive pulmonary disease: Code(s): J44.9 - Chronic obstructive pulmonary disease, unspecified Status: Acute Assessment and Plan: * No acute issues. 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 DS: Summary Hospital Course Reason for hospitalization: Syncope Hospital Course: Patient is a 80 year old female who presented after a syncopal episode. She was unaware of what happened to her, however, according to the notes she was getting her port flushed when she went unresponsive for 30 seconds or less then was A&O x 4. Carotid were <50%, Echo showed EF of 65-70%, CA no PE, Cervical spine showed severe spondylolysis, head ct had no acute findings. Labs are stable from the admission to now. She is also seen by doctor Wadsworth for chemo treatments. Today she is only complaining of itching in the groin. Will have wound RN come to look at it and make recommendations. She did say that she feels like herself, and that she is eating, and she was just tired. Patient denied chest pain, shortness of breath, nausea, vomiting, abdominal pain, sweat, fevers, chills. Status at Discharge Functional status at discharge: uses cane/walker Overall status at discharge: patient is back to baseline Time Spent with Patient Time attestation: Total time spent providing and/or coordinating discharge services: 46 minutes Time spent: Greater than 30 minutes Specific discharge activities: Lab/Chart/diagnostic testing review, education, physical exam, documentation Exam Const: General: cooperative, healthy appearing, comfortable, no acute distress, well developed and alert Nutritional Appearance: well nourished, obese and overweight Orientation/consciousness: oriented to person, oriented to place, oriented to time, patient oriented x3 and lethargic Limitations: no limitations HENMT: Head: normal to inspection Ear
--- NOTE | 2021-05-05 12:10 | PM.DS ---
DS: Admitting Diagnosis Admitting Diagnosis Syncope DS: Discharge Diagnosis Discharge Diagnosis (1) Syncope: Code(s): R55 - Syncope and collapse Status: Acute Assessment and Plan: Etiology not clear, concerning as she was seated denies antecedent symptoms. telemetry: shows frequent PAC and irregular rhythm Possible event monitor on discharge. Echocardiogram EF 65-70% with grade 1 diastolic dysfunction Check orthostatic vital signs. fall precautions. Chest xray no acute cardiopulmonary disease, CTA no PE Neurology consulted thank you for recommendations Carotid studies negative for stenosis Cervical spine no fracture severe cervical spondylosis (2) Chronic hyponatremia: Code(s): E87.1 - Hypo-osmolality and hyponatremia Status: Acute Assessment and Plan: sodium 130 at admission 1L NS given overnight repeat labs ordered trend labs (3) Colon cancer: Onset Date: 03/03/21 Code(s): C18.9 - Malignant neoplasm of colon, unspecified Status: Acute Assessment and Plan: Status post right colectomy. Currently receiving chemotherapy per Dr. Wadsworth. (4) Congestive heart failure: Code(s): I50.9 - Heart failure, unspecified Status: Acute Assessment and Plan: No known history Echo results noted above Furosemide 40mg PO daily Strict I&O (5) Chronic obstructive pulmonary disease: Code(s): J44.9 - Chronic obstructive pulmonary disease, unspecified Status: Acute Assessment and Plan: No acute issues. 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 DS: Summary Hospital Course Reason for hospitalization: Syncope Hospital Course: Patient is a 80 year old female who presented after a syncopal episode. She was unaware of what happened to her, however, according to the notes she was getting her port flushed when she went unresponsive for 30 seconds or less then was A&O x 4. Carotid were <50%, Echo showed EF of 65-70%, CA no PE, Cervical spine showed severe spondylolysis, head ct had no acute findings. Labs are stable from the admission to now. She is also seen by doctor Wadsworth for chemo treatments. Today she is only complaining of itching in the groin. Will have wound RN come to look at it and make recommendations. She did say that she feels like herself, and that she is eating, and she was just tired. Patient denied chest pain, shortness of breath, nausea, vomiting, abdominal pain, sweat, fevers, chills. Status at Discharge Functional status at discharge: uses cane/walker Overall status at discharge: patient is back to baseline Time Spent with Patient Time attestation: Total time spent providing and/or coordinating discharge services: 46 minutes Time spent: Greater than 30 minutes Specific discharge activities: Lab/Chart/diagnostic testing review, education, physical exam, documentation Exam Const: General: cooperative, healthy appearing, comfortable, no acute distress, well developed and alert Nutritional Appearance: well nourished, obese and overweight Orientation/consciousness: oriented to person, oriented to place, oriented to time, patient oriented x3 and lethargic Limitations: no limitations HENMT: Head: normal to inspection Ears: hearing grossly normal bilaterally General nose exam: Normal external nose present Mouth: Yes Normal oral and palatal mucosa present, Yes lip normal and Yes tongue normal Teeth and gingiva: abnormal tooth and associated gingiva and poor dentition Eyes: General: appearance normal, both eyes and all related structures Pupils: Equal, round and reactive pupils present Neck: Neck: normal visual inspection, full ROM, trachea midline and supple Chest: Chest palpation & inspection: normal in
[2021-05-05 13:49] LABS: EDCOVIDSCREEN Negative (Negative)
[2021-05-05] MEDS: PARoxetine 10 MG TABLET PO (17:02)
[2021-05-05] MEDS: ACETAMINOPHEN 325 MG TABLET 650 MG PO (17:06)
== END 2021-05-05 19:20 ==
LOC: ANHED 18:07 → ANH3MED 20:46
PROVIDERS: Emergency Medicine; Nurse Practitioner; Physician Assistant; Admitting Provider Internal Medicine; Emergency Provider Emergency Medicine; Visit Provider Internal Medicine
DX: R55 Syncope and collapse (principal); C18.9 Malignant neoplasm of colon, unspecified; I50.9 Heart failure, unspecified; E87.1 Hypo-osmolality and hyponatremia; J44.9 Chronic obstructive pulmonary disease, unspecified; M47.812 Spondylosis without myelopathy or radiculopathy, cervical region; Z79.01 Long term (current) use of anticoagulants; Z86.73 Personal history of transient ischemic attack (TIA), and cerebral infarction without residual deficits
CPT/HCPCS: 36415; 70450; 71046; 71275; 72125; 80048; 80053; 83735; 84484; 85025; 85027; 85380; 85610; 85730; 87426; 93005; 93306; 93880; 94640; 96360; 96361; 96523; 99285; A9270; C9803; G0378; J7030; Q9967

== ENCOUNTER 2024-06-07 00:28 | Emergency (ER) | payer OTHER, SELFPAY ==
--- NOTE | ~2024-06-07 | CT_ITS ---
EXAMINATION: CT cervical spine wo con DATE: 06/07/2024 03:50 INDICATION: Unwitnessed fall TECHNIQUE: Computed tomography (CT) of the cervical spine was performed without intravenous contrast. The dose-length product was 403 mGy-cm. Automated exposure control and iterative reconstruction tech [employer] were employed. COMPARISON: CT dated 05/03/2021 FINDINGS: There is disc narrowing at all cervical spine levels. There is degenerative anterolisthesis at C4-5, C6-7 and C7-T1 secondary to facet hypertrophy. Odontoid process is normal. No evidence for perched facet. There is severe multilevel uncinate and facet hypertrophy. Lung apices are unremarkabl e. No significant paraspinal soft tissue abnormality. No acute fracture or traumatic malalignment. IMPRESSION: 1. No acute abnormality of the cervical spine. Reviewed, dictated and finalized at [facility].
--- NOTE | ~2024-06-07 | CT_ITS ---
EXAMINATION: CT brain wo con DATE: 06/07/2024 03:50 INDICATION: Unwitnessed fall TECHNIQUE: Computed tomography (CT) of the head was performed without intravenous contrast. The dose- length product was 681.00 mGy-cm. Automated exposure control and iterative reconstruction technique w ere employed. COMPARISON: CT head dated 05/03/2021 FINDINGS: Chronic infarction with encephalomalacia of the right temporal and occipital lobes. General ized atrophy. There are scattered mild periventricular and subcortical white matter changes, most lik duncan related to small vessel ischemic disease (microangiopathy). No ventriculomegaly or midline shift. No acute intracranial hemorrhage, infarction, mass or mass effect. There is mild mucosal thickening of the paranasal sinuses. Mastoids are pneumatized. No depressed skull fractures. IMPRESSION: 1. No acute intracranial abnormality. Reviewed, dictated and finalized at location [facility].
[2024-06-07 00:31] VITALS: BP 146/68; PULSE 94; RESP 15; TEMP 36.6; O2SAT 100
--- NOTE | 2024-06-07 06:26 | ED.FALL ---
HPI - Fall General Chief Complaint: Fall Stated Complaint: fall, unwitnessed, slid of bed, unknown if hit hea Time Seen by Provider: 06/07/24 04:20 History of Present Illness HPI Narrative: 83-year-old female presenting from her snf facility after mechanical fall while trying to get out of bed. 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 She is presently alert oriented x4 but is taking a blood thinner medication. She does not endorse any loss of consciousness. She is not in any pain. She states she otherwise feels in her normal state of health. Endorses trying to get out of bed and missed step and falling. No prodromal symptoms according to the patient. Related Data Home Medications Medication Instructions Recorded Confirmed furosemide 40 mg tablet 40 mg PO DAILY 08/20/20 08/02/21 potassium chloride 20 mEq 20 meq PO DAILY 08/20/20 08/02/21 tablet,extended release(part/cryst) budesonide-formoterol HFA 160 2 puff inhalation Q12H 08/21/20 08/02/21 mcg-4.5 mcg/actuation aerosol inhaler (Symbicort) cholecalciferol (vitamin D3) 25 50 mcg PO DAILY 08/21/20 08/02/21 mcg (1,000 unit) capsule (Vitamin D3) multivitamin with minerals 1 tablet PO DAILY 08/21/20 08/02/21 polyethylene glycol 3350 17 17 g PO DAILY PRN Constipation 08/21/20 08/02/21 gram/dose oral powder (Miralax) acetaminophen 325 mg tablet 650 mg PO Q6-8H PRN Pain 02/24/21 08/02/21 carboxymethylcellulose sodium 0.25 1 drp EACH EYE BID 02/24/21 08/02/21 % eye drops (TheraTears) gabapentin 100 mg tablet 100 mg PO TID 02/24/21 08/02/21 loperamide 2 mg tablet 4 mg PO DAILY PRN Diarrhea 02/24/21 08/02/21 loratadine 10 mg tablet 10 mg PO DAILY 02/24/21 08/02/21 paroxetine HCl 10 mg tablet (Paxil) 10 mg PO QPM 02/24/21 08/02/21 sennosides 8.6 mg-docusate sodium 1 tab-cap PO DAILY PRN Constipation 02/24/21 08/02/21 50 mg tablet (Senokot-S) zinc 50 mg tablet 50 mg PO DAILY 02/24/21 08/02/21 rivaroxaban 2.5 mg tablet (Xarelto) 2.5 mg PO BID 04/11/21 08/02/21 duloxetine 60 mg capsule,delayed 120 mg PO DAILY 05/19/21 08/02/21 release (Cymbalta) trazodone 100 mg tablet 100 mg PO HS 05/19/21 08/02/21 Allergies Allergy/AdvReac Type Severity Reaction Status Date / Time No Known Allergies Allergy Verified 07/12/21 10:22 Review of Systems Review of Systems: As reviewed above in [facility] Past Medical History Medical History Adnexal mass 9.2 cm right adnexal mass noted on PET-CT dated 03/29/2021. No significant FDG uptake identified. Patient says she was referred to a gynecologic oncologist but she does not remember exactly what was discussed though she knows that they were not going to pursue open biopsy at this time. 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 One of 27 pericolonic lymph nodes were positive for metastatic disease. Patient of Dr. Wadsworth. Congestive heart failure COVID-19 (06/2020) Depression with anxiety Gastroesophageal reflux disease Peripheral vascular disease History of gangrenous left foot status post left [id number] amputation. Seasonal allergies Vitamin D deficiency Surgical History Surgical History Amputated left leg (08/2020) [id number] amputation History of colectomy (03/03/21) Right colectomy with ileotransverse anastomosis.
[2024-06-07 07:15] VITALS: BP 159/78; PULSE 76; RESP 20; O2SAT 98
--- NOTE | 2024-06-07 07:18 | PC.NURSE ---
assumed care of pt, bedside report given, pt is resting and updated on POC, pt at baseline - A&Ox1.
--- NOTE | 2024-06-07 07:37 | PC.NURSE ---
Spoke with RN at [facility] at [phone]. Phone report given and informed her that patient will be discharged back to facility via BLS ambulance.
== END 2024-06-07 09:06 ==
PROVIDERS: Emergency Provider Student in an Organized Health Care Education/Training Program
DX: S09.90XA Unspecified injury of head, initial encounter (principal); I50.9 Heart failure, unspecified; I73.9 Peripheral vascular disease, unspecified; E87.1 Hypo-osmolality and hyponatremia; E55.9 Vitamin D deficiency, unspecified; J44.9 Chronic obstructive pulmonary disease, unspecified; K74.60 Unspecified cirrhosis of liver; K21.9 Gastro-esophageal reflux disease without esophagitis; F41.8 Other specified anxiety disorders; Z86.73 Personal history of transient ischemic attack (TIA), and cerebral infarction without residual deficits; Z85.038 Personal history of other malignant neoplasm of large intestine; Z86.16 Personal history of COVID-19; Z87.891 Personal history of nicotine dependence; Z89.512 Acquired absence of left leg below knee; Z90.49 Acquired absence of other specified parts of digestive tract; Z79.01 Long term (current) use of anticoagulants; Z79.899 Other long term (current) drug therapy; W06.XXXA Fall from bed, initial encounter
CPT/HCPCS: 70450; 72125; 99284

== ENCOUNTER 2024-08-17 09:59 | Inpatient (IN) | payer MEDICARE, MEDICAID, SELFPAY ==
[2024-08-17] VITALS (61 sets, daily range): BP systolic 58–151; BP diastolic 26–98; PULSE 18–148; RESP 14–36; TEMP 35.8–37.2; O2SAT 83–100; BMI 40.1
--- NOTE | 2024-08-17 | ECHO_ITS ---
Patient Info Name: Marva Terry Age: 83 years : 1940 Gender: Female Ht: 63 in Wt: 236 lbs BSA: 2.24 m2 HR: 96 bpm BP: 122 / 88 mmHg Technical Quality: Poor Exam Date: 08/17/2024 4:11 PM Exam Location: Echo Lab Patient Status: Inpatient Admit Date: 08/17/2024 Staff Ordering Physician: Neal Bermudez MD [employer]ard[employer] Handler: Juan C Jon RDCS Attending Provider: Reece Arvizu MD Exam Type: CA echo dop color flow w con Study Info Indications - SHOCK Complete two-dimensional, color flow and Doppler transthoracic echocardiogram is performed with contrast to opacify the left ventricle and to improve the deliniation of the left ventricle endocardial borders. Contrast/Agitated Saline Contrast/Ag. Saline: Definity Amount: 2.00 ml Existing IV Access: Yes Reason for Poor Study: poor echocardiographic windows Summary 1. Technically difficult study with limited views. 2. Left ventricular chamber dimension is normal. 3. There is moderately increased left ventricular wall thickness. 4. Left ventricular systolic function is moderately reduced, estimated at 30-35%. 5. The apex, mid anterior wall, anteroseptum, mid anterolateral wall, mid inferoseptum is hypokinetic. 6. The left ventricular diastolic function is grade I diastolic dysfunction. 7. Right ventricular systolic function is normal. 8. Left atrial chamber dimension is mildly enlarged. 9. There is moderate anterior pericardial effusion. Left Ventricle The apex, mid anterior wall, anteroseptum, mid anterolateral wall, mid inferoseptum is hypokinetic. Left ventricular chamber dimension is normal. Left ventricular systolic function is moderately reduced, estimated at 30-35%. There is moderately increased left ventricular wall thickness. The left ventricular diastolic function is grade I diastolic dysfunction. Right Ventricle Right ventricular chamber dimension is normal. Right ventricular systolic function is normal. Left Atria Left atrial chamber dimension is mildly enlarged. Right Atria Right atrial chamber dimension is normal. Atrial Septum Intact interatrial septum visualized by color flow imaging. Aortic Valve The aortic valve is not well visualized. There is no aortic valve regurgitation. Pulmonic Valve The pulmonic valve is not well visualized. Mitral Valve There is trace mitral valve regurgitation. Tricuspid Valve There is trace tricuspid valve regurgitation. Pericardium/Pleural There is moderate anterior pericardial effusion. Inferior Vena Cava Normal inferior vena cava with >50% collapse upon inspiration consistent with normal right atrial pressure, 3 mmHg. Aorta The aortic root size at the sinus of Valsalva is normal. Left Ventricular Outflow Tract Name Value Normal LVOT 2D LVOT Diameter 1.54 cm LVOT Doppler LVOT Peak Gradient 3 mmHg LVOT Mean Gradient 1 mmHg LVOT VTI 16.89 cm LVOT VTI/AV VTI Ratio 0.84 LVOT Stroke Volume 31.37 ml LVOT CO 2.92 l/min LVOT CI 1.30 L/min/m2 Pulmonic Valve Name Value Normal RVOT Doppler RVOT Peak Gradient 2 mmHg PV Doppler PV Peak Gradient 2 mmHg Mitral Valve Name Value Normal MV Doppler MV Decel [place] 497.98 cm/s2 MV PHT 0 s MV Area (PHT) 5.30 cm2 4.00-5.00 MV Diastolic Function MV E Peak Velocity 71.31 cm/s MV A Peak Velocity 99.43 cm/s MV E/A 0.72 MV Decel Time 0 s MV Annular TDI MV E/e' (Septal) 20.69 <=8.00 MV E/e' (Lateral) 17.91 <=8.00 MV E/e' (Average) 19.30 Tricuspid Valve Name Value Normal Estimated PAP/RSVP RA Pressure 3 mmHg <=5 Aorta Name Value Normal Ascending Aorta Ao Root Diameter (MM) 3.76 cm Ao Root Diam Index (MM) 1.68 cm/m2 Aortic Valve Name Value Normal AV Doppler AV Peak Velocity 112.84 cm/s AV Peak Gradient 5 mmHg AV Mean Gradient 3 mmHg AV VTI 20.21 cm AV Area (Cont Eq VTI) 1.55 cm2 >=3.00 AV Area (Cont Eq Tyshawn) 1.44 cm2 AV Regurgitation 2D LVOT Area 1.86 cm2 Ventricles Name Value Normal LV Dimensions 2D/MM IVS Diastolic Thickness (2D) 1.25 cm 0.60-1.00 LVID Diastole (2D) 3.55 cm 3.80-5.20 LVIW Diastolic Thickness (2D) 1.36 cm 0.60-0.90 LVID Systole (2D) 2.66 cm 2.20-3.50 LVOT Diameter 1.54 cm LV Mass (2D Cubed) 157.89 g 67.00-162.00 LV Mass Index (2D Cubed) 0.01 g/cm2 0.00-0.01 Relative Wall Thickness (2D) 0.76 LV Fractional Shortening/Ejection Fraction 2D/MM LV Fractional Shortening (2D) 24 % 27-45 LV EF (2D Teichruddyz) 49 % 54-74 LV Diastolic Volume (4C MOD) 99.04 ml LV EF (4C MOD) 34 % LV Diastolic Volume (2C MOD) 91.84 ml LV EF (2C MOD) 46 % LV Diastolic Volume (BP MOD) 97.43 ml 46.00-106.00 LV Diastolic Volume Index (BP MOD) 0.04 l/m2 0.03-0.06 LV Systolic Volume (BP MOD) 56.89 ml 14.00-42.00 LV Systolic Volume Index (BP MOD) 0.03 l/m2 0.01-0.02 LV EF (BP MOD) 42 % 54-74 LV Diastolic Length (4C) 7.15 cm LV Systolic Length (4C) 6.17 cm LV Stroke Volume (4C MOD) 33.82 ml Atria Name Value Normal LA Dimensions LA Dimension (MM) 3.37 cm 2.70-3.80 LA Volume (4C A-L) 54.97 ml LA Volume (BP A-L) 50.63 ml RA Dimensions RA Area (4C) 11.28 cm2 <=18.00 Report Signatures
--- NOTE | ~2024-08-17 | XR_ITS ---
Portable chest x-ray Comparison: 08/17/2024 Clinical History: Respiratory failure Findings: Endotracheal tube, NG tube, and left-sided Mediport in place. There is complete white out of the right hemithorax, likely due to mucous plugging left lung atelectasis with possible underlying effusion. Left lung essentially clear. Cardiomediastinal silhouette is stable. Bones and soft tissu es are unremarkable. Impression: White out of the right hemithorax, compatible with likely combination of right lung atelectasis and r ight pleural effusion. Correlate for underlying mucous plugging. Left lung clear. Support tubes, as above. Reviewed, dictated and finalized at location M. ASSEMBLER Impression: White out of the right hemithorax, compatible with likely combination of right lung atelectasis and right pleural effusion. Correlate for underlying mucous pl ugging. Left lung clear. Support tubes, as above.
--- NOTE | ~2024-08-17 | XR_ITS ---
EXAMINATION: XR abdomen gastric tube rechec DATE: 08/17/2024 17:26 INDICATION: Orogastric tube advancement TECHNIQUE: A supine view of the abdomen and lower chest was obtained for evaluation of feeding tube placement. COMPARISON: None. FINDINGS: Orogastric tube distal tip in proximal side port in the body the stomach. Endotracheal tube tip 3.4 c m above the kameron. Distal tip of a left internal jugular central venous port catheter with distal ti p in the high right atrium. Moderate-sized right pleural effusion. Opacities in the right lower lung zone which could represent a ssociated atelectasis or pneumonia. IMPRESSION: 1. Lines and tubes in expected positions. 2. Moderate-sized right pleural effusion with associated basilar atelectasis and/or pneumonia. Reviewed, dictated and finalized at location A. ET ATTENDANT IMPRESSION: 1. Lines and tubes in expected positions. 2. Moderate-sized right pleural effusion with associated basilar atelectasis an d/or pneumonia.
--- NOTE | ~2024-08-17 | XR_ITS ---
EXAMINATION: XR chest ET placement DATE: 08/17/2024 11:20 INDICATION: Endotracheal tube and orogastric tube placement TECHNIQUE: frontal view of the chest was obtained. COMPARISON: Chest radiograph dated 08/17/2024 FINDINGS: Endotracheal tube tip 3.1 cm above the kameron. The endotracheal tube extends at least to the distal e sophagus and beyond the inferior margin of the field of view. The left internal jugular central venou s port catheter with distal tip at the high right atrium. Hazy opacity throughout the right hemithorax likely secondary to a moderate to large right pleural ef fusion which can seen about the periphery of the right lung. Opacification of the right lower lung zo ne which could represent secondary associated atelectasis or pneumonia. Left lung remains clear. No p neumothorax or evident left-sided pleural effusion although the left costophrenic angles excluded fro m the [id number]. Heart size is normal. Old healed proximal right humeral fracture deformity with advanced secondary right glenohumeral osteoarthritis. Loose osteochondral body at the deep subscapula r recess of the left glenohumeral joint. IMPRESSION: 1. Moderate to large right pleural effusion with associated atelectasis and/or pneumonia in the right lower lung zone. Reviewed, dictated and finalized at location A. LOPE ADDRESSER
--- NOTE | ~2024-08-17 | XR_ITS ---
XR abdomen gastric tube insert Ordering provider: Tom James PA-C History: . OG tube placement . Comparison: None. FINDINGS/impression: BOWEL: Nasogastric tube with the tip in the stomach. The sidehole is in the lower esophagus. Advancem ent is advised. Slightly dilated small bowel in the upper abdomen. Reviewed, dictated and finalized at location A. NIGHT ASSOCIATE
--- NOTE | ~2024-08-17 | CT_ITS ---
EXAMINATION: CT brain wo con DATE: 08/17/2024 23:18 INDICATION: sepsis . TECHNIQUE: Computed tomography (CT) of the head was performed without intravenous contrast. The mA wa s adjusted according to patient size. Iterative reconstruction technique was employed. The dose-lengt h product was 756.67 mGy-cm. COMPARISON: 06/07/2024. FINDINGS: 12 mm and 5 mm hyperdense foci in the left cerebellar hemisphere. 5 mm hyperdense focus in the right cerebellar hemisphere. No acute-axial fluid collection. 7 x 13 mm somewhat lobulated mass in the superolateral aspect of the left orbit stable since 2020. No hydrocephalus or herniation. No acute ischemic infarct. Unremarkable dural venous sinus attenuation. No acute osseous abnormality. Left mastoid fluid, air-fluid levels in the bilateral maxillary and sphenoid sinuses, the remaining a erated spaces are clear. Moderate atrophy and chronic white matter change. Atherosclerotic intracranial calcification. Bilater al lens replacements. Right occipital and temporal encephalomalacia. Partially visualized endotrachea l and orogastric tubes. IMPRESSION: Multiple hyperdense foci in the bilateral cerebellar hemispheres, measuring up to 12 mm in the left c erebellar hemisphere. 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 Air-fluid levels in the paranasal sinuses, presumably secondary to intubation. Results reported telephonically to Art Hyatt RN by Dr. Serrato at 11:35 PM on 08/17/2024. Reviewed, dictated and finalized at location K. NE PHARMACOLOGY TECHNICIAN IMPRESSION: Multiple hyperdense foci in the bilateral cerebellar hemispheres, measuring up to 12 mm in the left cerebellar hemisphere. 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 Air-fluid levels in the paranasal sinuses, presumably secondary to intubation. Results reported telephonically to Art Hyatt RN by Dr. Serrato at 11:35 PM o n 08/17/2024.
--- NOTE | ~2024-08-17 | XR_ITS ---
XR chest 1V portable Ordering provider: Tom James PA-C History: 83 years Female with . dyspnea . Comparison: May 03, 2021 FINDINGS: MEDIASTINUM: The cardiac silhouette is slightly enlarged. Left Port-A-Cath with the tip overlying the right atrium. LUNGS: No pneumothorax. Opacification in the right lower lobe with pleural effusion is seen. OTHER: No free air under the diaphragm. Degenerative changes of the spine. IMPRESSION: Right basilar atelectasis versus pneumonia with pleural effusion. Reviewed, dictated and finalized at location A. ON FILLING MACHINE OPERATOR
--- NOTE | ~2024-08-17 | CT_ITS ---
EXAMINATION: CT chest abdomen pelvis wo con DATE: 08/17/2024 23:19 INDICATION: sepsis, pneumonia . TECHNIQUE: Computed tomography (CT) of the chest, abdomen, and pelvis was performed with 100 mL Omnip aque-350 intravenous contrast. Automated exposure control and iterative reconstruction technique were employed. The dose-length product was 1898.71 mGy-cm. COMPARISON: [facility] 05/03/2021; PET/CT 03/28/2021 FINDINGS: CHEST: Thoracic aorta: No significant dilation. No dissection. Mild atherosclerotic calcification Lung parenchyma and airways: Endotracheal tube terminates 2.8 cm above the kameron. Multiple left-side d pulmonary nodules measuring up to 12 mm. Dependent left subsegmental atelectasis. Occluded right lo wer lobe bronchi. Heterogeneous right lower lobe consolidation. New complete right upper lobe and rig ht middle lobe atelectasis. Thoracic inlet, axillae and chest wall: No thyroid or soft tissue mass. No axillary lymphadenopathy. Mediastinum: No mass or lymphadenopathy. Heart and pericardium: Normal heart size. Trace pericardial fluid. Coronary artery calcifications: . Pleura: Moderate volume right pleural fluid collection. Trace left pleural fluid. Thoracic bones: Lytic lesion in the left anterior eighth rib with associated soft tissue mass. ABDOMEN/PELVIS: Liver: Small nodular liver. Biliary/Gallbladder: Multiple gallstones. Pericholecystic fluid. No bile duct dilation. Pancreas: No mass or duct dilation. Spleen: Normal. Adrenals:Bilateral adrenal masses measuring up to 11.5 cm on the right and 11 cm on the left. Kidneys: No suspicious mass, obstructing stone, or hydronephrosis. GI tract: Orogastric tube in good position. Status post right hemicolectomy. Uncomplicated ileocolic anastomosis. No small or large bowel dilation. Appendix surgically absent. Diverticulosis without div erticulitis. Mesentery/Peritoneum: No mass or free air. Small volume perihepatic fluid.. Retroperitoneum: No mass Atherosclerotic abdominal aortic and/or arterial calcifications. Pelvis: The bladder is decompressed by Vargas catheter. Redemonstration of the right adnexal mass, now measuring 13.8 x 7.0 cm. Calcified uterine fibroids. Soft Tissues: Mild body wall edema. Abdominopelvic bones: No acute osseous finding in the abdomen/pelvis. IMPRESSION: Consolidation in the right lower lobe may represent pneumonia. Pulmonary nodules or masses in the rig ht lung cannot be excluded. Bronchial obstruction in the right lower lobe, consider mucous plugging. Moderate right and trace left pleural effusions. Multiple pulmonary nodules in the left lung, concerning for metastatic disease. Small pericardial effusion. Cirrhosis. Cholelithiasis with pericholecystic fluid. Correlate with biliary labs. Large bilateral adrenal masses, most likely representing metastases. Adrenal hemorrhage could also be considered if there are signs of adrenal insufficiency. Redemonstration of the right adnexal mass, now measuring up to 13.8 cm. Lytic left anterior eighth rib lesion with associated soft tissue mass, also concerning for metastati c disease. Results reported telephonically to Aleena Nuñez RN by Dr. Serrato at 12:13 am on 08/18/2024. Reviewed, dictated and finalized at location [facility]. 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 Pulmonary nodule s or masses in the right lung cannot be excluded. Bronchial obstruction in the right lower lobe, consider mucous plugging. Moderate right and trace left pleur al effusions. Multiple pulmonary nodules in the left lung, concerning for metastatic disease. Small pericardial effusion. Cirrhosis. Cholelithiasis with pericholecystic fluid. Correlate with biliary labs. Large bilateral adrenal masses, most likely representing metastases. Adrenal he morrhage could also be considered if there are signs of adrenal insufficiency. Redemonstration of the right adnexal mass, now measuring up to 13.8 cm. Lytic left anterior eighth rib lesion with associated soft tissue mass, also co ncerning for metastatic disease. Results reported telephonically to Aleena Nuñez RN by Dr. Serrato at 12:13 am on 08/18/2024.
--- NOTE | 2024-08-17 10:07 | ECG_ITS ---
Test Date: 2024-08-17 12:40:04 Measurements Intervals [place] Rate: 121 P: 0 MD: 0 QRS: 54 QRSD: 75 T: 0 QT: 206 QTc: 293 Interpretive Statements ATRIAL FIBRILLATION WITH RAPID VENTRICULAR RESPONSE WITH ABERRANT CONDUCTION OR VENTRICULAR PREMATURE COMPLEXES LOW QRS VOLTAGE IN PRECORDIAL LEADS [QRS DEFLECTION < 1.0 mV IN CHEST LEADS] MARKED ST ELEVATION, CONSIDER ANTERIOR INJURY [MARKED ST ELEVATION W/O NORMALLY INFLECTED T WAVE IN V2-V5] vs Aberrant conduction ACUTE RI No previous ECG available for comparison Electronically Signed On 08-17-2024 13:01:29 [employer] SUPERVIS[employer] by Oren Hill M.D.
--- NOTE | 2024-08-17 10:14 | ED.SOB ---
HPI - SOB/Dyspnea General Chief Complaint: Shortness of Breath/Dyspnea <Tom James PA-C - Last Filed: 08/17/24 18:23> Stated Complaint: dyspnea <Tom James PA-C - Last Filed: 08/17/24 18:23> Time Seen by Provider: 08/17/24 10:07 <Tom James PA-C - Last Filed: 08/17/24 18:23> Source: patient <SCOTT Benitez Last Filed: 08/17/24 18:23> Mode of arrival: ambulatory <SCOTT Benitez Last Filed: 08/17/24 18:23> Limitations: no limitations <SCOTT Benitez Last Filed: 08/17/24 18:23> History of Present Illness HPI Narrative: This is a 83-year-old female with PMH of CVA, COPD, CHF, cirrhosis who chief complaint shortness of breath hand fatigue over the past couple of days and worse today. Staff at the snf found her to be more lethargic this a.m. When EMS arrived she was placed on CPAP. History quite limited due to patient's condition. She is able to tell me that she has had a cough and denies chest pain. Plan care glucose 51 <Tom James PA-C - Last Filed: 08/17/24 18:23> Related Data Home Medications: Home Medications Medication Instructions Recorded Confirmed furosemide 40 mg tablet 40 mg PO DAILY 08/20/20 08/17/24 potassium chloride 20 mEq 20 meq PO DAILY 08/20/20 08/17/24 tablet,extended release(part/cryst) budesonide-formoterol HFA 160 2 puff inhalation Q12H 08/21/20 08/17/24 mcg-4.5 mcg/actuation aerosol inhaler (Symbicort) cholecalciferol (vitamin D3) 25 50 mcg PO DAILY 08/21/20 08/17/24 mcg (1,000 unit) capsule (Vitamin D3) multivitamin with minerals 1 tablet PO DAILY 08/21/20 08/17/24 acetaminophen 325 mg tablet 650 mg PO Q6-8H PRN Pain 02/24/21 08/17/24 carboxymethylcellulose sodium 0.25 1 drp EACH EYE BID 02/24/21 08/17/24 % eye drops (TheraTears) gabapentin 100 mg tablet 100 mg PO TID 02/24/21 08/17/24 paroxetine HCl 10 mg tablet (Paxil) 10 mg PO QPM 02/24/21 08/17/24 rivaroxaban 2.5 mg tablet (Xarelto) 2.5 mg PO BID 04/11/21 08/17/24 albuterol sulfate 2.5 mg/3 mL 2.5 mg inhalation Q6H 08/17/24 08/17/24 (0.083 %) solution for nebulization nitrofurantoin 08/17/24 monohydrate/macrocrystals 100 mg capsule triamcinolone acetonide 0.1 % 1 applic topical BID 08/17/24 08/17/24 topical cream <Tom James PA-C - Last Filed: 08/17/24 18:23> Allergies/Adverse Reactions: Allergies Allergy/AdvReac Type Severity Reaction Status Date / Time No Known Allergies Allergy Verified 07/12/21 10:22 <Tom James PA-C - Last Filed: 08/17/24 18:23> Review of Systems Review of Systems: All systems as dictated in HPI <Tom James PA-C - Last Filed: 08/17/24 18:23> [facility] Past Medical History Medical History: Medical History Adnexal mass 9.2 cm right adnexal mass noted on PET-CT dated 03/29/2021. No significant FDG uptake identified. Patient says she was referred to a gynecologic oncologist but she does not remember exactly what was discussed though she knows that they were not going to pursue open biopsy at this time. 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 One of 27 pericolonic lymph nodes were positive for metastatic disease. Patient of Dr. Wadsworth. Congestive heart failure COVID-19 (06/2020) Depression with anxiety Gastroesophageal reflux disease Peripheral vascular disease History of gangrenous left foot status post left [id number] amputation. 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 <Tom James PA-C - Last Filed: 08/17/24 18:23> Family History Family History: Family History Unknown Family history unknown Other Unknown family medical history <Tom James PA-C - Last Filed: 08/17/24 18:23> Social History Social History: Social History Social History: The patient is . 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 Former smoker. No alcohol or illicit substance use. Surrogate decision maker: Radha Angulo. Code status: Full code. Smoking status: Unknown if ever smoked Substance use: unknown Substance use type: unknown Living arrangements: snf Spiritual care concerns: No <SCOTT Benitez Last Filed: 08/17/24 18:23> Exam Narrative: GENERAL: Appears acutely ill. HEAD: Normocephalic, atraumatic. EYES: PERRLA and EOMI. ENT: Nares clear, no rhinorrhea or epistaxis. Mucous membranes moist. Oropharynx without tonsillar hypertrophy exudate or other lesions. NECK: Supple. No adenopathy or masses. CHEST: in respiratory distress on arrival. Increased work of breathing, placed on BiPAP. Saturating in the 80s on BiPAP HEART: Regular rate and rhythm. No murmur heard. Normal peripheral pulses. ABDOMEN: Soft, nontender, nondistended, normal active bowel sounds. MSK: Normal range of motion. No edema. SKIN: Peripheral extremity cyanotic. NEURO: Appears altered. Mumbling incoherent answers PSYCH: Normal mood and affect. 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 I performed all aspects of the MDM as documented. <Carmine Ramey MD - Last Filed: 08/17/24 20:13> Vital Signs Vital signs: Vital Signs Oxygen Delivery Room Air 08/17/24 09:54 Temperature 96.6 F L 08/17/24 16:00 Pulse Rate 92 08/17/24 20:03 Respiratory Rate 16 08/17/24 18:00 Blood Pressure 139/98 H 08/17/24 20:03 Pulse Oximetry 95 08/17/24 18:00 Oxygen Delivery Mechanical Ventilation 08/17/24 16:10 Fraction of Inspired Oxygen 50 08/17/24 16:10 <Tom James PA-C - Last Filed: 08/17/24 18:23> Vital Signs Oxygen Delivery Room Air 08/17/24 09:54 Temperature 96.6 F L 08/17/24 16:00 Pulse Rate 92 08/17/24 20:03 Respiratory Rate 16 08/17/24 18:00 Blood Pressure 139/98 H 08/17/24 20:03 Pulse Oximetry 95 08/17/24 18:00 Oxygen Delivery Mechanical Ventilation 08/17/24 16:10 Fraction of Inspired Oxygen 50 08/17/24 16:10 <Carmine Ramey MD - Last Filed: 08/17/24 20:13> Procedures Central Line Placement Right Femoral: Central Line Date: 08/17/24 <Tom James PA-C - Last Filed: 08/17/24 18:23> Central Line Time: 12:13 <Tom James PA-C - Last Filed: 08/17/24 18:23> Discussed w/ the patient/family/POA,the placement of a central venous catheter, including its clinical necessity/indication & associated potential risks, benifits and alternatives.: Yes <Tom James PA-C - Last Filed: 08/17/24 18:23> The patient/family/POA understand(s) and acknowledge(s) the need to proceed with central venous catheter insertion as an important element of the patient's clinical management.: Yes <Tom James PA-C - Last Filed: 08/17/24 18:23> Performed Emergently - Given emergent patient condition, temporal constraints may have precluded informed consent.: Yes <Tom James PA-C - Last Filed: 08/17/24 18:23> Time Out Performed: Yes <Tom James PA-C - Last Filed: 08/17/24 18:23> Patient Placed on Monitor/Pulse Ox: Yes <Tom James PA-C - Last Filed: 08/17/24 18:23> Max. Sterile Barrier Technique: Caps, large sterile sheet and hand hygiene <Tom James PA-C - Last Filed: 08/17/24 18:23> Central Line Prep: 2% chlorhexidine scrub and sterile drapes applied <Tom James PA-C - Last Filed: 08/17/24 18:23> Technique: US-Guided <Tom James PA-C - Last Filed: 08/17/24 18:23> Local Anesthetic: lidocaine 1% <Tom James PA-C - Last Filed: 08/17/24 18:23> Ultrasound Used for Placement: Yes <Tom James PA-C - Last Filed: 08/17/24 18:23> Central Line Lumen Inserted: single <SCOTT Benitez Last Filed: 08/17/24 18:23> Post Procedure: sutured in place <Tom James PA-C - Last Filed: 08/17/24 18:23> Patient Tolerated Procedure: well <SCOTT Benitez Last Filed: 08/17/24 18:23> Complications: none <Tom James PA-C - Last Filed: 08/17/24 18:23> Intubation Intubation #1: Intubation Date: 08/17/24 <Tom James PA-C - Last Filed: 08/17/24 18:23> Intubation Time: 12:08 <Tom James PA-C - Last Filed: 08/17/24 18:23> Time out performed: Yes <SCOTT Benitez Last Filed: 08/17/24 18:23> sedative: Etomidate <Tom James PA-C - Last Filed: 08/17/24 18:23> Mg Given: 20 <Tom James PA-C - Last Filed: 08/17/24 18:23> paralytic: Succinylcholine <Tom James PA-C - Last Filed: 08/17/24 18:23> Mg Given: 100 <SCOTT Benitez Last Filed: 08/17/24 18:23> Laryngoscope: fiber optic video scope <Tom James PA-C - Last Filed: 08/17/24 18:23> Assist Device Used: fiber optic device <Tom James PA-C - Last Filed: 08/17/24 18:23> Tube Size (cm): 7.5 <Tom James PA-C - Last Filed: 08/17/24 18:23> Method of Intubation: orotracheal <Tom James PA-C - Last Filed: 08/17/24 18:23> Number of Attempts: 1 <SCOTT Benitez Last Filed: 08/17/24 18:23> Tube Secured Depth (cm): 23 <SCOTT Benitez Last Filed: 08/17/24 18:23> Tube Secured Location: teeth <SCOTT Benitez Last Filed: 08/17/24 18:23> Tube Placement Confirmation: visualized tube passing through cords, equal breath sounds bilaterally and confirmation by capnometry <SCOTT Benitez Last Filed: 08/17/24 18:23> Patient Tolerated Procedure: well and no complications <SCOTT Benitez Last Filed: 08/17/24 18:23> Intubation Complications: none <Tom James PA-C - Last Filed: 08/17/24 18:23> MDM - SOB/Dyspnea MDM Narrative Medical decision making narrative: This is an 83 year female who presents to the ED in respiratory distress via EMS from the snf. She arrives on CPAP vitals are 86/50 with pulse of 123 and respiratory rate in the upper 30s. hypoglycemic at 51. No elevation in temperature. Patient was immediately started on BiPAP. She continued to be quite tachypneic and had significant increased work of breathing. initial chest x-ray showing right basilar atelectasis versus pneumonia with pleural effusion. White count coming back elevated at 30,000 thousand. Presentation initially most consistent with a sepsis with pneumonia versus CHF decompensation versus COPD. EKG shows atrial fibrillation. due to the increased work of breathing and impending respiratory failure, decision was made to intubate the patient. ET tube was placed without complication. She then received a central line for persistent hypotension in the right femoral vein. Started on nor epi drip and had slight improvement in blood pressure lactate coming back at a 0.8. ABG with a lactic acidosis pH of 7.2 for but overall oxygenating well on Mechanical ventilation. Sodium decreased at 125. Anion gap elevated. Troponin elevated initially but is down trending with 2nd reading of 0.540. Suspect demand ischemia rather than acute coronary syndrome. Urinalysis does show evidence of potential UTI as well. Cultures pending. Patient was started on Rocephin, azithromycin and is being sedated on fentanyl and Versed drip. Spoke with Dr. Bermudez and JARRET Mix about the case and they will admit the patient to ICU. <Tom James PA-C - Last Filed: 08/17/24 18:23> Lab Data Result diagrams: 08/17/24 10:43 08/17/24 17:29 <Tom James PA-C - Last Filed: 08/17/24 18:23> Labs: Lab Results 08/17/24 08/17/24 08/17/24 Range/Units 10:12 10:43 10:44 WBC 30.5 H (4.5-10.0) K/mm3 RBC 4.25 (4.2-5.4) M/mm3 Hgb 13.5 (12.0-15.0) g/dL Hct 42.7 (37.0-47.0) % MCV 100.5 H (80-100) fl MCH 31.8 (26-34) pg MCHC 31.6 L (32-36) g/dl RDW 15.2 H (11.5-14.5) % Plt Count 407 H D (150-375) k/mm3 MPV 9.6 (7.4-10.4) fl Immature Gran % (Auto) Not Reportable Neut % (Auto) Not Reportable Lymph % (Auto) Not Reportable [place] % (Auto) Not Reportable Eos % (Auto) Not Reportable Baso % (Auto) Not Reportable Lymph # (Auto) Not Reportable [place] # (Auto) Not Reportable Eos # (Auto) Not Reportable Baso # (Auto) Not Reportable Abs Immat Gran (auto) Not Reportable Absolute Neuts (auto) Not Reportable Absolute Nucleated RBC Not Reportable Total Counted 100 Neutrophils % (Manual) 65 (46-73) % Band Neutrophils % 18 H (0-6) % Lymphocytes % (Manual) 6 L (18-44) % Monocytes % (Manual) 8 (3-9) % Eosinophils % (Manual) 3 (0-4) % Nucleated RBC % Not Reportable Abs Neuts (Manual) 25.31 H (1.7-7.2) K/mm3 Abs Lymphs (Manual) 1.83 (1.1-4.5) K/mm3 Abs Monocytes (Manual) 2.44 H (0.1-0.90) K/mm3 Absolute Eos (Manual) 0.91 H (0.02-0.50) K/mm3 Platelet Estimate Adequate (Adequate) Schistocytes None seen PT 23.4 H (11.1-14.7) Seconds INR 2.0 APTT 47.4 H (22.3-36.8) Seconds D-Dimer 12.37 H (<0.48) ug/mL Minute Volume Vent Mode Expiratory Pressure 6 CMH2O Tidal Volume ml PEEP cmH2O Inspiratory Pressure 12 CMH2O Peak Inspir Pressure Pressure Support Sodium 127 L (137-145) mmol/L Potassium 6.0 H* (3.4-5.0) mmol/L Chloride 96 L (98-107) mmol/L Carbon Dioxide 15 L (22-30) mmol/L Anion Gap 16 H (4-12) mmol/L BUN 15 D (7-17) mg/dL Creatinine 1.20 H (0.7-1.0) mg/dL Estim Creat Clear Calc Not Reportable Estimated GFR 43 L (59 - ) Glucose 51 L* (65-110) mg/dL POC Capillary Glucose 51 L* (65-105) mg/dl Lactic Acid 8.8 H* (0.7-2.0) mmol/L Calcium 9.3 (8.4-10.2) mg/dL Total Bilirubin 1.1 (0.2-1.3) mg/dL AST 75 H (14-36) U/L ALT 44 H (6-35) U/L Alkaline Phosphatase 299 H (38-126) U/L Troponin I 0.746 H* (0.000-0.034) ng/mL NT-Pro-B Natriuret Pep > 58298 H (19.9-100) pg/mL Total Protein 7.0 (6.3-8.2) g/dL Albumin 2.8 L (3.5-5.1) g/dL 08/17/24 08/17/24 08/17/24 Range/Units 11:28 12:57 13:18 WBC (4.5-10.0) K/mm3 RBC (4.2-5.4) M/mm3 Hgb (12.0-15.0) g/dL Hct (37.0-47.0) % MCV (80-100) fl MCH (26-34) pg MCHC (32-36) g/dl RDW (11.5-14.5) % Plt Count (150-375) k/mm3 MPV (7.4-10.4) fl Immature Gran % (Auto) Neut % (Auto) Lymph % (Auto) [place] % (Auto) Eos % (Auto) Baso % (Auto) Lymph # (Auto) [place] # (Auto) Eos # (Auto) Baso # (Auto) Abs Immat Gran (auto) Absolute Neuts (auto) Absolute Nucleated RBC Total Counted Neutrophils % (Manual) (46-73) % Band Neutrophils % (0-6) % Lymphocytes % (Manual) (18-44) % Monocytes % (Manual) (3-9) % Eosinophils % (Manual) (0-4) % Nucleated RBC % Abs Neuts (Manual) (1.7-7.2) K/mm3 Abs Lymphs (Manual) (1.1-4.5) K/mm3 Abs Monocytes (Manual) (0.1-0.90) K/mm3 Absolute Eos (Manual) (0.02-0.50) K/mm3 Platelet Estimate (Adequate) Schistocytes PT (11.1-14.7) Seconds INR APTT (22.3-36.8) Seconds D-Dimer (<0.48) ug/mL Minute Volume Vent Mode Expiratory Pressure CMH2O Tidal Volume ml PEEP cmH2O Inspiratory Pressure CMH2O Peak Inspir Pressure Pressure Support Sodium (137-145) mmol/L Potassium (3.4-5.0) mmol/L Chloride (98-107) mmol/L Carbon Dioxide (22-30) mmol/L Anion Gap (4-12) mmol/L BUN (7-17) mg/dL Creatinine (0.7-1.0) mg/dL Estim Creat Clear Calc Estimated GFR (59 - ) Glucose (65-110) mg/dL POC Capillary Glucose 87 73 (65-105) mg/dl Lactic Acid (0.7-2.0) mmol/L Calcium (8.4-10.2) mg/dL Total Bilirubin (0.2-1.3) mg/dL AST (14-36) U/L ALT (6-35) U/L Alkaline Phosphatase (38-126) U/L Troponin I 0.598 H* (0.000-0.034) ng/mL NT-Pro-B Natriuret Pep (19.9-100) pg/mL Total Protein (6.3-8.2) g/dL Albumin (3.5-5.1) g/dL 08/17/24 Range/Units 13:45 WBC (4.5-10.0) K/mm3 RBC (4.2-5.4) M/mm3 Hgb (12.0-15.0) g/dL Hct (37.0-47.0) % MCV (80-100) fl MCH (26-34) pg MCHC (32-36) g/dl RDW (11.5-14.5) % Plt Count (150-375) k/mm3 MPV (7.4-10.4) fl Immature Gran % (Auto) Neut % (Auto) Lymph % (Auto) [place] % (Auto) Eos % (Auto) Baso % (Auto) Lymph # (Auto) [place] # (Auto) Eos # (Auto) Baso # (Auto) Abs Immat Gran (auto) Absolute Neuts (auto) Absolute Nucleated RBC Total Counted Neutrophils % (Manual) (46-73) % Band Neutrophils % (0-6) % Lymphocytes % (Manual) (18-44) % Monocytes % (Manual) (3-9) % Eosinophils % (Manual) (0-4) % Nucleated RBC % Abs Neuts (Manual) (1.7-7.2) K/mm3 Abs Lymphs (Manual) (1.1-4.5) K/mm3 Abs Monocytes (Manual) (0.1-0.90) K/mm3 Absolute Eos (Manual) (0.02-0.50) K/mm3 Platelet Estimate (Adequate) Schistocytes PT (11.1-14.7) Seconds INR APTT (22.3-36.8) Seconds D-Dimer (<0.48) ug/mL Minute Volume Not Reportable Vent Mode Cmv Expiratory Pressure CMH2O Tidal Volume 360 ml PEEP 5 cmH2O Inspiratory Pressure CMH2O Peak Inspir Pressure Not Reportable Pressure Support Not Reportable Sodium (137-145) mmol/L Potassium (3.4-5.0) mmol/L Chloride (98-107) mmol/L Carbon Dioxide (22-30) mmol/L Anion Gap (4-12) mmol/L BUN (7-17) mg/dL Creatinine (0.7-1.0) mg/dL Estim Creat Clear Calc Estimated GFR (59 - ) Glucose (65-110) mg/dL POC Capillary Glucose (65-105) mg/dl Lactic Acid (0.7-2.0) mmol/L Calcium (8.4-10.2) mg/dL Total Bilirubin (0.2-1.3) mg/dL AST (14-36) U/L ALT (6-35) U/L Alkaline Phosphatase (38-126) U/L Troponin I (0.000-0.034) ng/mL NT-Pro-B Natriuret Pep (19.9-100) pg/mL Total Protein (6.3-8.2) g/dL Albumin (3.5-5.1) g/dL <Tom James PA-C - Last Filed: 08/17/24 18:23> Lab Results 08/17/24 08/17/24 08/17/24 Range/Units 10:12 10:43 10:44 WBC 30.5 H (4.5-10.0) K/mm3 RBC 4.25 (4.2-5.4) M/mm3 Hgb 13.5 (12.0-15.0) g/dL Hct 42.7 (37.0-47.0) % MCV 100.5 H (80-100) fl MCH 31.8 (26-34) pg MCHC 31.6 L (32-36) g/dl RDW 15.2 H (11.5-14.5) % Plt Count 407 H D (150-375) k/mm3 MPV 9.6 (7.4-10.4) fl Immature Gran % (Auto) Not Reportable Neut % (Auto) Not Reportable Lymph % (Auto) Not Reportable [place] % (Auto) Not Reportable Eos % (Auto) Not Reportable Baso % (Auto) Not Reportable Lymph # (Auto) Not Reportable [place] # (Auto) Not Reportable Eos # (Auto) Not Reportable Baso # (Auto) Not Reportable Abs Immat Gran (auto) Not Reportable Absolute Neuts (auto) Not Reportable Absolute Nucleated RBC Not Reportable Total Counted 100 Neutrophils % (Manual) 65 (46-73) % Band Neutrophils % 18 H (0-6) % Lymphocytes % (Manual) 6 L (18-44) % Monocytes % (Manual) 8 (3-9) % Eosinophils % (Manual) 3 (0-4) % Nucleated RBC % Not Reportable Abs Neuts (Manual) 25.31 H (1.7-7.2) K/mm3 Abs Lymphs (Manual) 1.83 (1.1-4.5) K/mm3 Abs Monocytes (Manual) 2.44 H (0.1-0.90) K/mm3 Absolute Eos (Manual) 0.91 H (0.02-0.50) K/mm3 Platelet Estimate Adequate (Adequate) Schistocytes None seen PT 23.4 H (11.1-14.7) Seconds INR 2.0 APTT 47.4 H (22.3-36.8) Seconds D-Dimer 12.37 H (<0.48) ug/mL Minute Volume Vent Mode Expiratory Pressure 6 CMH2O Tidal Volume ml PEEP cmH2O Inspiratory Pressure 12 CMH2O Peak Inspir Pressure Pressure Support Sodium 127 L (137-145) mmol/L Potassium 6.0 H* (3.4-5.0) mmol/L Chloride 96 L (98-107) mmol/L Carbon Dioxide 15 L (22-30) mmol/L Anion Gap 16 H (4-12) mmol/L BUN 15 D (7-17) mg/dL Creatinine 1.20 H (0.7-1.0) mg/dL Estim Creat Clear Calc Not Reportable Estimated GFR 43 L (59 - ) Glucose 51 L* (65-110) mg/dL POC Capillary Glucose 51 L* (65-105) mg/dl Lactic Acid 8.8 H* (0.7-2.0) mmol/L Calcium 9.3 (8.4-10.2) mg/dL Total Bilirubin 1.1 (0.2-1.3) mg/dL AST 75 H (14-36) U/L ALT 44 H (6-35) U/L Alkaline Phosphatase 299 H (38-126) U/L Troponin I 0.746 H* (0.000-0.034) ng/mL NT-Pro-B Natriuret Pep > 81871 H (19.9-100) pg/mL Total Protein 7.0 (6.3-8.2) g/dL Albumin 2.8 L (3.5-5.1) g/dL 08/17/24 08/17/24 08/17/24 Range/Units 11:28 12:57 13:18 WBC (4.5-10.0) K/mm3 RBC (4.2-5.4) M/mm3 Hgb (12.0-15.0) g/dL Hct (37.0-47.0) % MCV (80-100) fl MCH (26-34) pg MCHC (32-36) g/dl RDW (11.5-14.5) % Plt Count (150-375) k/mm3 MPV (7.4-10.4) fl Immature Gran % (Auto) Neut % (Auto) Lymph % (Auto) [place] % (Auto) Eos % (Auto) Baso % (Auto) Lymph # (Auto) [place] # (Auto) Eos # (Auto) Baso # (Auto) Abs Immat Gran (auto) Absolute Neuts (auto) Absolute Nucleated RBC Total Counted Neutrophils % (Manual) (46-73) % Band Neutrophils % (0-6) % Lymphocytes % (Manual) (18-44) % Monocytes % (Manual) (3-9) % Eosinophils % (Manual) (0-4) % Nucleated RBC % Abs Neuts (Manual) (1.7-7.2) K/mm3 Abs Lymphs (Manual) (1.1-4.5) K/mm3 Abs Monocytes (Manual) (0.1-0.90) K/mm3 Absolute Eos (Manual) (0.02-0.50) K/mm3 Platelet Estimate (Adequate) Schistocytes PT (11.1-14.7) Seconds INR APTT (22.3-36.8) Seconds D-Dimer (<0.48) ug/mL Minute Volume Vent Mode Expiratory Pressure CMH2O Tidal Volume ml PEEP cmH2O Inspiratory Pressure CMH2O Peak Inspir Pressure Pressure Support Sodium (137-145) mmol/L Potassium (3.4-5.0) mmol/L Chloride (98-107) mmol/L Carbon Dioxide (22-30) mmol/L Anion Gap (4-12) mmol/L BUN (7-17) mg/dL Creatinine (0.7-1.0) mg/dL Estim Creat Clear Calc Estimated GFR (59 - ) Glucose (65-110) mg/dL POC Capillary Glucose 87 73 (65-105) mg/dl Lactic Acid (0.7-2.0) mmol/L Calcium (8.4-10.2) mg/dL Total Bilirubin (0.2-1.3) mg/dL AST (14-36) U/L ALT (6-35) U/L Alkaline Phosphatase (38-126) U/L Troponin I 0.598 H* (0.000-0.034) ng/mL NT-Pro-B Natriuret Pep (19.9-100) pg/mL Total Protein (6.3-8.2) g/dL Albumin (3.5-5.1) g/dL 08/17/24 Range/Units 13:45 WBC (4.5-10.0) K/mm3 RBC (4.2-5.4) M/mm3 Hgb (12.0-15.0) g/dL Hct (37.0-47.0) % MCV (80-100) fl MCH (26-34) pg MCHC (32-36) g/dl RDW (11.5-14.5) % Plt Count (150-375) k/mm3 MPV (7.4-10.4) fl Immature Gran % (Auto) Neut % (Auto) Lymph % (Auto) [place] % (Auto) Eos % (Auto) Baso % (Auto) Lymph # (Auto) [place] # (Auto) Eos # (Auto) Baso # (Auto) Abs Immat Gran (auto) Absolute Neuts (auto) Absolute Nucleated RBC Total Counted Neutrophils % (Manual) (46-73) % Band Neutrophils % (0-6) % Lymphocytes % (Manual) (18-44) % Monocytes % (Manual) (3-9) % Eosinophils % (Manual) (0-4) % Nucleated RBC % Abs Neuts (Manual) (1.7-7.2) K/mm3 Abs Lymphs (Manual) (1.1-4.5) K/mm3 Abs Monocytes (Manual) (0.1-0.90) K/mm3 Absolute Eos (Manual) (0.02-0.50) K/mm3 Platelet Estimate (Adequate) Schistocytes PT (11.1-14.7) Seconds INR APTT (22.3-36.8) Seconds D-Dimer (<0.48) ug/mL Minute Volume Not Reportable Vent Mode Cmv Expiratory Pressure CMH2O Tidal Volume 360 ml PEEP 5 cmH2O Inspiratory Pressure CMH2O Peak Inspir Pressure Not Reportable Pressure Support Not Reportable Sodium (137-145) mmol/L Potassium (3.4-5.0) mmol/L Chloride (98-107) mmol/L Carbon Dioxide (22-30) mmol/L Anion Gap (4-12) mmol/L BUN (7-17) mg/dL Creatinine (0.7-1.0) mg/dL Estim Creat Clear Calc Estimated GFR (59 - ) Glucose (65-110) mg/dL POC Capillary Glucose (65-105) mg/dl Lactic Acid (0.7-2.0) mmol/L Calcium (8.4-10.2) mg/dL Total Bilirubin (0.2-1.3) mg/dL AST (14-36) U/L ALT (6-35) U/L Alkaline Phosphatase (38-126) U/L Troponin I (0.000-0.034) ng/mL NT-Pro-B Natriuret Pep (19.9-100) pg/mL Total Protein (6.3-8.2) g/dL Albumin (3.5-5.1) g/dL <Carmine Ramey MD - Last Filed: 08/17/24 20:13> ABG Data ABG results: 08/17/24 08/17/24 10:44 13:45 Puncture Site Right brachial Left brachial ABG pH 7.242 L* 7.177 L* ABG pCO2 22.1 L* 36.1 ABG pO2 243.0 H 155.8 H ABG PO2/FiO2 Ratio 2.70 2.23 ABG HCO3 9.3 L 13.1 L ABG O2 Saturation 99.4 98.5 ABG O2 Content 20.7 18.9 ABG Base Excess -15.9 -14.4 A-a Gradient 376.1 304.5 Oxyhemoglobin 98.7 98.3 Total Hemoglobin 14.5 13.5 O2 Delivery Device Non-invasive vent Ventilator O2 Liters/Min Not Reportable Not Reportable Vent Rate 16 18 FiO2 90 70 <Tom James PA-C - Last Filed: 08/17/24 18:23> 08/17/24 08/17/24 10:44 13:45 Puncture Site Right brachial Left brachial ABG pH 7.242 L* 7.177 L* ABG pCO2 22.1 L* 36.1 ABG pO2 243.0 H 155.8 H ABG PO2/FiO2 Ratio 2.70 2.23 ABG HCO3 9.3 L 13.1 L ABG O2 Saturation 99.4 98.5 ABG O2 Content 20.7 18.9 ABG Base Excess -15.9 -14.4 A-a Gradient 376.1 304.5 Oxyhemoglobin 98.7 98.3 Total Hemoglobin 14.5 13.5 O2 Delivery Device Non-invasive vent Ventilator O2 Liters/Min Not Reportable Not Reportable Vent Rate 16 18 FiO2 90 70 <Carmine Ramey MD - Last Filed: 08/17/24 20:13> Critical Care Time Critical Care Time Critical Care Time: Yes <Tom James PA-C - Last Filed: 08/17/24 18:23> Total Critical Care Time: 65 <Tom James PA-C - Last Filed: 08/17/24 18:23> Discharge Plan Discharge Clinical Impression: Sepsis, Pneumonia, Respiratory failure, acute <Tom James PA-C - Last Filed: 08/17/24 18:23> Patient Disposition: Still a Patient <Tom James PA-C - Last Filed: 08/17/24 18:23> Condition: Critical <Tom James PA-C - Last Filed: 08/17/24 18:23>
[2024-08-17 10:15] LABS: Glucose Point of Care 51 mg/dl (65-105)
[2024-08-17] MEDS: SODIUM CHLORIDE 0.9% IV 1,000 ML 999 ML IV CONT (10:45)
[2024-08-17] MEDS: DEXTROSE 50% 25 GM/50 ML SYRINGE IV PUSH (10:46)
[2024-08-17 10:49] LABS: Alveolar/Arterial O2 Gradient 376.1 mmHg; Base Excess ABG -15.9 mEq/l (+/-2.0); Fractional Inspired Oxygen 90 %; HCO3 ABG 9.3 mEq/l (22.0-26.0); Oxygen Content ABG 20.7 %vol (16.0-22.0); Oxygen Saturation ABG 99.4 % (95.0-100.0); Oxyhemoglobin 98.7 % THb (90.0-100.0); Total Hemoglobin 14.5 g/dL (12.0-18.0)
[2024-08-17 10:50] LABS: Hematocrit 42.7 % (37.0-47.0); Hemoglobin 13.5 g/dL (12.0-15.0); Mean Corpuscular HGB Conc 31.6 g/dl (32-36); Mean Corpuscular Hemoglobin 31.8 pg (26-34); Mean Corpuscular Volume 100.5 fl (80-100); Mean Platelet Volume 9.6 fl (7.4-10.4); Platelet Count Result 407 k/mm3 (150-375); Red Blood Count 4.25 M/mm3 (4.2-5.4); Red Cell Distribution Width 15.2 % (11.5-14.5); White Blood Count 30.5 K/mm3 (4.5-10.0)
[2024-08-17 10:51] LABS: pH ABG 7.242 (7.350-7.450)
[2024-08-17 10:52] LABS: PCO2 ABG 22.1 mmHg (35.0-45.0)
[2024-08-17 10:53] LABS: Device NON-INVASIVE VENT; Non-Invasive Expiratory Pressure 6 CMH2O; Non-Invasive Inspiratory Pressure 12 CMH2O; Non-Invasive Vent Rate 16 /MIN; Site Drawn RIGHT BRACHIAL
[2024-08-17 11:05] LABS: Prothrombin Time 23.4 Seconds (11.1-14.7)
[2024-08-17 11:06] LABS: Lactic Acid Reflex 8.8 mmol/L (0.7-2.0); Partial Thromboplastin Time 47.4 Seconds (22.3-36.8)
[2024-08-17 11:07] LABS: Albumin Level 2.8 g/dL (3.5-5.1); Alkaline Phosphatase 299 U/L (38-126); Anion Gap 16 mmol/L (4-12); Aspartate Amino Transferase 75 U/L (14-36); Bilirubin,Total 1.1 mg/dL (0.2-1.3); Blood Urea Nitrogen 15 mg/dL (7-17); Calcium 9.3 mg/dL (8.4-10.2); Carbon Dioxide 15 mmol/L (22-30); Chloride 96 mmol/L (98-107); Estimated Glomerular Filt Rate 43; Glucose 51 mg/dL (65-110); Sodium 127 mmol/L (137-145)
[2024-08-17 11:08] LABS: Alanine Aminotransferase 44 U/L (6-35)
[2024-08-17] MEDS: fentaNYL CITRATE INJ (*CRX) 100 MCG/2 ML VIAL 50 MCG IV PUSH (11:08)
[2024-08-17] MEDS: MIDAZOLAM 100MG/NS 100ML(*CRX) 100 MG/100 ML BAG IV CONT (11:10)
[2024-08-17] MEDS: FENTANYL 2,500MCG/NS250ML(*CRX 2,500 MCG/250 ML BAG IV CONT (11:10)
[2024-08-17 11:17] LABS: NT Pro B Type Natriuretic Pept > 30000 pg/mL (19.9-100); Troponin I 0.746 ng/mL (0.000-0.034)
[2024-08-17 11:25] LABS: Band Neutrophils Percent 18 % (0-6); Lymphocytes Absolute Manual 1.83 K/mm3 (1.1-4.5); Lymphocytes Percent Manual 6 % (18-44); Monocytes Absolute Manual 2.44 K/mm3 (0.1-0.90); Monocytes Percent Manual 8 % (3-9); Neutrophils Absolute Manual 25.31 K/mm3 (1.7-7.2); Neutrophils Percent Manual 65 % (46-73); Total Cells Counted 100
[2024-08-17 11:26] LABS: Eosinophils Absolute Manual 0.91 K/mm3 (0.02-0.50); Eosinophils Percent Manual 3 % (0-4); Platelet Estimate Adequate (Adequate); Schistocytes None Seen
[2024-08-17 11:30] LABS: Glucose Point of Care 87 mg/dl (65-105)
[2024-08-17 11:32] LABS: D Dimer 12.37 ug/mL (<0.48)
[2024-08-17] MEDS: MIDAZOLAM HCL (*CRX) 2 MG/2 ML VIAL IV PUSH ×2 (11:36→11:41)
[2024-08-17] MEDS: NOREPINEPHRINE 8 MG/D5W 250 ML 8 MG/250 ML BAG 9.38 MG IV CONT (12:07)
[2024-08-17] MEDS: LACTATED RINGERS 1,000 ML 999 ML IV CONT ×2 (12:08→12:14)
[2024-08-17] MEDS: CALCIUM GLUC 2,000 MG/NS 100ML 2,000 MG/100 ML BAG 100 MG IVPB (12:11)
--- NOTE | 2024-08-17 12:45 | ECG_ITS ---
Test Date: 2024-08-17 12:52:57 Measurements Intervals [place] Rate: 119 P: 108 [place]: 147 QRS: 60 QRSD: 69 T: 107 QT: 346 QTc: 488 Interpretive Statements SINUS TACHYCARDIA WITH OCCASIONAL VENTRICULAR PREMATURE COMPLEXES WITH FREQUENT SUPRAVENTRICULAR PREMATURE COMPLEXES LOW QRS VOLTAGE IN PRECORDIAL LEADS [QRS DEFLECTION < 1.0 mV IN CHEST LEADS] MODERATE T-WAVE ABNORMALITY, CONSIDER ANTERIOR ISCHEMIA [-0.1+ mV T-WAVE IN V3/V4] Compared to ECG 08/17/2024 12:40:04 T-wave abnormality now present Possible ischemia now present Atrial fibrillation no longer present Aberrant conduction of supraventricular beat(s) no longer present ST (T wave) deviation no longer present Myocardial infarct finding no longer present Electronically Signed On 08-17-2024 13:01:42 [employer] DIRECTOR by Oren Hill M.D.
[2024-08-17 13:02] LABS: Glucose Point of Care 73 mg/dl (65-105)
--- NOTE | 2024-08-17 13:05 | P.HP_ITS ---
H&P: HPI History of Present Illness Date/Time: 08/17/24 14:05 Chief Complaint: Shortness of breath and lethargy. Narrative: This is an 83-year-old female with history of stroke, peripheral vascular disease, congestive heart failure, chronic obstructive pulmonary disease, gastroesophageal reflux disease, and colon cancer who presented to the emergency department via EMS from a local turning facility for evaluation of shortness of breath and lethargy. She was intubated not long after arrival to the emergency department and all of the following history is obtained via a review of her EMR. She has apparently been complaining of shortness of breath for the last 2 to 3 days and this morning she was quite lethargic and was sent in for evaluation. No other information was provided by the transferring facility. On arrival to the emergency department the patient complained of shortness of breath but did not provide much else in the way of history. In the ED: She was tachypneic, tachycardic and hypotensive upon arrival. She has been afebrile. Labs were significant for WBC count 30.5 with 18% bands noted on differential, INR 2.0, D-dimer 12.37, sodium 127, potassium 6.0, chloride 96, carbon dioxide 15, anion gap 16, BUN 15, creatinine 1.20, glucose 51, lactic acid 8.8, AST 75, ALT 44, alk phosphatase 299, troponin 0.746, proBNP greater than 30,000. Urinalysis was positive for leukocyte esterase, greater than 100 wbc's, and 4+ bacteria. Chest x-ray showed moderate to large right pleural effusion with associated atelectasis and/or pneumonia in the right lower lung zone. She received 3 L crystalloid bolus and remained hypotensive. Central line was inserted and she is currently on norepinephrine, phenylephrine, and vasopressin. She was started on ceftriaxone, doxycycline, and vancomycin for suspected pneumonia and she is being admitted in this setting. Review of Systems Review of Systems: Unable to be obtained given condition as above. [facility] Past Medical History Medical History Adnexal mass 9.2 cm right adnexal mass noted on PET-CT dated 03/29/2021. No significant FDG uptake identified. Patient says she was referred to a gynecologic oncologist but she does not remember exactly what was discussed though she knows that they were not going to pursue open biopsy at this time. 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 One of 27 pericolonic lymph nodes were positive for metastatic disease. Patient of Dr. Wadsworth. Congestive heart failure COVID-19 (06/2020) Depression with anxiety Gastroesophageal reflux disease Peripheral vascular disease History of gangrenous left foot status post left [id number] amputation. 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 Family History Family History Unknown Family history unknown Other Unknown family medical history Social History Social History Social History: The patient is . She is a [facility] resident [facility]. Former smoker. No alcohol or illicit substance use. Surrogate decision maker: Radha Angulo. Code status: Full code. Smoking status: Unknown if ever smoked Substance use: unknown Substance use type: unknown Living arrangements: senior living Spiritual care concerns: No Meds Home Medications and Allergies Home Medications Medication Instructions Recorded Confirmed Type furosemide 40 mg tablet 40 mg PO DAILY 08/20/20 08/17/24 History potassium chloride 20 mEq 20 meq PO DAILY 08/20/20 08/17/24 History tablet,extended release(part/cryst) budesonide-formoterol HFA 160 2 puff inhalation Q12H 08/21/20 08/17/24 History mcg-4.5 mcg/actuation aerosol inhaler (Symbicort) cholecalciferol (vitamin D3) 25 50 mcg PO DAILY 08/21/20 08/17/24 History mcg (1,000 unit) capsule (Vitamin D3) multivitamin with minerals 1 tablet PO DAILY 08/21/20 08/17/24 History acetaminophen 325 mg tablet 650 mg PO Q6-8H PRN Pain 02/24/21 08/17/24 History carboxymethylcellulose sodium 0.25 1 drp EACH EYE BID 02/24/21 08/17/24 History % eye drops (TheraTears) gabapentin 100 mg tablet 100 mg PO TID 02/24/21 08/17/24 History paroxetine HCl 10 mg tablet (Paxil) 10 mg PO QPM 02/24/21 08/17/24 History famotidine 20 mg tablet 20 mg PO Q12HR 30 days #60 tabs 03/08/21 08/17/24 Rx ferrous sulfate 325 mg (65 mg 325 mg PO DAILY 30 days #30 tabs 03/08/21 08/17/24 Rx iron) tablet rivaroxaban 2.5 mg tablet (Xarelto) 2.5 mg PO BID 04/11/21 08/17/24 History miconazole nitrate 2 % topical 1 applic topical Q12HR #1,692 grams 05/05/21 08/17/24 Rx ointment ([place] Antifungal (miconazole)) albuterol sulfate 2.5 mg/3 mL 2.5 mg inhalation Q6H 08/17/24 08/17/24 History (0.083 %) solution for nebulization nitrofurantoin 08/17/24 History monohydrate/macrocrystals 100 mg capsule triamcinolone acetonide 0.1 % 1 applic topical BID 08/17/24 08/17/24 History topical cream Allergies Allergy/AdvReac Type Severity Reaction Status Date / Time No Known Allergies Allergy Verified 07/12/21 10:22 Vital Signs Vital Signs - 24 hr 08/17/24 09:59 08/17/24 10:11 08/17/24 10:16 Temperature 97.6 F Pulse Rate 123 H 125 H 125 H Respiratory Rate 30 H 36 H 35 H Blood Pressure Pulse Oximetry 91 Oxygen Delivery Room Air BiPAP Fraction of Inspired Oxygen 08/17/24 10:46 08/17/24 11:10 08/17/24 11:10 Temperature Pulse Rate 114 H 119 H Respiratory Rate 17 17 Blood Pressure 86/50 L Pulse Oximetry Oxygen Delivery Fraction of Inspired Oxygen 08/17/24 11:25 08/17/24 11:30 08/17/24 11:20 Temperature Pulse Rate 122 H 122 H 115 H Respiratory Rate 25 H 25 H Blood Pressure Pulse Oximetry Oxygen Delivery Mechanical Ventilation Fraction of Inspired Oxygen 100 08/17/24 12:07 08/17/24 09:54 08/17/24 11:00 Temperature Pulse Rate 87 127 H Respiratory Rate 34 H Blood Pressure 65/43 L 110/84 Pulse Oximetry 83 L Oxygen Delivery Room Air Fraction of Inspired Oxygen 08/17/24 11:15 08/17/24 11:35 08/17/24 11:50 Temperature Pulse Rate 114 H 122 H 18 L Respiratory Rate 19 23 H 21 H Blood Pressure 111/47 L 92/52 L 71/59 L Pulse Oximetry 84 L 90 Oxygen Delivery Fraction of Inspired Oxygen 08/17/24 12:00 08/17/24 12:10 08/17/24 12:20 Temperature 98.9 F 98.9 F 98.5 F Pulse Rate 114 H 111 H 108 H Respiratory Rate 23 H 16 17 Blood Pressure 64/34 L 70/48 L 67/53 L Pulse Oximetry Oxygen Delivery Fraction of Inspired Oxygen 08/17/24 12:30 08/17/24 11:40 08/17/24 11:55 Temperature 97 F L Pulse Rate 110 H 120 H 115 H Respiratory Rate 16 21 H 20 Blood Pressure 92/58 L Pulse Oximetry Oxygen Delivery Fraction of Inspired Oxygen 08/17/24 12:05 08/17/24 12:00 08/17/24 12:30 Temperature Pulse Rate 112 H 114 H 107 H Respiratory Rate 16 23 H 17 Blood Pressure Pulse Oximetry Oxygen Delivery Fraction of Inspired Oxygen 08/17/24 12:46 08/17/24 12:51 Temperature 97.3 F L 97.2 F L Pulse Rate 118 H 99 Respiratory Rate 19 19 Blood Pressure 98/58 L 103/72 Pulse Oximetry 100 94 Oxygen Delivery Fraction of Inspired Oxygen Exam Narrative: General: Acutely ill-appearing female sedated and intubated on mechanical ventilation. Weight: 102.7 kg. BMI: 40.1. HEENT: Normocephalic, atraumatic. Pupils are approximately 2 mm are sluggish. ET tube in place. Neck: Supple. Exam limited due to neck circumference. No obvious JVD or lymphadenopathy. Respiratory: Sedated on mechanical ventilation. Coarse lung sounds heard anteriorly with occasional wheezing. Lung sounds are diminished at the right flank. Cardiovascular: Tachycardic with S1-S2. Port-A-Cath in the left anterior chest. Gastrointestinal: Abdomen is slightly firm and obese with positive bowel sounds. Skin: Cool and dry. Poor capillary refill. Both hands are cool and mottled with cyanotic nail beds. Radial and dorsalis pedis pulse on the right are palpable but weak. Extremities: No clubbing. Mild edema of the right lower extremity. Status post left [id number] amputation. Neurological: Unable to assess due to sedation. Prior to sedation she was reportedly agitated and moving all 4 extremities and pulling off her CPAP. Psychiatric: Unable to assess. H&P: Results Labs Labs: Short CBC 08/17/24 Range/Units 10:43 WBC 30.5 H (4.5-10.0) K/mm3 Hgb 13.5 (12.0-15.0) g/dL Hct 42.7 (37.0-47.0) % Plt Count 407 H D (150-375) k/mm3 BMP 08/17/24 10:43 Sodium 127 L Potassium 6.0 H* Chloride 96 L Carbon Dioxide 15 L BUN 15 D Creatinine 1.20 H Glucose 51 L* Calcium 9.3 Cardiac Enzymes 08/17/24 Range/Units 10:43 Troponin I 0.746 H* (0.000-0.034) ng/mL Liver Function 08/17/24 Range/Units 10:43 Total Bilirubin 1.1 (0.2-1.3) mg/dL AST 75 H (14-36) U/L ALT 44 H (6-35) U/L Alkaline Phosphatase 299 H (38-126) U/L Albumin 2.8 L (3.5-5.1) g/dL Impressions Chest X-Ray 08/17/24 10:38 IMPRESSION: 1. Right basilar atelectasis versus pneumonia with pleural effusion. Chest X-Ray 08/17/24 11:21 IMPRESSION: 1. Moderate to large right pleural effusion with associated atelectasis and/or pneumonia in the right lower lung zone. Assessment and Plan Assessment and plan (1) Septic shock: Code(s): A41.9 - Sepsis, unspecified organism; R65.21 - Severe sepsis with septic shock Status: Acute (2) Pneumonia: Code(s): J18.9 - Pneumonia, unspecified organism Status: Acute (3) Acute respiratory failure with hypoxia: Code(s): J96.01 - Acute respiratory failure with hypoxia Status: Acute (4) Chronic obstructive pulmonary disease: Code(s): J44.9 - Chronic obstructive pulmonary disease, unspecified Status: Acute (5) Atrial fibrillation with RVR: Code(s): I48.91 - Unspecified atrial fibrillation Status: Acute (6) Elevated troponin: Code(s): R79.89 - Other specified abnormal findings of blood chemistry Status: Acute (7) Acute kidney injury: Code(s): N17.9 - Acute kidney failure, unspecified Status: Acute (8) Hypoglycemia: Code(s): E16.2 - Hypoglycemia, unspecified Status: Acute (9) Cirrhosis: Code(s): K74.60 - Unspecified cirrhosis of liver Status: Acute (10) Hyperkalemia: Code(s): E87.5 - Hyperkalemia Status: Acute Plan The patient presented to the emergency department for evaluation of shortness of breath and lethargy as detailed in HPI. Labs, imaging, EKG, and all reports were personally reviewed. She was intubated in the emergency department and remains sedated at this time. She meets sepsis criteria with tachycardia, tachypnea, leukocytosis with bandemia, lactic acidosis, and acute kidney injury in the setting pneumonia. Central line has been inserted and she is currently on norepinephrine, phenylephrine, and vasopressin. Stress dose steroids added. Blood, urine, and sputum cultures ordered. Etiology of the hypoxia was likely due to a combination of pneumonia, right-sided pleural effusion, and COPD exacerbation. Pulmonary embolism is unlikely as she is on rivaroxaban. She is currently on cefepime, doxycycline, and vancomycin. Continue scheduled bronchodilators. Acute kidney injury is likely due to sepsis and shock. Continue judicious IV fluid rehydration and monitor strict I/O. Dextrose has been added for IV fluids as she is hypoglycemic. CT of the abdomen, chest, and pelvis has been ordered and is pending to rule out obstructive processes. All medications will be renally dosed and nephrotoxic agents will be avoided. She received appropriate treatment for hyperkalemia and repeat potassium is pending this evening. Elevated is elevated which is likely due to rapid atrial fibrillation and septic shock. EKG did not demonstrate any acute ST segment changes. Continue amiodarone drip for rapid atrial fibrillation; and echocardiogram has been ordered. She has peripheral vascular disease and her hands and fingers especially are mottled and cyanotic. Continue to monitor closely while on vasopressors. Her home medications will be reviewed and resumed as appropriate. Quality VTE Prophylaxis VTE prophylaxis: pharmacologic ordered (on rivaroxaban) Hospitalist MIPS Advance Care Plan I have confirmed that the patient's Advanced Care Plan is present, code status is documented, or surrogate decision maker is listed in patient medical record.: Yes Medication Reconciliation I have utilized all available resources to obtain, update and review the patients current medications (includes all prescriptions, OTC, herbals, cannabis, and nutritional supplements).: Yes Critical Care Time Critical Care Time: Yes Total Critical Care Time: 55 Attestation: Due to a high probability of clinically significant, life threatening deterioration, the patient required my highest level of preparedness to intervene emergently and I personally spent this critical care time directly and personally managing the patient. This critical care time included obtaining a history; examining the patient; pulse oximetry; ordering and review of studies; arranging urgent treatment with development of a management plan; evaluation of patient's response to treatment; frequent reassessment; and discussions with other providers. It was exclusive of separately billable procedures and treating other patients and teaching time. Please see Assessment and Plan section and the rest of the note for further information on patient assessment and treatment.
[2024-08-17] MEDS: AZITHROMYCIN 500 MG/NS 250 ML 500 MG/250 ML BAG 250 MG IVPB (13:17)
--- NOTE | 2024-08-17 13:31 | PC.NURSE ---
Verbal order from Dr. Bermudez to decrease Fentanyl to 100 mcg, decrease Versed to 4mg and increase Levophed to 12mcg.
--- NOTE | 2024-08-17 13:38 | WPDCNINT ---
Assessment and Plan Assessment and plan (1) Septic shock: Code(s): A41.9 - Sepsis, unspecified organism; R65.21 - Severe sepsis with septic shock Status: Acute Assessment and Plan: Septic shock secondary to pneumonia UA pending CT chest abdomen pelvis pending Blood and sputum cultures, urine Legionella and pneumococcal antigen Empiric vancomycin cefepime and doxycycline Patient has received 3 L IV fluids bolus and is going to be started on IV fluid infusion Levophed infusion Add vasopressin infusion. stress dose hydrocortisone 25% albumin (2) Pneumonia: Code(s): J18.9 - Pneumonia, unspecified organism Status: Acute Assessment and Plan: See above (3) Respiratory failure, acute: Code(s): J96.00 - Acute respiratory failure, unspecified whether with hypoxia or hypercapnia Status: Acute Assessment and Plan: Acute respiratory failure secondary to pneumonia and COPD exacerbation Patient now intubated and sedated Ventilator settings reviewed. Due to high pressures tidal volume was decreased to 360 and rate increased to 18 she is currently on 70% FiO2 and 5 of PEEP Repeat ABG ordered CT chest ordered Bronchodilators and steroids (4) Peripheral vascular disease: Code(s): I73.9 - Peripheral vascular disease, unspecified Status: Acute Assessment and Plan: Patient has history of peripheral vascular disease she is status post left BKA Both her hands are mottled with poor cap refill The right foot has a weak dorsalis pedis pulse (5) COPD exacerbation: Code(s): J44.1 - Chronic obstructive pulmonary disease with (acute) exacerbation Status: Acute Assessment and Plan: See above (6) Atrial fibrillation with RVR: Code(s): I48.91 - Unspecified atrial fibrillation Status: Acute Assessment and Plan: Amiodarone bolus and infusion Xarelto (7) DASHAWN (acute kidney injury): Code(s): N17.9 - Acute kidney failure, unspecified Status: Acute Assessment and Plan: Likely secondary to sepsis and shock Monitor urine output electrolytes and creatinine IV fluids and vasopressors CT abdomen pelvis pending Check CK and urine electrolytes (8) Hyperkalemia: Code(s): E87.5 - Hyperkalemia Status: Acute Assessment and Plan: Secondary to DASHAWN and acidosis Patient is getting IV fluids Lokelma Repeat BMP ordered Will order additional treatment depending on repeat potassium level (9) Hypoglycemia: Code(s): E16.2 - Hypoglycemia, unspecified Status: Acute Assessment and Plan: IV fluids with dextrose and q.4 hours blood sugar monitoring (10) Elevated troponin: Code(s): R79.89 - Other specified abnormal findings of blood chemistry Status: Acute Assessment and Plan: Mildly elevated troponin level in light of acute renal failure, AFib with RVR and septic shock Patient is already anticoagulated Amiodarone for AFib RVR tree Monitor troponin levels serial EKG reviewed and shows AFib Echo ordered and Plan DVT prophylaxis -Xarelto Stress ulcer prophylaxis -Protonix Nutrition -npo Code Status - Full Code I spoke to patient's next of kin Radha by phone. She has patient's cousin patient does not have biological children or is . She is currently in [place]. She is aware the patient has multiple medical problems and has not had significant quality of life over last few years. I updated her with patient's current status including respiratory failure, septic shock, acute kidney injury, COPD, peripheral vascular disease. I told the patient is currently on ventilator with multiple vasopressors and is critically ill with high risk of mortality at this time. I discussed code status. She is going to discuss with other family members and call back with her decision. At this point patient is full code. Total Critical Care Time - 40 minutes Due to a high probability of clinically significant, life threatening deterioration, the patient required my highest level of preparedness to intervene emergently and I personally spent this critical care time directly and personally managing the patient. This critical care time included obtaining a history; examining the patient; pulse oximetry; ordering and review of studies; arranging urgent treatment with development of a management plan; evaluation of patient's response to treatment; frequent reassessment; and discussions with other providers. It was exclusive of separately billable procedures and treating other patients and teaching time. Please see Assessment and Plan section and the rest of the note for further information on patient assessment and treatment Global Marketing Operations Manager Consult Note Consult date: 08/17/24 Reason for consult: Septic shock, acute respiratory failure HPI: Marva Terry is a 83 year old female past medical history of AFib on anticoagulation, peripheral vascular disease status post left BKA, congestive heart failure, COPD, GERD, and colon cancer, GERD, morbid obesity, anemia, COVID was sent from senior living with complaints of shortness of breath. Patient was confused and agitated on presentation and could not give meaningful history but she was in respiratory distress. She was tried on CPAP but she failed and was intubated. Chest x-ray showed pneumonia. Patient was hypotensive. Right femoral central venous catheter was placed. Patient was given IV fluids and started on IV antibiotics. Patient also started on Levophed. Additional workup in the ER showed white count to be 30.5 ABG 7.24/22/243/9.3 Sodium 127 potassium 6.0 creatinine 1.2 blood sugar 51 troponin 0.746 BNP more than 30,000 On my evaluation patient was intubated sedated and unable to provide any further history. She was on infusion at 6 and fentanyl at 150. She was also on Levophed and IV fluids. She will be admitted to ICU Review of Systems Review of Systems: ROS unobtainable: Yes unobtainable due to endotracheal tube, unobtainable due to medical condition and unobtainable due to mental status PMFSH Past Medical History Medical History Adnexal mass 9.2 cm right adnexal mass noted on PET-CT dated 03/29/2021. No significant FDG uptake identified. Patient says she was referred to a gynecologic oncologist but she does not remember exactly what was discussed though she knows that they were not going to pursue open biopsy at this time. 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 One of 27 pericolonic lymph nodes were positive for metastatic disease. Patient of Dr. Wadsworth. Congestive heart failure COVID-19 (06/2020) Depression with anxiety Gastroesophageal reflux disease Peripheral vascular disease History of gangrenous left foot status post left [id number] amputation. Seasonal allergies Vitamin D deficiency Surgical History Surgical History Amputated left leg (08/2020) [id number] amputation History of colectomy (03/03/21) Right colectomy with ileotransverse anastomosis. Family History Family History Unknown Family history unknown Other Unknown family medical history Social History Social History Social History: The patient is . She is a care home resident at [facility]. Former smoker. No alcohol or illicit substance use. Surrogate decision maker: Radha Angulo. Code status: Full code. Living arrangements: senior living Meds Home Medications and Allergies Home Medications Medication Instructions Recorded Confirmed Type furosemide 40 mg tablet 40 mg PO DAILY 08/20/20 08/02/21 History potassium chloride 20 mEq 20 meq PO DAILY 08/20/20 08/02/21 History tablet,extended release(part/cryst) budesonide-formoterol HFA 160 2 puff inhalation Q12H 08/21/20 08/02/21 History mcg-4.5 mcg/actuation aerosol inhaler (Symbicort) cholecalciferol (vitamin D3) 25 50 mcg PO DAILY 08/21/20 08/02/21 History mcg (1,000 unit) capsule (Vitamin D3) multivitamin with minerals 1 tablet PO DAILY 08/21/20 08/02/21 History polyethylene glycol 3350 17 17 g PO DAILY PRN Constipation 08/21/20 08/02/21 History gram/dose oral powder (Miralax) acetaminophen 325 mg tablet 650 mg PO Q6-8H PRN Pain 02/24/21 08/02/21 History carboxymethylcellulose sodium 0.25 1 drp EACH EYE BID 02/24/21 08/02/21 History % eye drops (TheraTears) gabapentin 100 mg tablet 100 mg PO TID 02/24/21 08/02/21 History loperamide 2 mg tablet 4 mg PO DAILY PRN Diarrhea 02/24/21 08/02/21 History loratadine 10 mg tablet 10 mg PO DAILY 02/24/21 08/02/21 History paroxetine HCl 10 mg tablet (Paxil) 10 mg PO QPM 02/24/21 08/02/21 History sennosides 8.6 mg-docusate sodium 1 tab-cap PO DAILY PRN Constipation 02/24/21 08/02/21 History 50 mg tablet (Senokot-S) zinc 50 mg tablet 50 mg PO DAILY 02/24/21 08/02/21 History famotidine 20 mg tablet 20 mg PO Q12HR 30 days #60 tabs 03/08/21 08/02/21 Rx ferrous sulfate 325 mg (65 mg 325 mg PO DAILY 30 days #30 tabs 03/08/21 08/02/21 Rx iron) tablet rivaroxaban 2.5 mg tablet (Xarelto) 2.5 mg PO BID 04/11/21 08/02/21 History hydrocodone 5 mg-acetaminophen 325 1 tablet PO Q8H PRN Pain #5 tabs 05/05/21 08/02/21 Rx mg tablet miconazole nitrate 2 % topical 1 applic topical Q12HR #1,692 grams 05/05/21 08/02/21 Rx ointment (Aloe [place] Antifungal (miconazole)) tolnaftate 1 % topical powder 1 applic topical Q12HR #45 grams 05/05/21 08/02/21 Rx duloxetine 60 mg capsule,delayed 120 mg PO DAILY 05/19/21 08/02/21 History release (Cymbalta) trazodone 100 mg tablet 100 mg PO HS 05/19/21 08/02/21 History Allergies Allergy/AdvReac Type Severity Reaction Status Date / Time No Known Allergies Allergy Verified 07/12/21 10:22 Vital Signs Vital Signs - 24 hr 08/17/24 09:59 08/17/24 10:11 08/17/24 10:16 Temperature 36.4 C Pulse Rate 123 H 125 H 125 H Respiratory Rate 30 H 36 H 35 H Blood Pressure Pulse Oximetry 91 Oxygen Delivery Room Air BiPAP Fraction of Inspired Oxygen 08/17/24 10:46 08/17/24 11:10 08/17/24 11:10 Temperature Pulse Rate 114 H 119 H Respiratory Rate 17 17 Blood Pressure 86/50 L Pulse Oximetry Oxygen Delivery Fraction of Inspired Oxygen 08/17/24 11:25 08/17/24 11:30 08/17/24 11:20 Temperature Pulse Rate 122 H 122 H 115 H Respiratory Rate 25 H 25 H Blood Pressure Pulse Oximetry Oxygen Delivery Mechanical Ventilation Fraction of Inspired Oxygen 100 08/17/24 12:07 08/17/24 09:54 08/17/24 11:00 Temperature Pulse Rate 87 127 H Respiratory Rate 34 H Blood Pressure 65/43 L 110/84 Pulse Oximetry 83 L Oxygen Delivery Room Air Fraction of Inspired Oxygen 08/17/24 11:15 08/17/24 11:35 08/17/24 11:50 Temperature Pulse Rate 114 H 122 H 18 L Respiratory Rate 19 23 H 21 H Blood Pressure 111/47 L 92/52 L 71/59 L Pulse Oximetry 84 L 90 Oxygen Delivery Fraction of Inspired Oxygen 08/17/24 12:00 08/17/24 12:10 08/17/24 12:20 Temperature 37.2 C 37.2 C 36.9 C Pulse Rate 114 H 111 H 108 H Respiratory Rate 23 H 16 17 Blood Pressure 64/34 L 70/48 L 67/53 L Pulse Oximetry Oxygen Delivery Fraction of Inspired Oxygen 08/17/24 12:30 08/17/24 11:40 08/17/24 11:55 Temperature 36.1 C L Pulse Rate 110 H 120 H 115 H Respiratory Rate 16 21 H 20 Blood Pressure 92/58 L Pulse Oximetry Oxygen Delivery Fraction of Inspired Oxygen 08/17/24 12:05 08/17/24 12:00 08/17/24 12:30 Temperature Pulse Rate 112 H 114 H 107 H Respiratory Rate 16 23 H 17 Blood Pressure Pulse Oximetry Oxygen Delivery Fraction of Inspired Oxygen 08/17/24 12:46 08/17/24 12:51 08/17/24 13:00 Temperature 36.3 C L 36.2 C L Pulse Rate 118 H 99 148 H Respiratory Rate 19 19 Blood Pressure 98/58 L 103/72 Pulse Oximetry 100 94 98 Oxygen Delivery Mechanical Ventilation Fraction of Inspired Oxygen 100 08/17/24 13:18 08/17/24 13:00 08/17/24 13:00 Temperature Pulse Rate 120 H 120 H 120 H Respiratory Rate 14 14 Blood Pressure 100/43 L Pulse Oximetry Oxygen Delivery Fraction of Inspired Oxygen 08/17/24 12:52 08/17/24 13:14 08/17/24 13:21 Temperature 36.2 C L 35.9 C L 35.8 C L Pulse Rate 117 H 136 H 133 H Respiratory Rate 19 14 24 H Blood Pressure 100/43 L 97/66 L Pulse Oximetry 96 96 Oxygen Delivery Fraction of Inspired Oxygen 08/17/24 13:28 08/17/24 13:29 08/17/24 13:30 Temperature Pulse Rate 146 H 145 H 145 H Respiratory Rate 16 16 Blood Pressure Pulse Oximetry 95 Oxygen Delivery Mechanical Ventilation Fraction of Inspired Oxygen 70 08/17/24 13:30 Temperature Pulse Rate 145 H Respiratory Rate Blood Pressure 84/59 L Pulse Oximetry Oxygen Delivery Fraction of Inspired Oxygen Exam Narrative: General: Pt is obese female who is sedated, intubated and on mechanical ventilation unresponsive Lungs/Chest: Trachea central Coarse BS B/L, bilateral wheezing on exam Cardiac: Tachycardia, irregular Normal S1 S2. No murmurs Circulation: Right dorsalis pedis is palpable but weak Abdomen: Decreased bowel sounds. Morbidly Obese. Soft. NT. ND. Extremities: Left BKA, right leg has edema, both hands are mottled with poor cap refill, both arms are mottled : Vargas in place Neurologic: Unable to assess due to sedation. Prior to sedation patient was agitated and moving all 4 extremities and pulling her BiPAP mask off, now she sedated and unresponsive PERRL Results Labs 08/17/24 10:43 08/17/24 10:43 Labs: Impressions Chest X-Ray 08/17/24 10:38 IMPRESSION: Right basilar atelectasis versus pneumonia with pleural effusion. Chest X-Ray 08/17/24 11:21 IMPRESSION: 1. Moderate to large right pleural effusion with associated atelectasis and/or pneumonia in the right lower lung zone. Short CBC 08/17/24 Range/Units 10:43 WBC 30.5 H (4.5-10.0) K/mm3 Hgb 13.5 (12.0-15.0) g/dL Hct 42.7 (37.0-47.0) % Plt Count 407 H D (150-375) k/mm3 BMP 08/17/24 10:43 Sodium 127 L Potassium 6.0 H* Chloride 96 L Carbon Dioxide 15 L BUN 15 D Creatinine 1.20 H Glucose 51 L* Calcium 9.3 Cardiac Enzymes 08/17/24 Range/Units 10:43 Troponin I 0.746 H* (0.000-0.034) ng/mL Liver Function 08/17/24 Range/Units 10:43 Total Bilirubin 1.1 (0.2-1.3) mg/dL AST 75 H (14-36) U/L ALT 44 H (6-35) U/L Alkaline Phosphatase 299 H (38-126) U/L Albumin 2.8 L (3.5-5.1) g/dL Quality VTE Prophylaxis VTE prophylaxis: mechanical ordered and pharmacologic ordered Hospitalist MIPS Advance Care Plan I have confirmed that the patient's Advanced Care Plan is present, code status is documented, or surrogate decision maker is listed in patient medical record.: Yes Medication Reconciliation I have utilized all available resources to obtain, update and review the patients current medications (includes all prescriptions, OTC, herbals, cannabis, and nutritional supplements).: Yes
[2024-08-17 13:47] LABS: Reflex Lactic Acid Yes or No Add Lactic
[2024-08-17 13:48] LABS: Alveolar/Arterial O2 Gradient 304.5 mmHg; Base Excess ABG -14.4 mEq/l (+/-2.0); Fractional Inspired Oxygen 70 %; HCO3 ABG 13.1 mEq/l (22.0-26.0); Oxygen Content ABG 18.9 %vol (16.0-22.0); Oxygen Saturation ABG 98.5 % (95.0-100.0); Oxyhemoglobin 98.3 % THb (90.0-100.0); PCO2 ABG 36.1 mmHg (35.0-45.0); PO2 ABG 155.8 mmHg (80.0-100.0); PO2 FiO2 Ratio Arterial Blood 2.23 %; Total Hemoglobin 13.5 g/dL (12.0-18.0)
[2024-08-17 13:53] LABS: Device VENTILATOR; Site Drawn LEFT BRACHIAL; pH ABG 7.177 (7.350-7.450)
[2024-08-17 13:54] LABS: Arterial Blood Gas PEEP 5 cmH2O; Arterial Blood Gas Tidal Volume 360 ml; Arterial Blood Gas Vent Mode CMV; Arterial Blood Gas Ventilator rate 18 /MIN
--- NOTE | 2024-08-17 14:05 | ADMGEN ---
This patient, Marva Terry, was admitted to Intensive Care Unit-3. Patient/family oriented to hospital policies and general routines including ID bracelet, bed and alarms, visiting hours, pain management, procedures, bathroom and other care routines, personal items, smoking policy, room service/diet, and visiting hours. Information on how to activate the Rapid Response Team has been discussed. Patient/Family are encouraged to report perceived risks to care and to ask questions if they do not understand what they are told or what they should do.
[2024-08-17 14:14] LABS: Troponin I 0.598 ng/mL (0.000-0.034)
[2024-08-17] MEDS: LEVALBUTEROL NEB 1.25 MG/3 ML 0.63 MG INHALATION ×2 (14:20→20:55)
[2024-08-17] MEDS: IPRATROPIUM BR 0.02% INH SOLN 0.5 MG/2.5 ML VIAL INHALATION ×2 (14:20→20:55)
[2024-08-17] MEDS: SODIUM BICARBONATE 8.4% 50 MEQ/50 ML SYRINGE IV PUSH ×2 (14:23→14:28)
[2024-08-17] MEDS: AMIODARONE 150 MG/D5W 100 ML 150 MG/100 ML BAG 600 MG IV CONT (14:23)
[2024-08-17] MEDS: VASOPRESSIN INJ 100 UNITS in DEXTROSE 5% 95 ML IV CONT (14:24)
[2024-08-17] MEDS: AMIODARONE 360 MG/D5W 200 ML 360 MG/200 ML BAG 33.33 MG IV CONT (14:30)
--- NOTE | 2024-08-17 15:09 | P.PCNBED_ITS ---
Procedures Arterial Line Arterial Line Date: 08/17/24 Arterial Line Time: 14:50 Perfomed Emergently - Given emergent patient conditions, temporal constraints may have precluded informed consent: Yes Time Out Performed: Yes Patient Position: supine Principal Clerk Prep: sterile gown, sterile gloves, mask and hat Site: left and femoral Site Prep: chlorhexidine Technique used: ultrasound-guided Length: 12 cm Closure/Dressing: suture and transparent dressing Patient tolerated procedure: well Complications: none Additional comments: Patient was in septic shock with multiple pressors. Patient is morbidly obese unable to get accurate blood pressure with noninvasive cuff. Procedure was done emergently to obtain accurate blood pressure to guide vasopressor dosing. As expected arterial pressure was much higher than cuff pressure. Procedure required 2 attempts as on 1st time the guidewire would not advance after a certain length. Needle and guidewire was removed and on 2nd attempt arterial line was placed without any major complication.
[2024-08-17] MEDS: SODIUM BICARBONATE 8.4% 150 MEQ in DEXTROSE 5% 1,000 ML 950 ML 100 MEQ IV CONT (15:28)
[2024-08-17] MEDS: LACTATED RINGERS 500 ML IV CONT (15:28)
[2024-08-17] MEDS: CEFEPIME 1 GM/NS 50 ML 1 GM/50 ML BAG IVPB ×2 (16:06→21:31)
[2024-08-17] MEDS: PERFLUTREN LIPID MICROSPHERES 1.5 ML VIAL DILUTED TO 10 ML TOTAL VOLUME IV PUSH (16:50)
[2024-08-17] MEDS: HYDROCORTISONE SODIUM SUCCINATE 100 MG/2 ML VIAL IV PUSH ×2 (17:12→21:31)
[2024-08-17] MEDS: VANCOMYCIN 1,250 MG/NS 250 ML 1,250 MG/250 ML BAG 166.67 MG IVPB ×2 (17:12→18:48)
--- NOTE | 2024-08-17 17:12 | IVDEFINITY ---
Prior to administration of IV Definity the patient was educated on the risks and benefits of the imaging enhancing agent including potential adverse side effects. The patient verbalized understanding. Allergies were verified. No exclusion criteria were identified and at least one of the following inclusion criteria were met: 1) physician request, 2) patient technically difficult to image (per the [place] [employer] guidelines of two or more segments not discernable within the apical view), or 3) questionable left ventricular function. ?
[2024-08-17 17:55] LABS: Add Urine Microscopic? YES; Appearance Urine Turbid (Clear); Bacteria Urine 4+ /hpf; Bilirubin Urine 1+ (Negative); Blood Urine 3+ (Negative); Budding Yeast Urine Present /hpf; Color Urine Dark Yellow (Yellow); Creatinine Urine 111.1 mg/dL; Glucose Urine UA Negative (Negative); Ketones Urine Trace mg/dL (Negative); Leukocyte Esterase Ur 2+ LEU/UL (Negative); Mucus Urine Present /lpf; Need Manual Microscopic Reviewed; Nitrate Urine Negative (Negative); Non Pathogenic Casts >20; Protein Urine 3+ mg/dL (Negative); RBC Urine 51-100 /hpf (0-2); Specific Grav Ur 1.025 (1.001-1.035); Squamous Epithelial Cell Urine Occasional /hpf (Few); WBC Urine >100 /hpf (0-3)
[2024-08-17 17:58] LABS: Sodium Urine Random 28 meq/L
[2024-08-17 18:01] LABS: Creatine Kinase 156 U/L (30-135)
[2024-08-17 18:02] LABS: Anion Gap 15 mmol/L (4-12); Blood Urea Nitrogen 14 mg/dL (7-17); Calcium 8.4 mg/dL (8.4-10.2); Carbon Dioxide 15 mmol/L (22-30); Chloride 95 mmol/L (98-107); Estimated CRCL calculation 38 ml/min; Estimated Glomerular Filt Rate 43; Glucose 216 mg/dL (65-110); Potassium 4.9 mmol/L (3.4-5.0); Sodium 125 mmol/L (137-145)
[2024-08-17 18:06] LABS: Lactic Acid Reflex 7.6 mmol/L (0.7-2.0)
[2024-08-17] MEDS: SODIUM ZIRCONIUM CYCLOSILICATE 10 GM POWD.PACK FEED TUBE (18:10)
[2024-08-17 18:24] LABS: Influenza A QL RT-PCR Negative (Negative); Influenza B QL RT-PCR Negative (Negative); RSV RNA, RT-PCR Negative (Negative); SARS-CoV-2 RNA PCR Negative (Negative)
[2024-08-17 18:26] LABS: Glucose Point of Care 144 mg/dl (65-105)
[2024-08-17] MEDS: NOREPINEPHRINE 8 MG/D5W 250 ML 8 MG/250 ML BAG 46.88 MG IV CONT (18:47)
[2024-08-17 19:00] LABS: MRSA (PCR) NOT DETECTED (NOT DETECTE)
--- NOTE | 2024-08-17 19:44 | PC.NURSE ---
Notified Dr Bermudez of patient 4-6 beat runs of polymorphic vtach. No new orders, otherwise in NSR.
[2024-08-17] MEDS: AMIODARONE 360 MG/D5W 200 ML 360 MG/200 ML BAG 16.67 MG IV CONT (20:03)
[2024-08-17] MEDS: ALBUMIN HUMAN 25% 25 GM/100 ML 100 ML IVPB (20:18)
[2024-08-17] MEDS: DOXYCYCLINE 100 MG/NS 100 ML 100 MG/100 ML BAG IVPB (20:22)
[2024-08-17] MEDS: RIVAROXABAN 2.5 MG TABLET FEED TUBE (21:30)
[2024-08-17 22:53] LABS: Influenza A QL RT-PCR Negative (Negative); Influenza B QL RT-PCR Negative (Negative); RSV RNA, RT-PCR Negative (Negative); SARS-CoV-2 RNA PCR Negative (Negative)
[2024-08-18] VITALS (36 sets, daily range): BP systolic 78–124; BP diastolic 43–73; PULSE 61–94; RESP 10–21; TEMP 36.1–37.2; O2SAT 16–97; BMI 42.3
[2024-08-18] MEDS: ALBUMIN HUMAN 25% 25 GM/100 ML 100 ML IVPB ×3 (00:33→11:19)
[2024-08-18] MEDS: NOREPINEPHRINE 8 MG/D5W 250 ML 8 MG/250 ML BAG 37.5 MG IV CONT (00:34)
[2024-08-18] MEDS: SODIUM BICARBONATE 8.4% 150 MEQ in DEXTROSE 5% 1,000 ML 950 ML 100 MEQ IV CONT ×2 (01:13→12:04)
[2024-08-18 01:14] LABS: Glucose Point of Care 276 mg/dl (65-105)
[2024-08-18] MEDS: LEVALBUTEROL NEB 1.25 MG/3 ML 0.63 MG INHALATION ×2 (01:57→07:30)
[2024-08-18] MEDS: IPRATROPIUM BR 0.02% INH SOLN 0.5 MG/2.5 ML VIAL INHALATION ×2 (01:58→07:30)
[2024-08-18] MEDS: HYDROCORTISONE SODIUM SUCCINATE 100 MG/2 ML VIAL IV PUSH (06:00)
[2024-08-18] MEDS: AMIODARONE 360 MG/D5W 200 ML 360 MG/200 ML BAG 16.67 MG IV CONT (07:00)
[2024-08-18 07:14] LABS: Hematocrit 34.6 % (37.0-47.0); Hemoglobin 11.5 g/dL (12.0-15.0); Mean Corpuscular HGB Conc 33.2 g/dl (32-36); Mean Corpuscular Hemoglobin 32.5 pg (26-34); Mean Corpuscular Volume 97.7 fl (80-100); Mean Platelet Volume 10.7 fl (7.4-10.4); Platelet Count Result 267 k/mm3 (150-375); Red Blood Count 3.54 M/mm3 (4.2-5.4); Red Cell Distribution Width 15.3 % (11.5-14.5); White Blood Count 36.1 K/mm3 (4.5-10.0)
[2024-08-18 07:35] LABS: Alveolar/Arterial O2 Gradient 199.1 mmHg; Base Excess ABG -3.3 mEq/l (+/-2.0); Carboxyhemoglobin 0.3 % THb (0-2.0); Fractional Inspired Oxygen 45 %; HCO3 ABG 21.7 mEq/l (22.0-26.0); Oxygen Content ABG 16.7 %vol (16.0-22.0); Oxygen Saturation ABG 95.2 % (95.0-100.0); Oxyhemoglobin 95.7 % THb (90.0-100.0); PCO2 ABG 38.7 mmHg (35.0-45.0); PO2 ABG 77.7 mmHg (80.0-100.0); PO2 FiO2 Ratio Arterial Blood 1.73 %; Total Hemoglobin 12.4 g/dL (12.0-18.0); pH ABG 7.366 (7.350-7.450)
[2024-08-18 08:02] LABS: Device VENTILATOR
[2024-08-18 08:03] LABS: Arterial Blood Gas PEEP 5 cmH2O; Arterial Blood Gas Tidal Volume 360 ml; Arterial Blood Gas Vent Mode CMV; Arterial Blood Gas Ventilator rate 18 /MIN
[2024-08-18] MEDS: NOREPINEPHRINE 8 MG/D5W 250 ML 8 MG/250 ML BAG 24.38 MG IV CONT (08:58)
[2024-08-18] MEDS: CEFEPIME 1 GM/NS 50 ML 1 GM/50 ML BAG IVPB (08:59)
[2024-08-18] MEDS: DOXYCYCLINE 100 MG/NS 100 ML 100 MG/100 ML BAG IVPB (08:59)
[2024-08-18 09:19] LABS: Band Neutrophils Percent 13 % (0-6); Lymphocytes Absolute Manual 2.52 K/mm3 (1.1-4.5); Lymphocytes Percent Manual 7 % (18-44); Monocytes Absolute Manual 0.36 K/mm3 (0.1-0.90); Monocytes Percent Manual 1 % (3-9); Neutrophils Absolute Manual 33.21 K/mm3 (1.7-7.2); Neutrophils Percent Manual 79 % (46-73); Platelet Estimate Adequate (Adequate); Schistocytes None Seen; Total Cells Counted 100
[2024-08-18 09:40] LABS: Alanine Aminotransferase 28 U/L (6-35); Alkaline Phosphatase 207 U/L (38-126); Aspartate Amino Transferase 63 U/L (14-36); Bilirubin,Total 0.7 mg/dL (0.2-1.3); Calcium 8.2 mg/dL (8.4-10.2); Glucose 275 mg/dL (65-110); Magnesium 1.6 mg/dL (1.6-2.3)
[2024-08-18 10:27] LABS: Lactic Acid Reflex 4.4 mmol/L (0.7-2.0)
[2024-08-18 11:16] LABS: Albumin Level 2.5 g/dL (3.5-5.1); Anion Gap 9 mmol/L (4-12); Blood Urea Nitrogen 16 mg/dL (7-17); Carbon Dioxide 21 mmol/L (22-30); Chloride 95 mmol/L (98-107); Estimated CRCL calculation 38 ml/min; Estimated Glomerular Filt Rate 43; Potassium 4.5 mmol/L (3.4-5.0); Sodium 125 mmol/L (137-145)
[2024-08-18] MEDS: MAGNESIUM SULF 2 GM/WATER 50ML 2 GM/50 ML BAG IVPB (11:18)
[2024-08-18] MEDS: ARTIFICIAL TEARS OPHTH SOLN 15 ML BOTTLE 1 DROP EACH EYE ×2 (11:19→22:58)
[2024-08-18 11:38] LABS: Glucose Point of Care 259 mg/dl (65-105)
--- NOTE | 2024-08-18 12:05 | P.PNINT_ITS ---
Progress Note: A&P Assessment and Plan (1) Respiratory failure, acute: Code(s): J96.00 - Acute respiratory failure, unspecified whether with hypoxia or hypercapnia Status: Acute Assessment and Plan: Acute respiratory failure secondary to pneumonia and COPD exacerbation Patient now intubated and sedated Ventilator settings reviewed. Due to high pressures tidal volume was decreased to 360 and rate increased to 18 she is currently on 70% FiO2 and 5 of PEEP CXR and ABGs reviewed -chest x-ray this morning showed complete of face if occasion of the right hemithorax. CT scan of the abdomen and pelvis showed mucus plugging in the right lower lobe Bronchodilators and steroids -started Mucomyst and Pulmozyme nebs -chest PT -in place good lung down May require bronchoscopy CT chest/abd/pelvis as under (2) Septic shock: Code(s): A41.9 - Sepsis, unspecified organism; R65.21 - Severe sepsis with septic shock Status: Acute Assessment and Plan: Septic shock secondary to pneumonia UA positive leukocyte esterases, 4+ bacteria, > [address] chest abdomen pelvis as under Patient adequately fluid-resuscitated 08/17: Blood and urine cultures are pending 08/17: Urine Legionella and pneumococcal antigens are pending Continue vancomycin cefepime and doxycycline (08/17) Continue Levophed and vasopressin. Maintain mean arterial pressures > 65 mmHg for adequate end organ perfusion -off [place]-Synephrine -continue stress dose steroids 08/17/2024: CT abdomen and pelvis IMPRESSION: Consolidation in the right lower lobe may represent pneumonia. Pulmonary nodules or masses in the right lung cannot be excluded. Bronchial obstruction in the right lower lobe, consider mucous plugging. Moderate right and trace left pleural effusions. Multiple pulmonary nodules in the left lung, concerning for metastatic disease. Small pericardial effusion. Cirrhosis. Cholelithiasis with pericholecystic fluid. Correlate with biliary labs. Large bilateral adrenal masses, most likely representing metastases. Adrenal hemorrhage could also be considered if there are signs of adrenal insufficiency. Redemonstration of the right adnexal mass, now measuring up to 13.8 cm. Lytic left anterior eighth rib lesion with associated soft tissue mass, also concerning for metastatic disease. 08/17/2024: CT brain Multiple hyperdense foci in the bilateral cerebellar hemispheres, measuring up to 12 mm in the left cerebellar hemisphere. 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 Air-fluid levels in the paranasal sinuses, presumably secondary to intubation. (3) Pneumonia: Code(s): J18.9 - Pneumonia, unspecified organism Status: Acute Assessment and Plan: See above (4) Peripheral vascular disease: Code(s): I73.9 - Peripheral vascular disease, unspecified Status: Acute Assessment and Plan: Patient has history of peripheral vascular disease she is status post left BKA Both her hands were mottled The right foot has a weak dorsalis pedis pulse (5) COPD exacerbation: Code(s): J44.1 - Chronic obstructive pulmonary disease with (acute) exacerbation Status: Acute Assessment and Plan: See above (6) Atrial fibrillation with RVR: Code(s): I48.91 - Unspecified atrial fibrillation Status: Acute Assessment and Plan: Amiodarone bolus and infusion Off Xarelto due to possible hemorrhage in the adrenal glands -currently in sinus rhythm (7) DASHAWN (acute kidney injury): Code(s): N17.9 - Acute kidney failure, unspecified Status: Acute Assessment and Plan: Likely secondary to sepsis and shock Monitor urine output electrolytes and creatinine IV fluids and vasopressors CT abdomen pelvis as above (8) Hyperkalemia: Code(s): E87.5 - Hyperkalemia Status: Acute Assessment and Plan: Resolved after treatment Continue to monitor (9) Hypoglycemia: Code(s): E16.2 - Hypoglycemia, unspecified Status: Acute Assessment and Plan: IV fluids with dextrose and q.4 hours blood sugar monitoring -blood sugars are stable (10) Elevated troponin: Code(s): R79.89 - Other specified abnormal findings of blood chemistry Status: Acute Assessment and Plan: Mildly elevated troponin level in light of acute renal failure, AFib with RVR and septic shock Patient is already anticoagulated Amiodarone for AFib RVR tree Monitor troponin levels serial EKG reviewed and shows AFib Echo ordered and Plan DVT prophylaxis -off Xarelto, continue SCDs Stress ulcer prophylaxis -Protonix Nutrition -NPO Code Status -DNR, comfort measures 08/18/2024: I discussed with REBEKA Abraham and next of kin, updated with patient's condition and plan of care, I updated with the results of the CT scan, she is aware that the patient is on full life support at this time with being on the ventilator as well as on blood pressure support medications. I also discussed with her the chest x-ray that she has a right lung collapse. POA was of the view that patient has a poor quality of life and given all her other medical condition, she wanted her to be comfortable with withdrawal of care and comfort measures. I will have the care coordination call the POA and discuss home details. Discussed with bedside RN, updated hospitalist. 08/17:Dr Bermudez spoke to patient's next of kin Radha by phone. She has patient's cousin patient does not have biological children or is . She is currently in [place]. She is aware the patient has multiple medical problems and has not had significant quality of life over last few years. I updated her with patient's current status including respiratory failure, septic shock, acute kidney injury, COPD, peripheral vascular disease. I told the patient is cu rrently on ventilator with multiple vasopressors and is critically ill with high risk of mortality at this time. I discussed code status. She is going to discuss with other family members and call back with her decision. At this point patient is full code. Total Critical Care Time - 40 minutes Due to a high probability of clinically significant, life threatening deterioration, the patient required my highest level of preparedness to intervene emergently and I personally spent this critical care time directly and personally managing the patient. This critical care time included obtaining a history; examining the patient; pulse oximetry; ordering and review of studies; arranging urgent treatment with development of a management plan; evaluation of patient's response to treatment; frequent reassessment; and discussions with other providers. It was exclusive of separately billable procedures and treating other patients and teaching time. Please see Assessment and Plan section and the rest of the note for further information on patient assessment and treatment Subjective Date/time seen: 08/18/24 12:05 Interval history: Reason for consult: Septic shock, pneumonia, acute respiratory failure, acute kidney injury 08/18/2024: Patient seen and examined the ICU, remains intubated on CMV mode, peep of 5, FiO2 45%. Sedated with fentanyl and Versed infusion. Does not open her eyes or follow simple commands. Oliguria, afebrile. Remains on Levophed, vasopressin, off [place]-Synephrine. Review of Systems Review of Systems: ROS unobtainable: Yes unobtainable due to endotracheal tube, unobtainable due to medical condition and unobtainable due to mental status Exam Narrative: General: Pt is obese female who is sedated, intubated and on mechanical ventilation unresponsive Lungs/Chest: Trachea central Coarse BS B/L, decreased at bases, adequate air entry Cardiac: Sinus rhythm, rate control, S1-S2 is normal Circulation: Right dorsalis pedis is palpable but weak Abdomen: Decreased bowel sounds. Morbidly Obese. Soft. NT. ND. Extremities: Left BKA, right leg has edema, mottling of both upper extremities is improved : Vargas in place Neurologic: Patient sedated with an intubated, does not open her eyes or follow simple commands. Pupils equal and reactive Objective Data Vital Signs Vital Signs: Vital Signs - 24 hr 08/17/24 12:07 08/17/24 12:10 08/17/24 12:20 Temperature 98.9 F 98.5 F Pulse Rate 87 111 H 108 H Respiratory Rate 16 17 Blood Pressure 65/43 L 70/48 L 67/53 L Pulse Oximetry Oxygen Delivery Fraction of Inspired Oxygen 08/17/24 12:30 08/17/24 12:30 08/17/24 12:46 Temperature 97 F L 97.3 F L Pulse Rate 110 H 107 H 118 H Respiratory Rate 16 17 19 Blood Pressure 92/58 L 98/58 L Pulse Oximetry 100 Oxygen Delivery Fraction of Inspired Oxygen 08/17/24 12:51 08/17/24 12:52 08/17/24 13:00 Temperature 97.2 F L 97.1 F L Pulse Rate 99 117 H 148 H Respiratory Rate 19 19 Blood Pressure 103/72 Pulse Oximetry 94 98 Oxygen Delivery Mechanical Ventilation Fraction of Inspired Oxygen 100 08/17/24 13:00 08/17/24 13:00 08/17/24 13:14 Temperature 96.7 F L Pulse Rate 120 H 120 H 136 H Respiratory Rate 14 14 14 Blood Pressure 100/43 L Pulse Oximetry 96 Oxygen Delivery Fraction of Inspired Oxygen 08/17/24 13:18 08/17/24 13:21 08/17/24 13:28 Temperature 96.5 F L Pulse Rate 120 H 133 H 146 H Respiratory Rate 24 H Blood Pressure 100/43 L 97/66 L Pulse Oximetry 96 95 Oxygen Delivery Mechanical Ventilation Fraction of Inspired Oxygen 70 08/17/24 13:29 08/17/24 13:30 08/17/24 13:30 Temperature Pulse Rate 145 H 145 H 145 H Respiratory Rate 16 16 Blood Pressure 84/59 L Pulse Oximetry Oxygen Delivery Fraction of Inspired Oxygen 08/17/24 13:42 08/17/24 14:20 08/17/24 14:20 Temperature Pulse Rate 140 H 118 H 118 H Respiratory Rate 16 24 H Blood Pressure 90/68 L Pulse Oximetry 98 99 Oxygen Delivery Mechanical Ventilation Fraction of Inspired Oxygen 50 08/17/24 14:23 08/17/24 14:24 08/17/24 14:30 Temperature Pulse Rate 144 H 130 H 124 H Respiratory Rate 24 H Blood Pressure 76/26 L 58/31 L Pulse Oximetry Oxygen Delivery Fraction of Inspired Oxygen 08/17/24 14:30 08/17/24 15:22 08/17/24 15:23 Temperature Pulse Rate 120 H 96 96 Respiratory Rate 20 20 Blood Pressure 68/35 L Pulse Oximetry Oxygen Delivery Fraction of Inspired Oxygen 08/17/24 15:23 08/17/24 15:24 08/17/24 16:00 Temperature Pulse Rate 96 96 90 Respiratory Rate 20 Blood Pressure 122/88 122/88 Pulse Oximetry Oxygen Delivery Fraction of Inspired Oxygen 08/17/24 16:00 08/17/24 16:00 08/17/24 16:00 Temperature Pulse Rate 90 101 H 90 Respiratory Rate 20 Blood Pressure 125/68 125/68 Pulse Oximetry Oxygen Delivery Fraction of Inspired Oxygen 08/17/24 16:00 08/17/24 16:00 08/17/24 16:00 Temperature 96.6 F L Pulse Rate 101 H 94 101 H Respiratory Rate 18 18 Blood Pressure 125/68 Pulse Oximetry 95 94 Oxygen Delivery Fraction of Inspired Oxygen 50 08/17/24 16:01 08/17/24 16:02 08/17/24 16:03 Temperature Pulse Rate 91 90 94 Respiratory Rate Blood Pressure 125/68 125/68 131/93 H Pulse Oximetry Oxygen Delivery Fraction of Inspired Oxygen 08/17/24 16:10 08/17/24 17:00 08/17/24 18:00 Temperature Pulse Rate 94 93 92 Respiratory Rate 20 20 Blood Pressure 124/68 Pulse Oximetry 97 94 Oxygen Delivery Mechanical Ventilation Fraction of Inspired Oxygen 50 08/17/24 18:00 08/17/24 18:00 08/17/24 18:00 Temperature Pulse Rate 92 90 95 Respiratory Rate 20 Blood Pressure 105/81 Pulse Oximetry Oxygen Delivery Fraction of Inspired Oxygen 08/17/24 18:00 08/17/24 18:47 08/17/24 18:51 Temperature Pulse Rate 83 88 98 Respiratory Rate 16 Blood Pressure 135/81 135/81 132/61 Pulse Oximetry 95 Oxygen Delivery Fraction of Inspired Oxygen 08/17/24 20:00 08/17/24 20:00 08/17/24 20:00 Temperature 97.1 F L Pulse Rate 89 87 Respiratory Rate 22 H Blood Pressure 139/98 H Pulse Oximetry 97 96 Oxygen Delivery Mechanical Ventilation Fraction of Inspired Oxygen 50 45 08/17/24 20:00 08/17/24 20:00 08/17/24 20:00 Temperature Pulse Rate 87 87 87 Respiratory Rate 22 H 22 H Blood Pressure 151/64 H Pulse Oximetry Oxygen Delivery Fraction of Inspired Oxygen 08/17/24 20:00 08/17/24 20:03 08/17/24 20:15 Temperature Pulse Rate 86 92 86 Respiratory Rate Blood Pressure 139/98 H 139/97 H Pulse Oximetry Oxygen Delivery Fraction of Inspired Oxygen 08/17/24 20:20 08/17/24 20:30 08/17/24 20:31 Temperature Pulse Rate 86 94 80 Respiratory Rate Blood Pressure 142/66 H Pulse Oximetry 97 Oxygen Delivery Mechanical Ventilation Fraction of Inspired Oxygen 50 08/17/24 20:45 08/17/24 20:55 08/17/24 21:02 Temperature Pulse Rate 86 88 89 Respiratory Rate 18 18 Blood Pressure 130/73 Pulse Oximetry Oxygen Delivery Fraction of Inspired Oxygen 08/17/24 21:30 08/17/24 21:45 08/17/24 22:00 Temperature Pulse Rate 86 87 87 Respiratory Rate Blood Pressure 143/59 H 121/58 L 139/56 L Pulse Oximetry Oxygen Delivery Fraction of Inspired Oxygen 08/17/24 22:00 08/17/24 22:00 08/17/24 22:00 Temperature 97.2 F L Pulse Rate 88 87 88 Respiratory Rate 18 Blood Pressure 124/64 123/50 L 123/50 L Pulse Oximetry 94 Oxygen Delivery Fraction of Inspired Oxygen 08/17/24 22:00 08/17/24 22:00 08/17/24 22:00 Temperature Pulse Rate 88 88 88 Respiratory Rate 21 H 21 H Blood Pressure Pulse Oximetry Oxygen Delivery Fraction of Inspired Oxygen 08/17/24 22:31 08/17/24 23:11 08/18/24 00:00 Temperature 96.9 F L Pulse Rate 89 91 85 Respiratory Rate 16 Blood Pressure 114/47 L 113/56 L Pulse Oximetry 97 97 Oxygen Delivery Mechanical Ventilation Fraction of Inspired Oxygen 45 08/18/24 00:00 08/18/24 00:00 08/18/24 00:00 Temperature Pulse Rate 87 85 Respiratory Rate Blood Pressure 111/45 L Pulse Oximetry 97 Oxygen Delivery Mechanical Ventilation Fraction of Inspired Oxygen 45 45 08/18/24 00:00 08/18/24 00:00 08/18/24 00:00 Temperature Pulse Rate 85 85 85 Respiratory Rate 16 16 Blood Pressure 111/45 L Pulse Oximetry Oxygen Delivery Fraction of Inspired Oxygen 08/18/24 00:00 08/18/24 00:34 08/18/24 00:34 Temperature Pulse Rate 83 87 87 Respiratory Rate Blood Pressure 107/46 L 107/46 L Pulse Oximetry Oxygen Delivery Fraction of Inspired Oxygen 08/18/24 01:15 08/18/24 01:30 08/18/24 01:58 Temperature Pulse Rate 79 84 91 Respiratory Rate 18 Blood Pressure 118/52 L 112/48 L Pulse Oximetry Oxygen Delivery Fraction of Inspired Oxygen 08/18/24 02:00 08/18/24 02:00 08/18/24 02:00 Temperature Pulse Rate 79 79 79 Respiratory Rate Blood Pressure 100/73 100/73 100/73 Pulse Oximetry Oxygen Delivery Fraction of Inspired Oxygen 08/18/24 02:00 08/18/24 02:00 08/18/24 02:00 Temperature 97.0 F L Pulse Rate 79 79 79 Respiratory Rate 18 18 19 Blood Pressure 100/73 Pulse Oximetry 95 Oxygen Delivery Fraction of Inspired Oxygen 08/18/24 02:00 08/18/24 02:01 08/18/24 02:03 Temperature Pulse Rate 80 80 82 Respiratory Rate 19 Blood Pressure Pulse Oximetry 96 Oxygen Delivery Mechanical Ventilation Fraction of Inspired Oxygen 45 08/18/24 02:15 08/18/24 04:00 08/18/24 04:00 Temperature Pulse Rate 79 75 73 Respiratory Rate Blood Pressure 105/55 L 119/48 L 116/57 L Pulse Oximetry Oxygen Delivery Fraction of Inspired Oxygen 08/18/24 04:00 08/18/24 04:00 08/18/24 04:00 Temperature Pulse Rate 75 75 75 Respiratory Rate 18 18 Blood Pressure 119/48 L Pulse Oximetry Oxygen Delivery Fraction of Inspired Oxygen 08/18/24 04:00 08/18/24 04:00 08/18/24 04:00 Temperature Pulse Rate 87 75 Respiratory Rate Blood Pressure Pulse Oximetry 97 Oxygen Delivery Mechanical Ventilation Fraction of Inspired Oxygen 45 45 08/18/24 04:00 08/18/24 06:00 08/18/24 06:00 Temperature 97.0 F L Pulse Rate 75 73 73 Respiratory Rate 18 Blood Pressure 109/66 116/57 L 116/57 L Pulse Oximetry 97 Oxygen Delivery Fraction of Inspired Oxygen 08/18/24 06:00 08/18/24 06:00 08/18/24 06:00 Temperature Pulse Rate 61 73 73 Respiratory Rate 15 18 Blood Pressure Pulse Oximetry Oxygen Delivery Fraction of Inspired Oxygen 08/18/24 06:00 08/18/24 07:00 08/18/24 07:00 Temperature 97.0 F L Pulse Rate 73 75 75 Respiratory Rate 18 Blood Pressure 116/57 L 124/68 124/68 Pulse Oximetry 97 Oxygen Delivery Fraction of Inspired Oxygen 08/18/24 07:33 08/18/24 07:38 08/18/24 07:42 Temperature Pulse Rate 76 70 74 Respiratory Rate 18 18 Blood Pressure Pulse Oximetry 94 Oxygen Delivery Mechanical Ventilation Fraction of Inspired Oxygen 45 08/18/24 08:58 08/18/24 08:58 08/18/24 11:23 Temperature Pulse Rate 74 74 74 Respiratory Rate Blood Pressure 118/64 118/64 Pulse Oximetry 96 Oxygen Delivery Mechanical Ventilation Fraction of Inspired Oxygen 45 Intake/Output Intake/Output: Intake & Output 08/15/24 08/16/24 08/17/24 08/18/24 23:59 23:59 23:59 23:59 Intake Total 5159.6 2601.9 Output Total 10 275 Balance 5149.6 2326.9 Meds/Results Medications: Active Medications Generic Name Dose Route Start Last Admin Trade Name Freq PRN Reason Stop Dose Admin Acetaminophen 650 mg 08/17/24 12:44 Acetaminophen 650 Mg Suppository RECTAL Q6H PRN Mild Pain (1-3) or Fever Albuterol/Ipratropium 3 ml 08/17/24 13:03 Ipratropium 0.5 Mg/Albuterol Sulfate 2.5 Mg Ampul.Neb 3 Ml INHALATION Q6HRT PRN Wheezing Artificial Tears 1 drop 08/18/24 09:00 08/18/24 11:19 Artificial Tears Ophth Soln 15 Ml Bottle EACH EYE 1 drop Q12HR PANDA Administration Dextrose 12.5 gm 08/17/24 20:49 Dextrose 50% 25 Gm/50 Ml Syringe IV PUSH PRN PRN Hypoglycemia Protocol Glucagon 1 mg 08/17/24 20:49 Glucagon For Inj 1 Mg Vial IM PRN PRN Hypoglycemia Protocol Glucose 15 gm 08/17/24 20:49 Glucose Oral Gel 15 Gm Of Glucse In 37.5 Gm Tube PO PRN PRN Hypoglycemia Protocol Hydrocortisone Sodium Succinate 100 mg 08/17/24 22:00 08/18/24 06:00 Hydrocortisone Sodium Succinate 100 Mg/2 Ml Vial IV PUSH 100 mg Q8HR PANDA Administration Fentanyl Citrate 2,500 mcg in 250 mls @ 5 mls/hr 08/17/24 10:48 08/18/24 06:00 Fentanyl 2,500 Mcg/Ns 250 Ml IV CONT 08/19/24 12:47 50 mcg/hr .Q50H STA 5 mls/hr Titration Protocol 50 MCG/HR Midazolam HCl 100 mg in 100 mls @ 2 mls/hr 08/17/24 10:48 08/18/24 06:00 Versed 100 Mg/Ns 100 Ml IV CONT 08/19/24 12:47 2 mg/hr .Q50H STA 2 mls/hr Titration Protocol 2 MG/HR Albumin Human 100 mls @ 60 mls/hr 08/17/24 18:00 08/18/24 11:19 Albutein IVPB 08/18/24 13:39 60 mls/hr Q6HR PANDA Administration Vasopressin 100 units/ 100 mls @ 2.4 mls/hr 08/17/24 14:00 08/18/24 06:00 Dextrose IV CONT 0.04 units/min .[id number] PANDA 2.4 mls/hr Titration Protocol 0.04 UNITS/MIN Cefepime HCl 1 gm in 50 mls @ 100 mls/hr 08/17/24 14:00 08/18/24 08:59 Maxipime 1 Gm/Ns 50 Ml IVPB 100 mls/hr Q12HR PANDA Administration Vancomycin HCl 1,500 mg in 500 mls @ 250 mls/hr 08/19/24 02:00 Vancomycin 1,500 Mg/Ns 500 Ml IVPB Q36H PANDA Sodium Bicarbonate 150 meq/ 1,100 mls @ 100 mls/hr 08/17/24 14:30 08/18/24 12:04 Dextrose IV CONT 100 mls/hr .Q11H PANDA Administration Amiodarone HCl/Dextrose 360 mg in 200 mls @ 16.667 mls/hr 08/17/24 19:35 08/18/24 07:00 Nexterone 360 Mg/D5w 200 Ml IV CONT 0.5 mg/min .Q12H PANDA 16.67 mls/hr Administration 0.5 MG/MIN Epinephrine HCl 1 mg/ Dextrose 251 mls @ 15.06 mls/hr 08/17/24 14:25 08/17/24 19:14 IV CONT Not Given .[id number] PANDA Protocol 1 MCG/MIN Phenylephrine HCl 50 mg/ 250 ml in 250 mls @ 12 mls/hr 08/17/24 14:25 08/17/24 19:14 Dextrose IV CONT Not Given .[id number] PANDA Protocol 40 MCG/MIN Doxycycline Hyclate 100 mg in 100 mls @ 100 mls/hr 08/17/24 21:00 08/18/24 08:59 Vibramycin 100 Mg/Ns 100 Ml IVPB 100 mls/hr Q12H PANDA Administration Norepinephrine Bitartrate 8 mg in 250 mls @ 33.75 mls/hr 08/17/24 18:45 08/18/24 08:58 Levophed 8 Mg/D5w 250 Ml IV CONT 18 mcg/min .Q7H25M PANDA 33.75 mls/hr Administration Protocol 18 MCG/MIN Dextrose 1,000 mls @ 100 mls/hr 08/17/24 20:49 Dextrose 5% 1,000 Ml IVPB PRN PRN Hypoglycemia Protocol Ipratropium [place] 0.5 mg 08/17/24 14:00 08/18/24 07:30 Ipratropium Br 0.02% Inh Soln 0.5 Mg/2.5 Ml Vial INHALATION 0.5 mg Q6HRT PANDA Administration Levalbuterol HCl 0.63 mg 08/17/24 14:00 08/18/24 07:30 Levalbuterol Neb 1.25 Mg/3 Ml INHALATION 0.63 mg Q6HRT PANDA Administration Fluticasone/Salmeterol 2 puff 08/18/24 08:00 Fluticasone/Salmeterol 115-21 Mcg Inhaler 1 Puff INHALATION Q12HRT [facility] Radiology Results: ITS Impressions Abdomen X-Ray 08/17/24 17:27 IMPRESSION: 1. Lines and tubes in expected positions. 2. Moderate-sized right pleural effusion with associated basilar atelectasis and/or pneumonia. Head CT 08/17/24 23:19 IMPRESSION: Multiple hyperdense foci in the bilateral cerebellar hemispheres, measuring up to 12 mm in the left cerebellar hemisphere. 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 Air-fluid levels in the paranasal sinuses, presumably secondary to intubation. Results reported telephonically to Art Hyatt RN by Dr. Serrato at 11:35 PM on 08/17/2024. Chest/Abdomen/Pelvis CT 08/17/24 23:42 IMPRESSION: Consolidation in the right lower lobe may represent pneumonia. Pulmonary nodules or masses in the right lung cannot be excluded. Bronchial obstruction in the right lower lobe, consider mucous plugging. Moderate right and trace left pleural effusions. Multiple pulmonary nodules in the left lung, concerning for metastatic disease. Small pericardial effusion. Cirrhosis. Cholelithiasis with pericholecystic fluid. Correlate with biliary labs. Large bilateral adrenal masses, most likely representing metastases. Adrenal hemorrhage could also be considered if there are signs of adrenal insufficiency. Redemonstration of the right adnexal mass, now measuring up to 13.8 cm. Lytic left anterior eighth rib lesion with associated soft tissue mass, also concerning for metastatic disease. Results reported telephonically to Aleena Nuñez RN by Dr. Serrato at 12:13 am on 08/18/2024. Chest X-Ray 08/18/24 07:16 Impression: White out of the right hemithorax, compatible with likely combination of right lung atelectasis and right pleural effusion. Correlate for underlying mucous plugging. Left lung clear. Support tubes, as above. Labs Labs: Laboratory Results - last 24 hr 08/17/24 08/17/24 08/17/24 12:57 13:18 13:45 WBC RBC Hgb Hct MCV MCH MCHC RDW Plt Count MPV Immature Gran % (Auto) Neut % (Auto) Lymph % (Auto) [place] % (Auto) Eos % (Auto) Baso % (Auto) Lymph # (Auto) [place] # (Auto) Eos # (Auto) Baso # (Auto) Abs Immat Gran (auto) Absolute Neuts (auto) Absolute Nucleated RBC Total Counted Neutrophils % (Manual) Band Neutrophils % Lymphocytes % (Manual) Monocytes % (Manual) Nucleated RBC % Abs Neuts (Manual) Abs Lymphs (Manual) Abs Monocytes (Manual) Platelet Estimate Schistocytes Puncture Site Left brachial ABG pH 7.177 L* ABG pCO2 36.1 ABG pO2 155.8 H ABG PO2/FiO2 Ratio 2.23 ABG HCO3 13.1 L ABG O2 Saturation 98.5 ABG O2 Content 18.9 ABG Base Excess -14.4 A-a Gradient 304.5 Oxyhemoglobin 98.3 Carboxyhemoglobin Methemoglobin Reduced Hemoglobin Total Hemoglobin 13.5 O2 Delivery Device Ventilator O2 Liters/Min Not Reportable Minute Volume Not Reportable Vent Rate 18 Vent Mode Cmv FiO2 70 Tidal Volume 360 PEEP 5 Peak Inspir Pressure Not Reportable Pressure Support Not Reportable Sodium Potassium Chloride Carbon Dioxide Anion Gap BUN Creatinine Estim Creat Clear Calc Estimated GFR Glucose POC Capillary Glucose 73 Lactic Acid Calcium Magnesium Total Bilirubin AST ALT Alkaline Phosphatase Total Creatine Kinase Troponin I 0.598 H* Total Protein Albumin TSH (Reflex) Urine Color Urine Appearance Urine pH Ur Specific [place] Urine Protein Urine Glucose (UA) Urine Ketones Ur Blood (Man) Urine Nitrate Urine Bilirubin Urine Urobilinogen Add Ur Microanalysis Leukocyte Esterase Rfl Urine RBC Urine WBC Ur Squamous Epith Cells Urine Bacteria Urine Casts Urine Mucus Urine Yeast (Budding) Ur Random Sodium Urine Creatinine Nasal MRSA (PCR) Influenza A (RT-PCR) Influenza B (RT-PCR) RSV (RT-PCR) SARS-CoV-2 RNA (RT-PCR) 08/17/24 08/17/24 08/17/24 17:29 17:35 18:23 WBC RBC Hgb Hct MCV MCH MCHC RDW Plt Count MPV Immature Gran % (Auto) Neut % (Auto) Lymph % (Auto) [place] % (Auto) Eos % (Auto) Baso % (Auto) Lymph # (Auto) [place] # (Auto) Eos # (Auto) Baso # (Auto) Abs Immat Gran (auto) Absolute Neuts (auto) Absolute Nucleated RBC Total Counted Neutrophils % (Manual) Band Neutrophils % Lymphocytes % (Manual) Monocytes % (Manual) Nucleated RBC % Abs Neuts (Manual) Abs Lymphs (Manual) Abs Monocytes (Manual) Platelet Estimate Schistocytes Puncture Site ABG pH ABG pCO2 ABG pO2 ABG PO2/FiO2 Ratio ABG HCO3 ABG O2 Saturation ABG O2 Content ABG Base Excess A-a Gradient Oxyhemoglobin Carboxyhemoglobin Methemoglobin Reduced Hemoglobin Total Hemoglobin O2 Delivery Device O2 Liters/Min Minute Volume Vent Rate Vent Mode FiO2 Tidal Volume PEEP Peak Inspir Pressure Pressure Support Sodium 125 L Potassium 4.9 Chloride 95 L Carbon Dioxide 15 L Anion Gap 15 H BUN 14 Creatinine 1.20 H Estim Creat Clear Calc 38 Estimated GFR 43 L Glucose 216 H POC Capillary Glucose 144 H Lactic Acid 7.6 H* Calcium 8.4 Magnesium Total Bilirubin AST ALT Alkaline Phosphatase Total Creatine Kinase 156 H Troponin I 0.540 H* Total Protein Albumin TSH (Reflex) Urine Color Dark yellow Urine Appearance Turbid H Urine pH 5.0 Ur Specific [place] 1.025 Urine Protein 3+ H Urine Glucose (UA) Negative Urine Ketones Trace H Ur Blood (Man) 3+ H Urine Nitrate Negative Urine Bilirubin 1+ H Urine Urobilinogen 1.0 Add Ur Microanalysis Reviewed Leukocyte Esterase Rfl 2+ H Urine RBC 51-100 H Urine WBC >100 H Ur Squamous Epith Cells Occasional Urine Bacteria 4+ H Urine Casts >20 Urine Mucus Present Urine Yeast (Budding) Present H Ur Random Sodium 28 Urine Creatinine 111.1 Nasal MRSA (PCR) Not detected Influenza A (RT-PCR) Negative Influenza B (RT-PCR) Negative RSV (RT-PCR) Negative SARS-CoV-2 RNA (RT-PCR) Negative 08/17/24 08/18/24 08/18/24 22:12 00:56 05:27 WBC RBC Hgb Hct MCV MCH MCHC RDW Plt Count MPV Immature Gran % (Auto) Neut % (Auto) Lymph % (Auto) [place] % (Auto) Eos % (Auto) Baso % (Auto) Lymph # (Auto) [place] # (Auto) Eos # (Auto) Baso # (Auto) Abs Immat Gran (auto) Absolute Neuts (auto) Absolute Nucleated RBC Total Counted Neutrophils % (Manual) Band Neutrophils % Lymphocytes % (Manual) Monocytes % (Manual) Nucleated RBC % Abs Neuts (Manual) Abs Lymphs (Manual) Abs Monocytes (Manual) Platelet Estimate Schistocytes Puncture Site Not Reportable ABG pH 7.366 ABG pCO2 38.7 ABG pO2 77.7 L ABG PO2/FiO2 Ratio 1.73 ABG HCO3 21.7 L ABG O2 Saturation 95.2 ABG O2 Content 16.7 ABG Base Excess -3.3 A-a Gradient 199.1 Oxyhemoglobin 95.7 Carboxyhemoglobin 0.3 Methemoglobin 0.0 Reduced Hemoglobin 4.0 Total Hemoglobin 12.4 O2 Delivery Device Ventilator O2 Liters/Min Not Reportable Minute Volume Not Reportable Vent Rate 18 Vent Mode Cmv FiO2 45 Tidal Volume 360 PEEP 5 Peak Inspir Pressure Not Reportable Pressure Support Not Reportable Sodium Potassium Chloride Carbon Dioxide Anion Gap BUN Creatinine Estim Creat Clear Calc Estimated GFR Glucose POC Capillary Glucose 276 H Lactic Acid Calcium Magnesium Total Bilirubin AST ALT Alkaline Phosphatase Total Creatine Kinase Troponin I Total Protein Albumin TSH (Reflex) Urine Color Urine Appearance Urine pH Ur Specific [place] Urine Protein Urine Glucose (UA) Urine Ketones Ur Blood (Man) Urine Nitrate Urine Bilirubin Urine Urobilinogen Add Ur Microanalysis Leukocyte Esterase Rfl Urine RBC Urine WBC Ur Squamous Epith Cells Urine Bacteria Urine Casts Urine Mucus Urine Yeast (Budding) Ur Random Sodium Urine Creatinine Nasal MRSA (PCR) Influenza A (RT-PCR) Negative Influenza B (RT-PCR) Negative RSV (RT-PCR) Negative SARS-CoV-2 RNA (RT-PCR) Negative 08/18/24 08/18/24 08/18/24 05:29 05:35 11:36 WBC 36.1 H RBC 3.54 L Hgb 11.5 L Hct 34.6 L MCV 97.7 MCH 32.5 MCHC 33.2 RDW 15.3 H Plt Count 267 MPV 10.7 H Immature Gran % (Auto) Not Reportable Neut % (Auto) Not Reportable Lymph % (Auto) Not Reportable [place] % (Auto) Not Reportable Eos % (Auto) Not Reportable Baso % (Auto) Not Reportable Lymph # (Auto) Not Reportable [place] # (Auto) Not Reportable Eos # (Auto) Not Reportable Baso # (Auto) Not Reportable Abs Immat Gran (auto) Not Reportable Absolute Neuts (auto) Not Reportable Absolute Nucleated RBC Not Reportable Total Counted 100 Neutrophils % (Manual) 79 H Band Neutrophils % 13 H Lymphocytes % (Manual) 7 L Monocytes % (Manual) 1 L Nucleated RBC % Not Reportable Abs Neuts (Manual) 33.21 H Abs Lymphs (Manual) 2.52 Abs Monocytes (Manual) 0.36 Platelet Estimate Adequate Schistocytes None seen Puncture Site ABG pH ABG pCO2 ABG pO2 ABG PO2/FiO2 Ratio ABG HCO3 ABG O2 Saturation ABG O2 Content ABG Base Excess A-a Gradient Oxyhemoglobin Carboxyhemoglobin Methemoglobin Reduced Hemoglobin Total Hemoglobin O2 Delivery Device O2 Liters/Min Minute Volume Vent Rate Vent Mode FiO2 Tidal Volume PEEP Peak Inspir Pressure Pressure Support Sodium 125 L Potassium 4.5 Chloride 95 L Carbon Dioxide 21 L Anion Gap 9 BUN 16 Creatinine 1.20 H Estim Creat Clear Calc 38 Estimated GFR 43 L Glucose 275 H POC Capillary Glucose 259 H Lactic Acid 4.4 H* Calcium 8.2 L Magnesium 1.6 Total Bilirubin 0.7 AST 63 H ALT 28 Alkaline Phosphatase 207 H Total Creatine Kinase Troponin I Total Protein 6.0 L Albumin 2.5 L TSH (Reflex) 2.100 Urine Color Urine Appearance Urine pH Ur Specific [place] Urine Protein Urine Glucose (UA) Urine Ketones Ur Blood (Man) Urine Nitrate Urine Bilirubin Urine Urobilinogen Add Ur Microanalysis Leukocyte Esterase Rfl Urine RBC Urine WBC Ur Squamous Epith Cells Urine Bacteria Urine Casts Urine Mucus Urine Yeast (Budding) Ur Random Sodium Urine Creatinine Nasal MRSA (PCR) Influenza A (RT-PCR) Influenza B (RT-PCR) RSV (RT-PCR) SARS-CoV-2 RNA (RT-PCR) Quality VTE Prophylaxis VTE prophylaxis: pharmacologic ordered (on rivaroxaban)
[2024-08-18 12:41] LABS: Reflex Lactic Acid Yes or No Add Lactic
[2024-08-18] MEDS: MORPHINE SULFATE INJ (*CRX) 10 MG/ML AMP 5 MG IV PUSH (13:28)
[2024-08-18] MEDS: LORazepam INJ (*CRX) 2 MG/ML VIAL IV PUSH ×3 (13:29→18:02)
[2024-08-18] MEDS: MORPHINE SULFATE (*CRX) 2 MG/ML INJ IV PUSH ×7 (14:04→18:32)
--- NOTE | 2024-08-18 22:15 | PC.NURSE ---
This patient, Marva Terry, was transferred to [facility] on 08/18/24 at 2150 via bed with RNx2 at bedside without issue. Personal belongings sent with patient. Report given to KHADAR Solis. Appropriate documentation sent with patient.
[2024-08-20 18:23] LABS: Pneumococcal Antigen Urine NOT DETECTED
[2024-08-20 18:23] LABS: Pneumococcal Antigen Urine NOT DETECTED
--- NOTE | 2024-08-26 07:38 | PM.DDS ---
Discharge Summary Date and Time Date of : 08/19/24 Time of : 01:00 Provider Pronounced By: 2 RNs Name of First RN That Pronounced: Shanelle Morse Name of Second RN That Pronounced: Irma Probable Cause of Probable Cause of : Acute respiratory failure, Septic shock Pneumonia Summary Hospital Course: Per H&P, This is an 83-year-old female with history of stroke, peripheral vascular disease, congestive heart failure, chronic obstructive pulmonary disease, gastroesophageal reflux disease, and colon cancer who presented to the emergency department via EMS from a local turning facility for evaluation of shortness of breath and lethargy. She was intubated not long after arrival to the emergency department and all of the following history is obtained via a review of her EMR. She has apparently been complaining of shortness of breath for the last 2 to 3 days and this morning she was quite lethargic and was sent in for evaluation. No other information was provided by the transferring facility. On arrival to the emergency department the patient complained of shortness of breath but did not provide much else in the way of history. In the ED: She was tachypneic, tachycardic and hypotensive upon arrival. She has been afebrile. Labs were significant for WBC count 30.5 with 18% bands noted on differential, INR 2.0, D-dimer 12.37, sodium 127, potassium 6.0, chloride 96, carbon dioxide 15, anion gap 16, BUN 15, creatinine 1.20, glucose 51, lactic acid 8.8, AST 75, ALT 44, alk phosphatase 299, troponin 0.746, proBNP greater than 30,000. Urinalysis was positive for leukocyte esterase, greater than 100 wbc's, and 4+ bacteria. Chest x-ray showed moderate to large right pleural effusion with associated atelectasis and/or pneumonia in the right lower lung zone. She received 3 L crystalloid bolus and remained hypotensive. Central line was inserted and she is currently on norepinephrine, phenylephrine, and vasopressin. She was started on ceftriaxone, doxycycline, and vancomycin for suspected pneumonia and she is being admitted in this setting. The following med issues have been addressed during hospitalization in ICU (1) Respiratory failure, acute: Code(s): J96.00 - Acute respiratory failure, unspecified whether with hypoxia or hypercapnia Status: Acute Assessment and Plan: Acute respiratory failure secondary to pneumonia and COPD exacerbation Patient now intubated and sedated Ventilator settings reviewed. Due to high pressures tidal volume was decreased to 360 and rate increased to 18 she is currently on 70% FiO2 and 5 of PEEP CXR and ABGs reviewed -chest x-ray this morning showed complete of face if occasion of the right hemithorax. CT scan of the abdomen and pelvis showed mucus plugging in the right lower lobe Bronchodilators and steroids -started Mucomyst and Pulmozyme nebs -chest PT -in place good lung down May require bronchoscopy CT chest/abd/pelvis as under (2) Septic shock: Code(s): A41.9 - Sepsis, unspecified organism; R65.21 - Severe sepsis with septic shock Status: Acute Assessment and Plan: Septic shock secondary to pneumonia UA positive leukocyte esterases, 4+ bacteria, > [address] chest abdomen pelvis as under Patient adequately fluid-resuscitated 08/17: Blood and urine cultures are pending 08/17: Urine Legionella and pneumococcal antigens are pending Continue vancomycin cefepime and doxycycline (08/17) Continue Levophed and vasopressin. Maintain mean arterial pressures > 65 mmHg for adequate end organ perfusion -off Dealno-Synephrine -continue stress dose steroids 08/17/2024: CT abdomen and pelvis IMPRESSION: Consolidation in the right lower lobe may represent pneumonia. Pulmonary nodules or masses in the right lung cannot be excluded. Bronchial obstruction in the right lower lobe, consider mucous plugging. Moderate right and trace left pleural effusions. Multiple pulmonary nodules in the left lung, concerning for metastatic disease. Small pericardial effusion. Cirrhosis. Cholelithiasis with pericholecystic fluid. Correlate with biliary labs. Large bilateral adrenal masses, most likely representing metastases. Adrenal hemorrhage could also be considered if there are signs of adrenal insufficiency. Redemonstration of the right adnexal mass, now measuring up to 13.8 cm. Lytic left anterior eighth rib lesion with associated soft tissue mass, also concerning for metastatic disease. 08/17/2024: CT brain Multiple hyperdense foci in the bilateral cerebellar hemispheres, measuring up to 12 mm in the left cerebellar hemisphere. 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 Air-fluid levels in the paranasal sinuses, presumably secondary to intubation. (3) Pneumonia: Code(s): J18.9 - Pneumonia, unspecified organism Status: Acute Assessment and Plan: See above (4) Peripheral vascular disease: Code(s): I73.9 - Peripheral vascular disease, unspecified Status: Acute Assessment and Plan: Patient has history of peripheral vascular disease she is status post left BKA Both her hands were mottled The right foot has a weak dorsalis pedis pulse (5) COPD exacerbation: Code(s): J44.1 - Chronic obstructive pulmonary disease with (acute) exacerbation Status: Acute Assessment and Plan: See above (6) Atrial fibrillation with RVR: Code(s): I48.91 - Unspecified atrial fibrillation Status: Acute Assessment and Plan: Amiodarone bolus and infusion Off Xarelto due to possible hemorrhage in the adrenal glands -currently in sinus rhythm (7) DASHAWN (acute kidney injury): Code(s): N17.9 - Acute kidney failure, unspecified Status: Acute Assessment and Plan: Likely secondary to sepsis and shock Monitor urine output electrolytes and creatinine IV fluids and vasopressors CT abdomen pelvis as above (8) Hyperkalemia: Code(s): E87.5 - Hyperkalemia Status: Acute Assessment and Plan: Resolved after treatment Continue to monitor (9) Hypoglycemia: Code(s): E16.2 - Hypoglycemia, unspecified Status: Acute Assessment and Plan: IV fluids with dextrose and q.4 hours blood sugar monitoring -blood sugars are stable (10) Elevated troponin: Code(s): R79.89 - Other specified abnormal findings of blood chemistry Status: Acute Assessment and Plan: Mildly elevated troponin level in light of acute renal failure, AFib with RVR and septic shock Patient is already anticoagulated Amiodarone for AFib RVR tree Monitor troponin levels serial EKG reviewed and shows AFib Echo ordered and Additional Data Confirmation of as documented by pronouncing clinician: Pupillary Reflex, Palpable Pulses, Response to Stimuli, Heart Tones and Breath Sounds Name of Provider Notified: Ananya Time Provider Notified: 01:05 Provider Requests Autopsy: No Family Requests Autopsy: No 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
[2024-08-29 20:23] LABS: Legionella pneumophila Ag Ur NOT DETECTED
[2024-08-29 20:23] LABS: Legionella pneumophila Ag Ur NOT DETECTED
== END 2024-08-19 01:00 | disposition expired | DRG 871 ==
LOC: ANHED 13:43 → ANHICU 14:18 → ANH2MED 08-18 22:05
PROVIDERS: Internal Medicine; Physician Assistant; Admitting Provider Internal Medicine; Emergency Provider Physician Assistant; PCP Internal Medicine; Visit Provider Hospitalist
DX: A41.9 Sepsis, unspecified organism (principal); J18.9 Pneumonia, unspecified organism; J96.01 Acute respiratory failure with hypoxia; R65.21 Severe sepsis with septic shock; E87.1 Hypo-osmolality and hyponatremia; J44.0 Chronic obstructive pulmonary disease with (acute) lower respiratory infection; J44.1 Chronic obstructive pulmonary disease with (acute) exacerbation; N17.9 Acute kidney failure, unspecified; I48.91 Unspecified atrial fibrillation; I50.9 Heart failure, unspecified; J44.9 Chronic obstructive pulmonary disease, unspecified; E87.5 Hyperkalemia; E55.9 Vitamin D deficiency, unspecified; K74.60 Unspecified cirrhosis of liver; K21.9 Gastro-esophageal reflux disease without esophagitis; F32.A Depression, unspecified; F41.9 Anxiety disorder, unspecified; Z20.822 Contact with and (suspected) exposure to COVID-19; Z89.512 Acquired absence of left leg below knee; Z86.73 Personal history of transient ischemic attack (TIA), and cerebral infarction without residual deficits; Z79.01 Long term (current) use of anticoagulants; Z85.038 Personal history of other malignant neoplasm of large intestine
CPT/HCPCS: 31500; 36415; 36556; 36600; 70450; 71045; 71250; 74176; 80048; 80053; 81001; 82375; 82550; 82570; 82805; 82948; 83050; 83605; 83735; 83880; 84300; 84443; 84484; 85018; 85025; 85380; 85610; 85730; 86738; 87040; 87086; 87449; 87637; 87641; 87899; 93005; 94002; 94003; 94640; 96365; 96366; 96367; 96375; 96376; 99291; A9270; C1751; C8929; G0378; J0282; J0330; J0456; J0613; J0692; J0696; J1720; J2060; J2250; J2270; J3010; J3370; J3475; J7030; J7070; J7120; P9047; Q9957